=== PATIENT | male | born 1940 | race Caucasian/White ===

== ENCOUNTER 2018-04-08 16:56 | Inpatient (IN) | payer MEDICARE, OTHER ==
[~2018-04-08] VITALS: Ht 167.6 cm; Wt 108.4 kg
--- NOTE | 2018-04-08 | NUR ---
NURSE NOTES: Patient was requesting for ambien. Ambien from [facility] not continued by Dr. Jimenez, instead he ordered restoril. Left message to Dr. Jimenez and Dr. Pinto regarding patient requesting ambien. RN educated patient regarding restoril and patient agreed to try restoril tonight. Addendum: 04/09/18 at 0458 by JOSÉ MIGUEL AUGUSTE RN RN Wrong Date. Entry at 04/09/18 at 0000.
[~2018-04-08 16:56] MED LIST: ADVAIR 250-501 EACH INH; AMBIEN10 M1 ORAL; COUMADIN3 MG ORAL; DIGOXIN125 MCG ORAL; DUONEB 0.5-3(2.53 ML HHN; IPRAT-ALBUT 0.5-3 ML IH; LEXAPRO10 MG ORAL; LIPITOR40 MG ORAL; PRILOSEC20 MG ORAL; PROAIR HFA8.5 GM INH; PROSCAR5 MG ORAL; TOPIRAMATE100 MG ORAL; TOPROL XL50 MG ORAL; URECHOLINE50 MG ORAL
--- NOTE | 2018-04-08 17:01 | NUR ---
ED Nurse Note: Pt came from [facility] due to elevated PSA level of 107. This lab was taken on the 31 of March. Denies pain. A + O x4. Ambulatory. Hx of HTN and COPD. Has a left upper chest pacemaker.
[2018-04-08 17:03] VITALS: BP 111/49
--- NOTE | 2018-04-08 17:39 | NUR ---
ED Nurse Note: Xray at the bedside.
[2018-04-08 17:42] LABS: BASOPHILS % (AUTO) 0.9 % (0.0-2.0); EOSINOPHILS % (AUTO) 5.2 % (0.0-3.0); HEMATOCRIT 40.2 % (42.0-52.0); LYMPHOCYTES % (AUTO) 23.2 % (20.0-45.0); MEAN CORPUSCULAR VOLUME 93 FL (80-99); MONOCYTES % (AUTO) 8.1 % (1.0-10.0); NEUTROPHILS % (AUTO) 62.6 % (45.0-75.0); PLATELET COUNT 139 K/UL (150-450); RED BLOOD COUNT 4.34 M/UL (4.70-6.10); RED CELL DISTRIBUTION WIDTH 12.9 % (11.6-14.8); WHITE BLOOD COUNT 7.4 K/UL (4.8-10.8)
[2018-04-08 18:02] LABS: APPEARANCE,URINE CLOUDY; BILIRUBIN, URINE NEGATIVE (NEGATIVE); COLOR,URINE PALE YELLOW; GLUCOSE, URINE (UA) NEGATIVE (NEGATIVE); KETONES,URINE NEGATIVE (NEGATIVE); LEUKOCYTE ESTERASE ,URINE 2+ (NEGATIVE); NITRITE,URINE POSITIVE (NEGATIVE); PH,URINE 7 (4.5-8.0); PROTEIN,URINE NEGATIVE (NEGATIVE); UROBILINOGEN,URINE NORMAL MG/DL (0.0-1.0)
[2018-04-08 18:05] LABS: ANION GAP 9 mmol/L (5-15); BLOOD UREA NITROGEN 17 mg/dL (7-18); CALCIUM 6.9 MG/DL (8.5-10.1); CARBON DIOXIDE 22 MMOL/L (21-32); CHLORIDE 116 MMOL/L (98-107); CREATININE 0.8 MG/DL (0.55-1.30); SODIUM 147 MMOL/L (136-145)
[2018-04-08 18:10] LABS: ALANINE AMINOTRANSFERASE 18 U/L (12-78); ALBUMIN 2.4 G/DL (3.4-5.0); ALBUMIN/GLOBULIN RATIO 0.8 (1.0-2.7); ALKALINE PHOSPHATASE 68 U/L (46-116); ASPARTATE AMINO TRANSFERASE 20 U/L (15-37); BILIRUBIN,TOTAL 0.3 MG/DL (0.2-1.0)
--- NOTE | 2018-04-08 18:22 | Emergency Room Report ---
History of Present Illness General Chief Complaint: Abnormal Labs Source: Patient Present Illness HPI This patient presents from a residential facility. There are several different complaints. The patient suffered a fracture of his right fifth digit and underwent an x-ray at the residential facility. There was also concerned that he had hypoglycemia. He also had an abnormal PSA. The patient himself has no specific complaints. Allergies: Coded Allergies: NO KNOWN ALLERGIES (Unverified Allergy, Unknown, 11/29/14) Patient History Past Medical History: see triage record, DM, HTN, COPD, GERD Social History: Denies: smoking, alcohol use, drug use Reviewed Nursing Documentation: PMH: Agreed; PSxH: Agreed Nursing Documentation-PMH Past Medical History: No History, Except For Hx Cardiac Problems: Yes - Atrial Fibrillation Hx Hypertension: Yes Hx COPD: Yes Hx Diabetes: Yes Hx Cancer: No Hx Gastrointestinal Problems: Yes Hx Neurological Problems: No Review of Systems All Other Systems: negative except mentioned in HPI Physical Exam Vital Signs Date Time Temp Pulse Resp B/P (MAP) Pulse Ox O2 Delivery O2 Flow Rate FiO2 04/08/18 16:57 98.4 68 20 96/63 92 Room Air Sp02 EP Interpretation: reviewed, normal General Appearance: no apparent distress, alert, GCS 15, non-toxic Head: normocephalic, atraumatic Eyes: bilateral eye normal inspection, bilateral eye PERRL ENT: hearing grossly normal, normal pharynx, no angioedema, normal voice Neck: full range of motion, supple/symm/no masses Respiratory: chest non-tender, lungs clear, normal breath sounds, no respiratory distress, no retraction, no accessory muscle use, speaking full sentences Cardiovascular #1: regular rate, rhythm, no edema Gastrointestinal: normal bowel sounds, non tender, soft, non-distended, no guarding, no rebound Rectal: deferred Musculoskeletal: back normal, gait/station normal, normal range of motion, non- tender, calf tenderness Neurologic: alert, oriented x3, responsive, motor strength/tone normal, sensory intact, speech normal Psychiatric: judgement/insight normal, memory normal, mood/affect normal, no suicidal/homicidal ideation Reflexes: 3+ bicep (R), 3+ bicep (L), 3+ tricep (R), 3+ tricep (L), 3+ knee (R) , 3+ knee (L) Skin: normal color, no rash, warm/dry, well hydrated Lymphatic: no adenopathy Medical Decision Making Diagnostic Impression: Primary Impression: UTI (urinary tract infection) Additional Impression: Finger fracture, right Laboratory Tests Test 04/08/18 17:20 04/08/18 17:45 White Blood Count 7.4 K/UL (4.8-10.8) Red Blood Count 4.34 M/UL (4.70-6.10) L Hemoglobin 13.0 G/DL (14.2-18.0) L Hematocrit 40.2 % (42.0-52.0) L Mean Corpuscular Volume 93 FL (80-99) Mean Corpuscular Hemoglobin 30.0 PG (27.0-31.0) Mean Corpuscular Hemoglobin Concent 32.4 G/DL (32.0-36.0) Red Cell Distribution Width 12.9 % (11.6-14.8) Platelet Count 139 K/UL (150-450) L Mean Platelet Volume 6.3 FL (6.5-10.1) L Neutrophils (%) (Auto) 62.6 % (45.0-75.0) Lymphocytes (%) (Auto) 23.2 % (20.0-45.0) Monocytes (%) (Auto) 8.1 % (1.0-10.0) Eosinophils (%) (Auto) 5.2 % (0.0-3.0) H Basophils (%) (Auto) 0.9 % (0.0-2.0) Sodium Level 147 MMOL/L (136-145) H Potassium Level 3.0 MMOL/L (3.5-5.1) L Chloride Level 116 MMOL/L (98-107) H Carbon Dioxide Level 22 MMOL/L (21-32) Anion Gap 9 mmol/L (5-15) Blood Urea Nitrogen 17 mg/dL (7-18) Creatinine 0.8 MG/DL (0.55-1.30) Estimate Glomerular Filtration Rate mL/min (>60) Glucose Level 73 MG/DL (74-106) L Calcium Level 6.9 MG/DL (8.5-10.1) L Total Bilirubin 0.3 MG/DL (0.2-1.0) Aspartate Amino Transferase (AST) 20 U/L (15-37) Alanine Aminotransferase (ALT) 18 U/L (12-78) Alkaline Phosphatase 68 U/L (46-116) Total Protein 5.3 G/DL (6.4-8.2) L Albumin 2.4 G/DL (3.4-5.0) L Globulin 2.9 g/dL Albumin/Globulin Ratio 0.8 (1.0-2.7) L Urine Color Pale yellow Urine Appearance Cloudy Urine pH 7 (4.5-8.0) Urine Specific Interior 1.010 (1.005-1.035) Urine Protein Negative (NEGATIVE) Urine Glucose (UA) Negative (NEGATIVE) Urine Ketones Negative (NEGATIVE) Urine Blood Negative (NEGATIVE) Urine Nitrite Positive (NEGATIVE) H Urine Bilirubin Negative (NEGATIVE) Urine Urobilinogen Normal MG/DL (0.0-1.0) Urine Leukocyte Esterase 2+ (NEGATIVE) H Urine RBC 0-2 /HPF (0 - 0) H Urine WBC 20-30 /HPF (0 - 0) H Urine Squamous Epithelial Cells Occasional /LPF Urine Amorphous Sediment Many /LPF (NONE) H Urine Bacteria Many /HPF (NONE) H Last Vital Signs Date Time Temp Pulse Resp B/P (MAP) Pulse Ox O2 Delivery O2 Flow Rate FiO2 04/08/18 17:03 98.4 70 19 111/49 99 Room Air Heather Talbot DO Apr 08, 2018 18:22
--- NOTE | 2018-04-08 19:03 | NUR ---
HAND-OFF: Report given to AUNG Bee.
[2018-04-08 19:26] VITALS: BP 122/56
[2018-04-08] MEDS ORDERED: ESCITALOPRAM OX10 MG ORAL (20:25)
[2018-04-08] MEDS ORDERED: CASODEX50 MG ORAL (20:34)
[2018-04-08] MEDS ORDERED: TAMSULOSIN HCL0.4 MG ORAL (20:34)
[2018-04-08] MEDS ORDERED: NOVOLIN R100 UNIT/1 SUBQ (20:34)
[2018-04-08] MEDS ORDERED: CARAFATE1 G1 ORAL (20:34)
[2018-04-08] MEDS ORDERED: LUPRON DEPOT7.5 MG IM (20:34)
[2018-04-08] MEDS ORDERED: CALCIUM + VITA1 EAC1 PO (20:34)
[2018-04-08] MEDS ORDERED: ASPIR 8181 MG ORAL (20:34)
[2018-04-08] MEDS ORDERED: SENOKOT8.6 MG PO (20:34)
[2018-04-08] MEDS ORDERED: DOCUSATE SODIU250 MG ORAL (20:40)
[2018-04-08] MEDS ORDERED: Miralax 17gm pkt ORAL PRN (20:45)
[2018-04-08] MEDS ORDERED: Dextrose 50% 25ml Syringe IV PRN (20:45)
[2018-04-08] MEDS ORDERED: Morphine Sulfate 2mg/ml Inj(IV/IM USE ONLY) IVP PRN (20:45)
[2018-04-08] MEDS ORDERED: Albuterol/Ipratropium 3ml neb HHN PRN (20:45)
[2018-04-08] MEDS ORDERED: Nitroglycerin Subl 0.4mg tab SL PRN (20:45)
--- NOTE | 2018-04-08 22:30 | NUR ---
ER Nurse Note: Report given to AUNG Urias in [place] for continuity of care. Pt a&ox4, VSS, no signs of distress. All orders completed per ERMD orders. All belongings taken with pt.
[2018-04-08 22:31] VITALS: BP 111/50
--- NOTE | 2018-04-08 23:00 | NUR ---
NURSE NOTES: Patient admitted from ER via gurney. Patient is aox4, talkative, denies any pain or discomfort at this time. Belongings verified at bedside. Oriented patient to new room and unit. Noted with redess on sacral and perineal area, wound protocol initiated. Call light and urinal provided to patient. Admitting orders entered by Dr. Jimenez. Will continue POC.
[2018-04-08] MEDS ORDERED: Tamsulosin 0.4mg cap ORAL ONE (23:30)
[2018-04-08] MEDS: NovoLOG Insulin Flexpen SUBQ SCH (23:37)
[2018-04-08 23:47] VITALS: BP 119/63
[2018-04-09] MEDS: Cefepime HCl 2 GM in D5W 110 ML IV SCH ×2 (00:12→15:00)
[2018-04-09] MEDS ORDERED: Vancomycin 1.5 GM in D5W 275 ML IVPB SCH (02:00)
[2018-04-09 05:00] VITALS: BP 126/66
[2018-04-09] MEDS: NovoLOG Insulin Flexpen SUBQ SCH ×4 (05:41→20:42)
[2018-04-09 07:19] LABS: EOSINOPHILS % (AUTO) 6.7 % (0.0-3.0); HEMATOCRIT 36.2 % (42.0-52.0); HEMOGLOBIN 11.7 G/DL (14.2-18.0); LYMPHOCYTES % (AUTO) 27.7 % (20.0-45.0); MEAN CORPUSCULAR VOLUME 92 FL (80-99); MONOCYTES % (AUTO) 9.4 % (1.0-10.0); NEUTROPHILS % (AUTO) 55.2 % (45.0-75.0); PLATELET COUNT 128 K/UL (150-450); RED BLOOD COUNT 3.92 M/UL (4.70-6.10); RED CELL DISTRIBUTION WIDTH 12.8 % (11.6-14.8); WHITE BLOOD COUNT 5.8 K/UL (4.8-10.8)
[2018-04-09 07:22] LABS: ALANINE AMINOTRANSFERASE 17 U/L (12-78); ALBUMIN 2.9 G/DL (3.4-5.0); ALBUMIN/GLOBULIN RATIO 0.9 (1.0-2.7); ALKALINE PHOSPHATASE 69 U/L (46-116); ANION GAP 7 mmol/L (5-15); ASPARTATE AMINO TRANSFERASE 19 U/L (15-37); BILIRUBIN,TOTAL 0.6 MG/DL (0.2-1.0); BLOOD UREA NITROGEN 18 mg/dL (7-18); CALCIUM 8.7 MG/DL (8.5-10.1); CARBON DIOXIDE 26 MMOL/L (21-32); CHLORIDE 110 MMOL/L (98-107); CREATININE 0.9 MG/DL (0.55-1.30); POTASSIUM 3.9 MMOL/L (3.5-5.1); SODIUM 143 MMOL/L (136-145)
--- NOTE | 2018-04-09 07:40 | NUR ---
NURSE NOTES: Patient received in stable condition, eating breakfast in bed. Alert and oriented. Denies SOB or pain at this time. IV site patent and intact on right thumb. Seizure safety precautions maintained, padded rails, bed locked in low position. Call light placed within reach, will continue to monitor.
--- NOTE | 2018-04-09 07:41 | NUR ---
HAND-OFF: Report given to Estella Martinez RN.
[2018-04-09 08:00] VITALS: BP 124/65
[2018-04-09] MEDS: Topiramate 100mg tab ORAL SCH (08:08)
[2018-04-09] MEDS: Digoxin 0.125mg tab ORAL SCH (08:08)
[2018-04-09] MEDS: Heparin 5000 units/ml inj SUBQ SCH ×2 (08:16→20:41)
--- NOTE | 2018-04-09 11:24 | NUR ---
NURSE NOTES:WOUND CARE NOTES:Pt presented on admission with DTPI at sacrococcygeal area .Small purple with red tinged and indurated area noted (L)1.2cm x (W01cm Addendum: 04/09/18 at 1136 by Shanon PATRICION Addendum to Above Wound Notes:(L)1.2cm x (W)1cm.Pt verbalized site is tender when minimally palpated. Erythema secondary to moisture associated noted abd folds, bilat groin ,scrotum and cleft of buttocks.Skin Folds of abd. is malodorous. Both heels are soft but easily blanchable. Education on wound prevention provided to pt .Encouraged pt to shift weight frequently.Pt advised of potential for DTPI becoming an open wound if pressure is not being relieved off buttocks. Encouraged to keep heels off-loaded with pillow. Tx.Plan:Apply Triad Paste to abdominal folds ,scrotum and clefts of buttocks with each perineal care. Apply Cavilon Skin Barrier to sacrococcygeal area.Cover with Optifoam Q3days and prn. APM/CRISTIAN mattress overlay. Encourage and assit with repositioning at least every 2hours or as tolerated. Apply Cavilon to heels .Cover with Optifoam drsg Q7 days and prn. Off-load heels with pillow.
[2018-04-09 12:00] VITALS: BP 98/53
--- NOTE | 2018-04-09 12:01 | Consultation ---
History of Present Illness General Date patient seen: Apr 09, 2018 Chief Complaint: Abnormal Labs Present Illness Allergies: Coded Allergies: NO KNOWN ALLERGIES (Unverified Allergy, Unknown, 11/29/14) Medication History Scheduled Aspirin* (Aspir 81*), 81 MG ORAL DAILY, (Reported) Atorvastatin Calcium* (Lipitor*), 40 MG ORAL BEDTIME, (Reported) Bicalutamide (Casodex), 50 MG ORAL DAILY, (Reported) Calcium Carbonate/Vitamin D3 (Calcium + Vitamin D Tablet), 2 EACH PO DAILY, ( Reported) Digoxin* (Digoxin*), 125 MCG ORAL DAILY, (Reported) Docusate Sodium* (Docusate Sodium*), 250 MG ORAL HS, (Reported) Escitalopram Oxalate (Escitalopram Oxalate*), 5 MG ORAL BEDTIME, (Reported) Finasteride* (Proscar*), 5 MG ORAL DAILY, (Reported) Insulin Regular, Human* (Novolin R*), 0 SUBQ .SLIDING SCALE, (Reported) Leuprolide Acetate (Lupron Depot), 7.5 MG IM MONTHLY ON THE , (Reported) Sennosides (Senokot), 2 TAB PO BID, (Reported) Sucralfate* (Carafate*), 1 GM ORAL TID AC, (Reported) Tamsulosin Hcl (Tamsulosin Hcl*), 0.4 MG ORAL BEDTIME, (Reported) Topiramate* (Topamax*), 100 MG ORAL DAILY, (Reported) Scheduled PRN Zolpidem Tartrate* (Ambien*), 5 MG ORAL HS PRN for Insomnia, (Reported) Discontinued Medications Albuterol Sulfate* (Proair Hfa*), 2 PUFFS INH BID, (Reported) Discontinued Reason: Pt stopped taking med Bethanechol Chl* (Urecholine*), 50 MG ORAL DAILY, (Reported) Discontinued Reason: Pt stopped taking med Fluticasone/Salmeterol (Advair 250-50 Diskus), 1 PUFF INH EVERY 12 HOURS, ( Reported) Discontinued Reason: Pt stopped taking med Ipratropium/Albuterol Sulfate (Iprat-Albut 0.5-3(2.5) Mg/3 Ml), 3 ML IH, ( Reported) Discontinued Reason: Pt stopped taking med Ipratropium/Albuterol Sulfate (DuoNeb 0.5-3(2.5)mg/3ml), 3 ML HHN, (Reported) Discontinued Reason: Pt stopped taking med Metoprolol Succinate* (Toprol Xl*), 50 MG ORAL DAILY, (Reported) Discontinued Reason: Pt stopped taking med Omeprazole (Prilosec), 20 MG ORAL BEFORE BREAKFAST, (Reported) Discontinued Reason: Pt stopped taking med Warfarin Sod* (Coumadin*), 3 MG ORAL DAILY, (Reported) Discontinued Reason: Pt stopped taking med Patient History Healthcare decision maker Resuscitation status Full Code Advanced Directive on File Past Medical/Surgical History Past Medical/Surgical History: (1) Anemia (2) COPD (chronic obstructive pulmonary disease) (3) Diabetes (4) HTN (hypertension) Review of Systems All Other Systems: negative except mentioned in HPI Physical Exam General Appearance: WD/WN Lines, tubes and drains: peripheral HEENT: normocephalic, atraumatic Neck: non-tender, supple Respiratory/Chest: chest wall non-tender, lungs clear Cardiovascular/Chest: normal peripheral pulses, regular rhythm Abdomen: normal bowel sounds, non tender, abnormal bowel sounds Genitourinary/Rectal: normal genital exam Extremities: normal range of motion Last 24 Hour Vital Signs Date Time Temp Pulse Resp B/P (MAP) Pulse Ox O2 Delivery O2 Flow Rate FiO2 04/09/18 09:00 Room Air 04/09/18 08:08 60 04/09/18 08:00 98.4 64 20 124/65 (84) 95 04/09/18 05:00 98.2 60 17 126/66 (86) 96 04/08/18 23:47 98.1 62 18 119/63 (81) 95 04/08/18 23:00 Room Air 04/08/18 22:35 98.4 66 19 111/50 99 Room Air 04/08/18 22:31 98.4 66 19 111/50 99 Room Air 04/08/18 19:26 98.5 72 16 122/56 99 Room Air 04/08/18 17:03 98.4 70 19 111/49 99 Room Air 04/08/18 16:57 98.4 68 20 96/63 92 Room Air Intake and Output 04/08/18 04/09/18 19:00 07:00 Intake Total 1785 ml Output Total 500 ml Balance 1285 ml Intake Oral 400 ml IV Total 1385 ml Output Urine Total 500 ml Laboratory Tests Test 04/08/18 17:20 04/08/18 17:45 04/09/18 05:45 White Blood Count 7.4 K/UL (4.8-10.8) 5.8 K/UL (4.8-10.8) Red Blood Count 4.34 M/UL (4.70-6.10) L 3.92 M/UL (4.70-6.10) L Hemoglobin 13.0 G/DL (14.2-18.0) L 11.7 G/DL (14.2-18.0) L Hematocrit 40.2 % (42.0-52.0) L 36.2 % (42.0-52.0) L Mean Corpuscular Volume 93 FL (80-99) 92 FL (80-99) Mean Corpuscular Hemoglobin 30.0 PG (27.0-31.0) 29.7 PG (27.0-31.0) Mean Corpuscular Hemoglobin Concent 32.4 G/DL (32.0-36.0) 32.2 G/DL (32.0-36.0) Red Cell Distribution Width 12.9 % (11.6-14.8) 12.8 % (11.6-14.8) Platelet Count 139 K/UL (150-450) L 128 K/UL (150-450) L Mean Platelet Volume 6.3 FL (6.5-10.1) L 7.6 FL (6.5-10.1) Neutrophils (%) (Auto) 62.6 % (45.0-75.0) 55.2 % (45.0-75.0) Lymphocytes (%) (Auto) 23.2 % (20.0-45.0) 27.7 % (20.0-45.0) Monocytes (%) (Auto) 8.1 % (1.0-10.0) 9.4 % (1.0-10.0) Eosinophils (%) (Auto) 5.2 % (0.0-3.0) H 6.7 % (0.0-3.0) H Basophils (%) (Auto) 0.9 % (0.0-2.0) 1.0 % (0.0-2.0) Sodium Level 147 MMOL/L (136-145) H 143 MMOL/L (136-145) Potassium Level 3.0 MMOL/L (3.5-5.1) L 3.9 MMOL/L (3.5-5.1) Chloride Level 116 MMOL/L (98-107) H 110 MMOL/L (98-107) H Carbon Dioxide Level 22 MMOL/L (21-32) 26 MMOL/L (21-32) Anion Gap 9 mmol/L (5-15) 7 mmol/L (5-15) Blood Urea Nitrogen 17 mg/dL (7-18) 18 mg/dL (7-18) Creatinine 0.8 MG/DL (0.55-1.30) 0.9 MG/DL (0.55-1.30) Estimat Glomerular Filtration Rate mL/min (>60) mL/min (>60) Glucose Level 73 MG/DL (74-106) L 76 MG/DL (74-106) Calcium Level 6.9 MG/DL (8.5-10.1) L 8.7 MG/DL (8.5-10.1) # Total Bilirubin 0.3 MG/DL (0.2-1.0) 0.6 MG/DL (0.2-1.0) Aspartate Amino Transf (AST/SGOT) 20 U/L (15-37) 19 U/L (15-37) Alanine Aminotransferase (ALT/SGPT) 18 U/L (12-78) 17 U/L (12-78) Alkaline Phosphatase 68 U/L (46-116) 69 U/L (46-116) Total Protein 5.3 G/DL (6.4-8.2) L 6.3 G/DL (6.4-8.2) L Albumin 2.4 G/DL (3.4-5.0) L 2.9 G/DL (3.4-5.0) L Globulin 2.9 g/dL 3.4 g/dL Albumin/Globulin Ratio 0.8 (1.0-2.7) L 0.9 (1.0-2.7) L Urine Color Pale yellow Urine Appearance Cloudy Urine pH 7 (4.5-8.0) Urine Specific White 1.010 (1.005-1.035) Urine Protein Negative (NEGATIVE) Urine Glucose (UA) Negative (NEGATIVE) Urine Ketones Negative (NEGATIVE) Urine Blood Negative (NEGATIVE) Urine Nitrite Positive (NEGATIVE) H Urine Bilirubin Negative (NEGATIVE) Urine Urobilinogen Normal MG/DL (0.0-1.0) Urine Leukocyte Esterase 2+ (NEGATIVE) H Urine RBC 0-2 /HPF (0 - 0) H Urine WBC 20-30 /HPF (0 - 0) H Urine Squamous Epithelial Cells Occasional /LPF Urine Amorphous Sediment Many /LPF (NONE) H Urine Bacteria Many /HPF (NONE) H Height (Feet): 5 Height (Inches): 6.00 Weight (Pounds): 239 Medications Current Medications Medications (Trade) Dose Ordered Sig/Maliha Route PRN Reason Start Time Stop Time Status Last Admin Dose Admin Acetaminophen (Tylenol) 650 mg Q4H PRN ORAL fever 04/08/18 20:45 05/08/18 20:44 Albuterol/ Ipratropium (Albuterol/ Ipratropium) 3 ml Q4H PRN HHN Shortness of Breath 04/08/18 20:45 04/13/18 20:44 Atorvastatin Calcium (Lipitor) 40 mg BEDTIME ORAL 04/09/18 21:00 05/09/18 20:59 Cefepime HCl 2 gm/ Dextrose 110 ml @ 220 mls/hr 0000,1200 IV 04/09/18 00:00 04/16/18 00:00 04/09/18 00:12 Dextrose (Dextrose 50%) 25 ml Q30M PRN IV Hypoglycemia 04/08/18 20:45 05/08/18 20:44 Dextrose (Dextrose 50%) 50 ml Q30M PRN IV hypoglycemia 04/08/18 20:45 05/08/18 20:44 Digoxin (Lanoxin) 0.125 mg DAILY ORAL 04/09/18 09:00 05/09/18 08:59 04/09/18 08:08 Escitalopram Oxalate (Lexapro) 5 mg DAILY ORAL 04/09/18 09:00 05/09/18 08:59 04/09/18 08:07 Finasteride (Proscar) 5 mg DAILY ORAL 04/09/18 09:00 05/09/18 08:59 04/09/18 08:08 Heparin Sodium (Porcine) (Heparin 5000 units/ml) 5,000 units EVERY 12 HOURS SUBQ 04/09/18 09:00 05/09/18 08:59 04/09/18 08:16 Insulin Aspart (NovoLOG) BEFORE MEALS AND HS SUBQ 04/09/18 06:30 05/09/18 06:29 04/08/18 23:37 Morphine Sulfate (Morphine Sulfate) 2 mg Q4H PRN IVP Moderate Pain (Pain Scale 4-6) 04/08/18 20:45 04/15/18 20:44 Nitroglycerin (Ntg) 0.4 mg Q5M PRN SL Prn Chest Pain 04/08/18 20:45 05/08/18 20:44 Ondansetron HCl (Zofran) 4 mg Q6H PRN IVP Nausea & Vomiting 04/08/18 20:45 05/08/18 20:44 Polyethylene Glycol (Miralax) 17 gm DAILYPRN PRN ORAL Constipation 04/08/18 20:45 05/08/18 20:44 Tamsulosin HCl (Flomax) 0.4 mg BEDTIME ORAL 04/09/18 21:00 05/09/18 20:59 Topiramate (Topamax) 100 mg DAILY ORAL 04/09/18 09:00 05/09/18 08:59 04/09/18 08:08 Vancomycin HCl (Vanco rx to dose) 1 ea DAILY PRN MISC rx protocol 04/09/18 08:15 05/09/18 08:14 Vancomycin HCl 1.5 gm/Dextrose 275 ml @ 184 mls/hr Q24H IVPB 04/09/18 02:00 04/14/18 01:59 04/09/18 01:52 Zolpidem Tartrate (Ambien) 5 mg HSPRN PRN ORAL Insomnia 04/09/18 05:00 04/16/18 04:59 Assessment/Plan Problem List: (1) UTI (urinary tract infection) ICD Codes: N39.0 - Urinary tract infection, site not specified SNOMED: 40187924 (2) COPD (chronic obstructive pulmonary disease) ICD Codes: J44.9 - Chronic obstructive pulmonary disease, unspecified SNOMED: 91938306 (3) Anemia ICD Codes: D64.9 - Anemia, unspecified SNOMED: 395203892 (4) HTN (hypertension) ICD Codes: I10 - Essential (primary) hypertension SNOMED: 88205356 (5) Diabetes ICD Codes: E11.9 - Type 2 diabetes mellitus without complications SNOMED: 70343257 Karen Jimenez MD Apr 09, 2018 12:01
--- NOTE | 2018-04-09 12:32 | Diagnostic Imaging Report ---
Indication: Pain, trauma Technique: 3 views of the right fifth finger Comparison: none Findings: There are severe degenerative changes of the distal interphalangeal joint, with marked irregularity of both articular surfaces. On the lateral view, an ossific density projects posterior to the head of the middle phalanx. Ill-defined ossific density also projects anterior to the head of the middle phalanx. No other evidence of acute fracture. No dislocations. Impression: Ossific density projected posterior of the middle phalanx. This is consistent with a fracture, but given the well-corticated appearance of the fragment suspect that this is old rather than acute although this cannot be stated for certain. Bone of origin uncertain. 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
--- NOTE | 2018-04-09 14:23 | NUR ---
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 98.4, Resp. 19, O2Sat 99 Room Air RBC 4.34, Hgb 13.0, Hct 40.2, Plt count 139, MPV 6.3, Eos% 5.2 CXR Impression: Small fracture fragment anterior to distal phalanx IS: NS IV x 1L Flomax 0.4 mg PO K-Dur 60 meq PO Admitted to [facility] DC plan return to [facility]
--- NOTE | 2018-04-09 14:32 | Consultation ---
History of Present Illness General Date patient seen: Apr 09, 2018 Chief Complaint: Abnormal Labs Present Illness HPI 77 y/o M with hx of Dm2, HTN, COPD, AFib, GERD, SNF resident presents to ED on with R 5th digit fracture and hypoglycemia. No urinary symptoms Allergies: Coded Allergies: NO KNOWN ALLERGIES (Unverified Allergy, Unknown, 11/29/14) Medication History Scheduled Aspirin* (Aspir 81*), 81 MG ORAL DAILY, (Reported) Atorvastatin Calcium* (Lipitor*), 40 MG ORAL BEDTIME, (Reported) Bicalutamide (Casodex), 50 MG ORAL DAILY, (Reported) Calcium Carbonate/Vitamin D3 (Calcium + Vitamin D Tablet), 2 EACH PO DAILY, ( Reported) Digoxin* (Digoxin*), 125 MCG ORAL DAILY, (Reported) Docusate Sodium* (Docusate Sodium*), 250 MG ORAL HS, (Reported) Escitalopram Oxalate (Escitalopram Oxalate*), 5 MG ORAL BEDTIME, (Reported) Finasteride* (Proscar*), 5 MG ORAL DAILY, (Reported) Insulin Regular, Human* (Novolin R*), 0 SUBQ .SLIDING SCALE, (Reported) Leuprolide Acetate (Lupron Depot), 7.5 MG IM MONTHLY ON THE , (Reported) Sennosides (Senokot), 2 TAB PO BID, (Reported) Sucralfate* (Carafate*), 1 GM ORAL TID AC, (Reported) Tamsulosin Hcl (Tamsulosin Hcl*), 0.4 MG ORAL BEDTIME, (Reported) Topiramate* (Topamax*), 100 MG ORAL DAILY, (Reported) Scheduled PRN Zolpidem Tartrate* (Ambien*), 5 MG ORAL HS PRN for Insomnia, (Reported) Discontinued Medications Albuterol Sulfate* (Proair Hfa*), 2 PUFFS INH BID, (Reported) Discontinued Reason: Pt stopped taking med Bethanechol Chl* (Urecholine*), 50 MG ORAL DAILY, (Reported) Discontinued Reason: Pt stopped taking med Fluticasone/Salmeterol (Advair 250-50 Diskus), 1 PUFF INH EVERY 12 HOURS, ( Reported) Discontinued Reason: Pt stopped taking med Ipratropium/Albuterol Sulfate (Iprat-Albut 0.5-3(2.5) Mg/3 Ml), 3 ML IH, ( Reported) Discontinued Reason: Pt stopped taking med Ipratropium/Albuterol Sulfate (DuoNeb 0.5-3(2.5)mg/3ml), 3 ML HHN, (Reported) Discontinued Reason: Pt stopped taking med Metoprolol Succinate* (Toprol Xl*), 50 MG ORAL DAILY, (Reported) Discontinued Reason: Pt stopped taking med Omeprazole (Prilosec), 20 MG ORAL BEFORE BREAKFAST, (Reported) Discontinued Reason: Pt stopped taking med Warfarin Sod* (Coumadin*), 3 MG ORAL DAILY, (Reported) Discontinued Reason: Pt stopped taking med Patient History Healthcare decision maker Resuscitation status Full Code Advanced Directive on File Patient History Narrative Pmhx: as above Shx: Denies: smoking, alcohol use, drug use Fhx: non contributory Review of Systems All Other Systems: negative except mentioned in HPI Physical Exam Physical Exam Narrative General Appearance: WD/WN Lines, tubes and drains: peripheral HEENT: normocephalic, atraumatic Neck: non-tender, supple Respiratory/Chest: chest wall non-tender, lungs clear Cardiovascular/Chest: normal peripheral pulses, regular rhythm Abdomen: normal bowel sounds, non tender, abnormal bowel sounds Genitourinary/Rectal: normal genital exam Extremities: normal range of motion Last 24 Hour Vital Signs Date Time Temp Pulse Resp B/P (MAP) Pulse Ox O2 Delivery O2 Flow Rate FiO2 04/09/18 12:00 98.4 60 19 98/53 (68) 97 04/09/18 09:00 Room Air 04/09/18 08:08 60 04/09/18 08:00 98.4 64 20 124/65 (84) 95 04/09/18 05:00 98.2 60 17 126/66 (86) 96 04/08/18 23:47 98.1 62 18 119/63 (81) 95 04/08/18 23:00 Room Air 04/08/18 22:35 98.4 66 19 111/50 99 Room Air 04/08/18 22:31 98.4 66 19 111/50 99 Room Air 04/08/18 19:26 98.5 72 16 122/56 99 Room Air 04/08/18 17:03 98.4 70 19 111/49 99 Room Air 04/08/18 16:57 98.4 68 20 96/63 92 Room Air Intake and Output 04/08/18 04/09/18 19:00 07:00 Intake Total 1785 ml Output Total 500 ml Balance 1285 ml Intake Oral 400 ml IV Total 1385 ml Output Urine Total 500 ml Laboratory Tests Test 04/08/18 17:20 04/08/18 17:45 04/09/18 05:45 White Blood Count 7.4 K/UL (4.8-10.8) 5.8 K/UL (4.8-10.8) Red Blood Count 4.34 M/UL (4.70-6.10) L 3.92 M/UL (4.70-6.10) L Hemoglobin 13.0 G/DL (14.2-18.0) L 11.7 G/DL (14.2-18.0) L Hematocrit 40.2 % (42.0-52.0) L 36.2 % (42.0-52.0) L Mean Corpuscular Volume 93 FL (80-99) 92 FL (80-99) Mean Corpuscular Hemoglobin 30.0 PG (27.0-31.0) 29.7 PG (27.0-31.0) Mean Corpuscular Hemoglobin Concent 32.4 G/DL (32.0-36.0) 32.2 G/DL (32.0-36.0) Red Cell Distribution Width 12.9 % (11.6-14.8) 12.8 % (11.6-14.8) Platelet Count 139 K/UL (150-450) L 128 K/UL (150-450) L Mean Platelet Volume 6.3 FL (6.5-10.1) L 7.6 FL (6.5-10.1) Neutrophils (%) (Auto) 62.6 % (45.0-75.0) 55.2 % (45.0-75.0) Lymphocytes (%) (Auto) 23.2 % (20.0-45.0) 27.7 % (20.0-45.0) Monocytes (%) (Auto) 8.1 % (1.0-10.0) 9.4 % (1.0-10.0) Eosinophils (%) (Auto) 5.2 % (0.0-3.0) H 6.7 % (0.0-3.0) H Basophils (%) (Auto) 0.9 % (0.0-2.0) 1.0 % (0.0-2.0) Sodium Level 147 MMOL/L (136-145) H 143 MMOL/L (136-145) Potassium Level 3.0 MMOL/L (3.5-5.1) L 3.9 MMOL/L (3.5-5.1) Chloride Level 116 MMOL/L (98-107) H 110 MMOL/L (98-107) H Carbon Dioxide Level 22 MMOL/L (21-32) 26 MMOL/L (21-32) Anion Gap 9 mmol/L (5-15) 7 mmol/L (5-15) Blood Urea Nitrogen 17 mg/dL (7-18) 18 mg/dL (7-18) Creatinine 0.8 MG/DL (0.55-1.30) 0.9 MG/DL (0.55-1.30) Estimat Glomerular Filtration Rate mL/min (>60) mL/min (>60) Glucose Level 73 MG/DL (74-106) L 76 MG/DL (74-106) Calcium Level 6.9 MG/DL (8.5-10.1) L 8.7 MG/DL (8.5-10.1) # Total Bilirubin 0.3 MG/DL (0.2-1.0) 0.6 MG/DL (0.2-1.0) Aspartate Amino Transf (AST/SGOT) 20 U/L (15-37) 19 U/L (15-37) Alanine Aminotransferase (ALT/SGPT) 18 U/L (12-78) 17 U/L (12-78) Alkaline Phosphatase 68 U/L (46-116) 69 U/L (46-116) Total Protein 5.3 G/DL (6.4-8.2) L 6.3 G/DL (6.4-8.2) L Albumin 2.4 G/DL (3.4-5.0) L 2.9 G/DL (3.4-5.0) L Globulin 2.9 g/dL 3.4 g/dL Albumin/Globulin Ratio 0.8 (1.0-2.7) L 0.9 (1.0-2.7) L Urine Color Pale yellow Urine Appearance Cloudy Urine pH 7 (4.5-8.0) Urine Specific [place] 1.010 (1.005-1.035) Urine Protein Negative (NEGATIVE) Urine Glucose (UA) Negative (NEGATIVE) Urine Ketones Negative (NEGATIVE) Urine Blood Negative (NEGATIVE) Urine Nitrite Positive (NEGATIVE) H Urine Bilirubin Negative (NEGATIVE) Urine Urobilinogen Normal MG/DL (0.0-1.0) Urine Leukocyte Esterase 2+ (NEGATIVE) H Urine RBC 0-2 /HPF (0 - 0) H Urine WBC 20-30 /HPF (0 - 0) H Urine Squamous Epithelial Cells Occasional /LPF Urine Amorphous Sediment Many /LPF (NONE) H Urine Bacteria Many /HPF (NONE) H Free Prostate Specific Antigen Pending Percent Free Prostate Specific Ag Pending Prostate Specific Antigen Total Pending Height (Feet): 5 Height (Inches): 6.00 Weight (Pounds): 239 Medications Current Medications Medications (Trade) Dose Ordered Sig/Maliha Route PRN Reason Start Time Stop Time Status Last Admin Dose Admin Acetaminophen (Tylenol) 650 mg Q4H PRN ORAL fever 04/08/18 20:45 05/08/18 20:44 Albuterol/ Ipratropium (Albuterol/ Ipratropium) 3 ml Q4H PRN HHN Shortness of Breath 04/08/18 20:45 04/13/18 20:44 Atorvastatin Calcium (Lipitor) 40 mg BEDTIME ORAL 04/09/18 21:00 05/09/18 20:59 Cefepime HCl 2 gm/ Dextrose 110 ml @ 220 mls/hr 0000,1200 IV 04/09/18 00:00 04/16/18 00:00 04/09/18 00:12 Dextrose (Dextrose 50%) 25 ml Q30M PRN IV Hypoglycemia 04/08/18 20:45 05/08/18 20:44 Dextrose (Dextrose 50%) 50 ml Q30M PRN IV hypoglycemia 04/08/18 20:45 05/08/18 20:44 Digoxin (Lanoxin) 0.125 mg DAILY ORAL 04/09/18 09:00 05/09/18 08:59 04/09/18 08:08 Escitalopram Oxalate (Lexapro) 5 mg DAILY ORAL 04/09/18 09:00 05/09/18 08:59 04/09/18 08:07 Finasteride (Proscar) 5 mg DAILY ORAL 04/09/18 09:00 05/09/18 08:59 04/09/18 08:08 Heparin Sodium (Porcine) (Heparin 5000 units/ml) 5,000 units EVERY 12 HOURS SUBQ 04/09/18 09:00 05/09/18 08:59 04/09/18 08:16 Insulin Aspart (NovoLOG) BEFORE MEALS AND HS SUBQ 04/09/18 06:30 05/09/18 06:29 04/08/18 23:37 Morphine Sulfate (Morphine Sulfate) 2 mg Q4H PRN IVP Moderate Pain (Pain Scale 4-6) 04/08/18 20:45 04/15/18 20:44 Nitroglycerin (Ntg) 0.4 mg Q5M PRN SL Prn Chest Pain 04/08/18 20:45 05/08/18 20:44 Ondansetron HCl (Zofran) 4 mg Q6H PRN IVP Nausea & Vomiting 04/08/18 20:45 05/08/18 20:44 Polyethylene Glycol (Miralax) 17 gm DAILYPRN PRN ORAL Constipation 04/08/18 20:45 05/08/18 20:44 Tamsulosin HCl (Flomax) 0.4 mg BEDTIME ORAL 04/09/18 21:00 05/09/18 20:59 Topiramate (Topamax) 100 mg DAILY ORAL 04/09/18 09:00 05/09/18 08:59 04/09/18 08:08 Vancomycin HCl (Vanco rx to dose) 1 ea DAILY PRN MISC rx protocol 04/09/18 08:15 05/09/18 08:14 Vancomycin HCl 1.5 gm/Dextrose 275 ml @ 184 mls/hr Q24H IVPB 04/09/18 02:00 04/14/18 01:59 04/09/18 01:52 Zolpidem Tartrate (Ambien) 5 mg HSPRN PRN ORAL Insomnia 04/09/18 05:00 04/16/18 04:59 Assessment/Plan Assessment/Plan Abx: IV Vancomycin 04/09- Cefepime 04/09- Assessment: Afebrile No leukocytosis Pyuria- no UTI symptoms -u/a wbc 20-30, nit +, leuk +2; ucx p R 5th digit fracture -Xray R hand: Ossific density projected posterior of the middle phalanx. This is consistent with a fracture, but given the well-corticated appearance of the fragment suspect that this is old rather than acute although this cannot be stated for certain. Bone of origin uncertain. There is also suggestion of a small fracture fragment anterior to the distal phalanx. 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 Will continue to follow along with you. Discussed with Susan Dewey M.D. Apr 09, 2018 14:32
[2018-04-09] MEDS ORDERED: LORazepam 1mg tab ORAL PRN (15:00)
[2018-04-09 16:00] VITALS: BP 106/64
--- NOTE | 2018-04-09 16:13 | NUR ---
*-* INSURANCE *-* ALL AVAILABLE CLINICALS AND REVIEWS HAVE BEEN FAXED TO: JIMMY LOZADA P:[phone] F:[phone]
--- NOTE | 2018-04-09 17:00 | History and Physical Report ---
DATE OF ADMISSION: 04/08/2018 CONSULTANTS: 1. Karen Jimenez M.D. 2. Chin Cope M.D. 3. Stephon Castillo M.D. 4. Mahendra Flores M.D. 5. Molina Tapia M.D. CHIEF COMPLAINT: Right fifth finger fracture and urinary tract infection. BRIEF HISTORY: This is a 77-year-old male, who lives at [facility], presents with history of fall, striking right finger, diagnosed with the fracture, came to [facility], diagnosed with the above as well as urinary tract infection, and admitted to medical floor for further treatment. Currently, calm in bed. No complaint. PAST MEDICAL HISTORY: Includes hypertension, diabetes, chronic obstructive pulmonary disease, and anemia. PAST SURGICAL HISTORY: Pacer. MEDICATIONS: Include Lipitor, Flomax, Lanoxin, Lexapro, Proscar, Topamax, heparin, vancomycin, Ambien, cefepime, albuterol, Tylenol, and morphine. ALLERGIES: Denies. SOCIAL HISTORY: No smoking. No alcohol. No intravenous drug abuse. FAMILY HISTORY: Noncontributory. REVIEW OF SYSTEMS: No chest pain. No shortness of breath. No nausea, vomiting, or diarrhea. PHYSICAL EXAMINATION: GENERAL: Calm in bed, oriented x2, in no acute distress. VITAL SIGNS: Temperature 98 degrees, pulse 68, respirations 19, and blood pressure 90/53. CARDIOVASCULAR: No murmurs. LUNGS: Distant and clear. ABDOMEN: Bowel sounds positive. Nontender. Nondistended. EXTREMITIES: No cyanosis, clubbing, or edema. Right fifth fingertip slightly swollen, red, and slightly tender. NEUROLOGIC: The patient moves all extremities, slightly weak. LABORATORY AND DIAGNOSTIC DATA: Hemoglobin and hematocrit are 11 and 36 and platelets 128,000. Otherwise, CBC is normal. BMP show chloride is 110 and albumin 2.9, otherwise BMP is normal. Urinalysis show 2+ leukocyte esterase. ASSESSMENT: 1. Right fifth finger fracture. 2. Urinary tract infection. 3. Per patient, elevated PSA. 4. Anemia. 5. Diabetes. 6. Hypertension. 7. Chronic obstructive pulmonary disease. 8. Malnutrition. PLAN: 1. Pain control. 2. Dietary followup. 3. Antibiotics per Infectious Disease. 4. Blood pressure and blood sugar control. 5. We will continue to follow this patient. 6. Resume home medications. Mickey Pinto D.O. DR: LUPE JOB#: [id number] CC:
[2018-04-09 17:21] VITALS: BP 106/64
--- NOTE | 2018-04-09 19:38 | NUR ---
HAND-OFF: Report given to Carmella HORAN.
--- NOTE | 2018-04-09 19:47 | NUR ---
NURSE NOTES: PATIENT IN BED, AWAKE, ALERT, TALKATIVE. IV IN PLACE, PATENT. NO COMPLAINTS OF PAIN AT THIS TIME. NO S/S DISTRESS NOTED. BED IN LOWEST POSITION, CALL LIGHT WITHIN REACH, BED ALARM ON. WILL CONTINUE TO MONITOR.
[2018-04-09 20:00] VITALS: BP 112/52
[2018-04-09] MEDS: Atorvastatin 20mg tab ORAL SCH (20:38)
[2018-04-09] MEDS: Tamsulosin 0.4mg cap ORAL SCH (20:38)
[2018-04-09] MEDS: Zolpidem 5mg tab ORAL PRN (20:56)
--- NOTE | 2018-04-09 22:15 | Consultation ---
DATE OF CONSULTATION: 04/09/2018 CONSULTING PHYSICIAN: Molina Tapia M.D. HISTORY OF PRESENT ILLNESS: The patient is a 77-year-old male patient. The patient has a history of pyelonephritis, but this patient came into the hospital confused and disorganized. He came into the hospital because he has pyelonephritis. He has a history of pyelonephritis. The patient also has overlying diagnosis of bipolar 2 disorder and he seemed to perseverate on a lot of topics. It is difficult for him to move on to different topics. He does have depression, confusion, and mood lability. He has no logical plan for his own self-care, feelings of helplessness and hopelessness, low energy, poor appetite, and loss of interest in activity. He does have racing thoughts. When I saw him in his room, he had pressured speech pattern. It was difficult to slow him down from talking and I think his mood lability has worsened secondary to stress of his medical illness. PAST MEDICAL HISTORY: Urinary tract infection. He has a finger fracture, pyelonephritis, diabetes, atrial fibrillation, and COPD. ALLERGIES: He has known drug allergies. MEDICATIONS: Psychotropic medications on admission, he is currently on a psych med regimen consisting of Topamax 100 mg daily and Ativan 1 mg every 6 hours. He is on Lexapro currently. SUBSTANCE ABUSE HISTORY: Denies. PAIN ASSESSMENT: 04/19 pain. DEVELOPMENTAL PROBLEMS: Denies. FAMILY PSYCHIATRIC HISTORY: Denies. SOCIAL HISTORY: This patient is currently living in [facility]. Financially supported by [facility] and Medicare. STRENGTHS: He is motivated to get better and he is healthy. WEAKNESSES: He is impulsive and minimal support system. MENTAL STATUS EXAMINATION: He is a 77-year-old male. Appearance is disheveled. Attitude is irritable and agitated. Affect, guarded and restricted. Intellect poor. Mood depressed and anxious. Motor activity, psychomotor agitation. Attention span is poor. Orientation x2. Speech is low volume and slurred. Thought process, disorganized and logical. Insight and judgment is poor. DIAGNOSES: 1. Bipolar 2. 2. Medical is pyelonephritis, diabetes, hypertension, . 3. Psychosocial stressors, financial. PLAN: I am going to continue this patient on psychotropic medication regimen consisting of Lexapro. I am going to titrate up to 10 mg daily. Continue Topamax 100 mg daily and Ativan 1 mg every 6 hours p.r.n. anxiety and agitation. Provided him 20 minutes of reality-based supportive psychotherapy. I encouraged him to interact appropriately with staff and other patients. Chart reviewed and discussed with staff. The patient is seen and assessed at bedside. Twenty minutes of cognitive behavioral therapy was provided to help him identify his automatic negative thoughts, help him to convert those negative thoughts to more positive thoughts to reduce depression, anxiety, and suicidality. Chart reviewed. Discussed with staff. Seen and assessed in his room. Molina Tapia M.D. DR: MARIELOS JOB#: [id number] CC:
--- NOTE | 2018-04-10 00:45 | Consultation ---
DATE OF CONSULTATION: 04/09/2018 ORTHOPEDIC CONSULTATION CHIEF COMPLAINT: Right hand pain. HISTORY OF PRESENT ILLNESS: The patient is a pleasant gentleman who sustained an injury to the right hand. It is unclear exactly what transpired, but has some swelling and pain. Imaging studies showed a fracture, therefore, orthopedic consultation is obtained for further recommendation that he presented after having a fall striking his right hand. PAST MEDICAL HISTORY: Hypertension, diabetes, COPD, and anemia. PAST SURGICAL HISTORY: Pacemaker placement. MEDICATIONS: Per intake chart. ALLERGIES: None. SOCIAL HISTORY: The patient does not smoke or drink. FAMILY HISTORY: Noncontributory. PHYSICAL EXAMINATION: The patient has some swelling along the distal aspect of the right hand, but appears to be intact. Sensation grossly intact to light touch. There is some tenderness to palpation. IMAGING: Imaging study show a bony mallet fracture with some osteolysis of the distal PIP joint. ASSESSMENT: Bony mallet finger, right hand. DISCUSSION: At this point, the joint is reduced, therefore, does not require any operative intervention. What I recommend is I discussed with him possibly getting a DIP splint for the hand. The patient does not want to do that. I discussed with him that he may have a flexion contracture deformity, which is from a clinical point of view. It is okay as long as he is able to make a fist. At this point, he can follow up as needed if the closed treatment of mallet finger does not provide enough relief of his symptoms. Stephon Castillo M.D. DR: YADIRA JOB#: [id number] CC:
--- NOTE | 2018-04-10 04:30 | NUR ---
NURSE NOTES: PATIENT ASLEEP, NO DISTRESS.
[2018-04-10 04:38] VITALS: BP 113/58
[2018-04-10] MEDS: NovoLOG Insulin Flexpen SUBQ SCH ×4 (05:34→20:53)
[2018-04-10 07:13] LABS: EOSINOPHILS % (AUTO) 8.3 % (0.0-3.0); HEMATOCRIT 39.5 % (42.0-52.0); HEMOGLOBIN 12.8 G/DL (14.2-18.0); LYMPHOCYTES % (AUTO) 20.1 % (20.0-45.0); MEAN CORPUSCULAR VOLUME 92 FL (80-99); NEUTROPHILS % (AUTO) 62.5 % (45.0-75.0); PLATELET COUNT 129 K/UL (150-450); RED BLOOD COUNT 4.28 M/UL (4.70-6.10); RED CELL DISTRIBUTION WIDTH 12.9 % (11.6-14.8); WHITE BLOOD COUNT 5.4 K/UL (4.8-10.8)
[2018-04-10 07:21] LABS: ANION GAP 9 mmol/L (5-15); BLOOD UREA NITROGEN 18 mg/dL (7-18); CALCIUM 8.7 MG/DL (8.5-10.1); CARBON DIOXIDE 25 MMOL/L (21-32); CHLORIDE 108 MMOL/L (98-107); POTASSIUM 4.3 MMOL/L (3.5-5.1); SODIUM 142 MMOL/L (136-145)
--- NOTE | 2018-04-10 07:23 | NUR ---
HAND-OFF: Report given to ANGEL ROGER RN.
--- NOTE | 2018-04-10 07:36 | NUR ---
NURSE NOTES: Patient received in stable condition, resting in bed. Alert and oriented, breathing unlabored on room air. Condom catheter is on and draining well. Bed locked in low position. Rails padded for seizure precautions. Call light placed within reach, will continue to monitor.
[2018-04-10 08:00] VITALS: BP 108/55
[2018-04-10] MEDS: Topiramate 100mg tab ORAL SCH (08:11)
[2018-04-10] MEDS: Digoxin 0.125mg tab ORAL SCH (08:11)
[2018-04-10] MEDS: Heparin 5000 units/ml inj SUBQ SCH ×2 (08:19→20:53)
--- NOTE | 2018-04-10 10:35 | NUR ---
REHAB MED PT NOTE CONSULT RECEIVED, JUANA COMPLTED, PATIENT WILL BENEFIT FROM SKILLED PT DURING STAY FOR RETURN TO [facility]. RECOMMEND SNF AT [place]. PLAN OF CARE INITIATED. TIO WILSON PT DPT Addendum: 04/10/18 at 1036 by TIO WILSON PT Amended: Links added.
[2018-04-10 12:00] VITALS: BP 114/60
[2018-04-10] MEDS ORDERED: Calcium Carbonate 500mg w/Vit D 200iu tab ORAL SCH (13:00)
--- NOTE | 2018-04-10 13:10 | General Progress Note ---
Assessment/Plan Problem List: (1) UTI (urinary tract infection) ICD Codes: N39.0 - Urinary tract infection, site not specified SNOMED: 22327269 (2) Finger fracture, right ICD Codes: S62.609A - Fracture of unspecified phalanx of unspecified finger, initial encounter for closed fracture SNOMED: 60807838 (3) HTN (hypertension) ICD Codes: I10 - Essential (primary) hypertension SNOMED: 48479545 (4) COPD (chronic obstructive pulmonary disease) ICD Codes: J44.9 - Chronic obstructive pulmonary disease, unspecified SNOMED: 25669795 (5) Anemia ICD Codes: D64.9 - Anemia, unspecified SNOMED: 743795188 Status: stable, progressing Assessment/Plan pt diet pain control abx uro f/u cbc bmp am Subjective Constitutional: Reports: weakness Allergies: Coded Allergies: NO KNOWN ALLERGIES (Unverified Allergy, Unknown, 11/29/14) All Systems: reviewed and negative except above Subjective eating calm no complaints Objective Last 24 Hour Vital Signs Date Time Temp Pulse Resp B/P (MAP) Pulse Ox O2 Delivery O2 Flow Rate FiO2 04/10/18 09:00 Room Air 04/10/18 08:11 72 04/10/18 08:00 98.4 70 20 108/55 (72) 98 04/10/18 04:38 97.9 72 20 113/58 (76) 96 04/09/18 23:49 Room Air 04/09/18 20:00 98.6 67 20 112/52 (72) 97 04/09/18 17:21 97.9 66 20 106/64 (78) 98 04/09/18 16:00 97.9 66 20 106/64 (78) 98 Intake and Output 04/09/18 04/10/18 19:00 07:00 Intake Total 550 ml Output Total 1000 ml Balance 550 ml -1000 ml Intake Oral 550 ml Output Urine Total 1000 ml # Voids 4 # Bowel Movements 1 1 Laboratory Tests 04/10/18 05:45: White Blood Count 5.4, Red Blood Count 4.28L, Hemoglobin 12.8L, Hematocrit 39.5L , Mean Corpuscular Volume 92, Mean Corpuscular Hemoglobin 29.8, Mean Corpuscular Hemoglobin Concent 32.3, Red Cell Distribution Width 12.9, Platelet Count 129L, Mean Platelet Volume 7.5, Neutrophils (%) (Auto) 62.5, Lymphocytes ( %) (Auto) 20.1, Monocytes (%) (Auto) 8.0, Eosinophils (%) (Auto) 8.3H, Basophils (%) (Auto) 1.0, Sodium Level 142, Potassium Level 4.3, Chloride Level 108H, Carbon Dioxide Level 25, Anion Gap 9, Blood Urea Nitrogen 18, Creatinine 1.0, Estimat Glomerular Filtration Rate , Glucose Level 83, Calcium Level 8.7 Height (Feet): 5 Height (Inches): 6.00 Weight (Pounds): 239 General Appearance: lethargic EENT: normal ENT inspection Neck: normal alignment Cardiovascular: normal peripheral pulses, normal rate, regular rhythm Respiratory/Chest: chest wall non-tender, lungs clear, normal breath sounds Abdomen: normal bowel sounds, non tender, soft Extremities: normal inspection Edema: no edema noted Arm (L), no edema noted Arm (R), no edema noted Leg (L), no edema noted Leg (R), no edema noted Pedal (L), no edema noted Pedal (R), no edema noted Generalized Neurologic: responsive, motor weakness Skin: normal pigmentation, warm/dry Mikcey Pinto DO Apr 10, 2018 13:10
--- NOTE | 2018-04-10 13:13 | NUR ---
RD ASSESSMENT & RECOMMENDATIONS SEE CARE ACTIVITY FOR COMPLETE ASSESSMENT DAILY ESTIMATED NEEDS: Needs based on wound, obese/ 80.5kg 25-28 kcals/kg total kcals 1.25-1.5 g protein/kg 100-120 g total protein 25-30 mL/kg total fluid mLs NUTRITION DIAGNOSIS: Increased protein intake needs R/T wound healing as evidenced by DTPI wound @ sacrococcyx. CURRENT DIET:CCHO MED PO DIET RECOMMENDATIONS: CCHO MED, double protein portions/ texture as tolerated ADDITIONAL RECOMMENDATIONS: * Calibrated bedscale wt for accurate CBW * A1C for eval of glycemic control * Wound heailng: Add MVI x 1, Vit C 500mg QD, Timothy 1pkt BID
--- NOTE | 2018-04-10 15:11 | NUR ---
District Customs DirectorLiability Claims Examiner SI: Pyelonephritis VS: BP 108/55, P 70, Temp. 97.9, Resp. 20, O2Sat 96 Room Air UA: Nitrates Positive, Leukocyte Est. 2+, Urine RBC 0-2, Sediment Many, Bacteria Many PSA 65.2, Albumin 2.9, Total Protein 6.3 IS:Flomax Digoxin Topamax Proscar MED/SURG STATUS
[2018-04-10 16:00] VITALS: BP 118/56
--- NOTE | 2018-04-10 16:00 | Consultation ---
DATE OF CONSULTATION: 04/10/2018 UROLOGY CONSULTATION: CONSULTING PHYSICIAN: Mahendra Flores M.D. CHIEF COMPLAINT/HISTORY OF PRESENT ILLNESS: I was asked by Dr. Pinto to evaluate this 77-year-old, gentleman with a history of prostate cancer regarding elevated PSA. Briefly, the patient has a history of prostate cancer and is followed by an outside urologist. He reports his PSA being in the 20 to 30 range in the past. More recently, it was noted to be 107 in his nursing facility. He was brought to the hospital and noted to have evidence of urinary tract infection. He was started on antibiotics for the same. His followup PSA has dropped to 65. PAST MEDICAL HISTORY: 1. Prostate cancer with elevated PSA. 2. Hypertension. 3. Diabetes. 4. COPD. 5. Anemia. 6. Finger fracture. PAST SURGICAL HISTORY: 1. Prostate needle biopsy. 2. Pacemaker placement. MEDICATIONS: Please see the chart for current medications and administration details. Briefly, the patient is receiving ceftriaxone for antibiotic coverage. ALLERGIES: No known drug allergies. SOCIAL HISTORY: Unremarkable for tobacco, alcohol, or drug use. The patient lives in a nursing facility. FAMILY HISTORY: Noncontributory. REVIEW OF SYSTEMS: A 14 system review of systems was essentially unremarkable outside of what is described above. PHYSICAL EXAMINATION: GENERAL: The patient is an elderly gentleman, awake, alert, oriented x4. No obvious distress. HEENT: NC/AT. EOMI. Oropharynx clear. NECK: Supple. CHEST: Within normal limits. ABDOMEN: Soft, nontender, nondistended. EXTREMITIES: Warm, well perfused. No cyanosis, clubbing, or edema. BACK: No CVA tenderness to percussion. NEUROLOGIC: Grossly nonfocal. LABORATORY DATA: White blood cell count of 5.4, hematocrit 39.5, platelets 129. Sodium 142, potassium 4.3, chloride 108, bicarbonate 25, BUN 18, creatinine 1.0, glucose 83, calcium 8.7. Urinalysis, specific gravity 1.010, pH 7.0. Dip test notable for positive nitrites and 2+ leukocyte esterase. Microanalysis is 20 to 30 white blood cells per high-power field and many bacteria seen. Total PSA 65.2. DIAGNOSTIC IMAGING: None relevant. ASSESSMENT AND PLAN: In summary, the patient is a 77-year-old gentleman with a history of prostate cancer with a PSA in the 20 to 30 range. He presents from an outside facility with finger fracture and urinary tract infection. His PSA was 105 in the setting of infection and on the antibiotics, it is already decreased down to 65. Physical exam is unremarkable. Laboratory data is notable for an elevated PSA and evidence of urinary tract infection and a culture is pending. There is no relevant diagnostic imaging. This patient's PSA jump is very likely secondary to his urinary tract infection superimposed on his prostate cancer. As he is receiving antibiotics, the number is already starting to drop. I would continue him on a 7 to 10-day course of antibiotics to treat his infection and then eventually repeat his PSA with his regular doctor. He understands that there are treatment options for prostate cancer that can be considered beyond surveillance at that point. Thank you for allowing me to participate in the care of this unfortunate gentleman. Please do not hesitate to contact me with any questions that you may further have regarding his care. I will see him with you as needed. Mahendra Flores M.D. DR: MINOR JOB#: [id number] CC:
[2018-04-10] MEDS: Calcium Carbonate 500mg w/Vit D 200iu tab ORAL SCH (17:13)
--- NOTE | 2018-04-10 17:21 | Pulmonology Progress Note ---
Assessment/Plan Problems: (1) UTI (urinary tract infection) (2) COPD (chronic obstructive pulmonary disease) (3) Anemia (4) HTN (hypertension) (5) Diabetes Subjective Allergies: Coded Allergies: NO KNOWN ALLERGIES (Unverified Allergy, Unknown, 11/29/14) Objective Last 24 Hour Vital Signs Date Time Temp Pulse Resp B/P (MAP) Pulse Ox O2 Delivery O2 Flow Rate FiO2 04/10/18 16:00 98.6 72 20 118/56 (76) 100 04/10/18 12:00 98.4 68 19 114/60 (78) 97 04/10/18 09:00 Room Air 04/10/18 08:11 72 04/10/18 08:00 98.4 70 20 108/55 (72) 98 04/10/18 04:38 97.9 72 20 113/58 (76) 96 04/09/18 23:49 Room Air 04/09/18 20:00 98.6 67 20 112/52 (72) 97 Intake and Output 04/09/18 04/10/18 19:00 07:00 Intake Total 550 ml Output Total 1000 ml Balance 550 ml -1000 ml Intake Oral 550 ml Output Urine Total 1000 ml # Voids 4 # Bowel Movements 1 1 Objective General Appearance: WD/WN Lines, tubes and drains: peripheral HEENT: normocephalic, atraumatic Neck: non-tender, supple Respiratory/Chest: chest wall non-tender, lungs clear Breasts: no masses Cardiovascular/Chest: normal rate, no JVD Abdomen: normal bowel sounds Genitourinary/Rectal: normal genital exam, heme negative stool Extremities: normal range of motion, non-tender Skin Exam: normal pigmentation Neurologic: reuse technician II-XII grossly normal Microbiology Date/Time Source Procedure Growth Status 04/08/18 05:55 Blood Blood Culture - Preliminary NO GROWTH AFTER 24 HOURS Resulted 04/08/18 05:45 Blood Blood Culture - Preliminary NO GROWTH AFTER 24 HOURS Resulted 04/08/18 17:45 Urine,Clean Catch Urine Culture - Preliminary Gram Negative Bacillus 1 Resulted Laboratory Tests 04/10/18 05:45: White Blood Count 5.4, Red Blood Count 4.28L, Hemoglobin 12.8L, Hematocrit 39.5L , Mean Corpuscular Volume 92, Mean Corpuscular Hemoglobin 29.8, Mean Corpuscular Hemoglobin Concent 32.3, Red Cell Distribution Width 12.9, Platelet Count 129L, Mean Platelet Volume 7.5, Neutrophils (%) (Auto) 62.5, Lymphocytes ( %) (Auto) 20.1, Monocytes (%) (Auto) 8.0, Eosinophils (%) (Auto) 8.3H, Basophils (%) (Auto) 1.0, Sodium Level 142, Potassium Level 4.3, Chloride Level 108H, Carbon Dioxide Level 25, Anion Gap 9, Blood Urea Nitrogen 18, Creatinine 1.0, Estimat Glomerular Filtration Rate , Glucose Level 83, Calcium Level 8.7 Current Medications Medications (Trade) Dose Ordered Sig/Maliha Route PRN Reason Start Time Stop Time Status Last Admin Dose Admin Acetaminophen (Tylenol) 650 mg Q4H PRN ORAL fever 04/08/18 20:45 05/08/18 20:44 Albuterol/ Ipratropium (Albuterol/ Ipratropium) 3 ml Q4H PRN HHN Shortness of Breath 04/08/18 20:45 04/13/18 20:44 Atorvastatin Calcium (Lipitor) 40 mg BEDTIME ORAL 04/09/18 21:00 05/09/18 20:59 04/09/18 20:38 Calcium Carbonate (OsCal D) 2 tab DAILY ORAL 04/10/18 18:00 05/10/18 17:59 04/10/18 17:13 Dextrose (Dextrose 50%) 25 ml Q30M PRN IV Hypoglycemia 04/08/18 20:45 05/08/18 20:44 Dextrose (Dextrose 50%) 50 ml Q30M PRN IV hypoglycemia 04/08/18 20:45 05/08/18 20:44 Digoxin (Lanoxin) 0.125 mg DAILY ORAL 04/09/18 09:00 05/09/18 08:59 04/10/18 08:11 Docusate Sodium (Colace) 250 mg DAILY ORAL 04/11/18 09:00 05/11/18 08:59 Escitalopram Oxalate (Lexapro) 10 mg DAILY ORAL 04/10/18 09:00 05/09/18 08:59 04/10/18 08:11 Finasteride (Proscar) 5 mg DAILY ORAL 04/09/18 09:00 05/09/18 08:59 04/10/18 08:22 Heparin Sodium (Porcine) (Heparin 5000 units/ml) 5,000 units EVERY 12 HOURS SUBQ 04/09/18 09:00 05/09/18 08:59 04/10/18 08:19 Insulin Aspart (NovoLOG) BEFORE MEALS AND HS SUBQ 04/09/18 06:30 05/09/18 06:29 04/09/18 20:42 Lorazepam (Ativan) 1 mg Q6H PRN ORAL For Anxiety 04/09/18 15:00 04/16/18 14:59 Morphine Sulfate (Morphine Sulfate) 2 mg Q4H PRN IVP Moderate Pain (Pain Scale 4-6) 04/08/18 20:45 04/15/18 20:44 Nitroglycerin (Ntg) 0.4 mg Q5M PRN SL Prn Chest Pain 04/08/18 20:45 05/08/18 20:44 Ondansetron HCl (Zofran) 4 mg Q6H PRN IVP Nausea & Vomiting 04/08/18 20:45 05/08/18 20:44 Polyethylene Glycol (Miralax) 17 gm DAILYPRN PRN ORAL Constipation 04/08/18 20:45 05/08/18 20:44 Tamsulosin HCl (Flomax) 0.4 mg BEDTIME ORAL 04/09/18 21:00 05/09/18 20:59 04/09/18 20:38 Topiramate (Topamax) 100 mg DAILY ORAL 04/09/18 09:00 05/09/18 08:59 04/10/18 08:11 Zolpidem Tartrate (Ambien) 5 mg HSPRN PRN ORAL Insomnia 04/09/18 05:00 04/16/18 04:59 04/09/18 20:56 Karen Jimenez MD Apr 10, 2018 17:21
--- NOTE | 2018-04-10 17:27 | Infectious Diseases Prog Note ---
Assessment/Plan Assessment/Plan Assessment: Afebrile No leukocytosis Pyuria- no UTI symptoms -u/a wbc 20-30, nit +, leuk +2; ucx >100K GNR R 5th digit fracture -Xray R hand: Ossific density projected posterior of the middle phalanx. This is consistent with a fracture, but given the well-corticated appearance of the fragment suspect that this is old rather than acute although this cannot be stated for certain. Bone of origin uncertain. There is also suggestion of a small fracture fragment anterior to the distal phalanx. 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 Will continue to follow along with you. Discussed with RN. Subjective Allergies: Coded Allergies: NO KNOWN ALLERGIES (Unverified Allergy, Unknown, 11/29/14) Subjective afebrile no leukocytosis Objective Vital Signs Last 24 Hour Vital Signs Date Time Temp Pulse Resp B/P (MAP) Pulse Ox O2 Delivery O2 Flow Rate FiO2 04/10/18 16:00 98.6 72 20 118/56 (76) 100 04/10/18 12:00 98.4 68 19 114/60 (78) 97 04/10/18 09:00 Room Air 04/10/18 08:11 72 04/10/18 08:00 98.4 70 20 108/55 (72) 98 04/10/18 04:38 97.9 72 20 113/58 (76) 96 04/09/18 23:49 Room Air 04/09/18 20:00 98.6 67 20 112/52 (72) 97 Height (Feet): 5 Height (Inches): 6.00 Weight (Pounds): 239 Objective General Appearance: WD/WN Lines, tubes and drains: peripheral HEENT: normocephalic, atraumatic Neck: non-tender, supple Respiratory/Chest: chest wall non-tender, lungs clear Cardiovascular/Chest: normal peripheral pulses, regular rhythm Abdomen: normal bowel sounds, non tender, abnormal bowel sounds Genitourinary/Rectal: normal genital exam Extremities: normal range of motion Microbiology Date/Time Source Procedure Growth Status 04/08/18 05:55 Blood Blood Culture - Preliminary NO GROWTH AFTER 24 HOURS Resulted 04/08/18 05:45 Blood Blood Culture - Preliminary NO GROWTH AFTER 24 HOURS Resulted 04/08/18 17:45 Urine,Clean Catch Urine Culture - Preliminary Gram Negative Bacillus 1 Resulted Laboratory Tests Test 04/10/18 05:45 White Blood Count 5.4 K/UL (4.8-10.8) Red Blood Count 4.28 M/UL (4.70-6.10) L Hemoglobin 12.8 G/DL (14.2-18.0) L Hematocrit 39.5 % (42.0-52.0) L Mean Corpuscular Volume 92 FL (80-99) Mean Corpuscular Hemoglobin 29.8 PG (27.0-31.0) Mean Corpuscular Hemoglobin Concent 32.3 G/DL (32.0-36.0) Red Cell Distribution Width 12.9 % (11.6-14.8) Platelet Count 129 K/UL (150-450) L Mean Platelet Volume 7.5 FL (6.5-10.1) Neutrophils (%) (Auto) 62.5 % (45.0-75.0) Lymphocytes (%) (Auto) 20.1 % (20.0-45.0) Monocytes (%) (Auto) 8.0 % (1.0-10.0) Eosinophils (%) (Auto) 8.3 % (0.0-3.0) H Basophils (%) (Auto) 1.0 % (0.0-2.0) Sodium Level 142 MMOL/L (136-145) Potassium Level 4.3 MMOL/L (3.5-5.1) Chloride Level 108 MMOL/L (98-107) H Carbon Dioxide Level 25 MMOL/L (21-32) Anion Gap 9 mmol/L (5-15) Blood Urea Nitrogen 18 mg/dL (7-18) Creatinine 1.0 MG/DL (0.55-1.30) Estimat Glomerular Filtration Rate mL/min (>60) Glucose Level 83 MG/DL (74-106) Calcium Level 8.7 MG/DL (8.5-10.1) Current Medications Medications (Trade) Dose Ordered Sig/Maliha Route PRN Reason Start Time Stop Time Status Last Admin Dose Admin Acetaminophen (Tylenol) 650 mg Q4H PRN ORAL fever 2/27/19 20:45 05/08/18 20:44 Albuterol/ Ipratropium (Albuterol/ Ipratropium) 3 ml Q4H PRN HHN Shortness of Breath 04/08/18 20:45 04/13/18 20:44 Atorvastatin Calcium (Lipitor) 40 mg BEDTIME ORAL 04/09/18 21:00 05/09/18 20:59 04/09/18 20:38 Calcium Carbonate (OsCal D) 2 tab DAILY ORAL 04/10/18 18:00 05/10/18 17:59 04/10/18 17:13 Dextrose (Dextrose 50%) 25 ml Q30M PRN IV Hypoglycemia 04/08/18 20:45 05/08/18 20:44 Dextrose (Dextrose 50%) 50 ml Q30M PRN IV hypoglycemia 04/08/18 20:45 05/08/18 20:44 Digoxin (Lanoxin) 0.125 mg DAILY ORAL 04/09/18 09:00 05/09/18 08:59 04/10/18 08:11 Docusate Sodium (Colace) 250 mg DAILY ORAL 04/11/18 09:00 05/11/18 08:59 Escitalopram Oxalate (Lexapro) 10 mg DAILY ORAL 04/10/18 09:00 05/09/18 08:59 04/10/18 08:11 Finasteride (Proscar) 5 mg DAILY ORAL 04/09/18 09:00 05/09/18 08:59 04/10/18 08:22 Heparin Sodium (Porcine) (Heparin 5000 units/ml) 5,000 units EVERY 12 HOURS SUBQ 04/09/18 09:00 05/09/18 08:59 04/10/18 08:19 Insulin Aspart (NovoLOG) BEFORE MEALS AND HS SUBQ 04/09/18 06:30 05/09/18 06:29 04/09/18 20:42 Lorazepam (Ativan) 1 mg Q6H PRN ORAL For Anxiety 04/09/18 15:00 04/16/18 14:59 Morphine Sulfate (Morphine Sulfate) 2 mg Q4H PRN IVP Moderate Pain (Pain Scale 4-6) 04/08/18 20:45 04/15/18 20:44 Nitroglycerin (Ntg) 0.4 mg Q5M PRN SL Prn Chest Pain 04/08/18 20:45 05/08/18 20:44 Ondansetron HCl (Zofran) 4 mg Q6H PRN IVP Nausea & Vomiting 04/08/18 20:45 05/08/18 20:44 Polyethylene Glycol (Miralax) 17 gm DAILYPRN PRN ORAL Constipation 04/08/18 20:45 05/08/18 20:44 Tamsulosin HCl (Flomax) 0.4 mg BEDTIME ORAL 04/09/18 21:00 05/09/18 20:59 04/09/18 20:38 Topiramate (Topamax) 100 mg DAILY ORAL 04/09/18 09:00 05/09/18 08:59 04/10/18 08:11 Zolpidem Tartrate (Ambien) 5 mg HSPRN PRN ORAL Insomnia 04/09/18 05:00 04/16/18 04:59 04/09/18 20:56 Susan Elizalde M.D. Apr 10, 2018 17:27
--- NOTE | 2018-04-10 18:15 | Progress Note ---
DATE: 04/10/2018 SUBJECTIVE: This is a 77-year-old male patient with pyelonephritis. The patient seem to have a lot of mood lability, confusion, and disorganized thought process worsened by the stress of his medical illness. That is why, his attending has requested daily psychiatric consultation. MENTAL STATUS EXAMINATION: A 77-year-old male. Appearance is disheveled. Attitude, irritable and agitated. Affect, guarded and restricted. Intellect poor. Mood depressed and anxious. Motor activity, psychomotor agitation. Attention span is poor. Orientation x2. Speech is pressured. Thought process, disorganized and logical. Insight and judgment is poor. DIAGNOSIS: Bipolar 2. PLAN: Continue this patient on Topamax 100 mg daily and Lexapro 10 mg daily. A 20 minutes of cognitive behavioral therapy is provided to help this patient identify his automatic negative thoughts and help him to convert those negative thoughts to more positive thinking to reduce depression, anxiety, and mood liability. Chart reviewed. Discussed with staff. Seen and assessed in his room. Molina Tapia M.D. DR: BECKY JOB#: [id number] CC:
--- NOTE | 2018-04-10 19:20 | NUR ---
HAND-OFF: Report given to Mouna HORAN.
--- NOTE | 2018-04-10 19:23 | NUR ---
NURSE NOTES: Received patient awake,verbal,on bed rest,comfortable without any complaints.
[2018-04-10 19:47] VITALS: BP 113/61
[2018-04-10] MEDS: Tamsulosin 0.4mg cap ORAL SCH (20:53)
[2018-04-10] MEDS: Zolpidem 5mg tab ORAL PRN (20:53)
[2018-04-10] MEDS: Atorvastatin 20mg tab ORAL SCH (20:53)
[2018-04-11] MEDS: NovoLOG Insulin Flexpen SUBQ SCH ×4 (06:12→20:44)
--- NOTE | 2018-04-11 07:35 | NUR ---
HAND-OFF: Report given to Belinda Padilla LVN.
[2018-04-11 08:00] VITALS: BP 104/68
--- NOTE | 2018-04-11 08:00 | NUR ---
NURSE NOTES: PATIENT IN BED, A/A/OX4, TALKATIVE. IV IN PLACE, INTACT AND PATENT. NO COMPLAINTS OF PAIN AT THIS TIME. NO ACUTE S/S DISTRESS/ DISCOMFORT NOTED. BED IN LOWEST POSITION, CALL LIGHT WITHIN REACH, BED ALARM ON. WILL CONTINUE TO MONITOR.
[2018-04-11 08:06] LABS: BASOPHILS % (AUTO) 0.8 % (0.0-2.0); HEMATOCRIT 42.2 % (42.0-52.0); HEMOGLOBIN 13.8 G/DL (14.2-18.0); LYMPHOCYTES % (AUTO) 24.9 % (20.0-45.0); MEAN CORPUSCULAR VOLUME 92 FL (80-99); NEUTROPHILS % (AUTO) 57.3 % (45.0-75.0); PLATELET COUNT 146 K/UL (150-450); RED BLOOD COUNT 4.57 M/UL (4.70-6.10); RED CELL DISTRIBUTION WIDTH 12.8 % (11.6-14.8); WHITE BLOOD COUNT 5.1 K/UL (4.8-10.8)
[2018-04-11] MEDS: Topiramate 100mg tab ORAL SCH (08:19)
[2018-04-11] MEDS: Digoxin 0.125mg tab ORAL SCH (08:19)
[2018-04-11] MEDS: Calcium Carbonate 500mg w/Vit D 200iu tab ORAL SCH (08:20)
[2018-04-11] MEDS: Docusate 250mg cap ORAL SCH (08:20)
[2018-04-11] MEDS: Heparin 5000 units/ml inj SUBQ SCH ×3 (08:21→20:41)
[2018-04-11 08:22] LABS: ANION GAP 10 mmol/L (5-15); BLOOD UREA NITROGEN 21 mg/dL (7-18); CALCIUM 9.7 MG/DL (8.5-10.1); CARBON DIOXIDE 26 MMOL/L (21-32); CHLORIDE 107 MMOL/L (98-107); SODIUM 143 MMOL/L (136-145)
--- NOTE | 2018-04-11 09:10 | General Progress Note ---
Assessment/Plan Problem List: (1) UTI (urinary tract infection) ICD Codes: N39.0 - Urinary tract infection, site not specified SNOMED: 45171449 (2) Finger fracture, right ICD Codes: S62.609A - Fracture of unspecified phalanx of unspecified finger, initial encounter for closed fracture SNOMED: 12647698 (3) HTN (hypertension) ICD Codes: I10 - Essential (primary) hypertension SNOMED: 90166426 (4) COPD (chronic obstructive pulmonary disease) ICD Codes: J44.9 - Chronic obstructive pulmonary disease, unspecified SNOMED: 43687506 (5) Anemia ICD Codes: D64.9 - Anemia, unspecified SNOMED: 507997152 Status: unchanged Assessment/Plan pt diet pain control abx psyc tx uro f/u cbc bmp am Subjective Constitutional: Reports: weakness Allergies: Coded Allergies: NO KNOWN ALLERGIES (Unverified Allergy, Unknown, 11/29/14) All Systems: reviewed and negative except above Subjective sl anxious in bed Objective Last 24 Hour Vital Signs Date Time Temp Pulse Resp B/P (MAP) Pulse Ox O2 Delivery O2 Flow Rate FiO2 04/11/18 08:19 76 04/10/18 21:00 Room Air 04/10/18 19:47 98.5 64 16 113/61 (78) 96 04/10/18 16:00 98.6 72 20 118/56 (76) 100 04/10/18 12:00 98.4 68 19 114/60 (78) 97 Intake and Output 04/10/18 04/11/18 19:00 07:00 Intake Total 600 ml 240 ml Output Total 1000 ml 1400 ml Balance -400 ml -1160 ml Intake Oral 600 ml 240 ml Output Urine Total 1000 ml 1400 ml # Voids 3 # Bowel Movements 1 Laboratory Tests 04/11/18 05:45: White Blood Count 5.1, Red Blood Count 4.57L, Hemoglobin 13.8L, Hematocrit 42.2 , Mean Corpuscular Volume 92, Mean Corpuscular Hemoglobin 30.1, Mean Corpuscular Hemoglobin Concent 32.6, Red Cell Distribution Width 12.8, Platelet Count 146L, Mean Platelet Volume 7.3, Neutrophils (%) (Auto) 57.3, Lymphocytes ( %) (Auto) 24.9, Monocytes (%) (Auto) 9.0, Eosinophils (%) (Auto) 8.0H, Basophils (%) (Auto) 0.8, Sodium Level 143, Potassium Level 4.0, Chloride Level 107, Carbon Dioxide Level 26, Anion Gap 10, Blood Urea Nitrogen 21H, Creatinine 1.0, Estimat Glomerular Filtration Rate , Glucose Level 79, Calcium Level 9.7 Height (Feet): 5 Height (Inches): 6.00 Weight (Pounds): 239 General Appearance: lethargic EENT: normal ENT inspection Neck: normal alignment Cardiovascular: normal peripheral pulses, normal rate, regular rhythm Respiratory/Chest: chest wall non-tender, lungs clear, normal breath sounds Abdomen: normal bowel sounds, non tender, soft Extremities: normal inspection Edema: no edema noted Arm (L), no edema noted Arm (R), no edema noted Leg (L), no edema noted Leg (R), no edema noted Pedal (L), no edema noted Pedal (R), no edema noted Generalized Neurologic: responsive, motor weakness Skin: normal pigmentation, warm/dry Mickey Pinto DO Apr 11, 2018 09:10
--- NOTE | 2018-04-11 11:53 | NUR ---
NURSE NOTES: made Dr. Jimenez aware of bld sugar CH, implemented protocol sliding scale and will recheck in an hour. patient is verbally responsive. no acute resp distress noted. will cont to monitor. Addendum: 04/11/18 at 1520 by STEFFI NJ LVN BS rechecked in an hour and 106mg/dl.
--- NOTE | 2018-04-11 11:58 | Pulmonology Progress Note ---
Assessment/Plan Problems: (1) UTI (urinary tract infection) (2) COPD (chronic obstructive pulmonary disease) (3) Anemia (4) HTN (hypertension) (5) Diabetes Subjective Allergies: Coded Allergies: NO KNOWN ALLERGIES (Unverified Allergy, Unknown, 11/29/14) Objective Last 24 Hour Vital Signs Date Time Temp Pulse Resp B/P (MAP) Pulse Ox O2 Delivery O2 Flow Rate FiO2 04/11/18 09:20 96.8 04/11/18 09:00 Room Air 04/11/18 08:19 76 04/11/18 08:00 96.8 76 18 104/68 (80) 93 04/10/18 21:00 Room Air 04/10/18 19:47 98.5 64 16 113/61 (78) 96 04/10/18 16:00 98.6 72 20 118/56 (76) 100 04/10/18 12:00 98.4 68 19 114/60 (78) 97 Intake and Output 04/10/18 04/11/18 19:00 07:00 Intake Total 600 ml 240 ml Output Total 1000 ml 1400 ml Balance -400 ml -1160 ml Intake Oral 600 ml 240 ml Output Urine Total 1000 ml 1400 ml # Voids 3 # Bowel Movements 1 Objective General Appearance: WD/WN Lines, tubes and drains: peripheral HEENT: normocephalic, atraumatic Neck: non-tender, supple Respiratory/Chest: chest wall non-tender, lungs clear Breasts: no masses Cardiovascular/Chest: normal rate, no JVD Abdomen: normal bowel sounds Genitourinary/Rectal: normal genital exam, heme negative stool Extremities: normal range of motion, non-tender Skin Exam: normal pigmentation 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: 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-XII 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 normal Microbiology Date/Time Source Procedure Growth Status 04/08/18 17:45 Urine,Clean Catch Urine Culture - Final Providencia Stuartii Complete Laboratory Tests 04/11/18 05:45: White Blood Count 5.1, Red Blood Count 4.57L, Hemoglobin 13.8L, Hematocrit 42.2 , Mean Corpuscular Volume 92, Mean Corpuscular Hemoglobin 30.1, Mean Corpuscular Hemoglobin Concent 32.6, Red Cell Distribution Width 12.8, Platelet Count 146L, Mean Platelet Volume 7.3, Neutrophils (%) (Auto) 57.3, Lymphocytes ( %) (Auto) 24.9, Monocytes (%) (Auto) 9.0, Eosinophils (%) (Auto) 8.0H, Basophils (%) (Auto) 0.8, Sodium Level 143, Potassium Level 4.0, Chloride Level 107, Carbon Dioxide Level 26, Anion Gap 10, Blood Urea Nitrogen 21H, Creatinine 1.0, Estimat Glomerular Filtration Rate , Glucose Level 79, Calcium Level 9.7 Current Medications Medications (Trade) Dose Ordered Sig/Maliha Route PRN Reason Start Time Stop Time Status Last Admin Dose Admin Acetaminophen (Tylenol) 650 mg Q4H PRN ORAL fever 04/08/18 20:45 05/08/18 20:44 Albuterol/ Ipratropium (Albuterol/ Ipratropium) 3 ml Q4H PRN HHN Shortness of Breath 04/08/18 20:45 04/13/18 20:44 Atorvastatin Calcium (Lipitor) 40 mg BEDTIME ORAL 04/09/18 21:00 05/09/18 20:59 04/10/18 20:53 Calcium Carbonate (OsCal D) 2 tab DAILY ORAL 04/10/18 18:00 05/10/18 17:59 04/11/18 08:20 Dextrose (Dextrose 50%) 25 ml Q30M PRN IV Hypoglycemia 04/08/18 20:45 05/08/18 20:44 Dextrose (Dextrose 50%) 50 ml Q30M PRN IV hypoglycemia 04/08/18 20:45 05/08/18 20:44 Digoxin (Lanoxin) 0.125 mg DAILY ORAL 04/09/18 09:00 05/09/18 08:59 04/11/18 08:19 Docusate Sodium (Colace) 250 mg DAILY ORAL 04/11/18 09:00 05/11/18 08:59 04/11/18 08:20 Escitalopram Oxalate (Lexapro) 10 mg DAILY ORAL 04/10/18 09:00 05/09/18 08:59 04/11/18 08:20 Finasteride (Proscar) 5 mg DAILY ORAL 04/09/18 09:00 05/09/18 08:59 04/11/18 08:19 Heparin Sodium (Porcine) (Heparin 5000 units/ml) 5,000 units EVERY 12 HOURS SUBQ 04/11/18 21:00 05/09/18 08:59 Insulin Aspart (NovoLOG) BEFORE MEALS AND HS SUBQ 04/09/18 06:30 05/09/18 06:29 04/11/18 11:43 Lorazepam (Ativan) 1 mg Q6H PRN ORAL For Anxiety 04/09/18 15:00 04/16/18 14:59 Morphine Sulfate (Morphine Sulfate) 2 mg Q4H PRN IVP Moderate Pain (Pain Scale 4-6) 04/08/18 20:45 04/15/18 20:44 04/11/18 08:50 Nitroglycerin (Ntg) 0.4 mg Q5M PRN SL Prn Chest Pain 04/08/18 20:45 05/08/18 20:44 Ondansetron HCl (Zofran) 4 mg Q6H PRN IVP Nausea & Vomiting 04/08/18 20:45 05/08/18 20:44 Polyethylene Glycol (Miralax) 17 gm DAILYPRN PRN ORAL Constipation 04/08/18 20:45 05/08/18 20:44 Tamsulosin HCl (Flomax) 0.4 mg BEDTIME ORAL 04/09/18 21:00 05/09/18 20:59 04/10/18 20:53 Topiramate (Topamax) 100 mg DAILY ORAL 04/09/18 09:00 05/09/18 08:59 04/11/18 08:19 Zolpidem Tartrate (Ambien) 5 mg HSPRN PRN ORAL Insomnia 04/09/18 05:00 04/16/18 04:59 04/10/18 20:53 Karen Jimenez MD Apr 11, 2018 11:58
[2018-04-11 12:00] VITALS: BP 106/61
--- NOTE | 2018-04-11 13:11 | Infectious Diseases Prog Note ---
Assessment/Plan Assessment/Plan Assessment: Afebrile No leukocytosis Pyuria- no UTI symptoms -u/a wbc 20-30, nit +, leuk +2; ucx >100K PROVIDENCIA STUARTII R 5th digit fracture -Xray R hand: Ossific density projected posterior of the middle phalanx. This is consistent with a fracture, but given the well-corticated appearance of the fragment suspect that this is old rather than acute although this cannot be stated for certain. Bone of origin uncertain. There is also suggestion of a small fracture fragment anterior to the distal phalanx. 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 HTN COPD AFib GERD SNF resident Plan: -COntinue to monitor off abx -04/09 SP Vancomycin and Cefepime #1 -Monitor CBC/CMP, temperatures -aspiration precautions Subjective Constitutional: Denies: no symptoms, fever, chills, fatigue, anorexia, drenching sweats, other Allergies: Coded Allergies: NO KNOWN ALLERGIES (Unverified Allergy, Unknown, 11/29/14) Objective Vital Signs Last 24 Hour Vital Signs Date Time Temp Pulse Resp B/P (MAP) Pulse Ox O2 Delivery O2 Flow Rate FiO2 04/11/18 12:00 98.1 70 17 106/61 (76) 96 04/11/18 09:20 96.8 04/11/18 09:00 Room Air 04/11/18 08:19 76 04/11/18 08:00 96.8 76 18 104/68 (80) 93 04/10/18 21:00 Room Air 04/10/18 19:47 98.5 64 16 113/61 (78) 96 04/10/18 16:00 98.6 72 20 118/56 (76) 100 Height (Feet): 5 Height (Inches): 6.00 Weight (Pounds): 239 HEENT: anicteric Respiratory/Chest: normal breath sounds Cardiovascular: normal rate Abdomen: no organomegaly Microbiology Date/Time Source Procedure Growth Status 04/08/18 17:45 Urine,Clean Catch Urine Culture - Final Providencia Stuartii Complete Laboratory Tests Test 04/11/18 05:45 White Blood Count 5.1 K/UL (4.8-10.8) Red Blood Count 4.57 M/UL (4.70-6.10) L Hemoglobin 13.8 G/DL (14.2-18.0) L Hematocrit 42.2 % (42.0-52.0) Mean Corpuscular Volume 92 FL (80-99) Mean Corpuscular Hemoglobin 30.1 PG (27.0-31.0) Mean Corpuscular Hemoglobin Concent 32.6 G/DL (32.0-36.0) Red Cell Distribution Width 12.8 % (11.6-14.8) Platelet Count 146 K/UL (150-450) L Mean Platelet Volume 7.3 FL (6.5-10.1) Neutrophils (%) (Auto) 57.3 % (45.0-75.0) Lymphocytes (%) (Auto) 24.9 % (20.0-45.0) Monocytes (%) (Auto) 9.0 % (1.0-10.0) Eosinophils (%) (Auto) 8.0 % (0.0-3.0) H Basophils (%) (Auto) 0.8 % (0.0-2.0) Sodium Level 143 MMOL/L (136-145) Potassium Level 4.0 MMOL/L (3.5-5.1) Chloride Level 107 MMOL/L (98-107) Carbon Dioxide Level 26 MMOL/L (21-32) Anion Gap 10 mmol/L (5-15) Blood Urea Nitrogen 21 mg/dL (7-18) H Creatinine 1.0 MG/DL (0.55-1.30) Estimat Glomerular Filtration Rate mL/min (>60) Glucose Level 79 MG/DL (74-106) Calcium Level 9.7 MG/DL (8.5-10.1) Current Medications Medications (Trade) Dose Ordered Sig/Maliha Route PRN Reason Start Time Stop Time Status Last Admin Dose Admin Acetaminophen (Tylenol) 650 mg Q4H PRN ORAL fever 04/08/18 20:45 05/08/18 20:44 Albuterol/ Ipratropium (Albuterol/ Ipratropium) 3 ml Q4H PRN HHN Shortness of Breath 04/08/18 20:45 04/13/18 20:44 Atorvastatin Calcium (Lipitor) 40 mg BEDTIME ORAL 04/09/18 21:00 05/09/18 20:59 04/10/18 20:53 Calcium Carbonate (OsCal D) 2 tab DAILY ORAL 04/10/18 18:00 05/10/18 17:59 04/11/18 08:20 Dextrose (Dextrose 50%) 25 ml Q30M PRN IV Hypoglycemia 04/08/18 20:45 05/08/18 20:44 Dextrose (Dextrose 50%) 50 ml Q30M PRN IV hypoglycemia 04/08/18 20:45 05/08/18 20:44 Digoxin (Lanoxin) 0.125 mg DAILY ORAL 04/09/18 09:00 05/09/18 08:59 04/11/18 08:19 Docusate Sodium (Colace) 250 mg DAILY ORAL 04/11/18 09:00 05/11/18 08:59 04/11/18 08:20 Escitalopram Oxalate (Lexapro) 10 mg DAILY ORAL 04/10/18 09:00 05/09/18 08:59 04/11/18 08:20 Finasteride (Proscar) 5 mg DAILY ORAL 04/09/18 09:00 05/09/18 08:59 04/11/18 08:19 Heparin Sodium (Porcine) (Heparin 5000 units/ml) 5,000 units EVERY 12 HOURS SUBQ 04/11/18 21:00 05/09/18 08:59 Insulin Aspart (NovoLOG) BEFORE MEALS AND HS SUBQ 04/09/18 06:30 05/09/18 06:29 04/11/18 11:43 Lorazepam (Ativan) 1 mg Q6H PRN ORAL For Anxiety 04/09/18 15:00 04/16/18 14:59 Morphine Sulfate (Morphine Sulfate) 2 mg Q4H PRN IVP Moderate Pain (Pain Scale 4-6) 04/08/18 20:45 04/15/18 20:44 04/11/18 08:50 Nitroglycerin (Ntg) 0.4 mg Q5M PRN SL Prn Chest Pain 04/08/18 20:45 05/08/18 20:44 Ondansetron HCl (Zofran) 4 mg Q6H PRN IVP Nausea & Vomiting 04/08/18 20:45 05/08/18 20:44 Polyethylene Glycol (Miralax) 17 gm DAILYPRN PRN ORAL Constipation 04/08/18 20:45 05/08/18 20:44 Tamsulosin HCl (Flomax) 0.4 mg BEDTIME ORAL 04/09/18 21:00 05/09/18 20:59 04/10/18 20:53 Topiramate (Topamax) 100 mg DAILY ORAL 04/09/18 09:00 05/09/18 08:59 04/11/18 08:19 Zolpidem Tartrate (Ambien) 5 mg HSPRN PRN ORAL Insomnia 04/09/18 05:00 04/16/18 04:59 04/10/18 20:53 Chin Cope MD Apr 11, 2018 13:11
[2018-04-11 16:00] VITALS: BP 114/73
[2018-04-11] MEDS ORDERED: Sucralfate 1gm tab ORAL SCH (18:30)
--- NOTE | 2018-04-11 19:14 | NUR ---
HAND-OFF: Report given to
--- NOTE | 2018-04-11 20:15 | Progress Note ---
DATE: 04/11/2018 SUBJECTIVE: The patient is a 77-year-old male with pyelonephritis, but he has increased depression and mood lability worsened by stress of his medical illness. That is why, his attending has requested daily psychiatric consultation. MENTAL STATUS EXAMINATION: The patient is a 77-year-old male. Appearance is slightly disheveled. Attitude, irritable and agitated. Affect, labile. Intellect poor. Mood depressed, anxious. Motor activity, psychomotor agitation. Attention span is poor. Orientation x2. Speech is hyperverbal, pressured. Insight and judgment is poor. Denies suicidal or homicidal thoughts. DIAGNOSIS: Bipolar 2. PLAN: Treat him with Topamax 100 mg daily to stabilize mood, Lexapro 10 mg daily to reduce anxiety and depression. Provided him with 20 minutes of cognitive behavioral therapy to to help him identify his automatic negative thoughts and help him to convert those negative thoughts to more positive thoughts to reduce depression, anxiety, and help him to have more adaptive behavior pattern. Chart reviewed and discussed with staff. Molina Tapia M.D. DR: EMILIANO JOB#: [id number] CC:
[2018-04-11] MEDS: Tamsulosin 0.4mg cap ORAL SCH (20:40)
[2018-04-11] MEDS: Atorvastatin 20mg tab ORAL SCH (20:41)
[2018-04-11] MEDS: Zolpidem 5mg tab ORAL PRN (20:41)
[2018-04-11 20:49] VITALS: BP 97/64
--- NOTE | 2018-04-11 22:24 | NUR ---
NURSE NOTES: Received patient awake,alert,resting,no complaints. Pictures taken on his sacrum and groin,cleansed with normal saline and applied with Triad.
[2018-04-12 05:00] VITALS: BP 107/67
[2018-04-12] MEDS: NovoLOG Insulin Flexpen SUBQ SCH ×4 (06:28→20:50)
[2018-04-12] MEDS: Sucralfate 1gm tab ORAL SCH ×3 (06:31→17:06)
--- NOTE | 2018-04-12 07:13 | NUR ---
HAND-OFF: Report given to Marizol Fagan RN.
--- NOTE | 2018-04-12 07:35 | NUR ---
NURSE NOTES: pt in bed with no sob nor in any form of distress noted. Breathing regular and unlabored. denies any pain at this time. will continue to monitor
[2018-04-12 07:55] LABS: EOSINOPHILS % (AUTO) 7.4 % (0.0-3.0); HEMATOCRIT 41.1 % (42.0-52.0); HEMOGLOBIN 13.5 G/DL (14.2-18.0); LYMPHOCYTES % (AUTO) 23.5 % (20.0-45.0); MEAN CORPUSCULAR VOLUME 92 FL (80-99); MONOCYTES % (AUTO) 8.4 % (1.0-10.0); NEUTROPHILS % (AUTO) 59.7 % (45.0-75.0); PLATELET COUNT 143 K/UL (150-450); RED BLOOD COUNT 4.47 M/UL (4.70-6.10); RED CELL DISTRIBUTION WIDTH 13.1 % (11.6-14.8); WHITE BLOOD COUNT 5.6 K/UL (4.8-10.8)
[2018-04-12 08:22] LABS: ANION GAP 8 mmol/L (5-15); BLOOD UREA NITROGEN 31 mg/dL (7-18); CALCIUM 8.9 MG/DL (8.5-10.1); CARBON DIOXIDE 25 MMOL/L (21-32); CHLORIDE 107 MMOL/L (98-107); POTASSIUM 3.8 MMOL/L (3.5-5.1); SODIUM 140 MMOL/L (136-145)
--- NOTE | 2018-04-12 08:33 | General Progress Note ---
Assessment/Plan Problem List: (1) UTI (urinary tract infection) ICD Codes: N39.0 - Urinary tract infection, site not specified SNOMED: 95583892 (2) Finger fracture, right ICD Codes: S62.609A - Fracture of unspecified phalanx of unspecified finger, initial encounter for closed fracture SNOMED: 78839971 (3) HTN (hypertension) ICD Codes: I10 - Essential (primary) hypertension SNOMED: 76643348 (4) COPD (chronic obstructive pulmonary disease) ICD Codes: J44.9 - Chronic obstructive pulmonary disease, unspecified SNOMED: 67369102 (5) Anemia ICD Codes: D64.9 - Anemia, unspecified SNOMED: 333167247 Status: unchanged Assessment/Plan pt diet pain control abx psyc tx uro f/u cbc bmp am Subjective Constitutional: Reports: weakness Allergies: Coded Allergies: NO KNOWN ALLERGIES (Unverified Allergy, Unknown, 11/29/14) All Systems: reviewed and negative except above Subjective sl anxious in bed Objective Last 24 Hour Vital Signs Date Time Temp Pulse Resp B/P (MAP) Pulse Ox O2 Delivery O2 Flow Rate FiO2 04/12/18 05:00 97.8 70 16 107/67 (80) 94 04/11/18 21:29 Room Air 04/11/18 20:49 97.0 64 18 97/64 (75) 95 04/11/18 16:00 96.4 70 18 114/73 (87) 96 04/11/18 12:00 98.1 70 17 106/61 (76) 96 04/11/18 09:20 96.8 04/11/18 09:00 Room Air Intake and Output 04/11/18 04/12/18 18:59 06:59 Intake Total 800 ml 420 ml Output Total 500 ml 780 ml Balance 300 ml -360 ml Intake Oral 800 ml 420 ml Output Urine Total 500 ml 780 ml # Voids 3 Laboratory Tests 04/12/18 06:00: White Blood Count 5.6, Red Blood Count 4.47L, Hemoglobin 13.5L, Hematocrit 41.1L , Mean Corpuscular Volume 92, Mean Corpuscular Hemoglobin 30.1, Mean Corpuscular Hemoglobin Concent 32.7, Red Cell Distribution Width 13.1, Platelet Count 143L, Mean Platelet Volume 7.5, Neutrophils (%) (Auto) 59.7, Lymphocytes ( %) (Auto) 23.5, Monocytes (%) (Auto) 8.4, Eosinophils (%) (Auto) 7.4H, Basophils (%) (Auto) 1.0, Sodium Level 140, Potassium Level 3.8, Chloride Level 107, Carbon Dioxide Level 25, Anion Gap 8, Blood Urea Nitrogen 31H, Creatinine 1.0, Estimat Glomerular Filtration Rate , Glucose Level 84, Calcium Level 8.9 Height (Feet): 5 Height (Inches): 6.00 Weight (Pounds): 239 General Appearance: lethargic EENT: normal ENT inspection Neck: normal alignment Cardiovascular: normal peripheral pulses, normal rate, regular rhythm Respiratory/Chest: chest wall non-tender, lungs clear, normal breath sounds Abdomen: normal bowel sounds, non tender, soft Extremities: normal inspection Edema: no edema noted Arm (L), no edema noted Arm (R), no edema noted Leg (L), no edema noted Leg (R), no edema noted Pedal (L), no edema noted Pedal (R), no edema noted Generalized Neurologic: motor weakness Skin: normal pigmentation, warm/dry Mickey Pinto DO Apr 12, 2018 08:33
[2018-04-12] MEDS: Digoxin 0.125mg tab ORAL SCH (08:42)
[2018-04-12] MEDS: Docusate 250mg cap ORAL SCH (08:42)
[2018-04-12] MEDS: Calcium Carbonate 500mg w/Vit D 200iu tab ORAL SCH (08:42)
[2018-04-12] MEDS: Topiramate 100mg tab ORAL SCH (08:42)
[2018-04-12] MEDS: Heparin 5000 units/ml inj SUBQ SCH ×2 (08:46→20:50)
[2018-04-12 09:00] VITALS: BP 101/63
--- NOTE | 2018-04-12 11:12 | Consultation ---
History of Present Illness General Date patient seen: Apr 12, 2018 Chief Complaint: Abnormal Labs Present Illness Allergies: Coded Allergies: NO KNOWN ALLERGIES (Unverified Allergy, Unknown, 11/29/14) Medication History Scheduled Aspirin* (Aspir 81*), 81 MG ORAL DAILY, (Reported) Atorvastatin Calcium* (Lipitor*), 40 MG ORAL BEDTIME, (Reported) Bicalutamide (Casodex), 50 MG ORAL DAILY, (Reported) Calcium Carbonate/Vitamin D3 (Calcium + Vitamin D Tablet), 2 EACH PO DAILY, ( Reported) Digoxin* (Digoxin*), 125 MCG ORAL DAILY, (Reported) Docusate Sodium* (Docusate Sodium*), 250 MG ORAL HS, (Reported) Escitalopram Oxalate (Escitalopram Oxalate*), 5 MG ORAL BEDTIME, (Reported) Finasteride* (Proscar*), 5 MG ORAL DAILY, (Reported) Insulin Regular, Human* (Novolin R*), 0 SUBQ .SLIDING SCALE, (Reported) Leuprolide Acetate (Lupron Depot), 7.5 MG IM MONTHLY ON THE , (Reported) Sennosides (Senokot), 2 TAB PO BID, (Reported) Sucralfate* (Carafate*), 1 GM ORAL TID AC, (Reported) Tamsulosin Hcl (Tamsulosin Hcl*), 0.4 MG ORAL BEDTIME, (Reported) Topiramate* (Topamax*), 100 MG ORAL DAILY, (Reported) Scheduled PRN Zolpidem Tartrate* (Ambien*), 5 MG ORAL HS PRN for Insomnia, (Reported) Discontinued Medications Albuterol Sulfate* (Proair Hfa*), 2 PUFFS INH BID, (Reported) Discontinued Reason: Pt stopped taking med Bethanechol Chl* (Urecholine*), 50 MG ORAL DAILY, (Reported) Discontinued Reason: Pt stopped taking med Fluticasone/Salmeterol (Advair 250-50 Diskus), 1 PUFF INH EVERY 12 HOURS, ( Reported) Discontinued Reason: Pt stopped taking med Ipratropium/Albuterol Sulfate (Iprat-Albut 0.5-3(2.5) Mg/3 Ml), 3 ML IH, ( Reported) Discontinued Reason: Pt stopped taking med Ipratropium/Albuterol Sulfate (DuoNeb 0.5-3(2.5)mg/3ml), 3 ML HHN, (Reported) Discontinued Reason: Pt stopped taking med Metoprolol Succinate* (Toprol Xl*), 50 MG ORAL DAILY, (Reported) Discontinued Reason: Pt stopped taking med Omeprazole (Prilosec), 20 MG ORAL BEFORE BREAKFAST, (Reported) Discontinued Reason: Pt stopped taking med Warfarin Sod* (Coumadin*), 3 MG ORAL DAILY, (Reported) Discontinued Reason: Pt stopped taking med Patient History Healthcare decision maker Resuscitation status Full Code Advanced Directive on File Physical Exam Last 24 Hour Vital Signs Date Time Temp Pulse Resp B/P (MAP) Pulse Ox O2 Delivery O2 Flow Rate FiO2 04/12/18 10:02 Room Air 04/12/18 09:00 Room Air 04/12/18 09:00 97.5 71 17 101/63 (76) 94 04/12/18 08:42 71 04/12/18 05:00 97.8 70 16 107/67 (80) 94 04/11/18 21:29 Room Air 04/11/18 20:49 97.0 64 18 97/64 (75) 95 04/11/18 16:00 96.4 70 18 114/73 (87) 96 04/11/18 12:00 98.1 70 17 106/61 (76) 96 Intake and Output 04/11/18 04/12/18 18:59 06:59 Intake Total 800 ml 420 ml Output Total 500 ml 780 ml Balance 300 ml -360 ml Intake Oral 800 ml 420 ml Output Urine Total 500 ml 780 ml # Voids 3 Laboratory Tests Test 04/12/18 06:00 White Blood Count 5.6 K/UL (4.8-10.8) Red Blood Count 4.47 M/UL (4.70-6.10) L Hemoglobin 13.5 G/DL (14.2-18.0) L Hematocrit 41.1 % (42.0-52.0) L Mean Corpuscular Volume 92 FL (80-99) Mean Corpuscular Hemoglobin 30.1 PG (27.0-31.0) Mean Corpuscular Hemoglobin Concent 32.7 G/DL (32.0-36.0) Red Cell Distribution Width 13.1 % (11.6-14.8) Platelet Count 143 K/UL (150-450) L Mean Platelet Volume 7.5 FL (6.5-10.1) Neutrophils (%) (Auto) 59.7 % (45.0-75.0) Lymphocytes (%) (Auto) 23.5 % (20.0-45.0) Monocytes (%) (Auto) 8.4 % (1.0-10.0) Eosinophils (%) (Auto) 7.4 % (0.0-3.0) H Basophils (%) (Auto) 1.0 % (0.0-2.0) Sodium Level 140 MMOL/L (136-145) Potassium Level 3.8 MMOL/L (3.5-5.1) Chloride Level 107 MMOL/L (98-107) Carbon Dioxide Level 25 MMOL/L (21-32) Anion Gap 8 mmol/L (5-15) Blood Urea Nitrogen 31 mg/dL (7-18) H Creatinine 1.0 MG/DL (0.55-1.30) Estimat Glomerular Filtration Rate mL/min (>60) Glucose Level 84 MG/DL (74-106) Calcium Level 8.9 MG/DL (8.5-10.1) Height (Feet): 5 Height (Inches): 6.00 Weight (Pounds): 239 Medications Current Medications Medications (Trade) Dose Ordered Sig/Maliha Route PRN Reason Start Time Stop Time Status Last Admin Dose Admin Acetaminophen (Tylenol) 650 mg Q4H PRN ORAL fever 04/08/18 20:45 05/08/18 20:44 Albuterol/ Ipratropium (Albuterol/ Ipratropium) 3 ml Q4H PRN HHN Shortness of Breath 04/08/18 20:45 04/13/18 20:44 Atorvastatin Calcium (Lipitor) 40 mg BEDTIME ORAL 04/09/18 21:00 05/09/18 20:59 04/11/18 20:41 Calcium Carbonate (OsCal D) 2 tab DAILY ORAL 04/10/18 18:00 05/10/18 17:59 04/12/18 08:42 Dextrose (Dextrose 50%) 25 ml Q30M PRN IV Hypoglycemia 04/08/18 20:45 05/08/18 20:44 Dextrose (Dextrose 50%) 50 ml Q30M PRN IV hypoglycemia 04/08/18 20:45 05/08/18 20:44 Digoxin (Lanoxin) 0.125 mg DAILY ORAL 04/09/18 09:00 05/09/18 08:59 04/12/18 08:42 Docusate Sodium (Colace) 250 mg DAILY ORAL 04/11/18 09:00 05/11/18 08:59 04/12/18 08:42 Escitalopram Oxalate (Lexapro) 10 mg DAILY ORAL 04/10/18 09:00 05/09/18 08:59 04/12/18 08:42 Finasteride (Proscar) 5 mg DAILY ORAL 04/09/18 09:00 05/09/18 08:59 04/12/18 08:42 Heparin Sodium (Porcine) (Heparin 5000 units/ml) 5,000 units EVERY 12 HOURS SUBQ 04/11/18 21:00 05/09/18 08:59 04/12/18 08:46 Insulin Aspart (NovoLOG) BEFORE MEALS AND HS SUBQ 04/09/18 06:30 05/09/18 06:29 04/11/18 11:43 Lorazepam (Ativan) 1 mg Q6H PRN ORAL For Anxiety 04/09/18 15:00 04/16/18 14:59 Morphine Sulfate (Morphine Sulfate) 2 mg Q4H PRN IVP Moderate Pain (Pain Scale 4-6) 04/08/18 20:45 04/15/18 20:44 04/11/18 08:50 Nitroglycerin (Ntg) 0.4 mg Q5M PRN SL Prn Chest Pain 04/08/18 20:45 05/08/18 20:44 Ondansetron HCl (Zofran) 4 mg Q6H PRN IVP Nausea & Vomiting 04/08/18 20:45 05/08/18 20:44 Polyethylene Glycol (Miralax) 17 gm DAILYPRN PRN ORAL Constipation 04/08/18 20:45 05/08/18 20:44 Sucralfate (Carafate) 1 gm TIAC ORAL 04/12/18 06:30 05/11/18 18:29 04/12/18 06:31 Tamsulosin HCl (Flomax) 0.4 mg BEDTIME ORAL 04/09/18 21:00 05/09/18 20:59 04/11/18 20:40 Topiramate (Topamax) 100 mg DAILY ORAL 04/09/18 09:00 05/09/18 08:59 04/12/18 08:42 Zolpidem Tartrate (Ambien) 5 mg HSPRN PRN ORAL Insomnia 04/09/18 05:00 04/16/18 04:59 04/11/18 20:41 Assessment/Plan Assessment/Plan Hematology Consultation REQ MD: Aminata Pinto DOS: 04/12/18 RFC: Prostate cancer and thrombocytopenia CHIEF COMPLAINT/HISTORY OF PRESENT ILLNESS: I was asked by Dr. Pinto to evaluate this 77-year-old, gentleman with a history of prostate cancer regarding elevated PSA. Briefly, the patient has a history of prostate cancer and is followed by an outside urologist. He reports his PSA being in the 20 to 30 range in the past. More recently, it was noted to be 107 in his nursing facility. He was brought to the hospital an noted to have evidence of urinary tract infection. He was started on antibiotics for the same. His followup PSA has dropped to 65. Also noted to have low plts and heme was consulted as well as uro. PAST MEDICAL HISTORY: 1. Prostate cancer with elevated PSA. 2. Hypertension. 3. Diabetes. 4. COPD. 5. Anemia. 6. Finger fracture. PAST SURGICAL HISTORY: 1. Prostate needle biopsy. 2. Pacemaker placement. Active Scripts Medications Dose Route/Sig Max Daily Dose Days Date Category Docusate Sodium* (Docusate Sodium) 250 Mg Capsule 250 Mg ORAL HS 04/08/18 Reported Novolin R* (Insulin Regular, Human*) 100 Unit/1 Ml Vial 0 SUBQ .SLIDING SCALE 04/08/18 Reported Carafate* (Sucralfate) 1 Gm Tablet 1 Gm ORAL TID AC 04/08/18 Reported Lupron Depot (Leuprolide Acetate) 7.5 Mg Syringekit 7.5 Mg IM MONTHLY ON THE 04/08/18 Reported Casodex (Bicalutamide) 50 Mg Tablet 50 Mg ORAL DAILY 04/08/18 Reported Calcium + Vitamin D Tablet (Calcium Carbonate/Vitamin D3) 1 Each Tablet 2 Each PO DAILY 04/08/18 Reported Tamsulosin Hcl* (Tamsulosin HCl) 0.4 Mg Cap.er.24h 0.4 Mg ORAL BEDTIME 04/08/18 Reported Senokot (Sennosides) 8.6 Mg Tablet 2 Tab PO BID 04/08/18 Reported Aspir 81* (Aspirin) 81 Mg Tablet.dr 81 Mg ORAL DAILY 04/08/18 Reported Escitalopram Oxalate* (Escitalopram Oxalate) 10 Mg Tablet 5 Mg ORAL BEDTIME 04/08/18 Reported Ambien* (Zolpidem Tartrate) 10 Mg Tablet 5 Mg ORAL HS PRN 11/29/14 Reported Topamax* (Topiramate) 100 Mg Tablet 100 Mg ORAL DAILY 11/29/14 Reported Digoxin* (Digoxin) 125 Mcg Tablet 125 Mcg ORAL DAILY 11/29/14 Reported Proscar* (Finasteride) 5 Mg Tablet 5 Mg ORAL DAILY 11/29/14 Reported Lipitor* (Atorvastatin Calcium) 40 Mg Tablet 40 Mg ORAL BEDTIME 11/29/14 Reported ALLERGIES: No known drug allrgies. SOCIAL HISTORY: Unremarkable for tobacco, alcohol, or drug use. The patient lives in a nursing facility. FAMILY HISTORY: Noncontributory. REVIEW OF SYSTEMS: A 14 system review of systems was essentially unremarkable outside of what is described above. PHYSICAL EXAMINATION: GENERAL: The patient is an elderly gentleman, awake, alert, oriented x4. No obvious distress. HEENT: NC/AT. EOMI. Oropharynx clear. NECK: Supple. CHEST: Within normal limits. ABDOMEN: Soft, nontender, nondistended. EXTREMITIES: Warm, well perfused. No cyanosis, clubbing, or edema. BACK: No CVA tenderness to percussion. NEUROLOGIC: Grossly nonfocal. Current Medications Medications (Trade) Dose Ordered Sig/Maliha Route PRN Reason Start Time Stop Time Status Last Admin Dose Admin Acetaminophen (Tylenol) 650 mg Q4H PRN ORAL fever 04/08/18 20:45 05/08/18 20:44 Albuterol/ Ipratropium (Albuterol/ Ipratropium) 3 ml Q4H PRN HHN Shortness of Breath 04/08/18 20:45 04/13/18 20:44 Atorvastatin Calcium (Lipitor) 40 mg BEDTIME ORAL 04/09/18 21:00 05/09/18 20:59 04/11/18 20:41 Calcium Carbonate (OsCal D) 2 tab DAILY ORAL 04/10/18 18:00 05/10/18 17:59 04/12/18 08:42 Dextrose (Dextrose 50%) 25 ml Q30M PRN IV Hypoglycemia 04/08/18 20:45 05/08/18 20:44 Dextrose (Dextrose 50%) 50 ml Q30M PRN IV hypoglycemia 04/08/18 20:45 05/08/18 20:44 Digoxin (Lanoxin) 0.125 mg DAILY ORAL 04/09/18 09:00 05/09/18 08:59 04/12/18 08:42 Docusate Sodium (Colace) 250 mg DAILY ORAL 04/11/18 09:00 05/11/18 08:59 04/12/18 08:42 Escitalopram Oxalate (Lexapro) 10 mg DAILY ORAL 04/10/18 09:00 05/09/18 08:59 04/12/18 08:42 Finasteride (Proscar) 5 mg DAILY ORAL 04/09/18 09:00 05/09/18 08:59 04/12/18 08:42 Heparin Sodium (Porcine) (Heparin 5000 units/ml) 5,000 units EVERY 12 HOURS SUBQ 04/11/18 21:00 05/09/18 08:59 04/12/18 08:46 Insulin Aspart (NovoLOG) BEFORE MEALS AND HS SUBQ 04/09/18 06:30 05/09/18 06:29 04/11/18 11:43 Lorazepam (Ativan) 1 mg Q6H PRN ORAL For Anxiety 04/09/18 15:00 04/16/18 14:59 Morphine Sulfate (Morphine Sulfate) 2 mg Q4H PRN IVP Moderate Pain (Pain Scale 4-6) 04/08/18 20:45 04/15/18 20:44 04/11/18 08:50 Nitroglycerin (Ntg) 0.4 mg Q5M PRN SL Prn Chest Pain 04/08/18 20:45 05/08/18 20:44 Ondansetron HCl (Zofran) 4 mg Q6H PRN IVP Nausea & Vomiting 04/08/18 20:45 05/08/18 20:44 Polyethylene Glycol (Miralax) 17 gm DAILYPRN PRN ORAL Constipation 04/08/18 20:45 05/08/18 20:44 Sucralfate (Carafate) 1 gm TIAC ORAL 04/12/18 06:30 05/11/18 18:29 04/12/18 06:31 Tamsulosin HCl (Flomax) 0.4 mg BEDTIME ORAL 04/09/18 21:00 05/09/18 20:59 04/11/18 20:40 Topiramate (Topamax) 100 mg DAILY ORAL 04/09/18 09:00 05/09/18 08:59 04/12/18 08:42 Zolpidem Tartrate (Ambien) 5 mg HSPRN PRN ORAL Insomnia 04/09/18 05:00 04/16/18 04:59 04/11/18 20:41 Laboratory Tests Test 04/12/18 06:00 White Blood Count 5.6 K/UL (4.8-10.8) Red Blood Count 4.47 M/UL (4.70-6.10) L Hemoglobin 13.5 G/DL (14.2-18.0) L Hematocrit 41.1 % (42.0-52.0) L Mean Corpuscular Volume 92 FL (80-99) Mean Corpuscular Hemoglobin 30.1 PG (27.0-31.0) Mean Corpuscular Hemoglobin Concent 32.7 G/DL (32.0-36.0) Red Cell Distribution Width 13.1 % (11.6-14.8) Platelet Count 143 K/UL (150-450) L Mean Platelet Volume 7.5 FL (6.5-10.1) Neutrophils (%) (Auto) 59.7 % (45.0-75.0) Lymphocytes (%) (Auto) 23.5 % (20.0-45.0) Monocytes (%) (Auto) 8.4 % (1.0-10.0) Eosinophils (%) (Auto) 7.4 % (0.0-3.0) H Basophils (%) (Auto) 1.0 % (0.0-2.0) Sodium Level 140 MMOL/L (136-145) Potassium Level 3.8 MMOL/L (3.5-5.1) Chloride Level 107 MMOL/L (98-107) Carbon Dioxide Level 25 MMOL/L (21-32) Anion Gap 8 mmol/L (5-15) Blood Urea Nitrogen 31 mg/dL (7-18) H Creatinine 1.0 MG/DL (0.55-1.30) Estimat Glomerular Filtration Rate mL/min (>60) Glucose Level 84 MG/DL (74-106) Calcium Level 8.9 MG/DL (8.5-10.1) DIAGNOSTIC IMAGING: None relevant. ASSESSMENT AND PLAN: # Prostate cancer, elevated psa of 65, currently off any kind of treatment and has a outside urologist that he follows up with. --> likely acute elevation is due to uti, currently high and can oscillate even to 100s --> obtain skeletal survey rule out distant mets --> Pyuria- no UTI symptoms # Thrombocytopenia in the 100-150s range --> consider hepatitis and hiv as well --> smear to be reviewed --> appreciate uro and id recs in reg to abx # R 5th digit fracture --> Xray R hand: Ossific density projected posterior of the middle phalanx. This is consistent with a fracture, but given the well-corticated appearance of the fragment suspect that this is old rather than acute although this cannot be stated for certain. Bone of origin uncertain. There is also suggestion of a small fracture fragment anterior to the distal phalanx. 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 Greatly appreciate consultation! Antony Thurston MD Apr 12, 2018 11:12
[2018-04-12 12:00] VITALS: BP 97/62
--- NOTE | 2018-04-12 15:44 | NUR ---
CASE MANAGEMENT: REVIEW 04/12/2018 SI:ANEMIA. T 97.9 HR 18 RR 17 B/P 97/62 SATS 95% ON RA BUN 31 IS: LIPITOR PO QHS FLOMAX PO QHS TOPAMAX PO QD LEXAPRO OSCAL D PO QD NOVOLOG SUBQ AC/HS MED/SURG STATUS PLAN OF CARE: TRANSFER FOR HLOC (SEE MD NOTES) Addendum: 04/12/18 at 1547 by Taylor Lauren CM PLAN OF CARE: ENTERED IN ERROR. Addendum: 04/12/18 at 1549 by Taylor Lauren CM ENTIRE REVIEW ENTERED IN ERROR
--- NOTE | 2018-04-12 15:49 | NUR ---
CASE MANAGEMENT: REVIEW 04/12/2018 SI:PYELONEPHRITIS. T 97.9 HR 71 RR 17 B/P 97/62 SATS 95% ON RA BUN 31 UC (+PREVIDENCIA STUARTII) IS: LIPITOR PO QHS FLOMAX PO QHS LANOXIN PO QD PROSCAR PO QD LEXAPRO PO QD MED/SURG STATUS
[2018-04-12 16:00] VITALS: BP 109/68
--- NOTE | 2018-04-12 16:14 | Pulmonology Progress Note ---
Assessment/Plan Problems: (1) UTI (urinary tract infection) (2) COPD (chronic obstructive pulmonary disease) (3) Anemia (4) HTN (hypertension) (5) Diabetes Assessment/Plan iv abx respiratory treatment symptomatic treatment check electrolytes pt/ot titrate fio2 to sat of 92% dvt prophylaxis. Subjective ROS Limited/Unobtainable: No Constitutional: Reports: no symptoms HEENT: Repors: no symptoms Respiratory: Reports: no symptoms Allergies: Coded Allergies: NO KNOWN ALLERGIES (Unverified Allergy, Unknown, 11/29/14) Objective Last 24 Hour Vital Signs Date Time Temp Pulse Resp B/P (MAP) Pulse Ox O2 Delivery O2 Flow Rate FiO2 04/12/18 12:00 97.9 18 17 97/62 (74) 95 04/12/18 10:02 Room Air 04/12/18 09:00 Room Air 04/12/18 09:00 97.5 71 17 101/63 (76) 94 04/12/18 08:42 71 04/12/18 05:00 97.8 70 16 107/67 (80) 94 04/11/18 21:29 Room Air 04/11/18 20:49 97.0 64 18 97/64 (75) 95 Intake and Output 04/11/18 04/12/18 19:00 07:00 Intake Total 800 ml 420 ml Output Total 500 ml 780 ml Balance 300 ml -360 ml Intake Oral 800 ml 420 ml Output Urine Total 500 ml 780 ml # Voids 3 Objective General Appearance: WD/WN Lines, tubes and drains: peripheral HEENT: normocephalic, atraumatic Neck: non-tender, supple Respiratory/Chest: chest wall non-tender, lungs clear Breasts: no masses Cardiovascular/Chest: normal rate, no JVD Abdomen: normal bowel sounds Genitourinary/Rectal: normal genital exam, heme negative stool Extremities: normal range of motion, non-tender Skin Exam: normal pigmentation Neurologic: executive community planning II-XII grossly normal Laboratory Tests 04/12/18 06:00: White Blood Count 5.6, Red Blood Count 4.47L, Hemoglobin 13.5L, Hematocrit 41.1L , Mean Corpuscular Volume 92, Mean Corpuscular Hemoglobin 30.1, Mean Corpuscular Hemoglobin Concent 32.7, Red Cell Distribution Width 13.1, Platelet Count 143L, Mean Platelet Volume 7.5, Neutrophils (%) (Auto) 59.7, Lymphocytes ( %) (Auto) 23.5, Monocytes (%) (Auto) 8.4, Eosinophils (%) (Auto) 7.4H, Basophils (%) (Auto) 1.0, Sodium Level 140, Potassium Level 3.8, Chloride Level 107, Carbon Dioxide Level 25, Anion Gap 8, Blood Urea Nitrogen 31H, Creatinine 1.0, Estimat Glomerular Filtration Rate , Glucose Level 84, Calcium Level 8.9, Hepatitis A IgM Antibody [Pending], Hepatitis B Surface Antigen [Pending], Hepatitis B Core IgM Antibody [Pending], Hepatitis C Antibody [Pending], HIV (1& 2) Antibody Rapid Negative Current Medications Medications (Trade) Dose Ordered Sig/Maliha Route PRN Reason Start Time Stop Time Status Last Admin Dose Admin Acetaminophen (Tylenol) 650 mg Q4H PRN ORAL fever 04/08/18 20:45 05/08/18 20:44 Albuterol/ Ipratropium (Albuterol/ Ipratropium) 3 ml Q4H PRN HHN Shortness of Breath 04/08/18 20:45 04/13/18 20:44 Atorvastatin Calcium (Lipitor) 40 mg BEDTIME ORAL 04/09/18 21:00 05/09/18 20:59 04/11/18 20:41 Calcium Carbonate (OsCal D) 2 tab DAILY ORAL 04/10/18 18:00 05/10/18 17:59 04/12/18 08:42 Dextrose (Dextrose 50%) 25 ml Q30M PRN IV Hypoglycemia 04/08/18 20:45 05/08/18 20:44 Dextrose (Dextrose 50%) 50 ml Q30M PRN IV hypoglycemia 04/08/18 20:45 05/08/18 20:44 Digoxin (Lanoxin) 0.125 mg DAILY ORAL 04/09/18 09:00 05/09/18 08:59 04/12/18 08:42 Docusate Sodium (Colace) 250 mg DAILY ORAL 04/11/18 09:00 05/11/18 08:59 04/12/18 08:42 Escitalopram Oxalate (Lexapro) 10 mg DAILY ORAL 04/10/18 09:00 05/09/18 08:59 04/12/18 08:42 Finasteride (Proscar) 5 mg DAILY ORAL 04/09/18 09:00 05/09/18 08:59 04/12/18 08:42 Heparin Sodium (Porcine) (Heparin 5000 units/ml) 5,000 units EVERY 12 HOURS SUBQ 04/11/18 21:00 05/09/18 08:59 04/12/18 08:46 Insulin Aspart (NovoLOG) BEFORE MEALS AND HS SUBQ 04/09/18 06:30 05/09/18 06:29 04/11/18 11:43 Lorazepam (Ativan) 1 mg Q6H PRN ORAL For Anxiety 04/09/18 15:00 04/16/18 14:59 Morphine Sulfate (Morphine Sulfate) 2 mg Q4H PRN IVP Moderate Pain (Pain Scale 4-6) 04/08/18 20:45 04/15/18 20:44 04/11/18 08:50 Nitroglycerin (Ntg) 0.4 mg Q5M PRN SL Prn Chest Pain 04/08/18 20:45 05/08/18 20:44 Ondansetron HCl (Zofran) 4 mg Q6H PRN IVP Nausea & Vomiting 04/08/18 20:45 05/08/18 20:44 Polyethylene Glycol (Miralax) 17 gm DAILYPRN PRN ORAL Constipation 04/08/18 20:45 05/08/18 20:44 Sucralfate (Carafate) 1 gm TIAC ORAL 04/12/18 06:30 05/11/18 18:29 04/12/18 12:27 Tamsulosin HCl (Flomax) 0.4 mg BEDTIME ORAL 04/09/18 21:00 05/09/18 20:59 04/11/18 20:40 Topiramate (Topamax) 100 mg DAILY ORAL 04/09/18 09:00 05/09/18 08:59 04/12/18 08:42 Zolpidem Tartrate (Ambien) 5 mg HSPRN PRN ORAL Insomnia 04/09/18 05:00 04/16/18 04:59 04/11/18 20:41 Karen Jimenez MD Apr 12, 2018 16:14
--- NOTE | 2018-04-12 19:10 | NUR ---
HAND-OFF: Report given to AUNG Rich.
--- NOTE | 2018-04-12 20:00 | NUR ---
NURSE NOTES: Received patient awake,alert,verbal,resting in bed,comfortable.
[2018-04-12 20:09] VITALS: BP 117/66
[2018-04-12] MEDS: Atorvastatin 20mg tab ORAL SCH (20:49)
[2018-04-12] MEDS: Tamsulosin 0.4mg cap ORAL SCH (20:49)
[2018-04-12] MEDS: Zolpidem 5mg tab ORAL PRN (20:49)
[2018-04-13] MEDS: Sucralfate 1gm tab ORAL SCH ×3 (05:35→16:10)
[2018-04-13] MEDS: NovoLOG Insulin Flexpen SUBQ SCH ×3 (05:36→16:08)
[2018-04-13 05:58] VITALS: BP 135/61
--- NOTE | 2018-04-13 07:00 | NUR ---
HAND-OFF: Report given to Marizol Fagan RN[].
[2018-04-13 07:09] LABS: BASOPHILS % (AUTO) 1.2 % (0.0-2.0); EOSINOPHILS % (AUTO) 7.5 % (0.0-3.0); LYMPHOCYTES % (AUTO) 25.3 % (20.0-45.0); MEAN CORPUSCULAR VOLUME 93 FL (80-99); MONOCYTES % (AUTO) 8.5 % (1.0-10.0); NEUTROPHILS % (AUTO) 57.6 % (45.0-75.0); PLATELET COUNT 132 K/UL (150-450); RED BLOOD COUNT 4.31 M/UL (4.70-6.10); RED CELL DISTRIBUTION WIDTH 13.1 % (11.6-14.8); WHITE BLOOD COUNT 5.3 K/UL (4.8-10.8)
--- NOTE | 2018-04-13 07:26 | NUR ---
NURSE NOTES: pt in bed with no sob nor in any form of distress noted. denies any pain at this time. bed in lowest position. call light within reach at all time. will continue to monitor
[2018-04-13 07:35] LABS: ANION GAP 5 mmol/L (5-15); BLOOD UREA NITROGEN 29 mg/dL (7-18); CALCIUM 9.2 MG/DL (8.5-10.1); CARBON DIOXIDE 29 MMOL/L (21-32); CHLORIDE 107 MMOL/L (98-107); POTASSIUM 4.4 MMOL/L (3.5-5.1); SODIUM 141 MMOL/L (136-145)
[2018-04-13 08:00] VITALS: BP 112/65
[2018-04-13] MEDS: Digoxin 0.125mg tab ORAL SCH (08:44)
[2018-04-13] MEDS: Topiramate 100mg tab ORAL SCH (08:45)
[2018-04-13] MEDS: Docusate 250mg cap ORAL SCH (08:45)
[2018-04-13] MEDS: Calcium Carbonate 500mg w/Vit D 200iu tab ORAL SCH (08:45)
[2018-04-13] MEDS: Heparin 5000 units/ml inj SUBQ SCH (08:48)
--- NOTE | 2018-04-13 09:47 | NUR ---
REHAB MED PT NOTE PATIENT REFUSING PT DUE TO CONDOM CATHETER. DC PT ORDER, RECOMMEND RETURN TO SNF
[2018-04-13 12:00] VITALS: BP 121/70
--- NOTE | 2018-04-13 12:00 | Progress Note ---
DATE: 04/12/2018 SUBJECTIVE: This is a 77-year-old male patient with pyelonephritis. This is a 77-year-old male patient who continues to have some confusion, some disorganized thought process, and mood lability, worsened by the stress of his medical illness. He has extreme mood lability, confusion, disorganized thought process. He is still 00:18 and some mood labiltiy, but denies any suicidal or homicidal ideation. 00:32__. MENTAL STATUS EXAMINATION: This is a 77-year-old male. Appearance is disheveled. Attitude, irritable and agitated. Affect, guarded and restricted. Intellect poor. Mood depressed and anxious. Motor activity, psychomotor agitation. Attention span is poor. Orientation x2. Speech is pressured. Thought process, disorganized and illogical. Thought content, auditory hallucinations and paranoid delusions. Insight and judgment is poor. DIAGNOSIS: Paranoid schizophrenia with acute exacerbation. PLAN: I am going to treat him with medication regimen consisting of being on Topamax 100 mg daily and Lexapro 10 mg daily. Provided him with 20 minutes of cognitive behavioral therapy to help him identify his automatic negative thoughts and help him to convert those negative thoughts to more positive thoughts to reduce depression, anxiety, and mood ability. 01:22 Chart reviewed. Discussed with staff. Seen and assessed at bedside. A 20 minutes of cognitive behavioral therapy provided. 01:37__. Molina Tapia M.D. DR: SHAYE JOB#: [id number] CC:
--- NOTE | 2018-04-13 13:07 | Infectious Diseases Prog Note ---
Assessment/Plan Assessment/Plan Assessment: Afebrile No leukocytosis Pyuria- no UTI symptoms -u/a wbc 20-30, nit +, leuk +2; ucx >100K [facility] R 5th digit fracture -Xray R hand: Ossific density projected posterior of the middle phalanx. This is consistent with a fracture, but given the well-corticated appearance of the fragment suspect that this is old rather than acute although this cannot be stated for certain. Bone of origin uncertain. There is also suggestion of a small fracture fragment anterior to the distal phalanx. 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 HTN COPD AFib GERD SNF resident Plan: -COntinue to monitor off abx -04/09 SP Vancomycin and Cefepime #1 -Monitor CBC/CMP, temperatures -aspiration precautions Subjective Allergies: Coded Allergies: NO KNOWN ALLERGIES (Unverified Allergy, Unknown, 11/29/14) Subjective afebrile no leukocytosis Objective Vital Signs Last 24 Hour Vital Signs Date Time Temp Pulse Resp B/P (MAP) Pulse Ox O2 Delivery O2 Flow Rate FiO2 04/13/18 12:00 97.8 71 18 121/70 (87) 97 04/13/18 09:00 Room Air 04/13/18 08:44 67 04/13/18 08:00 97.5 67 18 112/65 (81) 98 04/13/18 05:58 97.7 67 16 135/61 (85) 96 04/12/18 21:00 Room Air 04/12/18 20:09 97.9 65 16 117/66 (83) 97 04/12/18 16:00 97.9 72 17 109/68 (82) 95 Height (Feet): 5 Height (Inches): 6.00 Weight (Pounds): 239 Objective General Appearance: WD/WN Lines, tubes and drains: peripheral HEENT: normocephalic, atraumatic Neck: non-tender, supple Respiratory/Chest: chest wall non-tender, lungs clear Cardiovascular/Chest: normal peripheral pulses, regular rhythm Abdomen: normal bowel sounds, non tender, abnormal bowel sounds Genitourinary/Rectal: normal genital exam Extremities: normal range of motion Laboratory Tests Test 04/13/18 05:55 White Blood Count 5.3 K/UL (4.8-10.8) Red Blood Count 4.31 M/UL (4.70-6.10) L Hemoglobin 13.0 G/DL (14.2-18.0) L Hematocrit 40.0 % (42.0-52.0) L Mean Corpuscular Volume 93 FL (80-99) Mean Corpuscular Hemoglobin 30.1 PG (27.0-31.0) Mean Corpuscular Hemoglobin Concent 32.5 G/DL (32.0-36.0) Red Cell Distribution Width 13.1 % (11.6-14.8) Platelet Count 132 K/UL (150-450) L Mean Platelet Volume 7.5 FL (6.5-10.1) Neutrophils (%) (Auto) 57.6 % (45.0-75.0) Lymphocytes (%) (Auto) 25.3 % (20.0-45.0) Monocytes (%) (Auto) 8.5 % (1.0-10.0) Eosinophils (%) (Auto) 7.5 % (0.0-3.0) H Basophils (%) (Auto) 1.2 % (0.0-2.0) Sodium Level 141 MMOL/L (136-145) Potassium Level 4.4 MMOL/L (3.5-5.1) Chloride Level 107 MMOL/L (98-107) Carbon Dioxide Level 29 MMOL/L (21-32) Anion Gap 5 mmol/L (5-15) Blood Urea Nitrogen 29 mg/dL (7-18) H Creatinine 1.0 MG/DL (0.55-1.30) Estimat Glomerular Filtration Rate mL/min (>60) Glucose Level 91 MG/DL (74-106) Calcium Level 9.2 MG/DL (8.5-10.1) Current Medications Medications (Trade) Dose Ordered Sig/Maliha Route PRN Reason Start Time Stop Time Status Last Admin Dose Admin Acetaminophen (Tylenol) 650 mg Q4H PRN ORAL fever 04/08/18 20:45 05/08/18 20:44 Albuterol/ Ipratropium (Albuterol/ Ipratropium) 3 ml Q4H PRN HHN Shortness of Breath 04/08/18 20:45 04/13/18 20:44 Atorvastatin Calcium (Lipitor) 40 mg BEDTIME ORAL 04/09/18 21:00 05/09/18 20:59 04/12/18 20:49 Calcium Carbonate (OsCal D) 2 tab DAILY ORAL 04/10/18 18:00 05/10/18 17:59 04/13/18 08:45 Dextrose (Dextrose 50%) 25 ml Q30M PRN IV Hypoglycemia 04/08/18 20:45 05/08/18 20:44 Dextrose (Dextrose 50%) 50 ml Q30M PRN IV hypoglycemia 04/08/18 20:45 05/08/18 20:44 Digoxin (Lanoxin) 0.125 mg DAILY ORAL 04/09/18 09:00 05/09/18 08:59 04/13/18 08:44 Docusate Sodium (Colace) 250 mg DAILY ORAL 04/11/18 09:00 05/11/18 08:59 04/13/18 08:45 Escitalopram Oxalate (Lexapro) 10 mg DAILY ORAL 04/10/18 09:00 05/09/18 08:59 04/13/18 08:45 Finasteride (Proscar) 5 mg DAILY ORAL 04/09/18 09:00 05/09/18 08:59 04/13/18 08:45 Heparin Sodium (Porcine) (Heparin 5000 units/ml) 5,000 units EVERY 12 HOURS SUBQ 04/11/18 21:00 05/09/18 08:59 04/13/18 08:48 Insulin Aspart (NovoLOG) BEFORE MEALS AND HS SUBQ 04/09/18 06:30 05/09/18 06:29 04/12/18 17:06 Lorazepam (Ativan) 1 mg Q6H PRN ORAL For Anxiety 04/09/18 15:00 04/16/18 14:59 Morphine Sulfate (Morphine Sulfate) 2 mg Q4H PRN IVP Moderate Pain (Pain Scale 4-6) 04/08/18 20:45 04/15/18 20:44 04/11/18 08:50 Nitroglycerin (Ntg) 0.4 mg Q5M PRN SL Prn Chest Pain 04/08/18 20:45 05/08/18 20:44 Ondansetron HCl (Zofran) 4 mg Q6H PRN IVP Nausea & Vomiting 04/08/18 20:45 05/08/18 20:44 Polyethylene Glycol (Miralax) 17 gm DAILYPRN PRN ORAL Constipation 04/08/18 20:45 05/08/18 20:44 Sucralfate (Carafate) 1 gm TIAC ORAL 04/12/18 06:30 05/11/18 18:29 04/13/18 12:16 Tamsulosin HCl (Flomax) 0.4 mg BEDTIME ORAL 04/09/18 21:00 05/09/18 20:59 04/12/18 20:49 Topiramate (Topamax) 100 mg DAILY ORAL 04/09/18 09:00 05/09/18 08:59 04/13/18 08:45 Zolpidem Tartrate (Ambien) 5 mg HSPRN PRN ORAL Insomnia 04/09/18 05:00 04/16/18 04:59 04/12/18 20:49 Susan Elizalde M.D. Apr 13, 2018 13:07
--- NOTE | 2018-04-13 13:26 | General Progress Note ---
Assessment/Plan Problem List: (1) UTI (urinary tract infection) ICD Codes: N39.0 - Urinary tract infection, site not specified SNOMED: 05697541 (2) Finger fracture, right ICD Codes: S62.609A - Fracture of unspecified phalanx of unspecified finger, initial encounter for closed fracture SNOMED: 29746849 (3) HTN (hypertension) ICD Codes: I10 - Essential (primary) hypertension SNOMED: 43420814 (4) COPD (chronic obstructive pulmonary disease) ICD Codes: J44.9 - Chronic obstructive pulmonary disease, unspecified SNOMED: 03816028 (5) Anemia ICD Codes: D64.9 - Anemia, unspecified SNOMED: 691936241 Status: stable, progressing Assessment/Plan pt diet pain control abx psyc tx uro f/u dc if clear Subjective Constitutional: Reports: weakness Allergies: Coded Allergies: NO KNOWN ALLERGIES (Unverified Allergy, Unknown, 11/29/14) All Systems: reviewed and negative except above Subjective sl anxious in bed Objective Last 24 Hour Vital Signs Date Time Temp Pulse Resp B/P (MAP) Pulse Ox O2 Delivery O2 Flow Rate FiO2 04/13/18 12:00 97.8 71 18 121/70 (87) 97 04/13/18 09:00 Room Air 04/13/18 08:44 67 04/13/18 08:00 97.5 67 18 112/65 (81) 98 04/13/18 05:58 97.7 67 16 135/61 (85) 96 04/12/18 21:00 Room Air 04/12/18 20:09 97.9 65 16 117/66 (83) 97 04/12/18 16:00 97.9 72 17 109/68 (82) 95 Intake and Output 04/12/18 04/13/18 18:59 06:59 Intake Total 720 ml 400 ml Output Total 1200 ml Balance 720 ml -800 ml Intake Oral 720 ml 400 ml Output Urine Total 1200 ml # Voids 3 # Bowel Movements 1 Laboratory Tests 04/13/18 05:55: White Blood Count 5.3, Red Blood Count 4.31L, Hemoglobin 13.0L, Hematocrit 40.0L , Mean Corpuscular Volume 93, Mean Corpuscular Hemoglobin 30.1, Mean Corpuscular Hemoglobin Concent 32.5, Red Cell Distribution Width 13.1, Platelet Count 132L, Mean Platelet Volume 7.5, Neutrophils (%) (Auto) 57.6, Lymphocytes ( %) (Auto) 25.3, Monocytes (%) (Auto) 8.5, Eosinophils (%) (Auto) 7.5H, Basophils (%) (Auto) 1.2, Sodium Level 141, Potassium Level 4.4, Chloride Level 107, Carbon Dioxide Level 29, Anion Gap 5, Blood Urea Nitrogen 29H, Creatinine 1.0, Estimat Glomerular Filtration Rate , Glucose Level 91, Calcium Level 9.2 Height (Feet): 5 Height (Inches): 6.00 Weight (Pounds): 239 General Appearance: lethargic EENT: normal ENT inspection Neck: normal alignment Cardiovascular: normal peripheral pulses, normal rate, regular rhythm Respiratory/Chest: chest wall non-tender, lungs clear, normal breath sounds Abdomen: normal bowel sounds, non tender, soft Extremities: normal inspection Edema: no edema noted Arm (L), no edema noted Arm (R), no edema noted Leg (L), no edema noted Leg (R), no edema noted Pedal (L), no edema noted Pedal (R), no edema noted Generalized Neurologic: responsive, motor weakness Skin: normal pigmentation, warm/dry Mickey Pinto DO Apr 13, 2018 13:26
[2018-04-13] MEDS ORDERED: TYLENOL325 MG ORAL (13:43)
[2018-04-13] MEDS ORDERED: COLACE100 MG ORAL (13:45)
[2018-04-13] MEDS ORDERED: DOCUSATE SODIU250 MG ORAL (13:45)
[2018-04-13] MEDS ORDERED: LEXAPRO10 MG ORAL (13:46)
[2018-04-13] MEDS ORDERED: HEPARIN SO5000 UNIT2 SUBQ (13:46)
--- NOTE | 2018-04-13 13:48 | NUR ---
*-*DISCHARGE PLANNING *-* PATIENT HAS BEEN REFERRED TO: [facility] P:[phone] F:[phone]
[2018-04-13] MEDS ORDERED: NOVOLOG100 UNIT/5 SUBQ (13:49)
[2018-04-13] MEDS ORDERED: DUONEB 0.5-3(2.53 ML HHN (13:51)
[2018-04-13] MEDS ORDERED: ATIVAN1 MG ORAL (13:52)
[2018-04-13] MEDS ORDERED: NITROSTAT0.4 M1 SL (13:52)
[2018-04-13] MEDS ORDERED: MIRALAX17 G2 ORAL (13:53)
[2018-04-13] MEDS ORDERED: CARAFATE1 G1 ORAL (13:56)
[2018-04-13] MEDS ORDERED: Cefdinir 300mg cap ORAL SCH ×2 (14:00→21:00)
--- NOTE | 2018-04-13 14:19 | NUR ---
*-* DISCHARGE PLANNED *-* PATIENT IS DISCHARGED TO: [facility] ROOM# 27-[address] [facility] T:[phone] FOR NURSE TO NURSE REPORT [facility] HAS BEEN ARRANGED FOR [facility] AT [address] [id number]
--- NOTE | 2018-04-13 14:29 | Pulmonology Progress Note ---
Assessment/Plan Problems: (1) UTI (urinary tract infection) (2) COPD (chronic obstructive pulmonary disease) (3) Anemia (4) HTN (hypertension) (5) Diabetes Assessment/Plan iv abx respiratory treatment symptomatic treatment check electrolytes pt/ot titrate fio2 to sat of 92% dvt prophylaxis. Subjective ROS Limited/Unobtainable: No HEENT: Repors: no symptoms Respiratory: Reports: no symptoms Cardiovascular: Reports: no symptoms Allergies: Coded Allergies: NO KNOWN ALLERGIES (Unverified Allergy, Unknown, 11/29/14) Objective Last 24 Hour Vital Signs Date Time Temp Pulse Resp B/P (MAP) Pulse Ox O2 Delivery O2 Flow Rate FiO2 04/13/18 12:00 97.8 71 18 121/70 (87) 97 04/13/18 09:00 Room Air 04/13/18 08:44 67 04/13/18 08:00 97.5 67 18 112/65 (81) 98 04/13/18 05:58 97.7 67 16 135/61 (85) 96 04/12/18 21:00 Room Air 04/12/18 20:09 97.9 65 16 117/66 (83) 97 04/12/18 16:00 97.9 72 17 109/68 (82) 95 Intake and Output 04/12/18 04/13/18 18:59 06:59 Intake Total 720 ml 400 ml Output Total 1200 ml Balance 720 ml -800 ml Intake Oral 720 ml 400 ml Output Urine Total 1200 ml # Voids 3 # Bowel Movements 1 Objective General Appearance: WD/WN Lines, tubes and drains: peripheral HEENT: normocephalic, atraumatic Neck: non-tender, supple Respiratory/Chest: chest wall non-tender, lungs clear Breasts: no masses Cardiovascular/Chest: normal rate, no JVD Abdomen: normal bowel sounds Genitourinary/Rectal: normal genital exam, heme negative stool Extremities: normal range of motion, non-tender Skin Exam: normal pigmentation 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 normal Laboratory Tests 04/13/18 05:55: White Blood Count 5.3, Red Blood Count 4.31L, Hemoglobin 13.0L, Hematocrit 40.0L , Mean Corpuscular Volume 93, Mean Corpuscular Hemoglobin 30.1, Mean Corpuscular Hemoglobin Concent 32.5, Red Cell Distribution Width 13.1, Platelet Count 132L, Mean Platelet Volume 7.5, Neutrophils (%) (Auto) 57.6, Lymphocytes ( %) (Auto) 25.3, Monocytes (%) (Auto) 8.5, Eosinophils (%) (Auto) 7.5H, Basophils (%) (Auto) 1.2, Sodium Level 141, Potassium Level 4.4, Chloride Level 107, Carbon Dioxide Level 29, Anion Gap 5, Blood Urea Nitrogen 29H, Creatinine 1.0, Estimat Glomerular Filtration Rate , Glucose Level 91, Calcium Level 9.2 Current Medications Medications (Trade) Dose Ordered Sig/Maliha Route PRN Reason Start Time Stop Time Status Last Admin Dose Admin Acetaminophen (Tylenol) 650 mg Q4H PRN ORAL fever 04/08/18 20:45 05/08/18 20:44 Albuterol/ Ipratropium (Albuterol/ Ipratropium) 3 ml Q4H PRN HHN Shortness of Breath 04/08/18 20:45 04/13/18 20:44 Atorvastatin Calcium (Lipitor) 40 mg BEDTIME ORAL 04/09/18 21:00 05/09/18 20:59 04/12/18 20:49 Calcium Carbonate (OsCal D) 2 tab DAILY ORAL 04/10/18 18:00 05/10/18 17:59 04/13/18 08:45 Cefdinir (Cefdinir) 300 mg ONCE ORAL 04/13/18 14:00 04/13/18 15:00 Cefdinir (Cefdinir) 300 mg Q12HR ORAL 04/13/18 21:00 04/20/18 20:59 Dextrose (Dextrose 50%) 25 ml Q30M PRN IV Hypoglycemia 04/08/18 20:45 05/08/18 20:44 Dextrose (Dextrose 50%) 50 ml Q30M PRN IV hypoglycemia 04/08/18 20:45 05/08/18 20:44 Digoxin (Lanoxin) 0.125 mg DAILY ORAL 04/09/18 09:00 05/09/18 08:59 04/13/18 08:44 Docusate Sodium (Colace) 250 mg DAILY ORAL 04/11/18 09:00 05/11/18 08:59 04/13/18 08:45 Escitalopram Oxalate (Lexapro) 10 mg DAILY ORAL 04/10/18 09:00 05/09/18 08:59 04/13/18 08:45 Finasteride (Proscar) 5 mg DAILY ORAL 04/09/18 09:00 05/09/18 08:59 04/13/18 08:45 Heparin Sodium (Porcine) (Heparin 5000 units/ml) 5,000 units EVERY 12 HOURS SUBQ 04/11/18 21:00 05/09/18 08:59 04/13/18 08:48 Insulin Aspart (NovoLOG) BEFORE MEALS AND HS SUBQ 04/09/18 06:30 05/09/18 06:29 04/12/18 17:06 Lorazepam (Ativan) 1 mg Q6H PRN ORAL For Anxiety 04/09/18 15:00 04/16/18 14:59 Morphine Sulfate (Morphine Sulfate) 2 mg Q4H PRN IVP Moderate Pain (Pain Scale 4-6) 04/08/18 20:45 04/15/18 20:44 04/11/18 08:50 Nitroglycerin (Ntg) 0.4 mg Q5M PRN SL Prn Chest Pain 04/08/18 20:45 05/08/18 20:44 Ondansetron HCl (Zofran) 4 mg Q6H PRN IVP Nausea & Vomiting 04/08/18 20:45 05/08/18 20:44 Polyethylene Glycol (Miralax) 17 gm DAILYPRN PRN ORAL Constipation 04/08/18 20:45 05/08/18 20:44 Sucralfate (Carafate) 1 gm TIAC ORAL 04/12/18 06:30 05/11/18 18:29 04/13/18 12:16 Tamsulosin HCl (Flomax) 0.4 mg BEDTIME ORAL 04/09/18 21:00 05/09/18 20:59 04/12/18 20:49 Topiramate (Topamax) 100 mg DAILY ORAL 04/09/18 09:00 05/09/18 08:59 04/13/18 08:45 Zolpidem Tartrate (Ambien) 5 mg HSPRN PRN ORAL Insomnia 04/09/18 05:00 04/16/18 04:59 04/12/18 20:49 Karen Jimenez MD Apr 13, 2018 14:29
[2018-04-13 16:00] VITALS: BP 127/72
--- NOTE | 2018-04-13 16:00 | Consultation ---
DATE OF CONSULTATION: SUBJECTIVE: The patient is a 77-year-old male patient with pyelonephritis disorganized thought process, and some mood lability, worsened by the stress of his medical illness. DIAGNOSIS: Bipolar 2. PLAN: Continue to treat him with mg daily and Lexapro 10 mg daily. Provided him with 20 minutes of cognitive behavioral therapy to help him identify his automatic negative thoughts and help him to convert those negative thoughts to more positive thoughts to reduce depression, anxiety, and suicidality. Chart reviewed. Discussed with staff. Seen and assessed in his room. Molina Tapia M.D. DR: MARIELOS JOB#: [id number] CC:
--- NOTE | 2018-04-13 16:41 | Diagnostic Imaging Report ---
Indication: History of prostate carcinoma Technique: Limited images of the axial and appendicular skeleton Comparison: Chest compared to 11/29/2014; no other comparison studies of Findings: No definite osteolytic or osteoblastic lesions are demonstrated. The chest demonstrates old healed right rib fracture deformity, elevation of the right hemidiaphragm. Lungs and pleural spaces are clear. There is a left chest pacemaker. No definite bony abnormality other than the rib fracture demonstrated. No osteolytic or osteoporotic lesions. Nonspecific small calcifications are seen surrounding the right femoral neck. Calcifications medial to the medial left femoral condyle are likely dystrophic, possibly related to prior ligamentous injury. There is medial compartmental degenerative joint space narrowing. Innumerable soft tissue calcifications are seen in the right leg, appearance of the smaller of which is suggestive of multiple phleboliths, but the larger are more nonspecific in appearance and may be dystrophic. Similar but much less abundant calcifications are seen in the left leg. Degenerative changes of the thoracic and lumbar spine are noted. Impression: No plain radiographic findings to suggest metastatic carcinoma or myeloma. However, if the former is clinically suspected, bone scan should be considered for more sensitive characterization Soft tissue calcifications in the bilateral leg, right greater than left. Suspect on the basis of prior trauma or possible connective tissue disorder. Most likely, these could also represent multiple phleboliths; if such is the case this would suggest bilateral hemangiomas Other incidental findings as noted, including degenerative changes
--- NOTE | 2018-04-13 17:30 | NUR ---
NURSE NOTES: pt discharged to [facility] picked up by ambulance with stable condition. denies any pain. vss. iv heplock removed and covered with gauze and taped. All discharge report given to the nurse (Anselmo) and verbalized understanding. belongings checked and signed. picture taken and uploaded.
--- NOTE | 2018-04-13 23:52 | General Progress Note ---
Assessment/Plan Assessment/Plan ASSESSMENT AND PLAN: # Prostate cancer, elevated psa of 65, currently off any kind of treatment and has a outside urologist that he follows up with. --> likely acute elevation is due to uti, currently high and can oscillate even to 100s --> obtain skeletal survey rule out distant mets --> Pyuria- no UTI symptoms # Thrombocytopenia in the 100-150s range --> consider hepatitis and hiv as well --> smear to be reviewed --> appreciate uro and id recs in reg to abx # R 5th digit fracture --> Xray R hand: Ossific density projected posterior of the middle phalanx. This is consistent with a fracture, but given the well-corticated appearance of the fragment suspect that this is old rather than acute although this cannot be stated for certain. Bone of origin uncertain. There is also suggestion of a small fracture fragment anterior to the distal phalanx. 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 Greatly appreciate consultation! Subjective Constitutional: Denies: no symptoms, chills, diaphoresis, fever, malaise, weakness, other HEENT: Denies: no symptoms, eye pain, blurred vision, tearing, double vision, ear pain, ear discharge, nose pain, nose congestion, throat pain, throat swelling, mouth pain, mouth swelling, other Respiratory: Denies: no symptoms, cough, orthopnea, shortness of breath, SOB with excertion, SOB at rest, sputum, stridor, wheezing, other Gastrointestinal/Abdominal: Denies: no symptoms, abdomen distended, abdominal pain, black stools, tarry stools, blood in stool, constipated, diarrhea, difficulty swallowing, nausea, poor appetite, poor fluid intake, rectal bleeding , vomiting, other Genitourinary: Denies: no symptoms, burning, discharge, frequency, flank pain, hematuria, incontinence, pain, urgency, other Neurologic/Psychiatric: Denies: no symptoms, anxiety, depressed, emotional problems, headache, numbness, paresthesia, pre-existing deficit, seizure, tingling, tremors, weakness, other Endocrine: Denies: no symptoms, excessive sweating, flushing, intolerance to cold, intolerance to heat, increased hunger, increased thirst, increased urine, unexplained weight gain, unexplained weight loss, other Hematologic/Lymphatic: Denies: no symptoms, anemia, easy bleeding, easy bruising, other Allergies: Coded Allergies: NO KNOWN ALLERGIES (Unverified Allergy, Unknown, 11/29/14) Subjective 3/4: seen by bedside, awake, comfortable, denies acute distress. Objective Last 24 Hour Vital Signs Date Time Temp Pulse Resp B/P (MAP) Pulse Ox O2 Delivery O2 Flow Rate FiO2 04/13/18 16:00 98.8 76 18 127/72 (90) 97 04/13/18 12:00 97.8 71 18 121/70 (87) 97 04/13/18 09:00 Room Air 04/13/18 08:44 67 04/13/18 08:00 97.5 67 18 112/65 (81) 98 04/13/18 05:58 97.7 67 16 135/61 (85) 96 Intake and Output 04/12/18 04/13/18 19:00 07:00 Intake Total 720 ml 400 ml Output Total 1200 ml Balance 720 ml -800 ml Intake Oral 720 ml 400 ml Output Urine Total 1200 ml # Voids 3 # Bowel Movements 1 Laboratory Tests 04/13/18 05:55: White Blood Count 5.3, Red Blood Count 4.31L, Hemoglobin 13.0L, Hematocrit 40.0L , Mean Corpuscular Volume 93, Mean Corpuscular Hemoglobin 30.1, Mean Corpuscular Hemoglobin Concent 32.5, Red Cell Distribution Width 13.1, Platelet Count 132L, Mean Platelet Volume 7.5, Neutrophils (%) (Auto) 57.6, Lymphocytes ( %) (Auto) 25.3, Monocytes (%) (Auto) 8.5, Eosinophils (%) (Auto) 7.5H, Basophils (%) (Auto) 1.2, Sodium Level 141, Potassium Level 4.4, Chloride Level 107, Carbon Dioxide Level 29, Anion Gap 5, Blood Urea Nitrogen 29H, Creatinine 1.0, Estimat Glomerular Filtration Rate , Glucose Level 91, Calcium Level 9.2 Height (Feet): 5 Height (Inches): 6.00 Weight (Pounds): 239 Objective PHYSICAL EXAMINATION: GENERAL: The patient is an elderly gentleman, awake, alert, oriented x4. No obvious distress. HEENT: NC/AT. EOMI. Oropharynx clear. NECK: Supple. CHEST: Within normal limits. ABDOMEN: Soft, nontender, nondistended. EXTREMITIES: Warm, well perfused. No cyanosis, clubbing, or edema. BACK: No CVA tenderness to percussion. NEUROLOGIC: Grossly nonfocal. Antony Thurston MD Apr 13, 2018 23:52
--- NOTE | 2018-04-16 08:47 | Discharge Summary ---
Discharge Summary Discharge Summary _ DATE OF ADMISSION: 04/08/2018 DATE OF DISCHARGE: 04/13/2018 DISCHARGED BY: Dr Pinto REASON FOR ADMISSION: 77 years old male with past medical history of hypertension, atrial fibrillation , COPD, diabetes mellitus, state cancer, was sent from the [facility] for evaluation. Apparently he strike his right finger and was diagnosed with fracture of the right fifth digit after undergoing x-ray at the [facility]. Finger x-ray at [facility] confirmed fracture, however it was suspected to be old rather than acute. 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 Upon evaluation vital signs were stable. Laboratory workup revealed no leukocytosis, stable hemoglobin and hematocrit, sodium 147, potassium 3.0. Stable renal parameters. Glucose 73. Stable LFT. Urinalysis was consistent with a urinary tract infection. Patient was admitted for further management CONSULTANTS: pulmonary Dr. Jimenez ID specialist Dr. Cope ferry terminal agent/oncologist Dr. Thurston psychiatrist Dr. Tapia urologist Dr. Flores HOSPITAL COURSE: Patient admitted to medical surgical floor. Patient was started on empiric antibiotic. ID specialist followed. Blood cultures were negative. Urine culture grew Providencia stuartii. Patient was afebrile no leukocytosis. Patient received a dose of vancomycin and cefepime in emergency department. Per infectious disease specialist, patient had pyuria and bacteriuria, but given no leukocytosis and no urinary complaints it was recommended to keep patient off antibiotic. Urologist seen and evaluated patient Patient had a history of prostate cancer with PSA of 20-30 range. Initial PSA was 105 at the facility. PSA already decreased down to 65. Physical exam was unremarkable. Laboratory workup was notable for elevated PSA and evidence of urinary tract infection. Jump in PSA was very likely secondary to urinary tract infection superimposed on his prostate cancer. Urologist recommended 7-10 days course of antibiotic and then repeat PSA with a regular doctor. Patient started on oral antibiotic to complete the course as recommended by urologist. Patient was explained that there were other different treatment options for prostate cancer that could be considered besides surveillance at this point. Patient was continued on Flomax and Proscar. Oncologist followed for prostate cancer. Patient was currently off any kind of treatment and had outside urologist that he follows. Oncologist recommended to obtain skeletal survey to rule out distant metastasis , which can be done as outpatient. Supplemental oxygen provided as needed to keep pulse oximetry above 92%. Pulmonary toilet was on standby as needed. No evidence of COPD exacerbation. Patient was working with physical therapist. DVT prophylaxis provided. Home medication resumed. i Pain management was addressed. Bowel regimen instituted. Supportive care provided. Blood pressure was closely monitored and remained stable. No need for antihypertensive medication at this time. Blood sugar was closely monitored and remained stable, no evidence of hypoglycemia. Renal parameters and electrolytes were closely monitored, electrolytes corrected as needed , and nephrotoxins were avoided. Thrombocytopenia in the range of 100-250 was noted. HIV test was nonreactive, hepatitis panel was negative. Platelet count remained in the baseline, prior to discharge 132. Psychiatrist seen and evaluated patient. Psychiatric medication regimen was optimized. Cognitive behavioral therapy provided. Patient clinically stabilized and was ready for transfer back to [facility] for continuation of care FINAL DIAGNOSES: Elevated PSA in setting of UTI superimposed on prostate cancer History of prostate cancer Probably urinary tract infection with Proteus Right fifth digit fracture Paranoid schizophrenia with acute exacerbation Hypertension Diabetes mellitus GERD DISCHARGE MEDICATIONS: See Medication Reconciliation list. DISCHARGE INSTRUCTIONS: Patient was discharged to the [facility]/ as half-way. Follow up with medical doctor at the facility. Follow-up with her outpatient urologist. I have been assigned to dictate discharge summary for this account. I was not involved in the patient's management. Fartun Mccauley NP Apr 16, 2018 08:47
== END 2018-04-13 17:30 | DRG 463 ==
LOC: EDBD 16:56 → EMR 17:29 → 4E 21:00 → EDBEDREQ 22:40 → 4E 04-12 17:38
DX: N39.0 Urinary tract infection, site not specified (principal); B96.4 Proteus (mirabilis) (morganii) as the cause of diseases classified elsewhere; C61 Malignant neoplasm of prostate; F20.0 Paranoid schizophrenia; E11.9 Type 2 diabetes mellitus without complications; D64.9 Anemia, unspecified; I10 Essential (primary) hypertension; W19.XXXA Unspecified fall, initial encounter; K21.9 Gastro-esophageal reflux disease without esophagitis; J44.9 Chronic obstructive pulmonary disease, unspecified; Z95.0 Presence of cardiac pacemaker; S62.606A Fracture of unspecified phalanx of right little finger, initial encounter for closed fracture
CPT/HCPCS: 36415; 77075; 80048; 80053; 81003; 82962; 84153; 84154; 85025; 86703; 86705; 86709; 86803; 87040; 87086; 87181; 87340; 96360; 99285; J1815; J8499

== ENCOUNTER 2018-09-16 14:25 | Inpatient (IN) | payer MEDICARE, OTHER ==
[~2018-09-16] VITALS: Ht 167.6 cm; Wt 106.3 kg
[~2018-09-16 14:25] MED LIST changes: +ASPIR 8181 MG ORAL; +ATIVAN1 MG ORAL; +CALCIUM + VITA1 EAC1 PO; +CARAFATE1 G1 ORAL; +CASODEX50 MG ORAL; +COLACE100 MG ORAL; +DOCUSATE SODIU250 MG ORAL; +ESCITALOPRAM OX10 MG ORAL; +HEPARIN SO5000 UNIT2 SUBQ; +LUPRON DEPOT7.5 MG IM; +MIRALAX17 G2 ORAL; +NITROSTAT0.4 M1 SL; +NOVOLIN R100 UNIT/1 SUBQ; +NOVOLOG100 UNIT/5 SUBQ; +SENOKOT8.6 MG PO; +TAMSULOSIN HCL0.4 MG ORAL; +TYLENOL325 MG ORAL
[2018-09-16 14:45] VITALS: BP 118/63
--- NOTE | 2018-09-16 14:45 | NUR ---
ED Nurse Note: pt brought by ambulance from [facility] due to increased PSA. pt does not have any medical c/o. pt denies any pain. AAO x4. respirations even and non-labored noted. skin warm to touch. no open wound noted. pt used urinal at the bed side. pt ambulatory with steady gait. 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 pacemaker at left upper chest. will wait for the further order.
--- NOTE | 2018-09-16 15:17 | Emergency Room Report ---
History of Present Illness General Chief Complaint: Abnormal Labs Source: Patient, Medical Record, EMS, PMD Present Illness HPI Patient has a history of elevated elevated PSA. Patient presents emergency department today complaint acute onset of suprapubic discomfort urinary retention and elevated PSA. Patient is a alf. Patient primary care physician is Dr. Mickey Romano. Patient denies any fever nausea vomiting diarrhea chills. No other complaints are noted patient was noted to be moderate to severe. No other associate signs symptoms. No other modifying factors. No other complaints are noted. Allergies: Coded Allergies: NO KNOWN ALLERGIES (Unverified Allergy, Unknown, 11/29/14) Patient History Past Medical History: DM, HTN, AFib, COPD, dementia Past Surgical History: pacemaker Social History: Denies: smoking, alcohol use, drug use Reviewed Nursing Documentation: PMH: Agreed; PSxH: Agreed Nursing Documentation-PMH Hx Cardiac Problems: Yes - Atrial Fibrillation Hx Hypertension: Yes Hx Pacemaker: Yes Hx COPD: Yes Hx Diabetes: Yes Hx Cancer: Yes Hx Gastrointestinal Problems: Yes Hx Neurological Problems: Yes Hx Seizures: Yes Review of Systems All Other Systems: negative except mentioned in HPI Physical Exam Vital Signs Date Time Temp Pulse Resp B/P (MAP) Pulse Ox O2 Delivery O2 Flow Rate FiO2 09/16/18 14:30 98.1 68 16 120/70 (87) 96 Room Air Sp02 EP Interpretation: reviewed, normal General Appearance: alert, mild distress Head: atraumatic Eyes: bilateral eye normal inspection ENT: normal ENT inspection, hearing grossly normal, normal voice Neck: normal inspection, full range of motion, supple, no bony tend Respiratory: normal inspection, lungs clear, normal breath sounds, no respiratory distress, no retraction, no wheezing Cardiovascular #1: regular rate, rhythm, no edema Gastrointestinal: normal inspection, normal bowel sounds, soft, no guarding, no hernia, other - Slightly tender in the suprapubic Genitourinary: no CVA tenderness Musculoskeletal: normal inspection, back normal, normal range of motion Neurologic: normal inspection, alert, responsive, speech normal Psychiatric: judgement/insight normal, anxious Skin: no rash Medical Decision Making Diagnostic Impression: Primary Impression: Pyelonephritis Additional Impressions: Abdominal pain PSA elevation ER Course Patient presents emergency department today complaining of suprapubic discomfort and elevated PSA. Patient's primary care physician is Dr. Mickey Pinto. Differential diagnosis includes sepsis, UTI, pyelonephritis. Patient's exam is consistent with UTI. Patient does have an elevated PSA. Patient complains of urinary retention. This will likely require urology follow-up or evaluation. Case was also discussed with Dr. Segal. Patient will be placed on observation on the medical floor for further management. Will start patient on IV antibiotics. Labs Test 09/16/18 15:18 09/16/18 15:42 White Blood Count 7.1 K/UL (4.8-10.8) Red Blood Count 4.20 M/UL (4.70-6.10) Hemoglobin 12.9 G/DL (14.2-18.0) Hematocrit 37.8 % (42.0-52.0) Mean Corpuscular Volume 90 FL (80-99) Mean Corpuscular Hemoglobin 30.6 PG (27.0-31.0) Mean Corpuscular Hemoglobin Concent 34.0 G/DL (32.0-36.0) Red Cell Distribution Width 11.7 % (11.6-14.8) Platelet Count 140 K/UL (150-450) Mean Platelet Volume 6.8 FL (6.5-10.1) Neutrophils (%) (Auto) 71.9 % (45.0-75.0) Lymphocytes (%) (Auto) 18.1 % (20.0-45.0) Monocytes (%) (Auto) 7.3 % (1.0-10.0) Eosinophils (%) (Auto) 2.0 % (0.0-3.0) Basophils (%) (Auto) 0.6 % (0.0-2.0) Sodium Level 142 MMOL/L (136-145) Potassium Level 3.6 MMOL/L (3.5-5.1) Chloride Level 108 MMOL/L (98-107) Carbon Dioxide Level 28 MMOL/L (21-32) Anion Gap 7 mmol/L (5-15) Blood Urea Nitrogen 19 mg/dL (7-18) Creatinine 1.0 MG/DL (0.55-1.30) Estimat Glomerular Filtration Rate mL/min (>60) Glucose Level 119 MG/DL (74-106) Calcium Level 9.1 MG/DL (8.5-10.1) Total Bilirubin 0.7 MG/DL (0.2-1.0) Aspartate Amino Transf (AST/SGOT) 25 U/L (15-37) Alanine Aminotransferase (ALT/SGPT) 21 U/L (12-78) Alkaline Phosphatase 73 U/L (46-116) Total Creatine Kinase 63 U/L (26-308) Creatine Kinase MB 0.7 NG/ML (0.0-3.6) Creatine Kinase MB Relative Index 1.1 Troponin I 0.000 ng/mL (0.000-0.056) Pro-B-Type Natriuretic Peptide 180 pg/mL (0-125) Total Protein 7.1 G/DL (6.4-8.2) Albumin 3.5 G/DL (3.4-5.0) Globulin 3.6 g/dL Albumin/Globulin Ratio 1.0 (1.0-2.7) Lipase 178 U/L (73-393) Prostate Specific Antigen 126.70 ng/mL (0.13-4.0) Urine Color Pale yellow Urine Appearance Cloudy Urine pH 8 (4.5-8.0) Urine Specific [place] 1.015 (1.005-1.035) Urine Protein Negative (NEGATIVE) Urine Glucose (UA) Negative (NEGATIVE) Urine Ketones Negative (NEGATIVE) Urine Blood Negative (NEGATIVE) Urine Nitrite Positive (NEGATIVE) Urine Bilirubin Negative (NEGATIVE) Urine Urobilinogen Normal MG/DL (0.0-1.0) Urine Leukocyte Esterase 3+ (NEGATIVE) Urine RBC 2-4 /HPF (0 - 0) Urine WBC 20-30 /HPF (0 - 0) Urine Squamous Epithelial Cells None /LPF (NONE/OCC) Urine Bacteria Many /HPF (NONE) Last Vital Signs Date Time Temp Pulse Resp B/P (MAP) Pulse Ox O2 Delivery O2 Flow Rate FiO2 09/16/18 14:30 98.1 68 16 120/70 (87) 96 Room Air Status: improved Disposition: PLACE IN OBSERVATION Condition: Serious Jagdish Guerrero MD Sep 16, 2018 15:17
[2018-09-16] MEDS ORDERED: Mylanta II UD 30ml ORAL PRN (15:30)
[2018-09-16] MEDS ORDERED: LORazepam 1mg tab ORAL PRN (15:30)
[2018-09-16] MEDS ORDERED: Albuterol/Ipratropium 3ml neb HHN PRN (15:30)
--- NOTE | 2018-09-16 15:30 | NUR ---
ED Nurse Note: Dr. Mickey Pinto at the bed side.
[2018-09-16 15:43] LABS: BASOPHILS % (AUTO) 0.6 % (0.0-2.0); HEMATOCRIT 37.8 % (42.0-52.0); HEMOGLOBIN 12.9 G/DL (14.2-18.0); LYMPHOCYTES % (AUTO) 18.1 % (20.0-45.0); MEAN CORPUSCULAR VOLUME 90 FL (80-99); MONOCYTES % (AUTO) 7.3 % (1.0-10.0); NEUTROPHILS % (AUTO) 71.9 % (45.0-75.0); PLATELET COUNT 140 K/UL (150-450); RED CELL DISTRIBUTION WIDTH 11.7 % (11.6-14.8); WHITE BLOOD COUNT 7.1 K/UL (4.8-10.8)
[2018-09-16 15:58] LABS: APPEARANCE,URINE CLOUDY; BILIRUBIN, URINE NEGATIVE (NEGATIVE); COLOR,URINE PALE YELLOW; GLUCOSE, URINE (UA) NEGATIVE (NEGATIVE); KETONES,URINE NEGATIVE (NEGATIVE); LEUKOCYTE ESTERASE ,URINE 3+ (NEGATIVE); NITRITE,URINE POSITIVE (NEGATIVE); PH,URINE 8 (4.5-8.0); PROTEIN,URINE NEGATIVE (NEGATIVE); UROBILINOGEN,URINE NORMAL MG/DL (0.0-1.0)
[2018-09-16 16:04] LABS: ANION GAP 7 mmol/L (5-15); BLOOD UREA NITROGEN 19 mg/dL (7-18); CALCIUM 9.1 MG/DL (8.5-10.1); CARBON DIOXIDE 28 MMOL/L (21-32); CHLORIDE 108 MMOL/L (98-107); POTASSIUM 3.6 MMOL/L (3.5-5.1); SODIUM 142 MMOL/L (136-145)
[2018-09-16 16:19] LABS: ALANINE AMINOTRANSFERASE 21 U/L (12-78); ALBUMIN 3.5 G/DL (3.4-5.0); ALKALINE PHOSPHATASE 73 U/L (46-116); ASPARTATE AMINO TRANSFERASE 25 U/L (15-37); BILIRUBIN,TOTAL 0.7 MG/DL (0.2-1.0); CKMB 0.7 NG/ML (0.0-3.6); CREATINE KINASE 63 U/L (26-308)
[2018-09-16] MEDS ORDERED: cefTRIAXone 1 GM in NS 55 ML IVPB ONE (16:30)
[2018-09-16 17:00] VITALS: BP 113/72
--- NOTE | 2018-09-16 18:15 | History and Physical Report ---
DATE OF ADMISSION: 09/16/2018 TIME SEEN: 3 p.m. CONSULTANTS: 1. Gabino Segal M.D. 2. Molina Tapia M.D. 3. Dr. Thurston. CHIEF COMPLAINT: Abdominal pain, urinary retention, elevated PSA. BRIEF HISTORY: The patient is a 78-year-old male from the [facility] presented with above-mentioned diagnosis, currently slightly anxious in the ER, awaiting admission, slightly weak and slightly anxious. PAST MEDICAL HISTORY: Includes diabetes, hypertension, COPD, atrial fibrillation. PAST SURGICAL HISTORY: Pacemaker. MEDICATIONS: We will obtain list shortly. ALLERGIES: Denies. SOCIAL HISTORY: No smoking. No alcohol. No intravenous drug abuse. FAMILY HISTORY: Noncontributory. PHYSICAL EXAMINATION: GENERAL: Slightly anxious in bed, oriented x2, in no acute distress. VITAL SIGNS: Temperature is 98 degrees, pulse 68, respiratory rate 16, blood pressure 120/70. CARDIOVASCULAR: No murmur. LUNGS: Distant and clear. ABDOMEN: Positive bowel sounds. Nontender. Nondistended. EXTREMITIES: No cyanosis, clubbing, or edema. NEUROLOGIC: The patient moves all extremities slightly weak. LABORATORY STUDIES: Laboratories are pending. ASSESSMENT: 1. Abdominal pain. 2. Urinary retention. 3. Elevated PSA. 4. Diabetes. 5. Hypertension. 6. COPD. 7. Atrial fibrillation. PLAN: 1. Resume home medications. 2. Blood pressure and blood sugar control. 3. Dietary followup. 4. Urology will be consulted 5. We will continue to follow this patient medically. 6. PT/OT and dietary evaluation. Mickey Pinto D.O. DR: Cassandra JOB#: [id number] CC:
[2018-09-16 19:00] VITALS: BP 122/67
--- NOTE | 2018-09-16 19:05 | NUR ---
HAND-OFF: Report given to Garcia Colón Rn.
--- NOTE | 2018-09-16 19:10 | NUR ---
ED Nurse Note: patient resting comfortably in bed with nad. vss. ao4. pt aware of pending admission; awaiting medsurg bed. iv intact and patent.
[2018-09-16 20:19] VITALS: BP 110/65
[2018-09-16] MEDS: Heparin 5000 units/ml inj SUBQ SCH (21:00)
--- NOTE | 2018-09-16 21:00 | NUR ---
TRANSFER TO FLOOR: Patient transferred to med surg [id number] as ordered, per md lisseth. Report given to ben bueno rn. patient in stable condition. ao4. nad. belongings list completed with receiving rn.
[2018-09-16 21:55] VITALS: BP 103/54
--- NOTE | 2018-09-16 22:00 | NUR ---
NURSE NOTES: Received patient from ED. Patient is in stable condition, alert and oriented x4. Breathing room air with no signs of distress or SOB. Belongings list checked, signed and all belongings accounted for. MD orders put in and carried out. IV in the Right AC is intact and patient. Urinal at bedside. Skin is intact. Pacemaker in the left upper chest. Bed is locked and in lowest position. Call light in reach. Will continue to monitor the patient.
[2018-09-16] MEDS: Tamsulosin 0.4mg cap ORAL SCH (22:33)
[2018-09-16] MEDS: Docusate 100mg cap ORAL SCH (22:33)
[2018-09-16] MEDS: Hydromorphone 0.5mg/0.5ml inj IVP PRN (22:36)
[2018-09-16] MEDS: Zolpidem 5mg tab ORAL PRN (23:44)
[2018-09-17] VITALS: BP 112/58
--- NOTE | 2018-09-17 | Consultation ---
DATE OF CONSULTATION: 09/16/2018 CONSULTING PHYSICIAN: Gabino Segal M.D. REFERRING PHYSICIAN: Mickey Pinto D.O. REASON FOR CONSULTATION: For evaluation of elevated serum PSA. HISTORY OF PRESENT ILLNESS: This is a 78-year-old male, who is actually known to me from previous office evaluations. I had seen the patient 2 years ago because of elevated PSA in about 30-40 range. At that time, he had a prostate biopsy 2 years ago that showed multiple cores of positive prostate cancer with high Arvaind scores of 5+5. At that time, he had a metastatic workup, which was negative. I started him on Casodex and I recommended Lupron to be given for androgen deprivation therapy and he has not followed up with me since. He also has history of BPH, lower urinary tract symptoms, and urinary tract infection. PAST MEDICAL HISTORY: Significant for above. Also, history of diabetes, hypertension, COPD, and atrial fibrillation. PAST SURGICAL HISTORY: He had a pacemaker placement. MEDICATIONS: His current medication list in the hospital was reviewed. I did review [facility] and apparently, he has been on Casodex, Proscar, Lupron, and Flomax. ALLERGIES: No known drug allergies. SOCIAL HISTORY: He is a resident of a penitentiary. REVIEW OF SYSTEMS: As above. He has some urinary frequency. noncontributory. PHYSICAL EXAMINATION: GENERAL: An elderly male, obese. VITAL SIGNS: Temperature is 98.1, blood pressure is 110/65, pulse 64, respirations 17. HEENT: Normocephalic. NECK: Supple. ABDOMEN: Soft. GENITOURINARY: Normal external genitalia. RECTAL: Deferred today. LABORATORY DATA: BUN 29, creatinine 1.0, potassium is 3.6. His PSA is 126.7. His alkaline phosphatase is normal at 73. White count is 7.1 and hemoglobin 12.9. UA showed positive nitrites, 2-4 rbc's, 20-30 wbc's, and many bacteria. DIAGNOSTIC IMAGING STUDIES: The last abdominal imaging study here at [facility] was in 2014, which was reviewed. Since then back in 2017, he did have an outpatient CT scan of the abdomen as well as a bone scan that did not show any obvious metastatic disease. He was noted to have nephrolithiasis at that time as well as a renal cyst. IMPRESSION: 1. 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 2. BPH history. 3. Lower urinary tract symptoms. 4. Pyuria, probable UTI. 5. Hematuria. 6. Nephrolithiasis history. 7. Renal cyst. 8. Rule out neurogenic bladder. PLAN AND DISCUSSION: Again, the patient does have known history of prostate cancer, which was diagnosed 2 years ago. At that time, he was noted to have highly aggressive high-grade Langston 5+5 disease and apparently he has been on Casodex and Lupron at the [facility]. Given the fact that his PSA has progressed means that his tumor is likely hormone refractory and at this time, we may need to consider Xtandi or possibly chemotherapy, and I would recommend Medical Oncology evaluation. We can consider repeat staging studies such as bone scan and CT scan and go from there. For now, I would recommend him continuing with Flomax, Proscar, and Casodex, and I will reorder these. We will need to follow up on the results of urine culture and he needs to continue with antibiotics. Thank you for this consultation. Gabino Segal M.D. DR: LOC JOB#: [id number] CC:
[2018-09-17 04:00] VITALS: BP 101/40
--- NOTE | 2018-09-17 07:40 | NUR ---
NURSE NOTES: HANDOFF RECEIVED FROM AUNG DE DIOS. PATIENT RESTING IN BED. IV SITE RUNNING PRESCRIBED FLUIDS. BED IN THE LOCKED AND LOWEST POSITION WITH CALL LIGHT IN REACH. NO VISIBLE SIGNS OF DISTRESS.
[2018-09-17 08:00] VITALS: BP 103/59
--- NOTE | 2018-09-17 08:15 | NUR ---
HAND-OFF: Report given to AUNG Nunez.
--- NOTE | 2018-09-17 08:38 | Urology Progress Note ---
Assessment/Plan Assessment/Plan: 1. 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 2. BPH history. 3. Lower urinary tract symptoms. 4. Pyuria, probable UTI. 5. Hematuria. 6. Nephrolithiasis history. 7. Renal cyst. 8. Rule out neurogenic bladder. monitor clinically cont casodex and lupron med/onc noted bone scan abx f/u on any cx's Subjective Allergies: Coded Allergies: NO KNOWN ALLERGIES (Unverified Allergy, Unknown, 11/29/14) Subjective all noted Objective Last 24 Hour Vital Signs Date Time Temp Pulse Resp B/P (MAP) Pulse Ox O2 Delivery O2 Flow Rate FiO2 09/17/18 08:00 98.5 63 20 103/59 (74) 100 09/17/18 04:00 97.5 69 18 101/40 (60) 97 09/17/18 01:54 Room Air 09/17/18 00:00 98.1 63 18 112/58 (76) 96 09/16/18 21:55 98.4 63 18 103/54 (70) 96 09/16/18 21:50 98.1 60 17 110/65 97 Room Air 64 09/16/18 20:19 98.1 64 17 110/65 97 Room Air 09/16/18 19:00 98.1 60 17 122/67 97 Room Air 09/16/18 17:00 98.3 60 19 113/72 98 Room Air 09/16/18 14:45 74 19 Room Air 09/16/18 14:45 98.0 74 19 118/63 100 Room Air 09/16/18 14:30 98.1 68 16 120/70 (87) 96 Room Air Intake and Output 09/16/18 09/17/18 19:00 07:00 Intake Total 530 ml Output Total 200 ml Balance 330 ml Intake Oral 480 ml IV Total 50 ml Output Urine Total 200 ml # Voids 1 # Bowel Movements 1 Current Medications Medications (Trade) Dose Ordered Sig/Maliha Route PRN Reason Start Time Stop Time Status Last Admin Dose Admin Acetaminophen (Tylenol) 650 mg Q4H PRN ORAL Mild Pain (Pain Scale 1-3) 09/16/18 15:30 10/16/18 15:29 Al Hydroxide/Mg Hydroxide (Mylanta II) 30 ml Q6H PRN ORAL dyspepsia 09/16/18 15:30 10/16/18 15:29 Albuterol/ Ipratropium (Albuterol/ Ipratropium) 3 ml Q6H PRN HHN Shortness of Breath 09/16/18 15:30 09/21/18 15:29 Bicalutamide (Casodex) 50 mg DAILY ORAL 09/17/18 09:00 09/22/18 08:59 Dextrose (Dextrose 50%) 25 ml Q30M PRN IV Hypoglycemia 09/16/18 15:30 10/16/18 15:29 Dextrose (Dextrose 50%) 50 ml Q30M PRN IV Hypoglycemia 09/16/18 15:30 10/16/18 15:29 Diphenhydramine HCl (Benadryl) 25 mg Q6H PRN ORAL Itching/Pruritis 09/16/18 15:30 10/16/18 15:29 Docusate Sodium (Colace) 100 mg EVERY 12 HOURS ORAL 09/16/18 21:00 10/16/18 20:59 09/16/18 22:33 Finasteride (Proscar) 5 mg DAILY ORAL 09/17/18 09:00 10/17/18 08:59 Heparin Sodium (Porcine) (Heparin 5000 units/ml) 5,000 units EVERY 12 HOURS SUBQ 09/16/18 21:00 10/16/18 20:59 Hydromorphone HCl (Dilaudid) 0.5 mg Q6H PRN IVP For Pain 09/16/18 15:30 09/23/18 15:29 09/16/18 22:36 Lorazepam (Ativan) 1 mg Q4H PRN ORAL For Anxiety 09/16/18 15:30 09/23/18 15:29 Sodium Chloride 1,000 ml @ 50 mls/hr Q20H IVLG 09/16/18 17:00 10/16/18 16:59 09/16/18 23:31 Tamsulosin HCl (Flomax) 0.4 mg BEDTIME ORAL 09/16/18 21:34 10/16/18 21:33 09/16/18 22:33 Zolpidem Tartrate (Ambien) 5 mg HSPRN PRN ORAL Insomnia 09/16/18 15:30 09/23/18 15:29 09/16/18 23:44 Laboratory Tests 09/16/18 15:18: White Blood Count 7.1, Red Blood Count 4.20L, Hemoglobin 12.9L, Hematocrit 37.8L , Mean Corpuscular Volume 90, Mean Corpuscular Hemoglobin 30.6, Mean Corpuscular Hemoglobin Concent 34.0, Red Cell Distribution Width 11.7, Platelet Count 140L, Mean Platelet Volume 6.8, Neutrophils (%) (Auto) 71.9, Lymphocytes ( %) (Auto) 18.1L, Monocytes (%) (Auto) 7.3, Eosinophils (%) (Auto) 2.0, Basophils (%) (Auto) 0.6, Sodium Level 142, Potassium Level 3.6, Chloride Level 108H, Carbon Dioxide Level 28, Anion Gap 7, Blood Urea Nitrogen 19H, Creatinine 1.0, Estimat Glomerular Filtration Rate , Glucose Level 119H, Calcium Level 9.1 , Total Bilirubin 0.7, Aspartate Amino Transf (AST/SGOT) 25, Alanine Aminotransferase (ALT/SGPT) 21, Alkaline Phosphatase 73, Total Creatine Kinase 63, Creatine Kinase MB 0.7, Creatine Kinase MB Relative Index 1.1, Troponin I 0.000, Pro-B-Type Natriuretic Peptide 180H, Total Protein 7.1, Albumin 3.5, Globulin 3.6, Albumin/Globulin Ratio 1.0, Lipase 178, Prostate Specific Antigen 126.70H 09/16/18 15:42: Urine Color Pale yellow, Urine Appearance Cloudy, Urine pH 8, Urine Specific [place] 1.015, Urine Protein Negative, Urine Glucose (UA) Negative, Urine Ketones Negative, Urine Blood Negative, Urine Nitrite PositiveH, Urine Bilirubin Negative, Urine Urobilinogen Normal, Urine Leukocyte Esterase 3+H, Urine RBC 2-4H, Urine WBC 20-30H, Urine Squamous Epithelial Cells None, Urine Bacteria ManyH Height (Feet): 5 Height (Inches): 6.00 Weight (Pounds): 240 Objective exam stable Gabino Segal MD Sep 17, 2018 08:38
[2018-09-17] MEDS: Bicalutamide 50mg tab ORAL SCH (08:45)
[2018-09-17] MEDS: Docusate 100mg cap ORAL SCH ×2 (08:46→21:31)
[2018-09-17] MEDS: Hydromorphone 0.5mg/0.5ml inj IVP PRN (08:49)
[2018-09-17] MEDS: Heparin 5000 units/ml inj SUBQ SCH ×2 (08:54→21:00)
[2018-09-17 09:14] LABS: BASOPHILS % (AUTO) 0.5 % (0.0-2.0); HEMATOCRIT 38.1 % (42.0-52.0); HEMOGLOBIN 12.9 G/DL (14.2-18.0); LYMPHOCYTES % (AUTO) 21.7 % (20.0-45.0); MEAN CORPUSCULAR VOLUME 92 FL (80-99); MONOCYTES % (AUTO) 5.9 % (1.0-10.0); NEUTROPHILS % (AUTO) 67.8 % (45.0-75.0); PLATELET COUNT 126 K/UL (150-450); RED BLOOD COUNT 4.16 M/UL (4.70-6.10); RED CELL DISTRIBUTION WIDTH 11.7 % (11.6-14.8); WHITE BLOOD COUNT 5.8 K/UL (4.8-10.8)
[2018-09-17 09:37] LABS: ANION GAP 5 mmol/L (5-15); BLOOD UREA NITROGEN 20 mg/dL (7-18); CALCIUM 8.8 MG/DL (8.5-10.1); CARBON DIOXIDE 26 MMOL/L (21-32); CHLORIDE 109 MMOL/L (98-107); CREATININE 0.9 MG/DL (0.55-1.30); POTASSIUM 3.6 MMOL/L (3.5-5.1); SODIUM 140 MMOL/L (136-145)
--- NOTE | 2018-09-17 10:00 | NUR ---
PT EVALUATION NOTE Patient seen for initial evaluation, see complete evaluation for details. Patient presents with generalized weakness, impaired balance and decreased safety awareness. Patient requires CGA for transfers with FWW and is able to ambulate 100 ft with CGA and FWW, and verbal cues for safety. Patient will benefit from skilled inpatient PT intervention to increase strength, improve balance and increase safety awareness for improve level of functional mobility. Recommend discharge to SNF once medically cleared by MD.
--- NOTE | 2018-09-17 11:38 | General Progress Note ---
Assessment/Plan Problem List: (1) UTI (urinary tract infection) ICD Codes: N39.0 - Urinary tract infection, site not specified SNOMED: 08919491 (2) PSA elevation ICD Codes: R97.20 - Elevated prostate specific antigen [PSA] SNOMED: 602899291 (3) HTN (hypertension) ICD Codes: I10 - Essential (primary) hypertension SNOMED: 11562544 (4) Diabetes ICD Codes: E11.9 - Type 2 diabetes mellitus without complications SNOMED: 85304210 (5) COPD (chronic obstructive pulmonary disease) ICD Codes: J44.9 - Chronic obstructive pulmonary disease, unspecified SNOMED: 92615385 (6) Atrial fibrillation ICD Codes: I48.91 - Unspecified atrial fibrillation SNOMED: 73433627 Status: unchanged Assessment/Plan: pt diet abx uro f/u cbc bmp am Subjective Constitutional: Reports: weakness Allergies: Coded Allergies: NO KNOWN ALLERGIES (Unverified Allergy, Unknown, 11/29/14) All Systems: reviewed and negative except above Subjective sl anxious in bed Objective Last 24 Hour Vital Signs Date Time Temp Pulse Resp B/P (MAP) Pulse Ox O2 Delivery O2 Flow Rate FiO2 09/17/18 08:00 98.5 63 20 103/59 (74) 100 09/17/18 04:00 97.5 69 18 101/40 (60) 97 09/17/18 01:54 Room Air 09/17/18 00:00 98.1 63 18 112/58 (76) 96 09/16/18 21:55 98.4 63 18 103/54 (70) 96 09/16/18 21:50 98.1 60 17 110/65 97 Room Air 64 09/16/18 20:19 98.1 64 17 110/65 97 Room Air 09/16/18 19:00 98.1 60 17 122/67 97 Room Air 09/16/18 17:00 98.3 60 19 113/72 98 Room Air 09/16/18 14:45 74 19 Room Air 09/16/18 14:45 98.0 74 19 118/63 100 Room Air 09/16/18 14:30 98.1 68 16 120/70 (87) 96 Room Air Intake and Output 09/16/18 09/17/18 19:00 07:00 Intake Total 530 ml Output Total 200 ml Balance 330 ml Intake Oral 480 ml IV Total 50 ml Output Urine Total 200 ml # Voids 1 # Bowel Movements 1 Laboratory Tests 09/16/18 15:18: White Blood Count 7.1, Red Blood Count 4.20L, Hemoglobin 12.9L, Hematocrit 37.8L , Mean Corpuscular Volume 90, Mean Corpuscular Hemoglobin 30.6, Mean Corpuscular Hemoglobin Concent 34.0, Red Cell Distribution Width 11.7, Platelet Count 140L, Mean Platelet Volume 6.8, Neutrophils (%) (Auto) 71.9, Lymphocytes ( %) (Auto) 18.1L, Monocytes (%) (Auto) 7.3, Eosinophils (%) (Auto) 2.0, Basophils (%) (Auto) 0.6, Sodium Level 142, Potassium Level 3.6, Chloride Level 108H, Carbon Dioxide Level 28, Anion Gap 7, Blood Urea Nitrogen 19H, Creatinine 1.0, Estimat Glomerular Filtration Rate , Glucose Level 119H, Calcium Level 9.1 , Total Bilirubin 0.7, Aspartate Amino Transf (AST/SGOT) 25, Alanine Aminotransferase (ALT/SGPT) 21, Alkaline Phosphatase 73, Total Creatine Kinase 63, Creatine Kinase MB 0.7, Creatine Kinase MB Relative Index 1.1, Troponin I 0.000, Pro-B-Type Natriuretic Peptide 180H, Total Protein 7.1, Albumin 3.5, Globulin 3.6, Albumin/Globulin Ratio 1.0, Lipase 178, Prostate Specific Antigen 126.70H 09/16/18 15:42: Urine Color Pale yellow, Urine Appearance Cloudy, Urine pH 8, Urine Specific [place] 1.015, Urine Protein Negative, Urine Glucose (UA) Negative, Urine Ketones Negative, Urine Blood Negative, Urine Nitrite PositiveH, Urine Bilirubin Negative, Urine Urobilinogen Normal, Urine Leukocyte Esterase 3+H, Urine RBC 2-4H, Urine WBC 20-30H, Urine Squamous Epithelial Cells None, Urine Bacteria ManyH 09/17/18 08:30: White Blood Count 5.8, Red Blood Count 4.16L, Hemoglobin 12.9L, Hematocrit 38.1L , Mean Corpuscular Volume 92, Mean Corpuscular Hemoglobin 31.1H, Mean Corpuscular Hemoglobin Concent 33.9, Red Cell Distribution Width 11.7, Platelet Count 126L, Mean Platelet Volume 7.6, Neutrophils (%) (Auto) 67.8, Lymphocytes ( %) (Auto) 21.7, Monocytes (%) (Auto) 5.9, Eosinophils (%) (Auto) 4.0H, Basophils (%) (Auto) 0.5, Sodium Level 140, Potassium Level 3.6, Chloride Level 109H, Carbon Dioxide Level 26, Anion Gap 5, Blood Urea Nitrogen 20H, Creatinine 0.9, Estimat Glomerular Filtration Rate , Glucose Level 115H, Calcium Level 8.8 , Thyroid Stimulating Hormone (TSH) 3.360 Height (Feet): 5 Height (Inches): 6.00 Weight (Pounds): 240 General Appearance: lethargic EENT: normal ENT inspection Neck: normal alignment Cardiovascular: normal peripheral pulses, normal rate, regular rhythm Respiratory/Chest: chest wall non-tender, lungs clear, normal breath sounds Abdomen: normal bowel sounds, non tender, soft Extremities: normal inspection Edema: no edema noted Arm (L), no edema noted Arm (R), no edema noted Leg (L), no edema noted Leg (R), no edema noted Pedal (L), no edema noted Pedal (R), no edema noted Generalized Neurologic: responsive, motor weakness Skin: normal pigmentation, warm/dry Mickey Pinto DO Sep 17, 2018 11:38
[2018-09-17 12:00] VITALS: BP 126/71
[2018-09-17] MEDS: Aspirin Baby 81mg ORAL SCH (12:28)
[2018-09-17] MEDS: Digoxin 0.125mg tab ORAL SCH (12:28)
[2018-09-17] MEDS: Calcium Carbonate 500mg w/Vit D 200iu tab ORAL SCH (12:28)
--- NOTE | 2018-09-17 14:28 | NUR ---
NURSE NOTES: PATIENT STATED THAT HE IS NOT RECEIVING DIGOXIN, ASPIRIN OR CALCIUM MEDICATIONS IN THE HOSPITAL, THESE ARE HIS USUAL DAILY MEDICATIONS. CONTACTED DR GRAFF FOR ORDERS. STATED TO PUT THE ORDERS IN FOR CONTINUATION OF THE MEDICATIONS FROM HOME. AS400 ANALYST PUT ORDERS IN.
--- NOTE | 2018-09-17 15:38 | NUR ---
*-* NO INSRUANCE INFORMATION IN THE BAR UNABLE TO SEND CLINICALS OR REVIEWS *-*
[2018-09-17 16:00] VITALS: BP 107/58
--- NOTE | 2018-09-17 16:02 | NUR ---
NURSE NOTES: NOTIFIED DOCTOR BELL REGARDING PATIENTS OBSERVATION STATUS TO SEE IF HE WANTS PATIENT TO BE ADMITTED OR DISCHARGED.
--- NOTE | 2018-09-17 17:10 | NUR ---
NURSE NOTES: PATIENT STATED THAT HE GETS ACCUCHECKS AND INSULIN BUT THERE WERE NO ORDERS. CONTACTED DR CASPER TO SEE IF HE ANTED ORDERS. PENNIE CONFIRMED ORDERS AND INSTRUCTIONAL TECHNOLOGY FACILITATOR PLACED ORDERS FOR ACCUCHECK AND SLIDING SCALE NOVOLOG.
--- NOTE | 2018-09-17 17:21 | Consultation ---
History of Present Illness General Chief Complaint: Abnormal Labs Present Illness Allergies: Coded Allergies: NO KNOWN ALLERGIES (Unverified Allergy, Unknown, 11/29/14) Medication History Scheduled Aspirin* (Aspir 81*), 81 MG ORAL DAILY, (Reported) Atorvastatin Calcium* (Lipitor*), 40 MG ORAL BEDTIME, (Reported) Bicalutamide (Casodex), 50 MG ORAL DAILY, (Reported) Calcium Carbonate/Vitamin D3 (Calcium + Vitamin D Tablet), 2 EACH PO DAILY, ( Reported) Digoxin* (Digoxin*), 125 MCG ORAL DAILY, (Reported) Docusate Sodium* (Docusate Sodium*), 250 MG ORAL HS, (Reported) Docusate Sodium* (Colace*), 250 MG ORAL DAILY, (Reported) Docusate Sodium* (Docusate Sodium*), 250 MG ORAL DAILY, (Reported) Escitalopram Oxalate (Escitalopram Oxalate*), 5 MG ORAL BEDTIME, (Reported) Escitalopram Oxalate* (Lexapro*), 10 MG ORAL DAILY, (Reported) Finasteride* (Proscar*), 5 MG ORAL DAILY, (Reported) Heparin Sod (Porcine) (Heparin Sodium*), 5,000 UNITS SUBQ EVERY 12 HOURS, ( Reported) Insulin Aspart (Novolog), SUBQ AC+HS, (Reported) Insulin Regular, Human* (Novolin R*), 0 SUBQ .SLIDING SCALE, (Reported) Leuprolide Acetate (Lupron Depot), 7.5 MG IM MONTHLY ON THE , (Reported) Sennosides (Senokot), 2 TAB PO BID, (Reported) Sucralfate* (Carafate*), 1 GM ORAL TID AC, (Reported) Sucralfate* (Carafate*), 1 GM ORAL TID before meal, (Reported) Tamsulosin Hcl (Tamsulosin Hcl*), 0.4 MG ORAL BEDTIME, (Reported) Topiramate* (Topamax*), 100 MG ORAL DAILY, (Reported) Scheduled PRN Acetaminophen (Tylenol), 650 MG ORAL Q4HR PRN for Prn Pain/Headache/Temp > 101, (Reported) Ipratropium/Albuterol Sulfate (DuoNeb 0.5-3(2.5)mg/3ml), 3 ML HHN Q4HR PRN for Shortness of Breath, (Reported) Lorazepam* (Ativan*), 1 MG ORAL Q6HR PRN for For Anxiety, (Reported) Nitroglycerin (Nitrostat), 0.4 MG SL Q5M X3 DOSES PRN for CHEST PAIN, (Reported) Polyethylene Glycol 3350* (Miralax*), 17 GM ORAL DAILY PRN for Constipation, ( Reported) Zolpidem Tartrate* (Ambien*), 5 MG ORAL HS PRN for Insomnia, (Reported) Patient History Healthcare decision maker SELF Resuscitation status Advanced Directive on File Yes Physical Exam Last 24 Hour Vital Signs Date Time Temp Pulse Resp B/P (MAP) Pulse Ox O2 Delivery O2 Flow Rate FiO2 09/17/18 16:00 98.3 20 107/58 (74) 99 09/17/18 12:28 63 09/17/18 12:00 97.8 20 126/71 (89) 99 09/17/18 09:00 Room Air 09/17/18 08:00 98.5 63 20 103/59 (74) 100 09/17/18 04:00 97.5 69 18 101/40 (60) 97 09/17/18 01:54 Room Air 09/17/18 00:00 98.1 63 18 112/58 (76) 96 09/16/18 21:55 98.4 63 18 103/54 (70) 96 09/16/18 21:50 98.1 60 17 110/65 97 Room Air 64 09/16/18 20:19 98.1 64 17 110/65 97 Room Air 09/16/18 19:00 98.1 60 17 122/67 97 Room Air Intake and Output 09/16/18 09/17/18 19:00 07:00 Intake Total 530 ml Output Total 200 ml Balance 330 ml Intake Oral 480 ml IV Total 50 ml Output Urine Total 200 ml # Voids 1 # Bowel Movements 1 Laboratory Tests Test 09/17/18 08:30 White Blood Count 5.8 K/UL (4.8-10.8) Red Blood Count 4.16 M/UL (4.70-6.10) L Hemoglobin 12.9 G/DL (14.2-18.0) L Hematocrit 38.1 % (42.0-52.0) L Mean Corpuscular Volume 92 FL (80-99) Mean Corpuscular Hemoglobin 31.1 PG (27.0-31.0) H Mean Corpuscular Hemoglobin Concent 33.9 G/DL (32.0-36.0) Red Cell Distribution Width 11.7 % (11.6-14.8) Platelet Count 126 K/UL (150-450) L Mean Platelet Volume 7.6 FL (6.5-10.1) Neutrophils (%) (Auto) 67.8 % (45.0-75.0) Lymphocytes (%) (Auto) 21.7 % (20.0-45.0) Monocytes (%) (Auto) 5.9 % (1.0-10.0) Eosinophils (%) (Auto) 4.0 % (0.0-3.0) H Basophils (%) (Auto) 0.5 % (0.0-2.0) Sodium Level 140 MMOL/L (136-145) Potassium Level 3.6 MMOL/L (3.5-5.1) Chloride Level 109 MMOL/L (98-107) H Carbon Dioxide Level 26 MMOL/L (21-32) Anion Gap 5 mmol/L (5-15) Blood Urea Nitrogen 20 mg/dL (7-18) H Creatinine 0.9 MG/DL (0.55-1.30) Estimat Glomerular Filtration Rate mL/min (>60) Glucose Level 115 MG/DL (74-106) H Calcium Level 8.8 MG/DL (8.5-10.1) Thyroid Stimulating Hormone (TSH) 3.360 uiU/mL (0.358-3.740) Height (Feet): 5 Height (Inches): 6.00 Weight (Pounds): 240 Medications Current Medications Medications (Trade) Dose Ordered Sig/Maliha Route PRN Reason Start Time Stop Time Status Last Admin Dose Admin Acetaminophen (Tylenol) 650 mg Q4H PRN ORAL Mild Pain (Pain Scale 1-3) 09/16/18 15:30 10/16/18 15:29 Al Hydroxide/Mg Hydroxide (Mylanta II) 30 ml Q6H PRN ORAL dyspepsia 09/16/18 15:30 10/16/18 15:29 Albuterol/ Ipratropium (Albuterol/ Ipratropium) 3 ml Q6H PRN HHN Shortness of Breath 09/16/18 15:30 09/21/18 15:29 Aspirin (ASA) 81 mg DAILY ORAL 09/17/18 12:15 10/17/18 12:14 09/17/18 12:28 Bicalutamide (Casodex) 50 mg DAILY ORAL 09/17/18 09:00 09/22/18 08:59 09/17/18 08:45 Calcium/Vitamin D (OsCal D) 2 tab DAILY ORAL 09/17/18 12:15 10/17/18 12:14 09/17/18 12:28 Dextrose (Dextrose 50%) 25 ml Q30M PRN IV Hypoglycemia 09/17/18 17:00 10/17/18 16:59 Dextrose (Dextrose 50%) 50 ml Q30M PRN IV Hypoglycemia 09/17/18 17:00 10/17/18 16:59 Digoxin (Lanoxin) 0.125 mg DAILY ORAL 09/17/18 12:15 10/17/18 12:14 09/17/18 12:28 Diphenhydramine HCl (Benadryl) 25 mg Q6H PRN ORAL Itching/Pruritis 09/16/18 15:30 10/16/18 15:29 Docusate Sodium (Colace) 100 mg EVERY 12 HOURS ORAL 09/16/18 21:00 10/16/18 20:59 09/17/18 08:46 Finasteride (Proscar) 5 mg DAILY ORAL 09/17/18 09:00 10/17/18 08:59 09/17/18 08:46 Heparin Sodium (Porcine) (Heparin 5000 units/ml) 5,000 units EVERY 12 HOURS SUBQ 09/16/18 21:00 10/16/18 20:59 Hydromorphone HCl (Dilaudid) 0.5 mg Q6H PRN IVP For Pain 09/16/18 15:30 09/23/18 15:29 09/17/18 08:49 Insulin Aspart (NovoLOG) BEFORE MEALS AND HS SUBQ 09/17/18 21:00 10/17/18 20:59 Lorazepam (Ativan) 1 mg Q4H PRN ORAL For Anxiety 09/16/18 15:30 09/23/18 15:29 Sodium Chloride 1,000 ml @ 50 mls/hr Q20H IVLG 09/16/18 17:00 10/16/18 16:59 09/16/18 23:31 Tamsulosin HCl (Flomax) 0.4 mg BEDTIME ORAL 09/16/18 21:34 10/16/18 21:33 09/16/18 22:33 Zolpidem Tartrate (Ambien) 5 mg HSPRN PRN ORAL Insomnia 09/16/18 15:30 09/23/18 15:29 09/16/18 23:44 Assessment/Plan Assessment/Plan: Hematology Consultation REQ MD: Aminata Pinto DOS: 09/17/18 RFC: Prostate cancer and thrombocytopenia ID I was asked by Dr. Pinto to evaluate this 78-year-old, gentleman with a history of prostate cancer regarding elevated PSA. Briefly, the patient has a history of prostate cancer and is followed by an outside urologist. He reports his PSA being in the 20 to 30 range in the past. More recently, it was noted to be 107 in his nursing facility. He was brought to the hospital an noted to have evidence of urinary tract infection. He was started on antibiotics for the same. His followup PSA has dropped to 65. Now is 126, heme/ onc consulted to eval. Also noted to have low plts and heme was consulted as well as uro. PAST MEDICAL HISTORY: 1. Prostate cancer with elevated PSA. 2. Hypertension. 3. Diabetes. 4. COPD. 5. Anemia. 6. Finger fracture. PAST SURGICAL HISTORY: 1. Prostate needle biopsy. 2. Pacemaker placement. ALLERGIES: No known drug allrgies. SOCIAL HISTORY: Unremarkable for tobacco, alcohol, or drug use. The patient lives in a nursing facility. FAMILY HISTORY: Noncontributory. REVIEW OF SYSTEMS: A 14 system review of systems was essentially unremarkable outside of what is described above. PHYSICAL EXAMINATION: GENERAL: The patient is an elderly gentleman, awake, alert, oriented x4. No obvious distress. HEENT: NC/AT. EOMI. Oropharynx clear. NECK: Supple. CHEST: Within normal limits. ABDOMEN: Soft, nontender, nondistended. EXTREMITIES: Warm, well perfused. No cyanosis, clubbing, or edema. BACK: No CVA tenderness to percussion. NEUROLOGIC: Grossly nonfocal. Labs: noted DIAGNOSTIC IMAGING: None relevant. ASSESSMENT AND PLAN: # Prostate cancer, elevated psa of 65--->126, currently off any kind of treatment and has a outside urologist that he follows up with. --> likely acute elevation is due to uti, currently high and can oscillate even to 100s --> obtain skeletal survey rule out distant mets --> Pyuria- no UTI symptoms --> PSA trend 20-->65-->126 # Thrombocytopenia in the 100-150s range --> consider hepatitis and hiv --> neg --> smear to be reviewed, completed --> appreciate uro and id recs in reg to abx --> Us of abd reordered last time showed masses in spleen # Dm2 --> a1c goal <8 --> accuchecks qac and qhs # HTN # COPD # AFib # GERD # SNF resident The timing of this note does not necessarily reflect the time of the patient was seen. Greatly appreciate consultation! Antony Thurston MD Sep 17, 2018 17:21
--- NOTE | 2018-09-17 18:00 | NUR ---
NURSE NOTES: contacted doctor regarding patients observation status. doctor said to admit prn. charge nurse said observation status is good for 48 hours, so did not change observation status for patient as was unclear what doctor meant by admit prn.
--- NOTE | 2018-09-17 19:43 | NUR ---
HAND-OFF: Report given to eliz walsh.
[2018-09-17 20:00] VITALS: BP 97/55
--- NOTE | 2018-09-17 20:00 | NUR ---
NURSE NOTES: Received patient awake,alert,verbal,resting in bed,comfortable.
--- NOTE | 2018-09-17 20:14 | Consultation ---
History of Present Illness General Date patient seen: Sep 17, 2018 Chief Complaint: Abnormal Labs Present Illness HPI 78 y/o M with hx of Prostate CA (dx'ed 2 years ago) s/p Casodex and Lupron but lost follow up,BPH, UTI, nephrolithiasis, DM2,BPH, COPD, Afib, s/p PPM, [place] resident presents to ED on 09/16 for evaluation of elevated PSA and acute onset of suprapubic discomfort and urinary retention. Denid n/v/d, chills Allergies: Coded Allergies: NO KNOWN ALLERGIES (Unverified Allergy, Unknown, 11/29/14) Medication History Scheduled Aspirin* (Aspir 81*), 81 MG ORAL DAILY, (Reported) Atorvastatin Calcium* (Lipitor*), 40 MG ORAL BEDTIME, (Reported) Bicalutamide (Casodex), 50 MG ORAL DAILY, (Reported) Calcium Carbonate/Vitamin D3 (Calcium + Vitamin D Tablet), 2 EACH PO DAILY, ( Reported) Digoxin* (Digoxin*), 125 MCG ORAL DAILY, (Reported) Docusate Sodium* (Docusate Sodium*), 250 MG ORAL HS, (Reported) Docusate Sodium* (Colace*), 250 MG ORAL DAILY, (Reported) Docusate Sodium* (Docusate Sodium*), 250 MG ORAL DAILY, (Reported) Escitalopram Oxalate (Escitalopram Oxalate*), 5 MG ORAL BEDTIME, (Reported) Escitalopram Oxalate* (Lexapro*), 10 MG ORAL DAILY, (Reported) Finasteride* (Proscar*), 5 MG ORAL DAILY, (Reported) Heparin Sod (Porcine) (Heparin Sodium*), 5,000 UNITS SUBQ EVERY 12 HOURS, ( Reported) Insulin Aspart (Novolog), SUBQ AC+HS, (Reported) Insulin Regular, Human* (Novolin R*), 0 SUBQ .SLIDING SCALE, (Reported) Leuprolide Acetate (Lupron Depot), 7.5 MG IM MONTHLY ON THE , (Reported) Sennosides (Senokot), 2 TAB PO BID, (Reported) Sucralfate* (Carafate*), 1 GM ORAL TID AC, (Reported) Sucralfate* (Carafate*), 1 GM ORAL TID before meal, (Reported) Tamsulosin Hcl (Tamsulosin Hcl*), 0.4 MG ORAL BEDTIME, (Reported) Topiramate* (Topamax*), 100 MG ORAL DAILY, (Reported) Scheduled PRN Acetaminophen (Tylenol), 650 MG ORAL Q4HR PRN for Prn Pain/Headache/Temp > 101, (Reported) Ipratropium/Albuterol Sulfate (DuoNeb 0.5-3(2.5)mg/3ml), 3 ML HHN Q4HR PRN for Shortness of Breath, (Reported) Lorazepam* (Ativan*), 1 MG ORAL Q6HR PRN for For Anxiety, (Reported) Nitroglycerin (Nitrostat), 0.4 MG SL Q5M X3 DOSES PRN for CHEST PAIN, (Reported) Polyethylene Glycol 3350* (Miralax*), 17 GM ORAL DAILY PRN for Constipation, ( Reported) Zolpidem Tartrate* (Ambien*), 5 MG ORAL HS PRN for Insomnia, (Reported) Patient History Healthcare decision maker SELF Resuscitation status Advanced Directive on File Yes Patient History Narrative Pmhx: as above Shx: He is a resident of a prison. No smoking. No alcohol. No intravenous drug abuse. Fhx: non contributory Review of Systems All Other Systems: negative except mentioned in HPI Physical Exam Physical Exam Narrative GENERAL: Slightly anxious in bed, oriented x2, in no acute distress. CARDIOVASCULAR: No murmur. LUNGS: Distant and clear. ABDOMEN: Positive bowel sounds. Nontender. Nondistended. EXTREMITIES: No cyanosis, clubbing, or edema. NEUROLOGIC: The patient moves all extremities slightly weak. Last 24 Hour Vital Signs Date Time Temp Pulse Resp B/P (MAP) Pulse Ox O2 Delivery O2 Flow Rate FiO2 09/17/18 16:00 98.3 20 107/58 (74) 99 09/17/18 12:28 63 09/17/18 12:00 97.8 20 126/71 (89) 99 09/17/18 09:00 Room Air 09/17/18 08:00 98.5 63 20 103/59 (74) 100 09/17/18 04:00 97.5 69 18 101/40 (60) 97 09/17/18 01:54 Room Air 09/17/18 00:00 98.1 63 18 112/58 (76) 96 09/16/18 21:55 98.4 63 18 103/54 (70) 96 09/16/18 21:50 98.1 60 17 110/65 97 Room Air 64 09/16/18 20:19 98.1 64 17 110/65 97 Room Air Intake and Output 09/16/18 09/17/18 19:00 07:00 Intake Total 530 ml Output Total 200 ml Balance 330 ml Intake Oral 480 ml IV Total 50 ml Output Urine Total 200 ml # Voids 1 # Bowel Movements 1 Laboratory Tests Test 09/17/18 08:30 White Blood Count 5.8 K/UL (4.8-10.8) Red Blood Count 4.16 M/UL (4.70-6.10) L Hemoglobin 12.9 G/DL (14.2-18.0) L Hematocrit 38.1 % (42.0-52.0) L Mean Corpuscular Volume 92 FL (80-99) Mean Corpuscular Hemoglobin 31.1 PG (27.0-31.0) H Mean Corpuscular Hemoglobin Concent 33.9 G/DL (32.0-36.0) Red Cell Distribution Width 11.7 % (11.6-14.8) Platelet Count 126 K/UL (150-450) L Mean Platelet Volume 7.6 FL (6.5-10.1) Neutrophils (%) (Auto) 67.8 % (45.0-75.0) Lymphocytes (%) (Auto) 21.7 % (20.0-45.0) Monocytes (%) (Auto) 5.9 % (1.0-10.0) Eosinophils (%) (Auto) 4.0 % (0.0-3.0) H Basophils (%) (Auto) 0.5 % (0.0-2.0) Sodium Level 140 MMOL/L (136-145) Potassium Level 3.6 MMOL/L (3.5-5.1) Chloride Level 109 MMOL/L (98-107) H Carbon Dioxide Level 26 MMOL/L (21-32) Anion Gap 5 mmol/L (5-15) Blood Urea Nitrogen 20 mg/dL (7-18) H Creatinine 0.9 MG/DL (0.55-1.30) Estimat Glomerular Filtration Rate mL/min (>60) Glucose Level 115 MG/DL (74-106) H Calcium Level 8.8 MG/DL (8.5-10.1) Thyroid Stimulating Hormone (TSH) 3.360 uiU/mL (0.358-3.740) Height (Feet): 5 Height (Inches): 6.00 Weight (Pounds): 240 Medications Current Medications Medications (Trade) Dose Ordered Sig/Maliha Route PRN Reason Start Time Stop Time Status Last Admin Dose Admin Acetaminophen (Tylenol) 650 mg Q4H PRN ORAL Mild Pain (Pain Scale 1-3) 09/16/18 15:30 10/16/18 15:29 Al Hydroxide/Mg Hydroxide (Mylanta II) 30 ml Q6H PRN ORAL dyspepsia 09/16/18 15:30 10/16/18 15:29 Albuterol/ Ipratropium (Albuterol/ Ipratropium) 3 ml Q6H PRN HHN Shortness of Breath 09/16/18 15:30 09/21/18 15:29 Aspirin (ASA) 81 mg DAILY ORAL 09/17/18 12:15 10/17/18 12:14 09/17/18 12:28 Bicalutamide (Casodex) 50 mg DAILY ORAL 09/17/18 09:00 09/22/18 08:59 09/17/18 08:45 Calcium/Vitamin D (OsCal D) 2 tab DAILY ORAL 09/17/18 12:15 10/17/18 12:14 09/17/18 12:28 Dextrose (Dextrose 50%) 25 ml Q30M PRN IV Hypoglycemia 09/17/18 17:00 10/17/18 16:59 Dextrose (Dextrose 50%) 50 ml Q30M PRN IV Hypoglycemia 09/17/18 17:00 10/17/18 16:59 Digoxin (Lanoxin) 0.125 mg DAILY ORAL 09/17/18 12:15 10/17/18 12:14 09/17/18 12:28 Diphenhydramine HCl (Benadryl) 25 mg Q6H PRN ORAL Itching/Pruritis 09/16/18 15:30 10/16/18 15:29 Docusate Sodium (Colace) 100 mg EVERY 12 HOURS ORAL 09/16/18 21:00 10/16/18 20:59 09/17/18 08:46 Finasteride (Proscar) 5 mg DAILY ORAL 09/17/18 09:00 10/17/18 08:59 09/17/18 08:46 Heparin Sodium (Porcine) (Heparin 5000 units/ml) 5,000 units EVERY 12 HOURS SUBQ 09/16/18 21:00 10/16/18 20:59 Hydromorphone HCl (Dilaudid) 0.5 mg Q6H PRN IVP For Pain 09/16/18 15:30 09/23/18 15:29 09/17/18 08:49 Insulin Aspart (NovoLOG) BEFORE MEALS AND HS SUBQ 09/17/18 21:00 10/17/18 20:59 Lorazepam (Ativan) 1 mg Q4H PRN ORAL For Anxiety 09/16/18 15:30 09/23/18 15:29 Sodium Chloride 1,000 ml @ 50 mls/hr Q20H IVLG 09/16/18 17:00 10/16/18 16:59 09/17/18 18:45 Tamsulosin HCl (Flomax) 0.4 mg BEDTIME ORAL 09/16/18 21:34 10/16/18 21:33 09/16/18 22:33 Zolpidem Tartrate (Ambien) 5 mg HSPRN PRN ORAL Insomnia 09/16/18 15:30 09/23/18 15:29 09/16/18 23:44 Assessment/Plan Assessment/Plan: Abx: Ceftriaxone x1 09/16 Assessment: Probable UTI (+suprapubic discomfort) -u/a wbc 20-40, nit +, leuk +3; ycx >100k GNR Afebrile No leukocytosis Prostate CA (dx'ed 2 years ago) s/p Casodex and Lupron but lost follow up BPH UTI nephrolithiasis DM2 BPH COPD Afib, s/p PPM [facility] resident Plan: -Start empiric Cefepime for UTI pending ucx -f/u cx -Monitor CBC/CMP, temperatures -Uro eval Thank you for this consultation. Will continue to follow along with you. Discussed with Susan Dewey M.D. Sep 17, 2018 20:14
--- NOTE | 2018-09-17 20:35 | Pulmonology Progress Note ---
Assessment/Plan Problems: (1) Anemia (2) COPD (chronic obstructive pulmonary disease) (3) Diabetes (4) HTN (hypertension) (5) PSA elevation Assessment/Plan respiratory treatment check electrolytes monitor BP titrate fio2 to sat of 92% sliding scale diabetic diet Subjective ROS Limited/Unobtainable: No Constitutional: Reports: no symptoms HEENT: Repors: no symptoms Respiratory: Reports: no symptoms Allergies: Coded Allergies: NO KNOWN ALLERGIES (Unverified Allergy, Unknown, 11/29/14) Objective Last 24 Hour Vital Signs Date Time Temp Pulse Resp B/P (MAP) Pulse Ox O2 Delivery O2 Flow Rate FiO2 09/17/18 16:00 98.3 20 107/58 (74) 99 09/17/18 12:28 63 09/17/18 12:00 97.8 20 126/71 (89) 99 09/17/18 09:00 Room Air 09/17/18 08:00 98.5 63 20 103/59 (74) 100 09/17/18 04:00 97.5 69 18 101/40 (60) 97 09/17/18 01:54 Room Air 09/17/18 00:00 98.1 63 18 112/58 (76) 96 09/16/18 21:55 98.4 63 18 103/54 (70) 96 09/16/18 21:50 98.1 60 17 110/65 97 Room Air 64 Intake and Output 09/16/18 09/17/18 19:00 07:00 Intake Total 530 ml Output Total 200 ml Balance 330 ml Intake Oral 480 ml IV Total 50 ml Output Urine Total 200 ml # Voids 1 # Bowel Movements 1 General Appearance: no acute distress HEENT: atraumatic Respiratory/Chest: chest wall non-tender, normal breath sounds Cardiovascular: normal rate Abdomen: soft, non tender, no mass Skin: no rash Microbiology Date/Time Source Procedure Growth Status 09/16/18 15:42 Urine,Clean Catch Urine Culture - Preliminary Gram Negative Bacillus 1 Resulted Laboratory Tests 09/17/18 08:30: White Blood Count 5.8, Red Blood Count 4.16L, Hemoglobin 12.9L, Hematocrit 38.1L , Mean Corpuscular Volume 92, Mean Corpuscular Hemoglobin 31.1H, Mean Corpuscular Hemoglobin Concent 33.9, Red Cell Distribution Width 11.7, Platelet Count 126L, Mean Platelet Volume 7.6, Neutrophils (%) (Auto) 67.8, Lymphocytes ( %) (Auto) 21.7, Monocytes (%) (Auto) 5.9, Eosinophils (%) (Auto) 4.0H, Basophils (%) (Auto) 0.5, Sodium Level 140, Potassium Level 3.6, Chloride Level 109H, Carbon Dioxide Level 26, Anion Gap 5, Blood Urea Nitrogen 20H, Creatinine 0.9, Estimat Glomerular Filtration Rate , Glucose Level 115H, Calcium Level 8.8 , Thyroid Stimulating Hormone (TSH) 3.360 Current Medications Medications (Trade) Dose Ordered Sig/Maliha Route PRN Reason Start Time Stop Time Status Last Admin Dose Admin Acetaminophen (Tylenol) 650 mg Q4H PRN ORAL Mild Pain (Pain Scale 1-3) 09/16/18 15:30 10/16/18 15:29 Al Hydroxide/Mg Hydroxide (Mylanta II) 30 ml Q6H PRN ORAL dyspepsia 09/16/18 15:30 10/16/18 15:29 Albuterol/ Ipratropium (Albuterol/ Ipratropium) 3 ml Q6H PRN HHN Shortness of Breath 09/16/18 15:30 09/21/18 15:29 Aspirin (ASA) 81 mg DAILY ORAL 09/17/18 12:15 10/17/18 12:14 09/17/18 12:28 Bicalutamide (Casodex) 50 mg DAILY ORAL 09/17/18 09:00 09/22/18 08:59 09/17/18 08:45 Calcium/Vitamin D (OsCal D) 2 tab DAILY ORAL 09/17/18 12:15 10/17/18 12:14 09/17/18 12:28 Cefepime HCl 1 gm/ Dextrose 55 ml @ 110 mls/hr Q24H IVPB 09/17/18 21:00 09/24/18 20:59 Dextrose (Dextrose 50%) 25 ml Q30M PRN IV Hypoglycemia 09/17/18 17:00 10/17/18 16:59 Dextrose (Dextrose 50%) 50 ml Q30M PRN IV Hypoglycemia 09/17/18 17:00 10/17/18 16:59 Digoxin (Lanoxin) 0.125 mg DAILY ORAL 09/17/18 12:15 10/17/18 12:14 09/17/18 12:28 Diphenhydramine HCl (Benadryl) 25 mg Q6H PRN ORAL Itching/Pruritis 09/16/18 15:30 10/16/18 15:29 Docusate Sodium (Colace) 100 mg EVERY 12 HOURS ORAL 09/16/18 21:00 10/16/18 20:59 09/17/18 08:46 Finasteride (Proscar) 5 mg DAILY ORAL 09/17/18 09:00 10/17/18 08:59 09/17/18 08:46 Heparin Sodium (Porcine) (Heparin 5000 units/ml) 5,000 units EVERY 12 HOURS SUBQ 09/16/18 21:00 10/16/18 20:59 Hydromorphone HCl (Dilaudid) 0.5 mg Q6H PRN IVP For Pain 09/16/18 15:30 09/23/18 15:29 09/17/18 08:49 Insulin Aspart (NovoLOG) BEFORE MEALS AND HS SUBQ 09/17/18 21:00 10/17/18 20:59 Lorazepam (Ativan) 1 mg Q4H PRN ORAL For Anxiety 09/16/18 15:30 09/23/18 15:29 Sodium Chloride 1,000 ml @ 50 mls/hr Q20H IVLG 09/16/18 17:00 10/16/18 16:59 09/17/18 18:45 Tamsulosin HCl (Flomax) 0.4 mg BEDTIME ORAL 09/16/18 21:34 10/16/18 21:33 09/16/18 22:33 Zolpidem Tartrate (Ambien) 5 mg HSPRN PRN ORAL Insomnia 09/16/18 15:30 09/23/18 15:29 09/16/18 23:44 Karen Jimenez MD Sep 17, 2018 20:35
[2018-09-17] MEDS: Tamsulosin 0.4mg cap ORAL SCH (21:00)
[2018-09-17] MEDS: NovoLOG Insulin Flexpen SUBQ SCH (21:00)
[2018-09-17] MEDS: Cefepime HCl 1 GM in D5W 55 ML IVPB SCH (21:31)
[2018-09-17] MEDS: Zolpidem 5mg tab ORAL PRN (21:35)
[2018-09-18] MEDS: NovoLOG Insulin Flexpen SUBQ SCH ×4 (05:57→20:41)
--- NOTE | 2018-09-18 07:06 | NUR ---
HAND-OFF: Report given to Sandra Lopez RN.
[2018-09-18 07:32] LABS: BASOPHILS % (AUTO) 0.7 % (0.0-2.0); EOSINOPHILS % (AUTO) 4.8 % (0.0-3.0); HEMATOCRIT 40.1 % (42.0-52.0); HEMOGLOBIN 12.9 G/DL (14.2-18.0); LYMPHOCYTES % (AUTO) 22.5 % (20.0-45.0); MEAN CORPUSCULAR VOLUME 95 FL (80-99); MONOCYTES % (AUTO) 8.9 % (1.0-10.0); NEUTROPHILS % (AUTO) 63.2 % (45.0-75.0); PLATELET COUNT 124 K/UL (150-450); RED BLOOD COUNT 4.23 M/UL (4.70-6.10); RED CELL DISTRIBUTION WIDTH 12.2 % (11.6-14.8); WHITE BLOOD COUNT 5.8 K/UL (4.8-10.8)
[2018-09-18 07:45] LABS: ANION GAP 3 mmol/L (5-15); BLOOD UREA NITROGEN 21 mg/dL (7-18); CALCIUM 8.7 MG/DL (8.5-10.1); CARBON DIOXIDE 25 MMOL/L (21-32); CHLORIDE 111 MMOL/L (98-107); CREATININE 0.9 MG/DL (0.55-1.30); POTASSIUM 3.7 MMOL/L (3.5-5.1); SODIUM 139 MMOL/L (136-145)
[2018-09-18 08:00] VITALS: BP 104/62
--- NOTE | 2018-09-18 08:10 | Urology Progress Note ---
Assessment/Plan Status: unchanged Assessment/Plan: 1. 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 2. BPH history. 3. Lower urinary tract symptoms. 4. Pyuria, probable UTI. 5. Hematuria. 6. Nephrolithiasis history. 7. Renal cyst. 8. Rule out neurogenic bladder. monitor clinically cont casodex and lupron flomax and proscar med/onc noted f/u on bone scan abx as ordered f/u on urine cx Subjective Allergies: Coded Allergies: NO KNOWN ALLERGIES (Unverified Allergy, Unknown, 11/29/14) Subjective all noted Objective Last 24 Hour Vital Signs Date Time Temp Pulse Resp B/P (MAP) Pulse Ox O2 Delivery O2 Flow Rate FiO2 09/17/18 21:00 Room Air 09/17/18 20:00 98.3 62 19 97/55 (69) 96 09/17/18 16:00 98.3 20 107/58 (74) 99 09/17/18 12:28 63 09/17/18 12:00 97.8 20 126/71 (89) 99 09/17/18 09:00 Room Air Intake and Output 09/17/18 09/18/18 19:00 07:00 Intake Total 600 ml 655 ml Output Total 700 ml Balance -100 ml 655 ml Intake Oral 600 ml 300 ml IV Total 355 ml Output Urine Total 700 ml # Voids 3 Microbiology Date/Time Source Procedure Growth Status 09/16/18 15:42 Urine,Clean Catch Urine Culture - Preliminary Gram Negative Bacillus 1 Resulted Current Medications Medications (Trade) Dose Ordered Sig/Maliha Route PRN Reason Start Time Stop Time Status Last Admin Dose Admin Acetaminophen (Tylenol) 650 mg Q4H PRN ORAL Mild Pain (Pain Scale 1-3) 09/16/18 15:30 10/16/18 15:29 Al Hydroxide/Mg Hydroxide (Mylanta II) 30 ml Q6H PRN ORAL dyspepsia 09/16/18 15:30 10/16/18 15:29 Albuterol/ Ipratropium (Albuterol/ Ipratropium) 3 ml Q6H PRN HHN Shortness of Breath 09/16/18 15:30 09/21/18 15:29 Aspirin (ASA) 81 mg DAILY ORAL 09/17/18 12:15 10/17/18 12:14 09/17/18 12:28 Bicalutamide (Casodex) 50 mg DAILY ORAL 09/17/18 09:00 09/22/18 08:59 09/17/18 08:45 Calcium/Vitamin D (OsCal D) 2 tab DAILY ORAL 09/17/18 12:15 10/17/18 12:14 09/17/18 12:28 Cefepime HCl 1 gm/ Dextrose 55 ml @ 110 mls/hr Q24H IVPB 09/17/18 21:00 09/24/18 20:59 09/17/18 21:31 Dextrose (Dextrose 50%) 25 ml Q30M PRN IV Hypoglycemia 09/17/18 17:00 10/17/18 16:59 Dextrose (Dextrose 50%) 50 ml Q30M PRN IV Hypoglycemia 09/17/18 17:00 10/17/18 16:59 Digoxin (Lanoxin) 0.125 mg DAILY ORAL 09/17/18 12:15 10/17/18 12:14 09/17/18 12:28 Diphenhydramine HCl (Benadryl) 25 mg Q6H PRN ORAL Itching/Pruritis 09/16/18 15:30 10/16/18 15:29 Docusate Sodium (Colace) 100 mg EVERY 12 HOURS ORAL 09/16/18 21:00 10/16/18 20:59 09/17/18 21:31 Finasteride (Proscar) 5 mg DAILY ORAL 09/17/18 09:00 10/17/18 08:59 09/17/18 08:46 Heparin Sodium (Porcine) (Heparin 5000 units/ml) 5,000 units EVERY 12 HOURS SUBQ 09/16/18 21:00 10/16/18 20:59 Hydromorphone HCl (Dilaudid) 0.5 mg Q6H PRN IVP For Pain 09/16/18 15:30 09/23/18 15:29 09/17/18 08:49 Insulin Aspart (NovoLOG) BEFORE MEALS AND HS SUBQ 09/17/18 21:00 10/17/18 20:59 Lorazepam (Ativan) 1 mg Q4H PRN ORAL For Anxiety 09/16/18 15:30 09/23/18 15:29 Sodium Chloride 1,000 ml @ 50 mls/hr Q20H IVLG 09/16/18 17:00 10/16/18 16:59 09/17/18 18:45 Tamsulosin HCl (Flomax) 0.4 mg BEDTIME ORAL 09/16/18 21:34 10/16/18 21:33 09/16/18 22:33 Zolpidem Tartrate (Ambien) 5 mg HSPRN PRN ORAL Insomnia 09/16/18 15:30 09/23/18 15:29 09/17/18 21:35 Laboratory Tests 09/17/18 08:30: White Blood Count 5.8, Red Blood Count 4.16L, Hemoglobin 12.9L, Hematocrit 38.1L , Mean Corpuscular Volume 92, Mean Corpuscular Hemoglobin 31.1H, Mean Corpuscular Hemoglobin Concent 33.9, Red Cell Distribution Width 11.7, Platelet Count 126L, Mean Platelet Volume 7.6, Neutrophils (%) (Auto) 67.8, Lymphocytes ( %) (Auto) 21.7, Monocytes (%) (Auto) 5.9, Eosinophils (%) (Auto) 4.0H, Basophils (%) (Auto) 0.5, Sodium Level 140, Potassium Level 3.6, Chloride Level 109H, Carbon Dioxide Level 26, Anion Gap 5, Blood Urea Nitrogen 20H, Creatinine 0.9, Estimat Glomerular Filtration Rate , Glucose Level 115H, Calcium Level 8.8 , Thyroid Stimulating Hormone (TSH) 3.360 09/18/18 06:40: White Blood Count 5.8, Red Blood Count 4.23L, Hemoglobin 12.9L, Hematocrit 40.1L , Mean Corpuscular Volume 95, Mean Corpuscular Hemoglobin 30.6, Mean Corpuscular Hemoglobin Concent 32.3, Red Cell Distribution Width 12.2, Platelet Count 124L, Mean Platelet Volume 7.2, Neutrophils (%) (Auto) 63.2, Lymphocytes ( %) (Auto) 22.5, Monocytes (%) (Auto) 8.9, Eosinophils (%) (Auto) 4.8H, Basophils (%) (Auto) 0.7, Sodium Level 139, Potassium Level 3.7, Chloride Level 111H, Carbon Dioxide Level 25, Anion Gap 3L, Blood Urea Nitrogen 21H, Creatinine 0.9, Estimat Glomerular Filtration Rate , Glucose Level 83, Calcium Level 8.7 Height (Feet): 5 Height (Inches): 6.00 Weight (Pounds): 240 Objective exam stable Gabino Segal MD Sep 18, 2018 08:10
--- NOTE | 2018-09-18 08:13 | Diagnostic Imaging Report ---
Indication: Reason For Exam: COUGH Technique: Single AP view of the chest. Comparison: Chest radiograph dated 11/29/2014 Findings: Unchanged cardiomediastinal silhouette. Low lung volumes with bronchovascular crowding. There is pulmonary vascular congestion. Streaky right basilar airspace opacity likely represents chronic atelectasis/scarring. Chronic elevation of the right hemidiaphragm. No pneumothorax. No pleural fluid. Interval placement of left approach dual lead pacemaker/ICD. IMPRESSION: Pulmonary vascular congestion with right basilar atelectasis.
--- NOTE | 2018-09-18 08:28 | NUR ---
NURSE NOTES: Patient is alert and oriented. Patient NPO for ultrasound of abdomen. No reports of discomfort at the moment. Bed is locked, in lowest position, and call light is within reach. Will continue to monitor.
[2018-09-18] MEDS: Heparin 5000 units/ml inj SUBQ SCH ×2 (09:00→21:00)
--- NOTE | 2018-09-18 09:03 | General Progress Note ---
Assessment/Plan Problem List: (1) UTI (urinary tract infection) ICD Codes: N39.0 - Urinary tract infection, site not specified SNOMED: 07496150 (2) PSA elevation ICD Codes: R97.20 - Elevated prostate specific antigen [PSA] SNOMED: 724621277 (3) HTN (hypertension) ICD Codes: I10 - Essential (primary) hypertension SNOMED: 37536344 (4) Diabetes ICD Codes: E11.9 - Type 2 diabetes mellitus without complications SNOMED: 73693262 (5) COPD (chronic obstructive pulmonary disease) ICD Codes: J44.9 - Chronic obstructive pulmonary disease, unspecified SNOMED: 33283202 (6) Atrial fibrillation ICD Codes: I48.91 - Unspecified atrial fibrillation SNOMED: 83598501 Status: stable, progressing Assessment/Plan: pt diet abx uro f/u cbc bmp am dc plan if clear Subjective Constitutional: Reports: weakness Allergies: Coded Allergies: NO KNOWN ALLERGIES (Unverified Allergy, Unknown, 11/29/14) All Systems: reviewed and negative except above Subjective sl anxious in bed Objective Last 24 Hour Vital Signs Date Time Temp Pulse Resp B/P (MAP) Pulse Ox O2 Delivery O2 Flow Rate FiO2 09/18/18 08:00 97.4 63 20 104/62 (76) 96 09/17/18 21:00 Room Air 09/17/18 20:00 98.3 62 19 97/55 (69) 96 09/17/18 16:00 98.3 20 107/58 (74) 99 09/17/18 12:28 63 09/17/18 12:00 97.8 20 126/71 (89) 99 Intake and Output 09/17/18 09/18/18 19:00 07:00 Intake Total 600 ml 655 ml Output Total 700 ml Balance -100 ml 655 ml Intake Oral 600 ml 300 ml IV Total 355 ml Output Urine Total 700 ml # Voids 3 Laboratory Tests 09/18/18 06:40: White Blood Count 5.8, Red Blood Count 4.23L, Hemoglobin 12.9L, Hematocrit 40.1L , Mean Corpuscular Volume 95, Mean Corpuscular Hemoglobin 30.6, Mean Corpuscular Hemoglobin Concent 32.3, Red Cell Distribution Width 12.2, Platelet Count 124L, Mean Platelet Volume 7.2, Neutrophils (%) (Auto) 63.2, Lymphocytes ( %) (Auto) 22.5, Monocytes (%) (Auto) 8.9, Eosinophils (%) (Auto) 4.8H, Basophils (%) (Auto) 0.7, Sodium Level 139, Potassium Level 3.7, Chloride Level 111H, Carbon Dioxide Level 25, Anion Gap 3L, Blood Urea Nitrogen 21H, Creatinine 0.9, Estimat Glomerular Filtration Rate , Glucose Level 83, Calcium Level 8.7 Height (Feet): 5 Height (Inches): 6.00 Weight (Pounds): 240 General Appearance: lethargic EENT: normal ENT inspection Neck: normal alignment Cardiovascular: normal peripheral pulses, normal rate, regular rhythm Respiratory/Chest: chest wall non-tender, lungs clear, normal breath sounds Abdomen: normal bowel sounds, non tender, soft Extremities: normal inspection Edema: no edema noted Arm (L), no edema noted Arm (R), no edema noted Leg (L), no edema noted Leg (R), no edema noted Pedal (L), no edema noted Pedal (R), no edema noted Generalized Neurologic: responsive, motor weakness Skin: normal pigmentation, warm/dry Mickey Pinto DO Sep 18, 2018 09:03
[2018-09-18] MEDS: Bicalutamide 50mg tab ORAL SCH (10:16)
[2018-09-18] MEDS: Aspirin Baby 81mg ORAL SCH (10:16)
[2018-09-18] MEDS: Digoxin 0.125mg tab ORAL SCH (10:16)
[2018-09-18] MEDS: Calcium Carbonate 500mg w/Vit D 200iu tab ORAL SCH (10:16)
[2018-09-18] MEDS: Docusate 100mg cap ORAL SCH (10:16)
--- NOTE | 2018-09-18 10:34 | Diagnostic Imaging Report ---
Indication: Abdominal pain. Technique: US ABD Complete Comparison: 12/01/2014 Findings: Liver appears normal in size. The bladder contour appears smooth. No focal hepatic mass lesion appreciated sonographically. There is cholelithiasis. No gallbladder wall thickening or pericholecystic fluid. Sonographic Dinh sign reported as negative. No intrahepatic biliary ductal dilatation. Common bile duct measures 3 mm in diameter. Pancreas is obscured by overlying bowel gas. Kidneys demonstrate normal echogenicity. No hydronephrosis seen bilaterally. Multiple simple appearing cysts noted in the bilateral kidneys. 2 small echogenic foci noted in the right kidney measuring less than 1 cm. This may represent small angiomyolipomas. Spleen is within the upper limits for normal size measuring 12 cm in length. Multiple echogenic foci are again noted in the spleen. Imaged portions of the abdominal aorta normal caliber. No ascites is demonstrated. IMPRESSION: Cholelithiasis. No sonographic evidence to suggest acute cholecystitis. Sonographic Dinh sign reported as negative. No biliary ductal dilatation. Simple appearing cysts in the bilateral kidneys. Multiple echogenic lesions again noted in the spleen, similar to the prior exam. Again these findings are nonspecific and may potentially represent hemangiomas. CT or MRI with contrast can be obtained for further evaluation. Bilateral renal calcifications may be parenchymal calcifications or nonobstructing stones. Subcentimeter echogenic focus in the right kidney may represent a small angiomyolipoma.
--- NOTE | 2018-09-18 11:37 | NUR ---
*-* INSURANCE *-* ALL CLINICALS AND REVIEWS HAVE BEEN FAXED TO: JIMMY HANNAH:[employer] P:[phone] F: [phone]
[2018-09-18 12:00] VITALS: BP 111/60
--- NOTE | 2018-09-18 12:12 | NUR ---
NURSE NOTES: Patient has inpatient order. Patient also reporting he has not been getting some medications from SNF. Dr. Pinto notified. New orders received.
--- NOTE | 2018-09-18 12:52 | Infectious Diseases Prog Note ---
Assessment/Plan Assessment/Plan Assessment: Probable UTI (+suprapubic discomfort) -u/a wbc 20-40, nit +, leuk +3; ycx >100k GNR Afebrile No leukocytosis -CXR: Pulmonary vascular congestion with right basilar atelectasis. Prostate CA (dx'ed 2 years ago) s/p Casodex and Lupron but lost follow up BPH UTI nephrolithiasis DM2 BPH COPD Afib, s/p PPM [facility] resident Plan: -Cont empiric Cefepime #2 for UTI pending ucx -09/16 SP Ceftriaxone x1 -f/u cx -Monitor CBC/CMP, temperatures -Uro eval Thank you for this consultation. Will continue to follow along with you. Discussed with RN. Subjective Allergies: Coded Allergies: NO KNOWN ALLERGIES (Unverified Allergy, Unknown, 11/29/14) Objective Vital Signs Last 24 Hour Vital Signs Date Time Temp Pulse Resp B/P (MAP) Pulse Ox O2 Delivery O2 Flow Rate FiO2 09/18/18 10:16 63 09/18/18 09:00 Room Air 09/18/18 08:00 97.4 63 20 104/62 (76) 96 09/17/18 21:00 Room Air 09/17/18 20:00 98.3 62 19 97/55 (69) 96 09/17/18 16:00 98.3 20 107/58 (74) 99 Height (Feet): 5 Height (Inches): 6.00 Weight (Pounds): 240 Objective GENERAL: Slightly anxious in bed, oriented x2, in no acute distress. CARDIOVASCULAR: No murmur. LUNGS: Distant and clear. ABDOMEN: Positive bowel sounds. Nontender. Nondistended. EXTREMITIES: No cyanosis, clubbing, or edema. NEUROLOGIC: The patient moves all extremities slightly weak. Microbiology Date/Time Source Procedure Growth Status 09/16/18 21:00 Nasal Nares MRSA Culture - Final Staphylococcus Aureus - Mrsa Complete 09/16/18 15:42 Urine,Clean Catch Urine Culture - Preliminary Gram Negative Bacillus 1 Resulted Laboratory Tests Test 09/18/18 06:40 White Blood Count 5.8 K/UL (4.8-10.8) Red Blood Count 4.23 M/UL (4.70-6.10) L Hemoglobin 12.9 G/DL (14.2-18.0) L Hematocrit 40.1 % (42.0-52.0) L Mean Corpuscular Volume 95 FL (80-99) Mean Corpuscular Hemoglobin 30.6 PG (27.0-31.0) Mean Corpuscular Hemoglobin Concent 32.3 G/DL (32.0-36.0) Red Cell Distribution Width 12.2 % (11.6-14.8) Platelet Count 124 K/UL (150-450) L Mean Platelet Volume 7.2 FL (6.5-10.1) Neutrophils (%) (Auto) 63.2 % (45.0-75.0) Lymphocytes (%) (Auto) 22.5 % (20.0-45.0) Monocytes (%) (Auto) 8.9 % (1.0-10.0) Eosinophils (%) (Auto) 4.8 % (0.0-3.0) H Basophils (%) (Auto) 0.7 % (0.0-2.0) Sodium Level 139 MMOL/L (136-145) Potassium Level 3.7 MMOL/L (3.5-5.1) Chloride Level 111 MMOL/L (98-107) H Carbon Dioxide Level 25 MMOL/L (21-32) Anion Gap 3 mmol/L (5-15) L Blood Urea Nitrogen 21 mg/dL (7-18) H Creatinine 0.9 MG/DL (0.55-1.30) Estimat Glomerular Filtration Rate mL/min (>60) Glucose Level 83 MG/DL (74-106) Calcium Level 8.7 MG/DL (8.5-10.1) Current Medications Medications (Trade) Dose Ordered Sig/Maliha Route PRN Reason Start Time Stop Time Status Last Admin Dose Admin Acetaminophen (Tylenol) 650 mg Q4H PRN ORAL Mild Pain (Pain Scale 1-3) 09/16/18 15:30 10/16/18 15:29 Al Hydroxide/Mg Hydroxide (Mylanta II) 30 ml Q6H PRN ORAL dyspepsia 09/16/18 15:30 10/16/18 15:29 Albuterol/ Ipratropium (Albuterol/ Ipratropium) 3 ml Q6H PRN HHN Shortness of Breath 09/16/18 15:30 09/21/18 15:29 Aspirin (ASA) 81 mg DAILY ORAL 09/17/18 12:15 10/17/18 12:14 09/18/18 10:16 Atorvastatin Calcium (Lipitor) 40 mg BEDTIME ORAL 09/18/18 21:00 10/18/18 20:59 Bicalutamide (Casodex) 50 mg DAILY ORAL 09/17/18 09:00 09/22/18 08:59 09/18/18 10:16 Calcium/Vitamin D (OsCal D) 2 tab DAILY ORAL 09/17/18 12:15 10/17/18 12:14 09/18/18 10:16 Cefepime HCl 1 gm/ Dextrose 55 ml @ 110 mls/hr Q24H IVPB 09/17/18 21:00 09/24/18 20:59 09/17/18 21:31 Dextrose (Dextrose 50%) 25 ml Q30M PRN IV Hypoglycemia 09/17/18 17:00 10/17/18 16:59 Dextrose (Dextrose 50%) 50 ml Q30M PRN IV Hypoglycemia 09/17/18 17:00 10/17/18 16:59 Digoxin (Lanoxin) 0.125 mg DAILY ORAL 09/17/18 12:15 10/17/18 12:14 09/18/18 10:16 Diphenhydramine HCl (Benadryl) 25 mg Q6H PRN ORAL Itching/Pruritis 09/16/18 15:30 10/16/18 15:29 Docusate Sodium (Colace) 250 mg DAILY ORAL 09/19/18 09:00 10/19/18 08:59 Escitalopram Oxalate (Lexapro) 10 mg BEDTIME ORAL 09/18/18 21:00 10/18/18 20:59 Finasteride (Proscar) 5 mg DAILY ORAL 09/17/18 09:00 10/17/18 08:59 09/18/18 10:16 Heparin Sodium (Porcine) (Heparin 5000 units/ml) 5,000 units EVERY 12 HOURS SUBQ 09/16/18 21:00 10/16/18 20:59 Hydromorphone HCl (Dilaudid) 0.5 mg Q6H PRN IVP For Pain 09/16/18 15:30 09/23/18 15:29 09/17/18 08:49 Insulin Aspart (NovoLOG) BEFORE MEALS AND HS SUBQ 09/17/18 21:00 10/17/18 20:59 09/18/18 12:47 Lorazepam (Ativan) 1 mg Q4H PRN ORAL For Anxiety 09/16/18 15:30 09/23/18 15:29 Sodium Chloride 1,000 ml @ 50 mls/hr Q20H IVLG 09/16/18 17:00 10/16/18 16:59 09/17/18 18:45 Sucralfate (Carafate) 1 gm BEFORE MEALS ORAL 09/18/18 16:30 10/18/18 16:29 Tamsulosin HCl (Flomax) 0.4 mg BEDTIME ORAL 09/16/18 21:34 10/16/18 21:33 09/16/18 22:33 Topiramate (Topamax) 100 mg DAILY ORAL 09/19/18 09:00 10/19/18 08:59 Zolpidem Tartrate (Ambien) 5 mg HSPRN PRN ORAL Insomnia 09/16/18 15:30 09/23/18 15:29 09/17/18 21:35 Susan Elizalde M.D. Sep 18, 2018 12:52
--- NOTE | 2018-09-18 14:49 | NUR ---
Metastatic Bone Survey done Radiology HJO 13:50
--- NOTE | 2018-09-18 15:39 | Hematology/Onc Progress Note ---
Assessment/Plan Assessment/Plan ASSESSMENT AND PLAN: # Prostate cancer, elevated psa of 65--->126, currently off any kind of treatment and has a outside urologist that he follows up with. --> likely acute elevation is due to uti, currently high and can oscillate even to 100s --> obtain skeletal survey rule out distant mets --> Pyuria- no UTI symptoms --> PSA trend 20-->65-->126 --> casodex started, consider lupron # Thrombocytopenia in the 100-150s range --> consider hepatitis and hiv --> negative --> smear has been reviewed, completed --> appreciate uro and id recs in reg to abx --> Us of abd last time showed masses in spleen--> new us abd ordered # Dm2 --> a1c goal <8 --> accuchecks qac and qhs # HTN # COPD # AFib # GERD # SNF resident The timing of this note does not necessarily reflect the time of the patient was seen. Greatly appreciate consultation! Subjective Constitutional: Denies: no symptoms, chills, fever, malaise, weakness, other HEENT: Denies: no symptoms, eye pain, blurred vision, tearing, double vision, ear pain, ear discharge, nose pain, nose congestion, throat pain, throat swelling, mouth pain, mouth swelling, other Cardiovascular: Denies: no symptoms, chest pain, edema, irregular heart rate, lightheadedness, palpitations, syncope, other Genitourinary: Denies: no symptoms, burning, discharge, frequency, flank pain, hematuria, incontinence, pain, urgency, other Neurologic/Psychiatric: Denies: no symptoms, anxiety, depressed, emotional problems, headache, numbness, paresthesia, pre-existing deficit, seizure, tingling, tremors, weakness, other Endocrine: Denies: no symptoms, excessive sweating, flushing, intolerance to cold, intolerance to heat, increased hunger, increased thirst, increased urine, unexplained weight gain, unexplained weight loss, other Allergies: Coded Allergies: NO KNOWN ALLERGIES (Unverified Allergy, Unknown, 11/29/14) Subjective 09/18: no events, psa is higher, back on casodex, still anxious Objective Objective Current Medications Medications (Trade) Dose Ordered Sig/Maliha Route PRN Reason Start Time Stop Time Status Last Admin Dose Admin Acetaminophen (Tylenol) 650 mg Q4H PRN ORAL Mild Pain (Pain Scale 1-3) 09/16/18 15:30 10/16/18 15:29 Al Hydroxide/Mg Hydroxide (Mylanta II) 30 ml Q6H PRN ORAL dyspepsia 09/16/18 15:30 10/16/18 15:29 Albuterol/ Ipratropium (Albuterol/ Ipratropium) 3 ml Q6H PRN HHN Shortness of Breath 09/16/18 15:30 09/21/18 15:29 Aspirin (ASA) 81 mg DAILY ORAL 09/17/18 12:15 10/17/18 12:14 09/18/18 10:16 Atorvastatin Calcium (Lipitor) 40 mg BEDTIME ORAL 09/18/18 21:00 10/18/18 20:59 Bicalutamide (Casodex) 50 mg DAILY ORAL 09/17/18 09:00 09/22/18 08:59 09/18/18 10:16 Calcium/Vitamin D (OsCal D) 2 tab DAILY ORAL 09/17/18 12:15 10/17/18 12:14 09/18/18 10:16 Cefepime HCl 1 gm/ Dextrose 55 ml @ 110 mls/hr Q24H IVPB 09/17/18 21:00 09/24/18 20:59 09/17/18 21:31 Dextrose (Dextrose 50%) 25 ml Q30M PRN IV Hypoglycemia 09/17/18 17:00 10/17/18 16:59 Dextrose (Dextrose 50%) 50 ml Q30M PRN IV Hypoglycemia 09/17/18 17:00 10/17/18 16:59 Digoxin (Lanoxin) 0.125 mg DAILY ORAL 09/17/18 12:15 10/17/18 12:14 09/18/18 10:16 Diphenhydramine HCl (Benadryl) 25 mg Q6H PRN ORAL Itching/Pruritis 09/16/18 15:30 10/16/18 15:29 Docusate Sodium (Colace) 250 mg DAILY ORAL 09/19/18 09:00 10/19/18 08:59 Escitalopram Oxalate (Lexapro) 10 mg BEDTIME ORAL 09/18/18 21:00 10/18/18 20:59 Finasteride (Proscar) 5 mg DAILY ORAL 09/17/18 09:00 10/17/18 08:59 09/18/18 10:16 Heparin Sodium (Porcine) (Heparin 5000 units/ml) 5,000 units EVERY 12 HOURS SUBQ 09/16/18 21:00 10/16/18 20:59 Hydromorphone HCl (Dilaudid) 0.5 mg Q6H PRN IVP For Pain 09/16/18 15:30 09/23/18 15:29 09/17/18 08:49 Insulin Aspart (NovoLOG) BEFORE MEALS AND HS SUBQ 09/17/18 21:00 10/17/18 20:59 09/18/18 12:47 Lorazepam (Ativan) 1 mg Q4H PRN ORAL For Anxiety 09/16/18 15:30 09/23/18 15:29 Sodium Chloride 1,000 ml @ 50 mls/hr Q20H IVLG 09/16/18 17:00 10/16/18 16:59 09/17/18 18:45 Sucralfate (Carafate) 1 gm BEFORE MEALS ORAL 09/18/18 16:30 10/18/18 16:29 Tamsulosin HCl (Flomax) 0.4 mg BEDTIME ORAL 09/16/18 21:34 10/16/18 21:33 09/16/18 22:33 Topiramate (Topamax) 100 mg DAILY ORAL 09/19/18 09:00 10/19/18 08:59 Zolpidem Tartrate (Ambien) 5 mg HSPRN PRN ORAL Insomnia 09/16/18 15:30 09/23/18 15:29 09/17/18 21:35 Last 24 Hour Vital Signs Date Time Temp Pulse Resp B/P (MAP) Pulse Ox O2 Delivery O2 Flow Rate FiO2 09/18/18 12:00 97.7 65 20 111/60 (77) 96 09/18/18 10:16 63 09/18/18 09:00 Room Air 09/18/18 08:00 97.4 63 20 104/62 (76) 96 09/17/18 21:00 Room Air 09/17/18 20:00 98.3 62 19 97/55 (69) 96 09/17/18 16:00 98.3 20 107/58 (74) 99 09/17/18 12:28 63 09/17/18 12:00 97.8 20 126/71 (89) 99 09/17/18 09:00 Room Air 09/17/18 08:00 98.5 63 20 103/59 (74) 100 09/17/18 04:00 97.5 69 18 101/40 (60) 97 09/17/18 01:54 Room Air 09/17/18 00:00 98.1 63 18 112/58 (76) 96 09/16/18 21:55 98.4 63 18 103/54 (70) 96 09/16/18 21:50 98.1 60 17 110/65 97 Room Air 64 09/16/18 20:19 98.1 64 17 110/65 97 Room Air 09/16/18 19:00 98.1 60 17 122/67 97 Room Air 09/16/18 17:00 98.3 60 19 113/72 98 Room Air Intake and Output 09/17/18 09/18/18 19:00 07:00 Intake Total 600 ml 655 ml Output Total 700 ml Balance -100 ml 655 ml Intake Oral 600 ml 300 ml IV Total 355 ml Output Urine Total 700 ml # Voids 3 Labs Test 09/16/18 15:18 09/16/18 15:42 09/17/18 08:30 09/18/18 06:40 White Blood Count 7.1 K/UL (4.8-10.8) 5.8 K/UL (4.8-10.8) 5.8 K/UL (4.8-10.8) Red Blood Count 4.20 M/UL (4.70-6.10) 4.16 M/UL (4.70-6.10) 4.23 M/UL (4.70-6.10) Hemoglobin 12.9 G/DL (14.2-18.0) 12.9 G/DL (14.2-18.0) 12.9 G/DL (14.2-18.0) Hematocrit 37.8 % (42.0-52.0) 38.1 % (42.0-52.0) 40.1 % (42.0-52.0) Mean Corpuscular Volume 90 FL (80-99) 92 FL (80-99) 95 FL (80-99) Mean Corpuscular Hemoglobin 30.6 PG (27.0-31.0) 31.1 PG (27.0-31.0) 30.6 PG (27.0-31.0) Mean Corpuscular Hemoglobin Concent 34.0 G/DL (32.0-36.0) 33.9 G/DL (32.0-36.0) 32.3 G/DL (32.0-36.0) Red Cell Distribution Width 11.7 % (11.6-14.8) 11.7 % (11.6-14.8) 12.2 % (11.6-14.8) Platelet Count 140 K/UL (150-450) 126 K/UL (150-450) 124 K/UL (150-450) Mean Platelet Volume 6.8 FL (6.5-10.1) 7.6 FL (6.5-10.1) 7.2 FL (6.5-10.1) Neutrophils (%) (Auto) 71.9 % (45.0-75.0) 67.8 % (45.0-75.0) 63.2 % (45.0-75.0) Lymphocytes (%) (Auto) 18.1 % (20.0-45.0) 21.7 % (20.0-45.0) 22.5 % (20.0-45.0) Monocytes (%) (Auto) 7.3 % (1.0-10.0) 5.9 % (1.0-10.0) 8.9 % (1.0-10.0) Eosinophils (%) (Auto) 2.0 % (0.0-3.0) 4.0 % (0.0-3.0) 4.8 % (0.0-3.0) Basophils (%) (Auto) 0.6 % (0.0-2.0) 0.5 % (0.0-2.0) 0.7 % (0.0-2.0) Sodium Level 142 MMOL/L (136-145) 140 MMOL/L (136-145) 139 MMOL/L (136-145) Potassium Level 3.6 MMOL/L (3.5-5.1) 3.6 MMOL/L (3.5-5.1) 3.7 MMOL/L (3.5-5.1) Chloride Level 108 MMOL/L (98-107) 109 MMOL/L (98-107) 111 MMOL/L (98-107) Carbon Dioxide Level 28 MMOL/L (21-32) 26 MMOL/L (21-32) 25 MMOL/L (21-32) Anion Gap 7 mmol/L (5-15) 5 mmol/L (5-15) 3 mmol/L (5-15) Blood Urea Nitrogen 19 mg/dL (7-18) 20 mg/dL (7-18) 21 mg/dL (7-18) Creatinine 1.0 MG/DL (0.55-1.30) 0.9 MG/DL (0.55-1.30) 0.9 MG/DL (0.55-1.30) Estimat Glomerular Filtration Rate mL/min (>60) mL/min (>60) mL/min (>60) Glucose Level 119 MG/DL (74-106) 115 MG/DL (74-106) 83 MG/DL (74-106) Calcium Level 9.1 MG/DL (8.5-10.1) 8.8 MG/DL (8.5-10.1) 8.7 MG/DL (8.5-10.1) Total Bilirubin 0.7 MG/DL (0.2-1.0) Aspartate Amino Transf (AST/SGOT) 25 U/L (15-37) Alanine Aminotransferase (ALT/SGPT) 21 U/L (12-78) Alkaline Phosphatase 73 U/L (46-116) Total Creatine Kinase 63 U/L (26-308) Creatine Kinase MB 0.7 NG/ML (0.0-3.6) Creatine Kinase MB Relative Index 1.1 Troponin I 0.000 ng/mL (0.000-0.056) Pro-B-Type Natriuretic Peptide 180 pg/mL (0-125) Total Protein 7.1 G/DL (6.4-8.2) Albumin 3.5 G/DL (3.4-5.0) Globulin 3.6 g/dL Albumin/Globulin Ratio 1.0 (1.0-2.7) Lipase 178 U/L (73-393) Prostate Specific Antigen 126.70 ng/mL (0.13-4.0) Urine Color Pale yellow Urine Appearance Cloudy Urine pH 8 (4.5-8.0) Urine Specific [place] 1.015 (1.005-1.035) Urine Protein Negative (NEGATIVE) Urine Glucose (UA) Negative (NEGATIVE) Urine Ketones Negative (NEGATIVE) Urine Blood Negative (NEGATIVE) Urine Nitrite Positive (NEGATIVE) Urine Bilirubin Negative (NEGATIVE) Urine Urobilinogen Normal MG/DL (0.0-1.0) Urine Leukocyte Esterase 3+ (NEGATIVE) Urine RBC 2-4 /HPF (0 - 0) Urine WBC 20-30 /HPF (0 - 0) Urine Squamous Epithelial Cells None /LPF (NONE/OCC) Urine Bacteria Many /HPF (NONE) Thyroid Stimulating Hormone (TSH) 3.360 uiU/mL (0.358-3.740) Height (Feet): 5 Height (Inches): 6.00 Weight (Pounds): 240 Objective PHYSICAL EXAMINATION: GENERAL: The patient is an elderly gentleman, awake, alert, oriented x4. No obvious distress. CHEST: Within normal limits. ABDOMEN: Soft, nontender, nondistended. EXTREMITIES: Warm, well perfused. No cyanosis, clubbing, or edema. BACK: No CVA tenderness to percussion. NEUROLOGIC: Grossly nonfocal. Antony Thurston MD Sep 18, 2018 15:39
[2018-09-18 16:00] VITALS: BP 122/70
--- NOTE | 2018-09-18 16:40 | Diagnostic Imaging Report ---
Indication: History of prostate cancer. Assess for bony lesion. Technique: Radiographic images of the axial and appendicular skeleton including PA view of the chest, lateral views of the spine, lateral view of the skull anterior views of the arms and legs. Total number radiographic images in this osseous series 17 Comparison: 04/13/2018 Findings: PA view of the chest demonstrates an indwelling left-sided pacemaker with lead tips projecting over the expected region of the right atrium and ventricle, similar to the prior exam. There are atherosclerotic vascular calcifications. There is unchanged elevation of the right hemidiaphragm with mild linear atelectasis or scarring in the right lower lobe. There is no new focal consolidation. No pleural effusion or pneumothorax. There are some degenerative changes in the spine. Remote/healed right-sided rib fractures noted. No discrete lytic or sclerotic bone lesion is identified. Lateral views of the spine demonstrate multilevel degenerative changes of the cervical, thoracic and lumbar spine without evidence of acute fracture. There is grade 1 anterolisthesis of L5 on S1, similar to the prior exam. Again, no definite sclerotic or lytic bone lesion is identified. No definite focal lesion is noted on the lateral radiograph of the skull. Some small calcific lesions are again noted surrounding the right femoral neck which may represent sequela of prior injury or degenerative changes. No rib fractures identified. Symphysis pubis and sacroiliac joints are maintained. Again no discrete sclerotic or lytic bone lesion is noted in the pelvis. Some calcifications noted adjacent to the medial right femoral condyle may potentially be related to prior ligamentous injury. Degenerative changes are noted in the bilateral knees with joint space narrowing and mild subchondral sclerosis. Innumerable soft tissue calcifications are again seen in the right leg, unchanged the prior exam. These may represent phleboliths. Similar but much less abundant calcifications are seen in the left leg. No discrete sclerotic or lytic lesion is noted within the bilateral humeri or forearms. No fractures or dislocations noted in these regions. Bilateral elbow joints and glenohumeral joints are maintained, without evidence of dislocation. IMPRESSION: Overall no significant interval change from exam of 04/13/2018. No discrete sclerotic or lytic bone lesion is appreciated radiographically. Again, more sensitive evaluation with nuclear medicine bone scan is recommended as clinically indicated. Soft tissue calcifications in the bilateral leg, unchanged from the prior exam. Again findings are nonspecific. These may potentially represent phleboliths. They may represent sequela of prior trauma or possibly be related to connective tissue disorder.
[2018-09-18] MEDS: Sucralfate 1gm tab ORAL SCH (17:23)
--- NOTE | 2018-09-18 19:05 | NUR ---
CASE MANAGEMENT: REVIEW 78Y/M OFELIA FROM [facility] CC: ABNORMAL LABS PSA 122.5 SI: PROSTATE CANCER, ELEVATED PSA OF 65--->126 T 97.4 HR 63 RR 20 BP 104/62 SAT 96% ROOM AIR H/H 12.9/40.1 BUN 21 IS: CEFTRIAXONE IV X1 PATIENT ADMITTED TO MED/SURG UNIT 09/18/2018 DCP: PATIENT IS FROM [facility]
[2018-09-18] MEDS: Hydromorphone 0.5mg/0.5ml inj IVP PRN (19:10)
--- NOTE | 2018-09-18 19:25 | Pulmonology Progress Note ---
Assessment/Plan Problems: (1) Anemia (2) COPD (chronic obstructive pulmonary disease) (3) Diabetes (4) HTN (hypertension) (5) PSA elevation Assessment/Plan all reviewed symptomatic treatment psych evaluatin check electrolytes Subjective ROS Limited/Unobtainable: No Allergies: Coded Allergies: NO KNOWN ALLERGIES (Unverified Allergy, Unknown, 11/29/14) Objective Last 24 Hour Vital Signs Date Time Temp Pulse Resp B/P (MAP) Pulse Ox O2 Delivery O2 Flow Rate FiO2 09/18/18 16:00 97.7 62 20 122/70 (87) 96 09/18/18 12:00 97.7 65 20 111/60 (77) 96 09/18/18 10:16 63 09/18/18 09:00 Room Air 09/18/18 08:00 97.4 63 20 104/62 (76) 96 09/17/18 21:00 Room Air 09/17/18 20:00 98.3 62 19 97/55 (69) 96 Intake and Output 09/17/18 09/18/18 19:00 07:00 Intake Total 600 ml 655 ml Output Total 700 ml Balance -100 ml 655 ml Intake Oral 600 ml 300 ml IV Total 355 ml Output Urine Total 700 ml # Voids 3 General Appearance: WD/WN HEENT: normocephalic Respiratory/Chest: chest wall non-tender, lungs clear Cardiovascular: normal peripheral pulses, regular rhythm Abdomen: soft, non tender Genitourinary: normal external genitalia Neurologic/Psychiatric: electrical controls assembler II-XII grossly normal Lymphatic: no neck adenopathy Microbiology Date/Time Source Procedure Growth Status 09/16/18 21:00 Nasal Nares MRSA Culture - Final Staphylococcus Aureus - Mrsa Complete 09/16/18 15:42 Urine,Clean Catch Urine Culture - Preliminary Gram Negative Bacillus 1 Resulted Laboratory Tests 09/18/18 06:40: White Blood Count 5.8, Red Blood Count 4.23L, Hemoglobin 12.9L, Hematocrit 40.1L , Mean Corpuscular Volume 95, Mean Corpuscular Hemoglobin 30.6, Mean Corpuscular Hemoglobin Concent 32.3, Red Cell Distribution Width 12.2, Platelet Count 124L, Mean Platelet Volume 7.2, Neutrophils (%) (Auto) 63.2, Lymphocytes ( %) (Auto) 22.5, Monocytes (%) (Auto) 8.9, Eosinophils (%) (Auto) 4.8H, Basophils (%) (Auto) 0.7, Sodium Level 139, Potassium Level 3.7, Chloride Level 111H, Carbon Dioxide Level 25, Anion Gap 3L, Blood Urea Nitrogen 21H, Creatinine 0.9, Estimat Glomerular Filtration Rate , Glucose Level 83, Calcium Level 8.7 Current Medications Medications (Trade) Dose Ordered Sig/Maliha Route PRN Reason Start Time Stop Time Status Last Admin Dose Admin Acetaminophen (Tylenol) 650 mg Q4H PRN ORAL Mild Pain (Pain Scale 1-3) 09/16/18 15:30 10/16/18 15:29 Al Hydroxide/Mg Hydroxide (Mylanta II) 30 ml Q6H PRN ORAL dyspepsia 09/16/18 15:30 10/16/18 15:29 Albuterol/ Ipratropium (Albuterol/ Ipratropium) 3 ml Q6H PRN HHN Shortness of Breath 09/16/18 15:30 09/21/18 15:29 Aspirin (ASA) 81 mg DAILY ORAL 09/17/18 12:15 10/17/18 12:14 09/18/18 10:16 Atorvastatin Calcium (Lipitor) 40 mg BEDTIME ORAL 09/18/18 21:00 10/18/18 20:59 Bicalutamide (Casodex) 50 mg DAILY ORAL 09/17/18 09:00 09/22/18 08:59 09/18/18 10:16 Calcium/Vitamin D (OsCal D) 2 tab DAILY ORAL 09/17/18 12:15 10/17/18 12:14 09/18/18 10:16 Cefepime HCl 1 gm/ Dextrose 55 ml @ 110 mls/hr Q24H IVPB 09/17/18 21:00 09/24/18 20:59 09/17/18 21:31 Dextrose (Dextrose 50%) 25 ml Q30M PRN IV Hypoglycemia 09/17/18 17:00 10/17/18 16:59 Dextrose (Dextrose 50%) 50 ml Q30M PRN IV Hypoglycemia 09/17/18 17:00 10/17/18 16:59 Digoxin (Lanoxin) 0.125 mg DAILY ORAL 09/17/18 12:15 10/17/18 12:14 09/18/18 10:16 Diphenhydramine HCl (Benadryl) 25 mg Q6H PRN ORAL Itching/Pruritis 09/16/18 15:30 10/16/18 15:29 Docusate Sodium (Colace) 250 mg DAILY ORAL 09/19/18 09:00 10/19/18 08:59 Escitalopram Oxalate (Lexapro) 10 mg BEDTIME ORAL 09/18/18 21:00 10/18/18 20:59 Finasteride (Proscar) 5 mg DAILY ORAL 09/17/18 09:00 10/17/18 08:59 09/18/18 10:16 Heparin Sodium (Porcine) (Heparin 5000 units/ml) 5,000 units EVERY 12 HOURS SUBQ 09/16/18 21:00 10/16/18 20:59 Hydromorphone HCl (Dilaudid) 0.5 mg Q6H PRN IVP For Pain 09/16/18 15:30 09/23/18 15:29 09/18/18 19:10 Insulin Aspart (NovoLOG) BEFORE MEALS AND HS SUBQ 09/17/18 21:00 10/17/18 20:59 09/18/18 12:47 Lorazepam (Ativan) 1 mg Q4H PRN ORAL For Anxiety 09/16/18 15:30 09/23/18 15:29 Sodium Chloride 1,000 ml @ 50 mls/hr Q20H IVLG 09/16/18 17:00 10/16/18 16:59 09/18/18 19:10 Sucralfate (Carafate) 1 gm BEFORE MEALS ORAL 09/18/18 16:30 10/18/18 16:29 09/18/18 17:23 Tamsulosin HCl (Flomax) 0.4 mg BEDTIME ORAL 09/16/18 21:34 10/16/18 21:33 09/16/18 22:33 Topiramate (Topamax) 100 mg DAILY ORAL 09/19/18 09:00 10/19/18 08:59 Zolpidem Tartrate (Ambien) 5 mg HSPRN PRN ORAL Insomnia 09/16/18 15:30 09/23/18 15:29 09/17/18 21:35 Karen Jimenez MD Sep 18, 2018 19:25
--- NOTE | 2018-09-18 19:26 | NUR ---
NURSE NOTES: Received report from AUNG Flores. Patient is in bed, awake and oriented. Patient breathing room air with no distress or SOB. Bed is locked and in lowest position with call light in reach. Bed alarm on. Will continue to monitor.
--- NOTE | 2018-09-18 19:51 | NUR ---
HAND-OFF: Report given to AUNG Navarro.
[2018-09-18 20:00] VITALS: BP 102/61
[2018-09-18] MEDS: Cefepime HCl 1 GM in D5W 55 ML IVPB SCH (21:00)
[2018-09-18] MEDS: Tamsulosin 0.4mg cap ORAL SCH (21:00)
[2018-09-18] MEDS: Atorvastatin 20mg tab ORAL SCH (21:53)
[2018-09-18] MEDS: Zolpidem 5mg tab ORAL PRN (22:35)
[2018-09-19] VITALS: BP 109/59
[2018-09-19] MEDS: Sucralfate 1gm tab ORAL SCH ×3 (05:41→17:47)
[2018-09-19] MEDS: NovoLOG Insulin Flexpen SUBQ SCH ×4 (06:18→21:02)
--- NOTE | 2018-09-19 06:21 | NUR ---
NURSE NOTES: Patient refused AM blood draw per leather heel breaster from lab.
[2018-09-19] MEDS: Hydromorphone 0.5mg/0.5ml inj IVP PRN ×2 (06:37→21:57)
--- NOTE | 2018-09-19 06:48 | NUR ---
NURSE NOTES: Patient stated he is ok with having his blood drawn. Notified lab, and they said they will come back.
[2018-09-19 07:42] LABS: BASOPHILS % (AUTO) 0.8 % (0.0-2.0); EOSINOPHILS % (AUTO) 4.2 % (0.0-3.0); HEMATOCRIT 39.9 % (42.0-52.0); HEMOGLOBIN 13.1 G/DL (14.2-18.0); LYMPHOCYTES % (AUTO) 21.7 % (20.0-45.0); MEAN CORPUSCULAR VOLUME 93 FL (80-99); MONOCYTES % (AUTO) 8.7 % (1.0-10.0); NEUTROPHILS % (AUTO) 64.6 % (45.0-75.0); PLATELET COUNT 134 K/UL (150-450); RED BLOOD COUNT 4.27 M/UL (4.70-6.10); RED CELL DISTRIBUTION WIDTH 12.1 % (11.6-14.8); WHITE BLOOD COUNT 6.8 K/UL (4.8-10.8)
--- NOTE | 2018-09-19 07:57 | Urology Progress Note ---
Assessment/Plan Status: stable, progressing Assessment/Plan: 1. 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 2. BPH history. 3. Lower urinary tract symptoms. 4. Pyuria, probable UTI. 5. Hematuria. 6. Nephrolithiasis history. 7. Renal cyst. 8. Rule out neurogenic bladder. monitor clinically cont casodex, apparently has been on lupron as outpt flomax and proscar med/onc noted will need dedicated bone scan consider CT A/P abx as ordered f/u on urine cx recheck serum PSA post abx may need to add Xtandi or chemo? will d/w onc Subjective Allergies: Coded Allergies: NO KNOWN ALLERGIES (Unverified Allergy, Unknown, 11/29/14) Subjective all noted Objective Last 24 Hour Vital Signs Date Time Temp Pulse Resp B/P (MAP) Pulse Ox O2 Delivery O2 Flow Rate FiO2 09/19/18 00:00 98.3 66 20 109/59 (76) 95 09/18/18 21:00 Room Air 09/18/18 20:00 98.2 62 20 102/61 (75) 98 09/18/18 16:00 97.7 62 20 122/70 (87) 96 09/18/18 12:00 97.7 65 20 111/60 (77) 96 09/18/18 10:16 63 09/18/18 09:00 Room Air 09/18/18 08:00 97.4 63 20 104/62 (76) 96 Intake and Output 09/18/18 09/19/18 19:00 07:00 Intake Total 600 ml 725 ml Output Total 550 ml 650 ml Balance 50 ml 75 ml Intake Oral 600 ml 120 ml IV Total 605 ml Output Urine Total 550 ml 650 ml # Voids 4 2 # Bowel Movements 1 1 Microbiology Date/Time Source Procedure Growth Status 09/16/18 21:00 Nasal Nares MRSA Culture - Final Staphylococcus Aureus - Mrsa Complete 09/16/18 15:42 Urine,Clean Catch Urine Culture - Preliminary Gram Negative Bacillus 1 Resulted 09/16/18 21:00 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 Complete Current Medications Medications (Trade) Dose Ordered Sig/Maliha Route PRN Reason Start Time Stop Time Status Last Admin Dose Admin Acetaminophen (Tylenol) 650 mg Q4H PRN ORAL Mild Pain (Pain Scale 1-3) 09/16/18 15:30 96/19 15:29 Al Hydroxide/Mg Hydroxide (Mylanta II) 30 ml Q6H PRN ORAL dyspepsia 09/16/18 15:30 10/16/18 15:29 Albuterol/ Ipratropium (Albuterol/ Ipratropium) 3 ml Q6H PRN HHN Shortness of Breath 09/16/18 15:30 09/21/18 15:29 Aspirin (ASA) 81 mg DAILY ORAL 09/17/18 12:15 10/17/18 12:14 09/18/18 10:16 Atorvastatin Calcium (Lipitor) 40 mg BEDTIME ORAL 09/18/18 21:00 10/18/18 20:59 09/18/18 21:53 Bicalutamide (Casodex) 50 mg DAILY ORAL 09/17/18 09:00 09/22/18 08:59 09/18/18 10:16 Calcium/Vitamin D (OsCal D) 2 tab DAILY ORAL 09/17/18 12:15 10/17/18 12:14 09/18/18 10:16 Cefepime HCl 1 gm/ Dextrose 55 ml @ 110 mls/hr Q24H IVPB 09/17/18 21:00 09/24/18 20:59 09/18/18 21:00 Dextrose (Dextrose 50%) 25 ml Q30M PRN IV Hypoglycemia 09/17/18 17:00 10/17/18 16:59 Dextrose (Dextrose 50%) 50 ml Q30M PRN IV Hypoglycemia 09/17/18 17:00 10/17/18 16:59 Digoxin (Lanoxin) 0.125 mg DAILY ORAL 09/17/18 12:15 10/17/18 12:14 09/18/18 10:16 Diphenhydramine HCl (Benadryl) 25 mg Q6H PRN ORAL Itching/Pruritis 09/16/18 15:30 10/16/18 15:29 Docusate Sodium (Colace) 250 mg DAILY ORAL 09/19/18 09:00 10/19/18 08:59 Escitalopram Oxalate (Lexapro) 10 mg BEDTIME ORAL 09/18/18 21:00 10/18/18 20:59 09/18/18 21:00 Finasteride (Proscar) 5 mg DAILY ORAL 09/17/18 09:00 10/17/18 08:59 09/18/18 10:16 Heparin Sodium (Porcine) (Heparin 5000 units/ml) 5,000 units EVERY 12 HOURS SUBQ 09/16/18 21:00 10/16/18 20:59 Hydromorphone HCl (Dilaudid) 0.5 mg Q6H PRN IVP For Pain 09/16/18 15:30 09/23/18 15:29 09/19/18 06:37 Insulin Aspart (NovoLOG) BEFORE MEALS AND HS SUBQ 09/17/18 21:00 10/17/18 20:59 09/18/18 12:47 Lorazepam (Ativan) 1 mg Q4H PRN ORAL For Anxiety 09/16/18 15:30 09/23/18 15:29 Sodium Chloride 1,000 ml @ 50 mls/hr Q20H IVLG 09/16/18 17:00 10/16/18 16:59 09/18/18 19:10 Sucralfate (Carafate) 1 gm BEFORE MEALS ORAL 09/18/18 16:30 10/18/18 16:29 09/19/18 05:41 Tamsulosin HCl (Flomax) 0.4 mg BEDTIME ORAL 09/16/18 21:34 10/16/18 21:33 09/18/18 21:00 Topiramate (Topamax) 100 mg DAILY ORAL 09/19/18 09:00 10/19/18 08:59 Zolpidem Tartrate (Ambien) 5 mg HSPRN PRN ORAL Insomnia 09/16/18 15:30 09/23/18 15:29 09/18/18 22:35 Laboratory Tests 09/19/18 07:15: White Blood Count 6.8, Red Blood Count 4.27L, Hemoglobin 13.1L, Hematocrit 39.9L , Mean Corpuscular Volume 93, Mean Corpuscular Hemoglobin 30.6, Mean Corpuscular Hemoglobin Concent 32.8, Red Cell Distribution Width 12.1, Platelet Count 134L, Mean Platelet Volume 6.5, Neutrophils (%) (Auto) 64.6, Lymphocytes ( %) (Auto) 21.7, Monocytes (%) (Auto) 8.7, Eosinophils (%) (Auto) 4.2H, Basophils (%) (Auto) 0.8, Sodium Level [Pending], Potassium Level [Pending], Chloride Level [Pending], Carbon Dioxide Level [Pending], Blood Urea Nitrogen [ Pending], Creatinine [Pending], Estimat Glomerular Filtration Rate [Pending], Glucose Level [Pending], Calcium Level [Pending] Height (Feet): 5 Height (Inches): 6.00 Weight (Pounds): 240 Objective exam stable bone densitometry exam noted, no discrete lesion Gabino Segal MD Sep 19, 2018 07:56
[2018-09-19 08:00] VITALS: BP 106/65
--- NOTE | 2018-09-19 08:00 | NUR ---
HAND-OFF: Report given to AUNG Flores.
[2018-09-19 08:08] LABS: ANION GAP 7 mmol/L (5-15); BLOOD UREA NITROGEN 20 mg/dL (7-18); CALCIUM 8.4 MG/DL (8.5-10.1); CARBON DIOXIDE 25 MMOL/L (21-32); CHLORIDE 111 MMOL/L (98-107); CREATININE 0.9 MG/DL (0.55-1.30); SODIUM 143 MMOL/L (136-145)
--- NOTE | 2018-09-19 08:30 | NUR ---
NURSE NOTES: Patient is alert and oriented. Patient is on room air. Side rails are upx2, bed is locked, in lowest position, and call light is within reach. Will continue to monitor.
--- NOTE | 2018-09-19 09:02 | General Progress Note ---
Assessment/Plan Problem List: (1) UTI (urinary tract infection) ICD Codes: N39.0 - Urinary tract infection, site not specified SNOMED: 57495789 (2) PSA elevation ICD Codes: R97.20 - Elevated prostate specific antigen [PSA] SNOMED: 765104271 (3) HTN (hypertension) ICD Codes: I10 - Essential (primary) hypertension SNOMED: 59568991 (4) Diabetes ICD Codes: E11.9 - Type 2 diabetes mellitus without complications SNOMED: 74743556 (5) COPD (chronic obstructive pulmonary disease) ICD Codes: J44.9 - Chronic obstructive pulmonary disease, unspecified SNOMED: 42826647 (6) Atrial fibrillation ICD Codes: I48.91 - Unspecified atrial fibrillation SNOMED: 86652734 Status: stable, progressing Assessment/Plan: pt diet abx uro f/u cbc bmp am psyc transfer Subjective Constitutional: Reports: weakness Allergies: Coded Allergies: NO KNOWN ALLERGIES (Unverified Allergy, Unknown, 11/29/14) All Systems: reviewed and negative except above Subjective sl anxious in bed Objective Last 24 Hour Vital Signs Date Time Temp Pulse Resp B/P (MAP) Pulse Ox O2 Delivery O2 Flow Rate FiO2 09/19/18 08:00 98.1 65 17 106/65 (79) 97 09/19/18 00:00 98.3 66 20 109/59 (76) 95 09/18/18 21:00 Room Air 09/18/18 20:00 98.2 62 20 102/61 (75) 98 09/18/18 16:00 97.7 62 20 122/70 (87) 96 09/18/18 12:00 97.7 65 20 111/60 (77) 96 09/18/18 10:16 63 Intake and Output 09/18/18 09/19/18 19:00 07:00 Intake Total 600 ml 725 ml Output Total 550 ml 650 ml Balance 50 ml 75 ml Intake Oral 600 ml 120 ml IV Total 605 ml Output Urine Total 550 ml 650 ml # Voids 4 2 # Bowel Movements 1 1 Laboratory Tests 09/19/18 07:15: White Blood Count 6.8, Red Blood Count 4.27L, Hemoglobin 13.1L, Hematocrit 39.9L , Mean Corpuscular Volume 93, Mean Corpuscular Hemoglobin 30.6, Mean Corpuscular Hemoglobin Concent 32.8, Red Cell Distribution Width 12.1, Platelet Count 134L, Mean Platelet Volume 6.5, Neutrophils (%) (Auto) 64.6, Lymphocytes ( %) (Auto) 21.7, Monocytes (%) (Auto) 8.7, Eosinophils (%) (Auto) 4.2H, Basophils (%) (Auto) 0.8, Sodium Level 143, Potassium Level 4.0, Chloride Level 111H, Carbon Dioxide Level 25, Anion Gap 7, Blood Urea Nitrogen 20H, Creatinine 0.9, Estimat Glomerular Filtration Rate , Glucose Level 88, Calcium Level 8.4L Height (Feet): 5 Height (Inches): 6.00 Weight (Pounds): 240 General Appearance: lethargic EENT: normal ENT inspection Neck: normal alignment Cardiovascular: normal peripheral pulses, normal rate, regular rhythm Respiratory/Chest: chest wall non-tender, lungs clear, normal breath sounds Abdomen: normal bowel sounds, non tender, soft Extremities: normal inspection Edema: no edema noted Arm (L), no edema noted Arm (R), no edema noted Leg (L), no edema noted Leg (R), no edema noted Pedal (L), no edema noted Pedal (R), no edema noted Generalized Neurologic: motor weakness Skin: normal pigmentation, warm/dry Mickey Pinto DO Sep 19, 2018 09:02
[2018-09-19] MEDS: Docusate 250mg cap ORAL SCH (09:18)
[2018-09-19] MEDS: Aspirin Baby 81mg ORAL SCH (09:18)
[2018-09-19] MEDS: Calcium Carbonate 500mg w/Vit D 200iu tab ORAL SCH (09:18)
[2018-09-19] MEDS: Digoxin 0.125mg tab ORAL SCH (09:18)
[2018-09-19] MEDS: Bicalutamide 50mg tab ORAL SCH (09:18)
[2018-09-19] MEDS: Topiramate 100mg tab ORAL SCH (09:18)
[2018-09-19] MEDS: Heparin 5000 units/ml inj SUBQ SCH ×2 (09:32→21:00)
--- NOTE | 2018-09-19 09:56 | Pulmonology Progress Note ---
Assessment/Plan Problems: (1) Anemia (2) COPD (chronic obstructive pulmonary disease) (3) Diabetes (4) HTN (hypertension) (5) PSA elevation Assessment/Plan no new complains all reviewed symptomatic treatment psych evaluatin check electrolytes Subjective ROS Limited/Unobtainable: No Constitutional: Reports: no symptoms HEENT: Repors: no symptoms Allergies: Coded Allergies: NO KNOWN ALLERGIES (Unverified Allergy, Unknown, 11/29/14) Objective Last 24 Hour Vital Signs Date Time Temp Pulse Resp B/P (MAP) Pulse Ox O2 Delivery O2 Flow Rate FiO2 09/19/18 09:18 65 09/19/18 08:00 98.1 65 17 106/65 (79) 97 09/19/18 00:00 98.3 66 20 109/59 (76) 95 09/18/18 21:00 Room Air 09/18/18 20:00 98.2 62 20 102/61 (75) 98 09/18/18 16:00 97.7 62 20 122/70 (87) 96 09/18/18 12:00 97.7 65 20 111/60 (77) 96 09/18/18 10:16 63 Intake and Output 09/18/18 09/19/18 19:00 07:00 Intake Total 600 ml 725 ml Output Total 550 ml 650 ml Balance 50 ml 75 ml Intake Oral 600 ml 120 ml IV Total 605 ml Output Urine Total 550 ml 650 ml # Voids 4 2 # Bowel Movements 1 1 General Appearance: WD/WN HEENT: normocephalic, atraumatic Respiratory/Chest: chest wall non-tender, lungs clear Abdomen: normal bowel sounds, soft, non tender, no organomegaly Genitourinary: normal external genitalia Skin: no rash Neurologic/Psychiatric: social psychologist II-XII grossly normal Microbiology Date/Time Source Procedure Growth Status 09/16/18 21:00 Nasal Nares MRSA Culture - Final Staphylococcus Aureus - Mrsa Complete 09/16/18 15:42 Urine,Clean Catch Urine Culture - Preliminary Gram Negative Bacillus 1 Resulted 09/16/18 21:00 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 Complete Laboratory Tests 09/19/18 07:15: White Blood Count 6.8, Red Blood Count 4.27L, Hemoglobin 13.1L, Hematocrit 39.9L , Mean Corpuscular Volume 93, Mean Corpuscular Hemoglobin 30.6, Mean Corpuscular Hemoglobin Concent 32.8, Red Cell Distribution Width 12.1, Platelet Count 134L, Mean Platelet Volume 6.5, Neutrophils (%) (Auto) 64.6, Lymphocytes ( %) (Auto) 21.7, Monocytes (%) (Auto) 8.7, Eosinophils (%) (Auto) 4.2H, Basophils (%) (Auto) 0.8, Sodium Level 143, Potassium Level 4.0, Chloride Level 111H, Carbon Dioxide Level 25, Anion Gap 7, Blood Urea Nitrogen 20H, Creatinine 0.9, Estimat Glomerular Filtration Rate , Glucose Level 88, Calcium Level 8.4L Current Medications Medications (Trade) Dose Ordered Sig/Maliha Route PRN Reason Start Time Stop Time Status Last Admin Dose Admin Acetaminophen (Tylenol) 650 mg Q4H PRN ORAL Mild Pain (Pain Scale 1-3) 09/16/18 15:30 10/16/18 15:29 Al Hydroxide/Mg Hydroxide (Mylanta II) 30 ml Q6H PRN ORAL dyspepsia 09/16/18 15:30 10/16/18 15:29 Albuterol/ Ipratropium (Albuterol/ Ipratropium) 3 ml Q6H PRN HHN Shortness of Breath 09/16/18 15:30 09/21/18 15:29 Aspirin (ASA) 81 mg DAILY ORAL 09/17/18 12:15 10/17/18 12:14 09/19/18 09:18 Atorvastatin Calcium (Lipitor) 40 mg BEDTIME ORAL 09/18/18 21:00 10/18/18 20:59 09/18/18 21:53 Bicalutamide (Casodex) 50 mg DAILY ORAL 09/17/18 09:00 09/22/18 08:59 09/19/18 09:18 Calcium/Vitamin D (OsCal D) 2 tab DAILY ORAL 09/17/18 12:15 10/17/18 12:14 09/19/18 09:18 Cefepime HCl 1 gm/ Dextrose 55 ml @ 110 mls/hr Q24H IVPB 09/17/18 21:00 09/24/18 20:59 09/18/18 21:00 Dextrose (Dextrose 50%) 25 ml Q30M PRN IV Hypoglycemia 09/17/18 17:00 10/17/18 16:59 Dextrose (Dextrose 50%) 50 ml Q30M PRN IV Hypoglycemia 09/17/18 17:00 10/17/18 16:59 Digoxin (Lanoxin) 0.125 mg DAILY ORAL 09/17/18 12:15 10/17/18 12:14 09/19/18 09:18 Diphenhydramine HCl (Benadryl) 25 mg Q6H PRN ORAL Itching/Pruritis 09/16/18 15:30 10/16/18 15:29 Docusate Sodium (Colace) 250 mg DAILY ORAL 09/19/18 09:00 10/19/18 08:59 09/19/18 09:18 Escitalopram Oxalate (Lexapro) 10 mg BEDTIME ORAL 09/18/18 21:00 10/18/18 20:59 09/18/18 21:00 Finasteride (Proscar) 5 mg DAILY ORAL 09/17/18 09:00 10/17/18 08:59 09/19/18 09:18 Heparin Sodium (Porcine) (Heparin 5000 units/ml) 5,000 units EVERY 12 HOURS SUBQ 09/16/18 21:00 10/16/18 20:59 09/19/18 09:32 Hydromorphone HCl (Dilaudid) 0.5 mg Q6H PRN IVP For Pain 09/16/18 15:30 09/23/18 15:29 09/19/18 06:37 Insulin Aspart (NovoLOG) BEFORE MEALS AND HS SUBQ 09/17/18 21:00 10/17/18 20:59 09/18/18 12:47 Lorazepam (Ativan) 1 mg Q4H PRN ORAL For Anxiety 09/16/18 15:30 09/23/18 15:29 Sodium Chloride 1,000 ml @ 50 mls/hr Q20H IVLG 09/16/18 17:00 10/16/18 16:59 09/18/18 19:10 Sucralfate (Carafate) 1 gm BEFORE MEALS ORAL 09/18/18 16:30 10/18/18 16:29 09/19/18 05:41 Tamsulosin HCl (Flomax) 0.4 mg BEDTIME ORAL 09/16/18 21:34 10/16/18 21:33 09/18/18 21:00 Topiramate (Topamax) 100 mg DAILY ORAL 09/19/18 09:00 10/19/18 08:59 09/19/18 09:18 Zolpidem Tartrate (Ambien) 5 mg HSPRN PRN ORAL Insomnia 09/16/18 15:30 09/23/18 15:29 09/18/18 22:35 Karen Jimenez MD Sep 19, 2018 09:56
[2018-09-19 12:00] VITALS: BP 127/72
--- NOTE | 2018-09-19 12:01 | Infectious Diseases Prog Note ---
Assessment/Plan Assessment/Plan Assessment: Probable UTI (+suprapubic discomfort) -u/a wbc 20-40, nit +, leuk +3; ycx >100k GNR Afebrile No leukocytosis -CXR: Pulmonary vascular congestion with right basilar atelectasis. Prostate CA (dx'ed 2 years ago) s/p Casodex and Lupron but lost follow up -bone densitometry: Overall no significant interval change from exam of 2018. No discrete sclerotic or lytic bone lesion is appreciated radiographically. Again, more sensitive evaluation with nuclear medicine bone scan is recommended as clinically indicated. Soft tissue calcifications in the bilateral leg, unchanged from the prior exam. Again findings are nonspecific. These may potentially represent phleboliths. They may represent sequela of prior trauma or possibly be related to connective tissue disorder. BPH UTI nephrolithiasis DM2 BPH COPD Afib, s/p PPM [place] resident Plan: -Cont empiric Cefepime #3 for UTI pending ucx -09/16 SP Ceftriaxone x1 -f/u cx -Monitor CBC/CMP, temperatures -Uro f/u Thank you for this consultation. Will continue to follow along with you. Discussed with RN. Subjective Allergies: Coded Allergies: NO KNOWN ALLERGIES (Unverified Allergy, Unknown, 11/29/14) Subjective afebrile no leukocytosis UCx: ID of GNR still pending Objective Vital Signs Last 24 Hour Vital Signs Date Time Temp Pulse Resp B/P (MAP) Pulse Ox O2 Delivery O2 Flow Rate FiO2 09/19/18 09:18 65 09/19/18 08:45 Room Air 09/19/18 08:00 98.1 65 17 106/65 (79) 97 09/19/18 00:00 98.3 66 20 109/59 (76) 95 09/18/18 21:00 Room Air 09/18/18 20:00 98.2 62 20 102/61 (75) 98 09/18/18 16:00 97.7 62 20 122/70 (87) 96 09/18/18 12:00 97.7 65 20 111/60 (77) 96 Height (Feet): 5 Height (Inches): 6.00 Weight (Pounds): 240 Objective GENERAL: Slightly anxious in bed, oriented x2, in no acute distress. CARDIOVASCULAR: No murmur. LUNGS: Distant and clear. ABDOMEN: Positive bowel sounds. Nontender. Nondistended. EXTREMITIES: No cyanosis, clubbing, or edema. NEUROLOGIC: The patient moves all extremities slightly weak. Microbiology Date/Time Source Procedure Growth Status 09/16/18 21:00 Nasal Nares MRSA Culture - Final Staphylococcus Aureus - Mrsa Complete 09/16/18 15:42 Urine,Clean Catch Urine Culture - Preliminary Gram Negative Bacillus 1 Resulted 09/16/18 21:00 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 Complete Laboratory Tests Test 09/19/18 07:15 White Blood Count 6.8 K/UL (4.8-10.8) Red Blood Count 4.27 M/UL (4.70-6.10) L Hemoglobin 13.1 G/DL (14.2-18.0) L Hematocrit 39.9 % (42.0-52.0) L Mean Corpuscular Volume 93 FL (80-99) Mean Corpuscular Hemoglobin 30.6 PG (27.0-31.0) Mean Corpuscular Hemoglobin Concent 32.8 G/DL (32.0-36.0) Red Cell Distribution Width 12.1 % (11.6-14.8) Platelet Count 134 K/UL (150-450) L Mean Platelet Volume 6.5 FL (6.5-10.1) Neutrophils (%) (Auto) 64.6 % (45.0-75.0) Lymphocytes (%) (Auto) 21.7 % (20.0-45.0) Monocytes (%) (Auto) 8.7 % (1.0-10.0) Eosinophils (%) (Auto) 4.2 % (0.0-3.0) H Basophils (%) (Auto) 0.8 % (0.0-2.0) Sodium Level 143 MMOL/L (136-145) Potassium Level 4.0 MMOL/L (3.5-5.1) Chloride Level 111 MMOL/L (98-107) H Carbon Dioxide Level 25 MMOL/L (21-32) Anion Gap 7 mmol/L (5-15) Blood Urea Nitrogen 20 mg/dL (7-18) H Creatinine 0.9 MG/DL (0.55-1.30) Estimat Glomerular Filtration Rate mL/min (>60) Glucose Level 88 MG/DL (74-106) Calcium Level 8.4 MG/DL (8.5-10.1) L Current Medications Medications (Trade) Dose Ordered Sig/Maliha Route PRN Reason Start Time Stop Time Status Last Admin Dose Admin Acetaminophen (Tylenol) 650 mg Q4H PRN ORAL Mild Pain (Pain Scale 1-3) 09/16/18 15:30 10/16/18 15:29 Al Hydroxide/Mg Hydroxide (Mylanta II) 30 ml Q6H PRN ORAL dyspepsia 09/16/18 15:30 10/16/18 15:29 Albuterol/ Ipratropium (Albuterol/ Ipratropium) 3 ml Q6H PRN HHN Shortness of Breath 09/16/18 15:30 09/21/18 15:29 Aspirin (ASA) 81 mg DAILY ORAL 09/17/18 12:15 10/17/18 12:14 09/19/18 09:18 Atorvastatin Calcium (Lipitor) 40 mg BEDTIME ORAL 09/18/18 21:00 10/18/18 20:59 09/18/18 21:53 Bicalutamide (Casodex) 50 mg DAILY ORAL 09/17/18 09:00 09/22/18 08:59 09/19/18 09:18 Calcium/Vitamin D (OsCal D) 2 tab DAILY ORAL 09/17/18 12:15 10/17/18 12:14 09/19/18 09:18 Cefepime HCl 1 gm/ Dextrose 55 ml @ 110 mls/hr Q24H IVPB 09/17/18 21:00 09/24/18 20:59 09/18/18 21:00 Dextrose (Dextrose 50%) 25 ml Q30M PRN IV Hypoglycemia 09/17/18 17:00 10/17/18 16:59 Dextrose (Dextrose 50%) 50 ml Q30M PRN IV Hypoglycemia 09/17/18 17:00 10/17/18 16:59 Digoxin (Lanoxin) 0.125 mg DAILY ORAL 09/17/18 12:15 10/17/18 12:14 09/19/18 09:18 Diphenhydramine HCl (Benadryl) 25 mg Q6H PRN ORAL Itching/Pruritis 09/16/18 15:30 10/16/18 15:29 Docusate Sodium (Colace) 250 mg DAILY ORAL 09/19/18 09:00 10/19/18 08:59 09/19/18 09:18 Escitalopram Oxalate (Lexapro) 10 mg BEDTIME ORAL 09/18/18 21:00 10/18/18 20:59 09/18/18 21:00 Finasteride (Proscar) 5 mg DAILY ORAL 09/17/18 09:00 10/17/18 08:59 09/19/18 09:18 Heparin Sodium (Porcine) (Heparin 5000 units/ml) 5,000 units EVERY 12 HOURS SUBQ 09/16/18 21:00 10/16/18 20:59 09/19/18 09:32 Hydromorphone HCl (Dilaudid) 0.5 mg Q6H PRN IVP For Pain 09/16/18 15:30 09/23/18 15:29 09/19/18 06:37 Insulin Aspart (NovoLOG) BEFORE MEALS AND HS SUBQ 09/17/18 21:00 10/17/18 20:59 09/18/18 12:47 Lorazepam (Ativan) 1 mg Q4H PRN ORAL For Anxiety 09/16/18 15:30 09/23/18 15:29 Sodium Chloride 1,000 ml @ 50 mls/hr Q20H IVLG 09/16/18 17:00 10/16/18 16:59 09/18/18 19:10 Sucralfate (Carafate) 1 gm BEFORE MEALS ORAL 09/18/18 16:30 10/18/18 16:29 09/19/18 05:41 Tamsulosin HCl (Flomax) 0.4 mg BEDTIME ORAL 09/16/18 21:34 10/16/18 21:33 09/18/18 21:00 Topiramate (Topamax) 100 mg DAILY ORAL 09/19/18 09:00 10/19/18 08:59 09/19/18 09:18 Zolpidem Tartrate (Ambien) 5 mg HSPRN PRN ORAL Insomnia 09/16/18 15:30 09/23/18 15:29 09/18/18 22:35 Susan Elizalde M.D. Sep 19, 2018 12:01
[2018-09-19 16:00] VITALS: BP 152/56
--- NOTE | 2018-09-19 19:28 | NUR ---
HAND-OFF: Report given to AUNG Odom.
--- NOTE | 2018-09-19 19:43 | NUR ---
NURSE NOTES: Received patient awake in bed, no s/s of acute distress, no c/o pain at this time. IV access asymptomatic, running IVF at 50ml/hr. Patient stated that he "does not eat for 3 days sometimes when he's depressed." Siderail pads refused by patient.
[2018-09-19 20:00] VITALS: BP 152/56
[2018-09-19] MEDS: Cefepime HCl 1 GM in D5W 55 ML IVPB SCH (20:58)
[2018-09-19] MEDS: Atorvastatin 20mg tab ORAL SCH (21:03)
[2018-09-19] MEDS: Tamsulosin 0.4mg cap ORAL SCH (21:04)
[2018-09-19] MEDS: Zolpidem 5mg tab ORAL PRN (21:20)
[2018-09-20] VITALS: BP 107/63
[2018-09-20] MEDS: NovoLOG Insulin Flexpen SUBQ SCH ×4 (06:30→21:47)
[2018-09-20] MEDS: Sucralfate 1gm tab ORAL SCH ×3 (06:44→16:33)
--- NOTE | 2018-09-20 07:41 | NUR ---
HAND-OFF: Report given to AUNG Waterman.
--- NOTE | 2018-09-20 07:52 | NUR ---
NURSE NOTES: Patient received stable, awake in bed. Alert and oriented x4, breathing unlabored on room air. Reports pain in neck which is being alleviated by ice pack. Bed locked in lowest position, call light placed within reach. Will continue to monitor.
[2018-09-20 08:10] LABS: EOSINOPHILS % (AUTO) 5.3 % (0.0-3.0); HEMATOCRIT 38.4 % (42.0-52.0); HEMOGLOBIN 12.5 G/DL (14.2-18.0); LYMPHOCYTES % (AUTO) 22.6 % (20.0-45.0); MEAN CORPUSCULAR VOLUME 94 FL (80-99); MONOCYTES % (AUTO) 8.2 % (1.0-10.0); PLATELET COUNT 115 K/UL (150-450); RED BLOOD COUNT 4.06 M/UL (4.70-6.10); RED CELL DISTRIBUTION WIDTH 12.4 % (11.6-14.8); WHITE BLOOD COUNT 5.2 K/UL (4.8-10.8)
[2018-09-20 08:29] LABS: ANION GAP 5 mmol/L (5-15); BLOOD UREA NITROGEN 19 mg/dL (7-18); CALCIUM 8.4 MG/DL (8.5-10.1); CARBON DIOXIDE 26 MMOL/L (21-32); CHLORIDE 111 MMOL/L (98-107); CREATININE 0.7 MG/DL (0.55-1.30); POTASSIUM 3.8 MMOL/L (3.5-5.1); SODIUM 142 MMOL/L (136-145)
--- NOTE | 2018-09-20 08:50 | General Progress Note ---
Assessment/Plan Problem List: (1) UTI (urinary tract infection) ICD Codes: N39.0 - Urinary tract infection, site not specified SNOMED: 40812326 (2) PSA elevation ICD Codes: R97.20 - Elevated prostate specific antigen [PSA] SNOMED: 360728186 (3) HTN (hypertension) ICD Codes: I10 - Essential (primary) hypertension SNOMED: 66422326 (4) Diabetes ICD Codes: E11.9 - Type 2 diabetes mellitus without complications SNOMED: 61012281 (5) COPD (chronic obstructive pulmonary disease) ICD Codes: J44.9 - Chronic obstructive pulmonary disease, unspecified SNOMED: 43601593 (6) Atrial fibrillation ICD Codes: I48.91 - Unspecified atrial fibrillation SNOMED: 45605159 Status: stable, progressing Assessment/Plan: pt diet abx uro f/u cbc bmp am psyc transfer Subjective Constitutional: Reports: weakness Allergies: Coded Allergies: NO KNOWN ALLERGIES (Unverified Allergy, Unknown, 11/29/14) All Systems: reviewed and negative except above Subjective sl anxious in bed Objective Last 24 Hour Vital Signs Date Time Temp Pulse Resp B/P (MAP) Pulse Ox O2 Delivery O2 Flow Rate FiO2 09/20/18 00:00 98.4 63 19 107/63 (78) 98 09/19/18 22:27 98.4 09/19/18 21:00 Room Air 09/19/18 20:00 98.9 63 19 152/56 (88) 98 09/19/18 16:00 98.4 76 18 152/56 (88) 96 09/19/18 12:00 98.4 63 18 127/72 (90) 95 09/19/18 09:18 65 Intake and Output 09/19/18 09/20/18 19:00 07:00 Intake Total 650 ml 600 ml Output Total 700 ml Balance 650 ml -100 ml Intake Oral 600 ml 600 ml IV Total 50 ml Output Urine Total 700 ml # Voids 2 # Bowel Movements 1 1 Laboratory Tests 09/20/18 06:35: White Blood Count 5.2, Red Blood Count 4.06L, Hemoglobin 12.5L, Hematocrit 38.4L , Mean Corpuscular Volume 94, Mean Corpuscular Hemoglobin 30.8, Mean Corpuscular Hemoglobin Concent 32.6, Red Cell Distribution Width 12.4, Platelet Count 115L, Mean Platelet Volume 6.5, Neutrophils (%) (Auto) 63.0, Lymphocytes ( %) (Auto) 22.6, Monocytes (%) (Auto) 8.2, Eosinophils (%) (Auto) 5.3H, Basophils (%) (Auto) 1.0, Sodium Level 142, Potassium Level 3.8, Chloride Level 111H, Carbon Dioxide Level 26, Anion Gap 5, Blood Urea Nitrogen 19H, Creatinine 0.7, Estimat Glomerular Filtration Rate , Glucose Level 85, Calcium Level 8.4L Height (Feet): 5 Height (Inches): 6.00 Weight (Pounds): 240 General Appearance: lethargic EENT: normal ENT inspection Neck: normal alignment Cardiovascular: normal peripheral pulses, normal rate, regular rhythm Respiratory/Chest: chest wall non-tender, lungs clear, normal breath sounds Abdomen: normal bowel sounds, non tender, soft Extremities: normal inspection Edema: no edema noted Arm (L), no edema noted Arm (R), no edema noted Leg (L), no edema noted Leg (R), no edema noted Pedal (L), no edema noted Pedal (R), no edema noted Generalized Neurologic: motor weakness Skin: normal pigmentation, warm/dry Mickey Pinto DO Sep 20, 2018 08:50
[2018-09-20] MEDS: Heparin 5000 units/ml inj SUBQ SCH ×2 (09:00→21:00)
[2018-09-20] MEDS: Aspirin Baby 81mg ORAL SCH (09:07)
[2018-09-20] MEDS: Calcium Carbonate 500mg w/Vit D 200iu tab ORAL SCH (09:08)
[2018-09-20] MEDS: Bicalutamide 50mg tab ORAL SCH (09:08)
[2018-09-20] MEDS: Digoxin 0.125mg tab ORAL SCH (09:08)
[2018-09-20] MEDS: Topiramate 100mg tab ORAL SCH (09:08)
[2018-09-20 09:18] VITALS: BP 102/64
[2018-09-20] MEDS: Docusate 250mg cap ORAL SCH (09:18)
--- NOTE | 2018-09-20 12:26 | NUR ---
NURSE NOTES: Patient refused his insulin - RN informed him that he is to receive 4 units based on his sliding scale. Patient stated he should be receiving 6 units instead, and stated he will receive "6 units or nothing at all." RN explained to him the importance of following the prescribed sliding scale. Patient stated he will stick to the sliding scale that he knows and refused to receive the 4 units, verbalized understanding of the risks of not receiving insulin. Patient then rejected his lunch meal. Patient is alert and not displaying signs of hyperglycemia. RN to continue to monitor the patient.
--- NOTE | 2018-09-20 12:43 | Urology Progress Note ---
Assessment/Plan Status: stable, progressing Assessment/Plan: 1. 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 2. BPH history. 3. Lower urinary tract symptoms. 4. Pyuria, probable UTI. 5. Hematuria. 6. Nephrolithiasis history. 7. Renal cyst. 8. Rule out neurogenic bladder. monitor clinically cont casodex, apparently has been on lupron as outpt flomax and proscar med/onc noted will need dedicated bone scan consider CT A/P abx as ordered recheck serum PSA post abx may need to add Xtandi or chemo? will d/w onc Subjective Allergies: Coded Allergies: NO KNOWN ALLERGIES (Unverified Allergy, Unknown, 11/29/14) Subjective all noted Objective Last 24 Hour Vital Signs Date Time Temp Pulse Resp B/P (MAP) Pulse Ox O2 Delivery O2 Flow Rate FiO2 09/20/18 09:18 98.3 62 18 102/64 (77) 97 09/20/18 09:08 63 09/20/18 09:00 Room Air 09/20/18 00:00 98.4 63 19 107/63 (78) 98 09/19/18 22:27 98.4 09/19/18 21:00 Room Air 09/19/18 20:00 98.9 63 19 152/56 (88) 98 09/19/18 16:00 98.4 76 18 152/56 (88) 96 Intake and Output 09/19/18 09/20/18 19:00 07:00 Intake Total 650 ml 600 ml Output Total 700 ml Balance 650 ml -100 ml Intake Oral 600 ml 600 ml IV Total 50 ml Output Urine Total 700 ml # Voids 2 # Bowel Movements 1 1 Microbiology Date/Time Source Procedure Growth Status 09/16/18 21:00 Nasal Nares MRSA Culture - Final Staphylococcus Aureus - Mrsa Complete 09/16/18 15:42 Urine,Clean Catch Urine Culture - Final Klebsiella Pneumoniae Escherichia Coli Complete 09/16/18 21:00 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 Complete Current Medications Medications (Trade) Dose Ordered Sig/Maliha Route PRN Reason Start Time Stop Time Status Last Admin Dose Admin Acetaminophen (Tylenol) 650 mg Q4H PRN ORAL Mild Pain (Pain Scale 1-3) 09/16/18 15:30 10/16/18 15:29 Al Hydroxide/Mg Hydroxide (Mylanta II) 30 ml Q6H PRN ORAL dyspepsia 09/16/18 15:30 10/16/18 15:29 Albuterol/ Ipratropium (Albuterol/ Ipratropium) 3 ml Q6H PRN HHN Shortness of Breath 09/16/18 15:30 09/21/18 15:29 Aspirin (ASA) 81 mg DAILY ORAL 09/17/18 12:15 10/17/18 12:14 09/20/18 09:07 Atorvastatin Calcium (Lipitor) 40 mg BEDTIME ORAL 09/18/18 21:00 10/18/18 20:59 09/19/18 21:03 Bicalutamide (Casodex) 50 mg DAILY ORAL 09/17/18 09:00 09/22/18 08:59 09/20/18 09:08 Calcium/Vitamin D (OsCal D) 2 tab DAILY ORAL 09/17/18 12:15 10/17/18 12:14 09/20/18 09:08 Cefepime HCl 1 gm/ Dextrose 55 ml @ 110 mls/hr Q24H IVPB 09/17/18 21:00 09/24/18 20:59 09/19/18 20:58 Dextrose (Dextrose 50%) 25 ml Q30M PRN IV Hypoglycemia 09/17/18 17:00 10/17/18 16:59 Dextrose (Dextrose 50%) 50 ml Q30M PRN IV Hypoglycemia 09/17/18 17:00 10/17/18 16:59 Digoxin (Lanoxin) 0.125 mg DAILY ORAL 09/17/18 12:15 10/17/18 12:14 09/20/18 09:08 Diphenhydramine HCl (Benadryl) 25 mg Q6H PRN ORAL Itching/Pruritis 09/16/18 15:30 10/16/18 15:29 Docusate Sodium (Colace) 250 mg DAILY ORAL 09/19/18 09:00 10/19/18 08:59 09/20/18 09:18 Escitalopram Oxalate (Lexapro) 10 mg BEDTIME ORAL 09/18/18 21:00 10/18/18 20:59 09/19/18 21:03 Finasteride (Proscar) 5 mg DAILY ORAL 09/17/18 09:00 10/17/18 08:59 09/20/18 09:08 Heparin Sodium (Porcine) (Heparin 5000 units/ml) 5,000 units EVERY 12 HOURS SUBQ 09/16/18 21:00 10/16/18 20:59 09/19/18 09:32 Hydromorphone HCl (Dilaudid) 0.5 mg Q6H PRN IVP For Pain 09/16/18 15:30 09/23/18 15:29 09/19/18 21:57 Insulin Aspart (NovoLOG) BEFORE MEALS AND HS SUBQ 09/17/18 21:00 10/17/18 20:59 09/19/18 21:02 Lorazepam (Ativan) 1 mg Q4H PRN ORAL For Anxiety 09/16/18 15:30 09/23/18 15:29 Sodium Chloride 1,000 ml @ 50 mls/hr Q20H IVLG 09/16/18 17:00 10/16/18 16:59 09/19/18 15:09 Sucralfate (Carafate) 1 gm BEFORE MEALS ORAL 09/18/18 16:30 10/18/18 16:29 09/20/18 06:44 Tamsulosin HCl (Flomax) 0.4 mg BEDTIME ORAL 09/16/18 21:34 10/16/18 21:33 09/19/18 21:04 Topiramate (Topamax) 100 mg DAILY ORAL 09/19/18 09:00 10/19/18 08:59 09/20/18 09:08 Zolpidem Tartrate (Ambien) 5 mg HSPRN PRN ORAL Insomnia 09/16/18 15:30 09/23/18 15:29 09/19/18 21:20 Laboratory Tests 09/20/18 06:35: White Blood Count 5.2, Red Blood Count 4.06L, Hemoglobin 12.5L, Hematocrit 38.4L , Mean Corpuscular Volume 94, Mean Corpuscular Hemoglobin 30.8, Mean Corpuscular Hemoglobin Concent 32.6, Red Cell Distribution Width 12.4, Platelet Count 115L, Mean Platelet Volume 6.5, Neutrophils (%) (Auto) 63.0, Lymphocytes ( %) (Auto) 22.6, Monocytes (%) (Auto) 8.2, Eosinophils (%) (Auto) 5.3H, Basophils (%) (Auto) 1.0, Sodium Level 142, Potassium Level 3.8, Chloride Level 111H, Carbon Dioxide Level 26, Anion Gap 5, Blood Urea Nitrogen 19H, Creatinine 0.7, Estimat Glomerular Filtration Rate , Glucose Level 85, Calcium Level 8.4L Height (Feet): 5 Height (Inches): 6.00 Weight (Pounds): 240 Objective exam stable bone densitometry exam noted, no discrete lesion Gabino Segal MD Sep 20, 2018 12:43
--- NOTE | 2018-09-20 14:55 | Cardiology Report ---
APPROVED REPORT EKG Measurement Heart [id number] AV sequential pacemaker Abnormal ECG
[2018-09-20 16:00] VITALS: BP 117/72
--- NOTE | 2018-09-20 16:41 | Hematology/Onc Progress Note ---
Assessment/Plan Assessment/Plan ASSESSMENT AND PLAN: # Prostate cancer, elevated psa of 65--->126, currently off any kind of treatment and has a outside urologist that he follows up with. --> likely acute elevation is due to uti, currently high and can oscillate even to 100s --> obtain skeletal survey rule out distant mets--> SHOWS NOT METS --> Pyuria- no UTI symptoms --> PSA trend 20-->65-->126 --> casodex started, consider lupron (as per uro) --> discussed with Luzma # Thrombocytopenia in the 100-150s range --> consider hepatitis and hiv --> negative --> smear has been reviewed, completed --> appreciate uro and id recs in reg to abx --> Us of abd last time showed masses in spleen--> new us abd ordered --> plt trend 140-->130-->115 # Dm2 --> a1c goal <8 --> accuchecks qac and qhs # HTN # COPD # AFib # GERD # SNF resident The timing of this note does not necessarily reflect the time of the patient was seen. Greatly appreciate consultation! Subjective Constitutional: Denies: no symptoms, chills, fever, malaise, weakness, other HEENT: Denies: no symptoms, eye pain, blurred vision, tearing, double vision, ear pain, ear discharge, nose pain, nose congestion, throat pain, throat swelling, mouth pain, mouth swelling, other Cardiovascular: Denies: no symptoms, chest pain, edema, irregular heart rate, lightheadedness, palpitations, syncope, other Gastrointestinal/Abdominal: Denies: no symptoms, abdomen distended, abdominal pain, black stools, tarry stools, blood in stool, constipated, diarrhea, difficulty swallowing, nausea, poor appetite, poor fluid intake, rectal bleeding , vomiting, other Genitourinary: Denies: no symptoms, burning, discharge, frequency, flank pain, hematuria, incontinence, pain, urgency, other Endocrine: Denies: no symptoms, excessive sweating, flushing, intolerance to cold, intolerance to heat, increased hunger, increased thirst, increased urine, unexplained weight gain, unexplained weight loss, other Allergies: Coded Allergies: NO KNOWN ALLERGIES (Unverified Allergy, Unknown, 11/29/14) Subjective 09/18: no events, psa is higher, back on casodex, still anxious Objective Objective Current Medications Medications (Trade) Dose Ordered Sig/Maliha Route PRN Reason Start Time Stop Time Status Last Admin Dose Admin Acetaminophen (Tylenol) 650 mg Q4H PRN ORAL Mild Pain (Pain Scale 1-3) 09/16/18 15:30 10/16/18 15:29 Al Hydroxide/Mg Hydroxide (Mylanta II) 30 ml Q6H PRN ORAL dyspepsia 09/16/18 15:30 10/16/18 15:29 Albuterol/ Ipratropium (Albuterol/ Ipratropium) 3 ml Q6H PRN HHN Shortness of Breath 09/16/18 15:30 09/21/18 15:29 Aspirin (ASA) 81 mg DAILY ORAL 09/17/18 12:15 10/17/18 12:14 09/20/18 09:07 Atorvastatin Calcium (Lipitor) 40 mg BEDTIME ORAL 09/18/18 21:00 10/18/18 20:59 09/19/18 21:03 Bicalutamide (Casodex) 50 mg DAILY ORAL 09/17/18 09:00 09/22/18 08:59 09/20/18 09:08 Calcium/Vitamin D (OsCal D) 2 tab DAILY ORAL 09/17/18 12:15 10/17/18 12:14 09/20/18 09:08 Ceftriaxone Sodium 1 gm/ Dextrose 55 ml @ 110 mls/hr Q24H IVPB 09/20/18 21:00 09/27/18 20:59 Dextrose (Dextrose 50%) 25 ml Q30M PRN IV Hypoglycemia 09/17/18 17:00 10/17/18 16:59 Dextrose (Dextrose 50%) 50 ml Q30M PRN IV Hypoglycemia 09/17/18 17:00 10/17/18 16:59 Digoxin (Lanoxin) 0.125 mg DAILY ORAL 09/17/18 12:15 10/17/18 12:14 09/20/18 09:08 Diphenhydramine HCl (Benadryl) 25 mg Q6H PRN ORAL Itching/Pruritis 09/16/18 15:30 10/16/18 15:29 Docusate Sodium (Colace) 250 mg DAILY ORAL 09/19/18 09:00 10/19/18 08:59 09/20/18 09:18 Escitalopram Oxalate (Lexapro) 10 mg BEDTIME ORAL 09/18/18 21:00 10/18/18 20:59 09/19/18 21:03 Finasteride (Proscar) 5 mg DAILY ORAL 09/17/18 09:00 10/17/18 08:59 09/20/18 09:08 Heparin Sodium (Porcine) (Heparin 5000 units/ml) 5,000 units EVERY 12 HOURS SUBQ 09/16/18 21:00 10/16/18 20:59 09/19/18 09:32 Hydromorphone HCl (Dilaudid) 0.5 mg Q6H PRN IVP For Pain 09/16/18 15:30 09/23/18 15:29 09/19/18 21:57 Insulin Aspart (NovoLOG) BEFORE MEALS AND HS SUBQ 09/17/18 21:00 10/17/18 20:59 09/20/18 16:37 Lorazepam (Ativan) 1 mg Q4H PRN ORAL For Anxiety 09/16/18 15:30 09/23/18 15:29 Sodium Chloride 1,000 ml @ 50 mls/hr Q20H IVLG 09/16/18 17:00 10/16/18 16:59 09/19/18 15:09 Sucralfate (Carafate) 1 gm BEFORE MEALS ORAL 09/18/18 16:30 10/18/18 16:29 09/20/18 16:33 Tamsulosin HCl (Flomax) 0.4 mg BEDTIME ORAL 09/16/18 21:34 10/16/18 21:33 09/19/18 21:04 Topiramate (Topamax) 100 mg DAILY ORAL 09/19/18 09:00 10/19/18 08:59 09/20/18 09:08 Zolpidem Tartrate (Ambien) 5 mg HSPRN PRN ORAL Insomnia 09/16/18 15:30 09/23/18 15:29 09/19/18 21:20 Last 24 Hour Vital Signs Date Time Temp Pulse Resp B/P (MAP) Pulse Ox O2 Delivery O2 Flow Rate FiO2 09/20/18 09:18 98.3 62 18 102/64 (77) 97 09/20/18 09:08 63 09/20/18 09:00 Room Air 09/20/18 00:00 98.4 63 19 107/63 (78) 98 09/19/18 22:27 98.4 09/19/18 21:00 Room Air 09/19/18 20:00 98.9 63 19 152/56 (88) 98 09/19/18 16:00 98.4 76 18 152/56 (88) 96 09/19/18 12:00 98.4 63 18 127/72 (90) 95 09/19/18 09:18 65 09/19/18 08:45 Room Air 09/19/18 08:00 98.1 65 17 106/65 (79) 97 09/19/18 00:00 98.3 66 20 109/59 (76) 95 09/18/18 21:00 Room Air 09/18/18 20:00 98.2 62 20 102/61 (75) 98 Intake and Output 09/19/18 09/20/18 18:59 06:59 Intake Total 650 ml 600 ml Output Total 700 ml Balance 650 ml -100 ml Intake Oral 600 ml 600 ml IV Total 50 ml Output Urine Total 700 ml # Voids 2 # Bowel Movements 1 1 Labs Test 09/18/18 06:40 09/19/18 07:15 09/20/18 06:35 White Blood Count 5.8 K/UL (4.8-10.8) 6.8 K/UL (4.8-10.8) 5.2 K/UL (4.8-10.8) Red Blood Count 4.23 M/UL (4.70-6.10) 4.27 M/UL (4.70-6.10) 4.06 M/UL (4.70-6.10) Hemoglobin 12.9 G/DL (14.2-18.0) 13.1 G/DL (14.2-18.0) 12.5 G/DL (14.2-18.0) Hematocrit 40.1 % (42.0-52.0) 39.9 % (42.0-52.0) 38.4 % (42.0-52.0) Mean Corpuscular Volume 95 FL (80-99) 93 FL (80-99) 94 FL (80-99) Mean Corpuscular Hemoglobin 30.6 PG (27.0-31.0) 30.6 PG (27.0-31.0) 30.8 PG (27.0-31.0) Mean Corpuscular Hemoglobin Concent 32.3 G/DL (32.0-36.0) 32.8 G/DL (32.0-36.0) 32.6 G/DL (32.0-36.0) Red Cell Distribution Width 12.2 % (11.6-14.8) 12.1 % (11.6-14.8) 12.4 % (11.6-14.8) Platelet Count 124 K/UL (150-450) 134 K/UL (150-450) 115 K/UL (150-450) Mean Platelet Volume 7.2 FL (6.5-10.1) 6.5 FL (6.5-10.1) 6.5 FL (6.5-10.1) Neutrophils (%) (Auto) 63.2 % (45.0-75.0) 64.6 % (45.0-75.0) 63.0 % (45.0-75.0) Lymphocytes (%) (Auto) 22.5 % (20.0-45.0) 21.7 % (20.0-45.0) 22.6 % (20.0-45.0) Monocytes (%) (Auto) 8.9 % (1.0-10.0) 8.7 % (1.0-10.0) 8.2 % (1.0-10.0) Eosinophils (%) (Auto) 4.8 % (0.0-3.0) 4.2 % (0.0-3.0) 5.3 % (0.0-3.0) Basophils (%) (Auto) 0.7 % (0.0-2.0) 0.8 % (0.0-2.0) 1.0 % (0.0-2.0) Sodium Level 139 MMOL/L (136-145) 143 MMOL/L (136-145) 142 MMOL/L (136-145) Potassium Level 3.7 MMOL/L (3.5-5.1) 4.0 MMOL/L (3.5-5.1) 3.8 MMOL/L (3.5-5.1) Chloride Level 111 MMOL/L (98-107) 111 MMOL/L (98-107) 111 MMOL/L (98-107) Carbon Dioxide Level 25 MMOL/L (21-32) 25 MMOL/L (21-32) 26 MMOL/L (21-32) Anion Gap 3 mmol/L (5-15) 7 mmol/L (5-15) 5 mmol/L (5-15) Blood Urea Nitrogen 21 mg/dL (7-18) 20 mg/dL (7-18) 19 mg/dL (7-18) Creatinine 0.9 MG/DL (0.55-1.30) 0.9 MG/DL (0.55-1.30) 0.7 MG/DL (0.55-1.30) Estimat Glomerular Filtration Rate mL/min (>60) mL/min (>60) mL/min (>60) Glucose Level 83 MG/DL (74-106) 88 MG/DL (74-106) 85 MG/DL (74-106) Calcium Level 8.7 MG/DL (8.5-10.1) 8.4 MG/DL (8.5-10.1) 8.4 MG/DL (8.5-10.1) Height (Feet): 5 Height (Inches): 6.00 Weight (Pounds): 240 Objective PHYSICAL EXAMINATION: GENERAL: The patient is an elderly gentleman, awake, alert, oriented x4. No obvious distress. CHEST: Within normal limits. ABDOMEN: Soft, nontender, nondistended. EXTREMITIES: Warm, well perfused. No cyanosis, clubbing, or edema. BACK: No CVA tenderness to percussion. NEUROLOGIC: Grossly nonfocal. Antony Thurston MD Sep 20, 2018 16:41
--- NOTE | 2018-09-20 19:25 | NUR ---
NURSE NOTES: Received patient in bed. AAO x 4, on room air. No pain, no acute distress noted at this time. IV site intact and running NS 50cc/hr. Side rails padded, bed lowest position, locked, alarm on, call light within reach. Will continue to monitor.
--- NOTE | 2018-09-20 19:49 | Pulmonology Progress Note ---
Assessment/Plan Problems: (1) Anemia (2) COPD (chronic obstructive pulmonary disease) (3) Diabetes (4) HTN (hypertension) (5) PSA elevation Assessment/Plan titrate fio2 to sat of 92% no new complains all reviewed symptomatic treatment psych evaluatin check electrolytes dc planning Subjective ROS Limited/Unobtainable: No Constitutional: Reports: no symptoms HEENT: Repors: no symptoms Respiratory: Reports: no symptoms Allergies: Coded Allergies: NO KNOWN ALLERGIES (Unverified Allergy, Unknown, 11/29/14) Objective Last 24 Hour Vital Signs Date Time Temp Pulse Resp B/P (MAP) Pulse Ox O2 Delivery O2 Flow Rate FiO2 09/20/18 16:00 98.2 85 17 117/72 (87) 98 09/20/18 09:18 98.3 62 18 102/64 (77) 97 09/20/18 09:08 63 09/20/18 09:00 Room Air 09/20/18 00:00 98.4 63 19 107/63 (78) 98 09/19/18 22:27 98.4 09/19/18 21:00 Room Air 09/19/18 20:00 98.9 63 19 152/56 (88) 98 Intake and Output 09/19/18 09/20/18 18:59 06:59 Intake Total 650 ml 600 ml Output Total 700 ml Balance 650 ml -100 ml Intake Oral 600 ml 600 ml IV Total 50 ml Output Urine Total 700 ml # Voids 2 # Bowel Movements 1 1 General Appearance: WD/WN HEENT: atraumatic Respiratory/Chest: chest wall non-tender, lungs clear Cardiovascular: normal peripheral pulses, regular rhythm Abdomen: normal bowel sounds, soft, non tender Extremities: no cyanosis Skin: no rash Laboratory Tests 09/20/18 06:35: White Blood Count 5.2, Red Blood Count 4.06L, Hemoglobin 12.5L, Hematocrit 38.4L , Mean Corpuscular Volume 94, Mean Corpuscular Hemoglobin 30.8, Mean Corpuscular Hemoglobin Concent 32.6, Red Cell Distribution Width 12.4, Platelet Count 115L, Mean Platelet Volume 6.5, Neutrophils (%) (Auto) 63.0, Lymphocytes ( %) (Auto) 22.6, Monocytes (%) (Auto) 8.2, Eosinophils (%) (Auto) 5.3H, Basophils (%) (Auto) 1.0, Sodium Level 142, Potassium Level 3.8, Chloride Level 111H, Carbon Dioxide Level 26, Anion Gap 5, Blood Urea Nitrogen 19H, Creatinine 0.7, Estimat Glomerular Filtration Rate , Glucose Level 85, Calcium Level 8.4L Current Medications Medications (Trade) Dose Ordered Sig/Maliha Route PRN Reason Start Time Stop Time Status Last Admin Dose Admin Acetaminophen (Tylenol) 650 mg Q4H PRN ORAL Mild Pain (Pain Scale 1-3) 09/16/18 15:30 10/16/18 15:29 Al Hydroxide/Mg Hydroxide (Mylanta II) 30 ml Q6H PRN ORAL dyspepsia 09/16/18 15:30 10/16/18 15:29 Albuterol/ Ipratropium (Albuterol/ Ipratropium) 3 ml Q6H PRN HHN Shortness of Breath 09/16/18 15:30 09/21/18 15:29 Aspirin (ASA) 81 mg DAILY ORAL 09/17/18 12:15 10/17/18 12:14 09/20/18 09:07 Atorvastatin Calcium (Lipitor) 40 mg BEDTIME ORAL 09/18/18 21:00 10/18/18 20:59 09/19/18 21:03 Bicalutamide (Casodex) 50 mg DAILY ORAL 09/17/18 09:00 09/22/18 08:59 09/20/18 09:08 Calcium/Vitamin D (OsCal D) 2 tab DAILY ORAL 09/17/18 12:15 10/17/18 12:14 09/20/18 09:08 Ceftriaxone Sodium 1 gm/ Dextrose 55 ml @ 110 mls/hr Q24H IVPB 09/20/18 21:00 09/27/18 20:59 Dextrose (Dextrose 50%) 25 ml Q30M PRN IV Hypoglycemia 09/17/18 17:00 10/17/18 16:59 Dextrose (Dextrose 50%) 50 ml Q30M PRN IV Hypoglycemia 09/17/18 17:00 10/17/18 16:59 Digoxin (Lanoxin) 0.125 mg DAILY ORAL 09/17/18 12:15 10/17/18 12:14 09/20/18 09:08 Diphenhydramine HCl (Benadryl) 25 mg Q6H PRN ORAL Itching/Pruritis 09/16/18 15:30 10/16/18 15:29 Docusate Sodium (Colace) 250 mg DAILY ORAL 09/19/18 09:00 10/19/18 08:59 09/20/18 09:18 Escitalopram Oxalate (Lexapro) 10 mg BEDTIME ORAL 09/18/18 21:00 10/18/18 20:59 09/19/18 21:03 Finasteride (Proscar) 5 mg DAILY ORAL 09/17/18 09:00 10/17/18 08:59 09/20/18 09:08 Heparin Sodium (Porcine) (Heparin 5000 units/ml) 5,000 units EVERY 12 HOURS SUBQ 09/16/18 21:00 10/16/18 20:59 09/19/18 09:32 Hydromorphone HCl (Dilaudid) 0.5 mg Q6H PRN IVP For Pain 09/16/18 15:30 09/23/18 15:29 09/19/18 21:57 Insulin Aspart (NovoLOG) BEFORE MEALS AND HS SUBQ 09/17/18 21:00 10/17/18 20:59 09/20/18 16:37 Lorazepam (Ativan) 1 mg Q4H PRN ORAL For Anxiety 09/16/18 15:30 09/23/18 15:29 Sodium Chloride 1,000 ml @ 50 mls/hr Q20H IVLG 09/16/18 17:00 10/16/18 16:59 09/19/18 15:09 Sucralfate (Carafate) 1 gm BEFORE MEALS ORAL 09/18/18 16:30 10/18/18 16:29 09/20/18 16:33 Tamsulosin HCl (Flomax) 0.4 mg BEDTIME ORAL 09/16/18 21:34 10/16/18 21:33 09/19/18 21:04 Topiramate (Topamax) 100 mg DAILY ORAL 09/19/18 09:00 10/19/18 08:59 09/20/18 09:08 Zolpidem Tartrate (Ambien) 5 mg HSPRN PRN ORAL Insomnia 09/16/18 15:30 09/23/18 15:29 09/19/18 21:20 Karen Jimenez MD Sep 20, 2018 19:48
[2018-09-20 20:00] VITALS: BP 96/51
[2018-09-20] MEDS: cefTRIAXone 1gm/D5W 55ml IVPB SCH ×2 (21:23)
[2018-09-20] MEDS: Atorvastatin 20mg tab ORAL SCH (21:24)
[2018-09-20] MEDS: Tamsulosin 0.4mg cap ORAL SCH (21:24)
[2018-09-20] MEDS: Zolpidem 5mg tab ORAL PRN (21:33)
[2018-09-21] VITALS: BP 84/41
--- NOTE | 2018-09-21 03:30 | Consultation ---
DATE OF CONSULTATION: 09/19/2018 NOTE: POOR AUDIO. PSYCHOTHERAPY CONSULTATION PROGRESS NOTE ATTENDING PHYSICIAN: Mickey Pinto D.O. CONSULTING PHYSICIAN: Elizabeth Ross PsyD. HISTORY OF PRESENT ILLNESS: This patient is a male patient. The patient is a 78-year-old from [facility]. The patient was apparently brought into the hospital for abnormal labs. He has a history of major depression and he has been very anxious and difficulty sleeping. For these reasons, he was referred for psychotherapeutic services. When assessed the patient, the patient is very focused on his . He has been very irritable, anxious affect, agitated. He denies suicidal or homicidal thoughts of ideation. Denies any auditory or visual hallucinations. anxious when there is change. He has been having distress and possible urinary retention as well and is asking for pain medication . Denies suicidal or homicidal thoughts of ideation. Denies any auditory or visual hallucinations. current medical condition. PAST MEDICAL HISTORY: Includes history of hypertension, diabetes, COPD, and atrial fibrillation. ALLERGIES: The patient has no known drug allergies. SUBSTANCE ABUSE HISTORY: There is no indication of alcohol use, illicit drug use, or smoking cigarettes. PSYCHIATRIC HISTORY: The patient has history of major depression. He has been treated with psychotropic medications in the past. SOCIAL HISTORY: The patient is a 78-year-old male patient from [facility] nursing [facility], financially sustained through [employer]. MENTAL STATUS EXAMINATION: The patient is alert and oriented to person, place, and time. His mood is anxious. Affect is congruent. Thought process is disorganized. Thought content is . Poor attention and concentration. Poor insight, judgment, and impulse control. 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 PLAN: I assessed the patient and provided the patient with reality orientation with focus on improving cognitive function of the patient who is very confused and disorganized. . Provided the patient with supportive psychotherapy, which would provide positive coping skills including positive thought processes positive coping skills . This clinician has reviewed the patient's chart. Discussed the treatment with treatment team. Elizabeth Ross PsyD. DR: Kami JOB#: [id number] CC:
[2018-09-21] MEDS: Sucralfate 1gm tab ORAL SCH ×3 (06:08→16:37)
[2018-09-21] MEDS: NovoLOG Insulin Flexpen SUBQ SCH ×4 (06:10→20:50)
--- NOTE | 2018-09-21 07:25 | NUR ---
HAND-OFF: Report given to AUNG Dubon.
--- NOTE | 2018-09-21 07:58 | NUR ---
NURSE NOTES: Received pt in bed. Room air. AO x4. No c/o of pain/distress. States he refused his breakfast. IV on L hand 22g intact and patent, running NS 50/hr. Side rails padded. Bed in the lowest, locked, and alarm on. Call light within reach. Will continue to monitor
[2018-09-21 08:00] VITALS: BP 111/65
[2018-09-21 08:01] LABS: BASOPHILS % (AUTO) 0.9 % (0.0-2.0); EOSINOPHILS % (AUTO) 4.3 % (0.0-3.0); HEMATOCRIT 39.3 % (42.0-52.0); MEAN CORPUSCULAR VOLUME 94 FL (80-99); MONOCYTES % (AUTO) 7.9 % (1.0-10.0); PLATELET COUNT 119 K/UL (150-450); RED BLOOD COUNT 4.18 M/UL (4.70-6.10); WHITE BLOOD COUNT 5.8 K/UL (4.8-10.8)
--- NOTE | 2018-09-21 08:10 | NUR ---
DIRECTOR OF BLOOD Co-Signature Notes: Reviewed patient's chart. Reviewed and approved DIRECTOR OF BLOOD notes Addendum: 09/21/18 at 0810 by SAIDA EMERY PT,MG Amended: Links added.
--- NOTE | 2018-09-21 08:10 | NUR ---
BUNCH BREAKER MACHINE OPERATOR Co-Signature Notes: Reviewed patient's chart. Reviewed and approved BUNCH BREAKER MACHINE OPERATOR notes Addendum: 09/21/18 at 0810 by SAIDA EMERY PT,MG Amended: Links added.
--- NOTE | 2018-09-21 08:17 | Urology Progress Note ---
Assessment/Plan Status: stable, progressing Assessment/Plan: 1. 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 2. BPH history. 3. Lower urinary tract symptoms. 4. Pyuria, probable UTI. 5. Hematuria. 6. Nephrolithiasis history. 7. Renal cyst. 8. Rule out neurogenic bladder. monitor clinically cont casodex, apparently has been on lupron as outpt flomax and proscar med/onc noted will need dedicated bone scan, ordered and awaiting result consider CT A/P abx as ordered recheck serum PSA post abx recheck UA and urine cx later may need to add Xtandi or chemo? I have discussed this pt's case only with 's Blair and Karena Subjective Allergies: Coded Allergies: NO KNOWN ALLERGIES (Unverified Allergy, Unknown, 11/29/14) Subjective all noted, feels fair Objective Last 24 Hour Vital Signs Date Time Temp Pulse Resp B/P (MAP) Pulse Ox O2 Delivery O2 Flow Rate FiO2 09/21/18 00:00 97.9 64 16 84/41 (55) 95 09/20/18 21:00 Room Air 09/20/18 20:00 98.1 67 17 96/51 (66) 96 09/20/18 16:00 98.2 85 17 117/72 (87) 98 09/20/18 09:18 98.3 62 18 102/64 (77) 97 09/20/18 09:08 63 09/20/18 09:00 Room Air Intake and Output 09/20/18 09/21/18 19:00 07:00 Intake Total 1000 ml 205 ml Output Total 1600 ml Balance -600 ml 205 ml Intake Oral 1000 ml IV Total 205 ml Output Urine Total 1600 ml # Voids 2 # Bowel Movements 1 Microbiology Date/Time Source Procedure Growth Status 09/16/18 21:00 Nasal Nares MRSA Culture - Final Staphylococcus Aureus - Mrsa Complete 09/16/18 15:42 Urine,Clean Catch Urine Culture - Final Klebsiella Pneumoniae Escherichia Coli Complete 09/16/18 21:00 Rectum - Final NO CARBAPENEM-RESISTANT ENTEROBACTERI... Complete Current Medications Medications (Trade) Dose Ordered Sig/Maliha Route PRN Reason Start Time Stop Time Status Last Admin Dose Admin Acetaminophen (Tylenol) 650 mg Q4H PRN ORAL Mild Pain (Pain Scale 1-3) 09/16/18 15:30 10/16/18 15:29 Al Hydroxide/Mg Hydroxide (Mylanta II) 30 ml Q6H PRN ORAL dyspepsia 09/16/18 15:30 10/16/18 15:29 Albuterol/ Ipratropium (Albuterol/ Ipratropium) 3 ml Q6H PRN HHN Shortness of Breath 09/16/18 15:30 09/21/18 15:29 Aspirin (ASA) 81 mg DAILY ORAL 09/17/18 12:15 10/17/18 12:14 09/20/18 09:07 Atorvastatin Calcium (Lipitor) 40 mg BEDTIME ORAL 09/18/18 21:00 10/18/18 20:59 09/20/18 21:24 Bicalutamide (Casodex) 50 mg DAILY ORAL 09/17/18 09:00 09/22/18 08:59 09/20/18 09:08 Calcium/Vitamin D (OsCal D) 2 tab DAILY ORAL 09/17/18 12:15 10/17/18 12:14 09/20/18 09:08 Ceftriaxone Sodium 1 gm/ Dextrose 55 ml @ 110 mls/hr Q24H IVPB 09/20/18 21:00 09/27/18 20:59 09/20/18 21:23 Dextrose (Dextrose 50%) 25 ml Q30M PRN IV Hypoglycemia 09/17/18 17:00 10/17/18 16:59 Dextrose (Dextrose 50%) 50 ml Q30M PRN IV Hypoglycemia 09/17/18 17:00 10/17/18 16:59 Digoxin (Lanoxin) 0.125 mg DAILY ORAL 09/17/18 12:15 10/17/18 12:14 09/20/18 09:08 Diphenhydramine HCl (Benadryl) 25 mg Q6H PRN ORAL Itching/Pruritis 09/16/18 15:30 10/16/18 15:29 Docusate Sodium (Colace) 250 mg DAILY ORAL 09/19/18 09:00 10/19/18 08:59 09/20/18 09:18 Escitalopram Oxalate (Lexapro) 10 mg BEDTIME ORAL 09/18/18 21:00 10/18/18 20:59 09/20/18 21:24 Finasteride (Proscar) 5 mg DAILY ORAL 09/17/18 09:00 10/17/18 08:59 09/20/18 09:08 Heparin Sodium (Porcine) (Heparin 5000 units/ml) 5,000 units EVERY 12 HOURS SUBQ 09/16/18 21:00 10/16/18 20:59 09/19/18 09:32 Hydromorphone HCl (Dilaudid) 0.5 mg Q6H PRN IVP For Pain 09/16/18 15:30 09/23/18 15:29 09/19/18 21:57 Insulin Aspart (NovoLOG) BEFORE MEALS AND HS SUBQ 09/17/18 21:00 10/17/18 20:59 09/21/18 06:10 Lorazepam (Ativan) 1 mg Q4H PRN ORAL For Anxiety 09/16/18 15:30 09/23/18 15:29 Sodium Chloride 1,000 ml @ 50 mls/hr Q20H IVLG 09/16/18 17:00 10/16/18 16:59 09/20/18 21:23 Sucralfate (Carafate) 1 gm BEFORE MEALS ORAL 09/18/18 16:30 10/18/18 16:29 09/21/18 06:08 Tamsulosin HCl (Flomax) 0.4 mg BEDTIME ORAL 09/16/18 21:34 10/16/18 21:33 09/20/18 21:24 Topiramate (Topamax) 100 mg DAILY ORAL 09/19/18 09:00 10/19/18 08:59 09/20/18 09:08 Zolpidem Tartrate (Ambien) 5 mg HSPRN PRN ORAL Insomnia 09/16/18 15:30 09/23/18 15:29 09/20/18 21:33 Laboratory Tests 09/21/18 06:03: White Blood Count 5.8, Red Blood Count 4.18L, Hemoglobin 13.0L, Hematocrit 39.3L , Mean Corpuscular Volume 94, Mean Corpuscular Hemoglobin 31.0, Mean Corpuscular Hemoglobin Concent 33.0, Red Cell Distribution Width 12.0, Platelet Count 119L, Mean Platelet Volume 7.0, Neutrophils (%) (Auto) 70.0, Lymphocytes ( %) (Auto) 17.0L, Monocytes (%) (Auto) 7.9, Eosinophils (%) (Auto) 4.3H, Basophils (%) (Auto) 0.9, Sodium Level [Pending], Potassium Level [Pending], Chloride Level [Pending], Carbon Dioxide Level [Pending], Blood Urea Nitrogen [ Pending], Creatinine [Pending], Estimat Glomerular Filtration Rate [Pending], Glucose Level [Pending], Calcium Level [Pending] Height (Feet): 5 Height (Inches): 6.00 Weight (Pounds): 240 Objective exam stable bone densitometry exam noted, no discrete lesion Gabino Segal MD Sep 21, 2018 08:17
[2018-09-21] MEDS: Bicalutamide 50mg tab ORAL SCH (08:28)
[2018-09-21] MEDS: Calcium Carbonate 500mg w/Vit D 200iu tab ORAL SCH (08:28)
[2018-09-21] MEDS: Docusate 250mg cap ORAL SCH (08:28)
[2018-09-21] MEDS: Topiramate 100mg tab ORAL SCH (08:28)
[2018-09-21] MEDS: Aspirin Baby 81mg ORAL SCH (08:28)
[2018-09-21] MEDS: Digoxin 0.125mg tab ORAL SCH (08:28)
[2018-09-21] MEDS: Hydromorphone 0.5mg/0.5ml inj IVP PRN ×2 (08:29→16:10)
[2018-09-21 08:32] LABS: ANION GAP 8 mmol/L (5-15); BLOOD UREA NITROGEN 16 mg/dL (7-18); CALCIUM 8.8 MG/DL (8.5-10.1); CARBON DIOXIDE 25 MMOL/L (21-32); CHLORIDE 110 MMOL/L (98-107); CREATININE 0.7 MG/DL (0.55-1.30); POTASSIUM 3.7 MMOL/L (3.5-5.1); SODIUM 143 MMOL/L (136-145)
[2018-09-21] MEDS: Heparin 5000 units/ml inj SUBQ SCH ×3 (08:33→20:54)
--- NOTE | 2018-09-21 08:59 | General Progress Note ---
Assessment/Plan Problem List: (1) UTI (urinary tract infection) ICD Codes: N39.0 - Urinary tract infection, site not specified SNOMED: 48599813 (2) PSA elevation ICD Codes: R97.20 - Elevated prostate specific antigen [PSA] SNOMED: 025782767 (3) HTN (hypertension) ICD Codes: I10 - Essential (primary) hypertension SNOMED: 49816781 (4) Diabetes ICD Codes: E11.9 - Type 2 diabetes mellitus without complications SNOMED: 71993228 (5) COPD (chronic obstructive pulmonary disease) ICD Codes: J44.9 - Chronic obstructive pulmonary disease, unspecified SNOMED: 15855142 (6) Atrial fibrillation ICD Codes: I48.91 - Unspecified atrial fibrillation SNOMED: 91237829 Status: stable, progressing Assessment/Plan: pt diet abx uro f/u cbc bmp am psyc transfer Subjective Constitutional: Reports: weakness Allergies: Coded Allergies: NO KNOWN ALLERGIES (Unverified Allergy, Unknown, 11/29/14) All Systems: reviewed and negative except above Subjective sl anxious in bed Objective Last 24 Hour Vital Signs Date Time Temp Pulse Resp B/P (MAP) Pulse Ox O2 Delivery O2 Flow Rate FiO2 09/21/18 08:28 64 09/21/18 00:00 97.9 64 16 84/41 (55) 95 09/20/18 21:00 Room Air 09/20/18 20:00 98.1 67 17 96/51 (66) 96 09/20/18 16:00 98.2 85 17 117/72 (87) 98 09/20/18 09:18 98.3 62 18 102/64 (77) 97 09/20/18 09:08 63 09/20/18 09:00 Room Air Intake and Output 09/20/18 09/21/18 19:00 07:00 Intake Total 1000 ml 505 ml Output Total 1600 ml Balance -600 ml 505 ml Intake Oral 1000 ml IV Total 505 ml Output Urine Total 1600 ml # Voids 2 # Bowel Movements 1 Laboratory Tests 09/21/18 06:03: White Blood Count 5.8, Red Blood Count 4.18L, Hemoglobin 13.0L, Hematocrit 39.3L , Mean Corpuscular Volume 94, Mean Corpuscular Hemoglobin 31.0, Mean Corpuscular Hemoglobin Concent 33.0, Red Cell Distribution Width 12.0, Platelet Count 119L, Mean Platelet Volume 7.0, Neutrophils (%) (Auto) 70.0, Lymphocytes ( %) (Auto) 17.0L, Monocytes (%) (Auto) 7.9, Eosinophils (%) (Auto) 4.3H, Basophils (%) (Auto) 0.9, Sodium Level 143, Potassium Level 3.7, Chloride Level 110H, Carbon Dioxide Level 25, Anion Gap 8, Blood Urea Nitrogen 16, Creatinine 0.7, Estimat Glomerular Filtration Rate , Glucose Level 82, Calcium Level 8.8 Height (Feet): 5 Height (Inches): 6.00 Weight (Pounds): 240 General Appearance: lethargic EENT: normal ENT inspection Neck: normal alignment Cardiovascular: normal peripheral pulses, normal rate, regular rhythm Respiratory/Chest: chest wall non-tender, lungs clear, normal breath sounds Abdomen: normal bowel sounds, non tender, soft Extremities: normal inspection Edema: no edema noted Arm (L), no edema noted Arm (R), no edema noted Leg (L), no edema noted Leg (R), no edema noted Pedal (L), no edema noted Pedal (R), no edema noted Generalized Neurologic: responsive, motor weakness Skin: normal pigmentation, warm/dry Mickey Pinto DO Sep 21, 2018 08:59
--- NOTE | 2018-09-21 10:37 | NUR ---
NM Bone Scan: Whole body bone scan was explained in full to the patient. Patient has decided to refuse the NM bone scan. Informed AUNG Dubon
[2018-09-21 12:00] VITALS: BP 115/54
--- NOTE | 2018-09-21 13:43 | Pulmonology Progress Note ---
Assessment/Plan Problems: (1) Anemia (2) COPD (chronic obstructive pulmonary disease) (3) Diabetes (4) HTN (hypertension) (5) PSA elevation Assessment/Plan respiratory treatment check electrolytes monitor BP titrate fio2 to sat of 92% sliding scale diabetic diet Subjective ROS Limited/Unobtainable: No Respiratory: Reports: no symptoms Allergies: Coded Allergies: NO KNOWN ALLERGIES (Unverified Allergy, Unknown, 11/29/14) Objective Last 24 Hour Vital Signs Date Time Temp Pulse Resp B/P (MAP) Pulse Ox O2 Delivery O2 Flow Rate FiO2 09/21/18 12:00 98.7 64 18 115/54 (74) 96 09/21/18 09:00 Room Air 09/21/18 08:28 64 09/21/18 08:00 97.6 61 18 111/65 (80) 96 09/21/18 00:00 97.9 64 16 84/41 (55) 95 09/20/18 21:00 Room Air 09/20/18 20:00 98.1 67 17 96/51 (66) 96 09/20/18 16:00 98.2 85 17 117/72 (87) 98 Intake and Output 09/20/18 09/21/18 19:00 07:00 Intake Total 1000 ml 505 ml Output Total 1600 ml Balance -600 ml 505 ml Intake Oral 1000 ml IV Total 505 ml Output Urine Total 1600 ml # Voids 2 # Bowel Movements 1 General Appearance: WD/WN HEENT: atraumatic, mucous membranes moist Respiratory/Chest: chest wall non-tender, lungs clear Cardiovascular: normal peripheral pulses, normal rate Abdomen: normal bowel sounds, no organomegaly Genitourinary: normal external genitalia Skin: no rash Laboratory Tests 09/21/18 06:03: White Blood Count 5.8, Red Blood Count 4.18L, Hemoglobin 13.0L, Hematocrit 39.3L , Mean Corpuscular Volume 94, Mean Corpuscular Hemoglobin 31.0, Mean Corpuscular Hemoglobin Concent 33.0, Red Cell Distribution Width 12.0, Platelet Count 119L, Mean Platelet Volume 7.0, Neutrophils (%) (Auto) 70.0, Lymphocytes ( %) (Auto) 17.0L, Monocytes (%) (Auto) 7.9, Eosinophils (%) (Auto) 4.3H, Basophils (%) (Auto) 0.9, Sodium Level 143, Potassium Level 3.7, Chloride Level 110H, Carbon Dioxide Level 25, Anion Gap 8, Blood Urea Nitrogen 16, Creatinine 0.7, Estimat Glomerular Filtration Rate , Glucose Level 82, Calcium Level 8.8 Current Medications Medications (Trade) Dose Ordered Sig/Maliha Route PRN Reason Start Time Stop Time Status Last Admin Dose Admin Acetaminophen (Tylenol) 650 mg Q4H PRN ORAL Mild Pain (Pain Scale 1-3) 09/16/18 15:30 10/16/18 15:29 Al Hydroxide/Mg Hydroxide (Mylanta II) 30 ml Q6H PRN ORAL dyspepsia 09/16/18 15:30 10/16/18 15:29 Albuterol/ Ipratropium (Albuterol/ Ipratropium) 3 ml Q6H PRN HHN Shortness of Breath 09/16/18 15:30 09/21/18 15:29 Aspirin (ASA) 81 mg DAILY ORAL 09/17/18 12:15 10/17/18 12:14 09/21/18 08:28 Atorvastatin Calcium (Lipitor) 40 mg BEDTIME ORAL 09/18/18 21:00 10/18/18 20:59 09/20/18 21:24 Bicalutamide (Casodex) 50 mg DAILY ORAL 09/17/18 09:00 09/22/18 08:59 09/21/18 08:28 Calcium/Vitamin D (OsCal D) 2 tab DAILY ORAL 09/17/18 12:15 10/17/18 12:14 09/21/18 08:28 Ceftriaxone Sodium 1 gm/ Dextrose 55 ml @ 110 mls/hr Q24H IVPB 09/20/18 21:00 09/27/18 20:59 09/20/18 21:23 Dextrose (Dextrose 50%) 25 ml Q30M PRN IV Hypoglycemia 09/17/18 17:00 10/17/18 16:59 Dextrose (Dextrose 50%) 50 ml Q30M PRN IV Hypoglycemia 09/17/18 17:00 10/17/18 16:59 Digoxin (Lanoxin) 0.125 mg DAILY ORAL 09/17/18 12:15 10/17/18 12:14 09/21/18 08:28 Diphenhydramine HCl (Benadryl) 25 mg Q6H PRN ORAL Itching/Pruritis 09/16/18 15:30 10/16/18 15:29 Docusate Sodium (Colace) 250 mg DAILY ORAL 09/19/18 09:00 10/19/18 08:59 09/21/18 08:28 Escitalopram Oxalate (Lexapro) 10 mg BEDTIME ORAL 09/18/18 21:00 10/18/18 20:59 09/20/18 21:24 Finasteride (Proscar) 5 mg DAILY ORAL 09/17/18 09:00 10/17/18 08:59 09/21/18 08:32 Heparin Sodium (Porcine) (Heparin 5000 units/ml) 5,000 units EVERY 12 HOURS SUBQ 09/16/18 21:00 10/16/18 20:59 09/21/18 08:43 Hydromorphone HCl (Dilaudid) 0.5 mg Q6H PRN IVP For Pain 09/16/18 15:30 09/23/18 15:29 09/21/18 08:29 Insulin Aspart (NovoLOG) BEFORE MEALS AND HS SUBQ 09/17/18 21:00 10/17/18 20:59 09/21/18 11:45 Lorazepam (Ativan) 1 mg Q4H PRN ORAL For Anxiety 09/16/18 15:30 09/23/18 15:29 Sodium Chloride 1,000 ml @ 50 mls/hr Q20H IVLG 09/16/18 17:00 10/16/18 16:59 09/20/18 21:23 Sucralfate (Carafate) 1 gm BEFORE MEALS ORAL 09/18/18 16:30 10/18/18 16:29 09/21/18 11:45 Tamsulosin HCl (Flomax) 0.4 mg BEDTIME ORAL 09/16/18 21:34 10/16/18 21:33 09/20/18 21:24 Topiramate (Topamax) 100 mg DAILY ORAL 09/19/18 09:00 10/19/18 08:59 09/21/18 08:28 Zolpidem Tartrate (Ambien) 5 mg HSPRN PRN ORAL Insomnia 09/16/18 15:30 09/23/18 15:29 09/20/18 21:33 Karen Jimenez MD Sep 21, 2018 13:43
--- NOTE | 2018-09-21 13:46 | Infectious Diseases Prog Note ---
Assessment/Plan Assessment/Plan Assessment: Probable UTI (+suprapubic discomfort) -u/a wbc 20-40, nit +, leuk +3; ycx >100k E.coli (silva S), K. pna (R amp, bactrim; otherwise S) Afebrile No leukocytosis -CXR: Pulmonary vascular congestion with right basilar atelectasis. Prostate CA (dx'ed 2 years ago) s/p Casodex and Lupron but lost follow up -bone densitometry: Overall no significant interval change from exam of 2018. No discrete sclerotic or lytic bone lesion is appreciated radiographically. Again, more sensitive evaluation with nuclear medicine bone scan is recommended as clinically indicated. Soft tissue calcifications in the bilateral leg, unchanged from the prior exam. Again findings are nonspecific. These may potentially represent phleboliths. They may represent sequela of prior trauma or possibly be related to connective tissue disorder. BPH UTI nephrolithiasis DM2 BPH COPD Afib, s/p PPM NH resident Plan: -Cont Ceftriaxone #2 (abx d#06/16) for UTI -upon discharge, can be transition to PO Keflex 500mg bid -09/20 SP Cefepime #4 -09/16 SP Ceftriaxone x1 -f/u cx -Monitor CBC/CMP, temperatures -Uro f/u Thank you for this consultation. Will continue to follow along with you. Discussed with RN. Subjective Allergies: Coded Allergies: NO KNOWN ALLERGIES (Unverified Allergy, Unknown, 11/29/14) Subjective afebrile no leukocytosis Objective Vital Signs Last 24 Hour Vital Signs Date Time Temp Pulse Resp B/P (MAP) Pulse Ox O2 Delivery O2 Flow Rate FiO2 09/21/18 12:00 98.7 64 18 115/54 (74) 96 09/21/18 09:00 Room Air 09/21/18 08:28 64 09/21/18 08:00 97.6 61 18 111/65 (80) 96 09/21/18 00:00 97.9 64 16 84/41 (55) 95 09/20/18 21:00 Room Air 09/20/18 20:00 98.1 67 17 96/51 (66) 96 09/20/18 16:00 98.2 85 17 117/72 (87) 98 Height (Feet): 5 Height (Inches): 6.00 Weight (Pounds): 240 Objective GENERAL: Slightly anxious in bed, oriented x2, in no acute distress. CARDIOVASCULAR: No murmur. LUNGS: Distant and clear. ABDOMEN: Positive bowel sounds. Nontender. Nondistended. EXTREMITIES: No cyanosis, clubbing, or edema. NEUROLOGIC: The patient moves all extremities slightly weak. Laboratory Tests Test 09/21/18 06:03 White Blood Count 5.8 K/UL (4.8-10.8) Red Blood Count 4.18 M/UL (4.70-6.10) L Hemoglobin 13.0 G/DL (14.2-18.0) L Hematocrit 39.3 % (42.0-52.0) L Mean Corpuscular Volume 94 FL (80-99) Mean Corpuscular Hemoglobin 31.0 PG (27.0-31.0) Mean Corpuscular Hemoglobin Concent 33.0 G/DL (32.0-36.0) Red Cell Distribution Width 12.0 % (11.6-14.8) Platelet Count 119 K/UL (150-450) L Mean Platelet Volume 7.0 FL (6.5-10.1) Neutrophils (%) (Auto) 70.0 % (45.0-75.0) Lymphocytes (%) (Auto) 17.0 % (20.0-45.0) L Monocytes (%) (Auto) 7.9 % (1.0-10.0) Eosinophils (%) (Auto) 4.3 % (0.0-3.0) H Basophils (%) (Auto) 0.9 % (0.0-2.0) Sodium Level 143 MMOL/L (136-145) Potassium Level 3.7 MMOL/L (3.5-5.1) Chloride Level 110 MMOL/L (98-107) H Carbon Dioxide Level 25 MMOL/L (21-32) Anion Gap 8 mmol/L (5-15) Blood Urea Nitrogen 16 mg/dL (7-18) Creatinine 0.7 MG/DL (0.55-1.30) Estimat Glomerular Filtration Rate mL/min (>60) Glucose Level 82 MG/DL (74-106) Calcium Level 8.8 MG/DL (8.5-10.1) Current Medications Medications (Trade) Dose Ordered Sig/Maliha Route PRN Reason Start Time Stop Time Status Last Admin Dose Admin Acetaminophen (Tylenol) 650 mg Q4H PRN ORAL Mild Pain (Pain Scale 1-3) 09/16/18 15:30 10/16/18 15:29 Al Hydroxide/Mg Hydroxide (Mylanta II) 30 ml Q6H PRN ORAL dyspepsia 09/16/18 15:30 10/16/18 15:29 Albuterol/ Ipratropium (Albuterol/ Ipratropium) 3 ml Q6H PRN HHN Shortness of Breath 09/16/18 15:30 09/21/18 15:29 Aspirin (ASA) 81 mg DAILY ORAL 09/17/18 12:15 10/17/18 12:14 09/21/18 08:28 Atorvastatin Calcium (Lipitor) 40 mg BEDTIME ORAL 09/18/18 21:00 10/18/18 20:59 09/20/18 21:24 Bicalutamide (Casodex) 50 mg DAILY ORAL 09/17/18 09:00 09/22/18 08:59 09/21/18 08:28 Calcium/Vitamin D (OsCal D) 2 tab DAILY ORAL 09/17/18 12:15 10/17/18 12:14 09/21/18 08:28 Ceftriaxone Sodium 1 gm/ Dextrose 55 ml @ 110 mls/hr Q24H IVPB 09/20/18 21:00 09/27/18 20:59 09/20/18 21:23 Dextrose (Dextrose 50%) 25 ml Q30M PRN IV Hypoglycemia 09/17/18 17:00 10/17/18 16:59 Dextrose (Dextrose 50%) 50 ml Q30M PRN IV Hypoglycemia 09/17/18 17:00 10/17/18 16:59 Digoxin (Lanoxin) 0.125 mg DAILY ORAL 09/17/18 12:15 10/17/18 12:14 09/21/18 08:28 Diphenhydramine HCl (Benadryl) 25 mg Q6H PRN ORAL Itching/Pruritis 09/16/18 15:30 10/16/18 15:29 Docusate Sodium (Colace) 250 mg DAILY ORAL 09/19/18 09:00 10/19/18 08:59 09/21/18 08:28 Escitalopram Oxalate (Lexapro) 10 mg BEDTIME ORAL 09/18/18 21:00 10/18/18 20:59 09/20/18 21:24 Finasteride (Proscar) 5 mg DAILY ORAL 09/17/18 09:00 10/17/18 08:59 09/21/18 08:32 Heparin Sodium (Porcine) (Heparin 5000 units/ml) 5,000 units EVERY 12 HOURS SUBQ 09/16/18 21:00 10/16/18 20:59 09/21/18 08:43 Hydromorphone HCl (Dilaudid) 0.5 mg Q6H PRN IVP For Pain 09/16/18 15:30 09/23/18 15:29 09/21/18 08:29 Insulin Aspart (NovoLOG) BEFORE MEALS AND HS SUBQ 09/17/18 21:00 10/17/18 20:59 09/21/18 11:45 Lorazepam (Ativan) 1 mg Q4H PRN ORAL For Anxiety 09/16/18 15:30 09/23/18 15:29 Sodium Chloride 1,000 ml @ 50 mls/hr Q20H IVLG 09/16/18 17:00 10/16/18 16:59 09/20/18 21:23 Sucralfate (Carafate) 1 gm BEFORE MEALS ORAL 09/18/18 16:30 10/18/18 16:29 09/21/18 11:45 Tamsulosin HCl (Flomax) 0.4 mg BEDTIME ORAL 09/16/18 21:34 10/16/18 21:33 09/20/18 21:24 Topiramate (Topamax) 100 mg DAILY ORAL 09/19/18 09:00 10/19/18 08:59 09/21/18 08:28 Zolpidem Tartrate (Ambien) 5 mg HSPRN PRN ORAL Insomnia 09/16/18 15:30 09/23/18 15:29 09/20/18 21:33 Susan Elizalde M.D. Sep 21, 2018 13:46
--- NOTE | 2018-09-21 15:26 | Hematology/Onc Progress Note ---
Assessment/Plan Assessment/Plan ASSESSMENT AND PLAN: # Prostate cancer, elevated psa of 65--->126, currently off any kind of treatment and has a outside urologist that he follows up with. --> likely acute elevation is due to uti, currently high and can oscillate even to 100s --> obtain skeletal survey rule out distant mets--> SHOWS NOT METS --> Pyuria- no UTI symptoms --> PSA trend 20-->65-->126 --> casodex started, consider lupron (as per uro) --> discussed with Luzma --> if better performance status, may need zytiga or xtandi # Thrombocytopenia in the 100-150s range --> consider hepatitis and hiv --> negative --> smear has been reviewed, completed --> appreciate uro and id recs in reg to abx --> Us of abd last time showed masses in spleen--> new us abd ordered --> plt trend 140-->130-->115-->119 # Dm2 --> a1c goal <8 --> accuchecks qac and qhs --> endo eval prn # HTN # COPD # AFib # GERD # SNF resident The timing of this note does not necessarily reflect the time of the patient was seen. Greatly appreciate consultation! Subjective Constitutional: Denies: no symptoms, chills, fever, malaise, weakness, other HEENT: Denies: no symptoms, eye pain, blurred vision, tearing, double vision, ear pain, ear discharge, nose pain, nose congestion, throat pain, throat swelling, mouth pain, mouth swelling, other Cardiovascular: Denies: no symptoms, chest pain, edema, irregular heart rate, lightheadedness, palpitations, syncope, other Respiratory: Denies: no symptoms, cough, shortness of breath, SOB with excertion, SOB at rest, sputum, wheezing, other Genitourinary: Denies: no symptoms, burning, discharge, frequency, flank pain, hematuria, incontinence, pain, urgency, other Neurologic/Psychiatric: Denies: no symptoms, anxiety, depressed, emotional problems, headache, numbness, paresthesia, pre-existing deficit, seizure, tingling, tremors, weakness, other Endocrine: Denies: no symptoms, excessive sweating, flushing, intolerance to cold, intolerance to heat, increased hunger, increased thirst, increased urine, unexplained weight gain, unexplained weight loss, other Allergies: Coded Allergies: NO KNOWN ALLERGIES (Unverified Allergy, Unknown, 11/29/14) Subjective 09/18: no events, psa is higher, back on casodex, still anxious 09/20: no events, no fevers, seen and dw uro 09/21: no bleeding reported, labs reviewed no bleeding Objective Objective Current Medications Medications (Trade) Dose Ordered Sig/Maliha Route PRN Reason Start Time Stop Time Status Last Admin Dose Admin Acetaminophen (Tylenol) 650 mg Q4H PRN ORAL Mild Pain (Pain Scale 1-3) 09/16/18 15:30 10/16/18 15:29 Al Hydroxide/Mg Hydroxide (Mylanta II) 30 ml Q6H PRN ORAL dyspepsia 09/16/18 15:30 10/16/18 15:29 Albuterol/ Ipratropium (Albuterol/ Ipratropium) 3 ml Q6H PRN HHN Shortness of Breath 09/16/18 15:30 09/21/18 15:29 Aspirin (ASA) 81 mg DAILY ORAL 09/17/18 12:15 10/17/18 12:14 09/21/18 08:28 Atorvastatin Calcium (Lipitor) 40 mg BEDTIME ORAL 09/18/18 21:00 10/18/18 20:59 09/20/18 21:24 Bicalutamide (Casodex) 50 mg DAILY ORAL 09/17/18 09:00 09/22/18 08:59 09/21/18 08:28 Calcium/Vitamin D (OsCal D) 2 tab DAILY ORAL 09/17/18 12:15 10/17/18 12:14 09/21/18 08:28 Ceftriaxone Sodium 1 gm/ Dextrose 55 ml @ 110 mls/hr Q24H IVPB 09/20/18 21:00 09/27/18 20:59 09/20/18 21:23 Dextrose (Dextrose 50%) 25 ml Q30M PRN IV Hypoglycemia 09/17/18 17:00 10/17/18 16:59 Dextrose (Dextrose 50%) 50 ml Q30M PRN IV Hypoglycemia 09/17/18 17:00 10/17/18 16:59 Digoxin (Lanoxin) 0.125 mg DAILY ORAL 09/17/18 12:15 10/17/18 12:14 09/21/18 08:28 Diphenhydramine HCl (Benadryl) 25 mg Q6H PRN ORAL Itching/Pruritis 09/16/18 15:30 10/16/18 15:29 Docusate Sodium (Colace) 250 mg DAILY ORAL 09/19/18 09:00 10/19/18 08:59 09/21/18 08:28 Escitalopram Oxalate (Lexapro) 10 mg BEDTIME ORAL 09/18/18 21:00 10/18/18 20:59 09/20/18 21:24 Finasteride (Proscar) 5 mg DAILY ORAL 09/17/18 09:00 10/17/18 08:59 09/21/18 08:32 Heparin Sodium (Porcine) (Heparin 5000 units/ml) 5,000 units EVERY 12 HOURS SUBQ 09/16/18 21:00 10/16/18 20:59 09/21/18 08:43 Hydromorphone HCl (Dilaudid) 0.5 mg Q6H PRN IVP For Pain 09/16/18 15:30 09/23/18 15:29 09/21/18 08:29 Insulin Aspart (NovoLOG) BEFORE MEALS AND HS SUBQ 09/17/18 21:00 10/17/18 20:59 09/21/18 11:45 Lorazepam (Ativan) 1 mg Q4H PRN ORAL For Anxiety 09/16/18 15:30 09/23/18 15:29 Sodium Chloride 1,000 ml @ 50 mls/hr Q20H IVLG 09/16/18 17:00 10/16/18 16:59 09/20/18 21:23 Sucralfate (Carafate) 1 gm BEFORE MEALS ORAL 09/18/18 16:30 10/18/18 16:29 09/21/18 11:45 Tamsulosin HCl (Flomax) 0.4 mg BEDTIME ORAL 09/16/18 21:34 10/16/18 21:33 09/20/18 21:24 Topiramate (Topamax) 100 mg DAILY ORAL 09/19/18 09:00 10/19/18 08:59 09/21/18 08:28 Zolpidem Tartrate (Ambien) 5 mg HSPRN PRN ORAL Insomnia 09/16/18 15:30 09/23/18 15:29 09/20/18 21:33 Last 24 Hour Vital Signs Date Time Temp Pulse Resp B/P (MAP) Pulse Ox O2 Delivery O2 Flow Rate FiO2 09/21/18 12:00 98.7 64 18 115/54 (74) 96 09/21/18 09:00 Room Air 09/21/18 08:28 64 09/21/18 08:00 97.6 61 18 111/65 (80) 96 09/21/18 00:00 97.9 64 16 84/41 (55) 95 09/20/18 21:00 Room Air 09/20/18 20:00 98.1 67 17 96/51 (66) 96 09/20/18 16:00 98.2 85 17 117/72 (87) 98 09/20/18 09:18 98.3 62 18 102/64 (77) 97 09/20/18 09:08 63 09/20/18 09:00 Room Air 09/20/18 00:00 98.4 63 19 107/63 (78) 98 09/19/18 22:27 98.4 09/19/18 21:00 Room Air 09/19/18 20:00 98.9 63 19 152/56 (88) 98 09/19/18 16:00 98.4 76 18 152/56 (88) 96 Intake and Output 09/20/18 09/21/18 19:00 07:00 Intake Total 1000 ml 505 ml Output Total 1600 ml Balance -600 ml 505 ml Intake Oral 1000 ml IV Total 505 ml Output Urine Total 1600 ml # Voids 2 # Bowel Movements 1 Labs Test 09/19/18 07:15 09/20/18 06:35 09/21/18 06:03 White Blood Count 6.8 K/UL (4.8-10.8) 5.2 K/UL (4.8-10.8) 5.8 K/UL (4.8-10.8) Red Blood Count 4.27 M/UL (4.70-6.10) 4.06 M/UL (4.70-6.10) 4.18 M/UL (4.70-6.10) Hemoglobin 13.1 G/DL (14.2-18.0) 12.5 G/DL (14.2-18.0) 13.0 G/DL (14.2-18.0) Hematocrit 39.9 % (42.0-52.0) 38.4 % (42.0-52.0) 39.3 % (42.0-52.0) Mean Corpuscular Volume 93 FL (80-99) 94 FL (80-99) 94 FL (80-99) Mean Corpuscular Hemoglobin 30.6 PG (27.0-31.0) 30.8 PG (27.0-31.0) 31.0 PG (27.0-31.0) Mean Corpuscular Hemoglobin Concent 32.8 G/DL (32.0-36.0) 32.6 G/DL (32.0-36.0) 33.0 G/DL (32.0-36.0) Red Cell Distribution Width 12.1 % (11.6-14.8) 12.4 % (11.6-14.8) 12.0 % (11.6-14.8) Platelet Count 134 K/UL (150-450) 115 K/UL (150-450) 119 K/UL (150-450) Mean Platelet Volume 6.5 FL (6.5-10.1) 6.5 FL (6.5-10.1) 7.0 FL (6.5-10.1) Neutrophils (%) (Auto) 64.6 % (45.0-75.0) 63.0 % (45.0-75.0) 70.0 % (45.0-75.0) Lymphocytes (%) (Auto) 21.7 % (20.0-45.0) 22.6 % (20.0-45.0) 17.0 % (20.0-45.0) Monocytes (%) (Auto) 8.7 % (1.0-10.0) 8.2 % (1.0-10.0) 7.9 % (1.0-10.0) Eosinophils (%) (Auto) 4.2 % (0.0-3.0) 5.3 % (0.0-3.0) 4.3 % (0.0-3.0) Basophils (%) (Auto) 0.8 % (0.0-2.0) 1.0 % (0.0-2.0) 0.9 % (0.0-2.0) Sodium Level 143 MMOL/L (136-145) 142 MMOL/L (136-145) 143 MMOL/L (136-145) Potassium Level 4.0 MMOL/L (3.5-5.1) 3.8 MMOL/L (3.5-5.1) 3.7 MMOL/L (3.5-5.1) Chloride Level 111 MMOL/L (98-107) 111 MMOL/L (98-107) 110 MMOL/L (98-107) Carbon Dioxide Level 25 MMOL/L (21-32) 26 MMOL/L (21-32) 25 MMOL/L (21-32) Anion Gap 7 mmol/L (5-15) 5 mmol/L (5-15) 8 mmol/L (5-15) Blood Urea Nitrogen 20 mg/dL (7-18) 19 mg/dL (7-18) 16 mg/dL (7-18) Creatinine 0.9 MG/DL (0.55-1.30) 0.7 MG/DL (0.55-1.30) 0.7 MG/DL (0.55-1.30) Estimat Glomerular Filtration Rate mL/min (>60) mL/min (>60) mL/min (>60) Glucose Level 88 MG/DL (74-106) 85 MG/DL (74-106) 82 MG/DL (74-106) Calcium Level 8.4 MG/DL (8.5-10.1) 8.4 MG/DL (8.5-10.1) 8.8 MG/DL (8.5-10.1) Height (Feet): 5 Height (Inches): 6.00 Weight (Pounds): 240 Objective PHYSICAL EXAMINATION: GENERAL: The patient is an elderly gentleman, awake, alert, oriented x4. No obvious distress. CHEST: Within normal limits. ABDOMEN: Soft, nontender, nondistended. EXTREMITIES: Warm, well perfused. No cyanosis, clubbing, or edema. BACK: No CVA tenderness to percussion. NEUROLOGIC: Grossly nonfocal. Antony Thurston MD Sep 21, 2018 15:26
[2018-09-21 16:00] VITALS: BP 116/59
--- NOTE | 2018-09-21 16:45 | Consultation ---
DATE OF CONSULTATION: 09/21/2018 CONSULTING PHYSICIAN: Molina Tapia M.D. HISTORY OF PRESENT ILLNESS: This is a 78-year-old male patient, who came in because of the abnormal labs , but this patient is very confused. He lives in [facility] financially supported by [employer] and Medicare. He has racing thoughts, pressured speech, mood lability, and altered mental status. He has previous diagnosis of bipolar II. MEDICAL HISTORY: He has abnormal labs, neuropathy, and lower extremity weakness. ALLERGIES: This patient has no known drug allergies. SUBSTANCE ABUSE HISTORY: Denies. PAIN ASSESSMENT: 0/10. DEVELOPMENTAL PROBLEMS: Denies. SOCIAL HISTORY: The patient lives in [facility], financially supported by [employer] and Medicare. PSYCHIATRIC HISTORY: He has had multiple psychiatric admissions. STRENGTHS: He is motivated to get better and has a place to live. He is healthy. WEAKNESSES: He is impulsive. Minimal support system. MENTAL STATUS EXAMINATION: This is a 78-year-old male. Appearance is disheveled. Attitude, irritable and agitated. Affect, guarded and restricted. Intellect, poor. Mood, depressed and anxious. Motor activity, psychomotor agitation. Attention span is poor. Orientation x2. Speech is pressured. Thought process, disorganized and illogical. Insight and judgment is poor. DIAGNOSES: PRIMARY: Schizoaffective, bipolar type. SECONDARY: Denies. PSYCHOSOCIAL STRESSORS: Financial. Functional impairment, severe. PLAN: Continue this patient on Topamax 100 mg a day and Lexapro 10 mg a day. Provide him with 20 minutes of cognitive behavioral therapy to help him identify his automatic negative thoughts and help him convert those negative thoughts to more positive thoughts to reduce depression, anxiety, mood lability, and help him have more adaptive behavioral pattern. Chart reviewed. Discussed with staff. Molina Tapia M.D. DR: FRANSICO JOB#: [id number] CC:
--- NOTE | 2018-09-21 19:11 | NUR ---
HAND-OFF: Report given to AUNG Leger.
--- NOTE | 2018-09-21 19:28 | NUR ---
CASE MANAGEMENT: REVIEW SI: PROSTATE CANCER, ELEVATED PSA OF 65--->126 T 98.3 HR 61 RR 20 BP 116/59 SAT 94% ROOM AIR H/H 13.0/39.3 CHLOR 110 IS: CEFTRIAXONE IV Q24 TOPAMAX PO QD CARAFATE PO QD DIGOXIN PO QD NS IVF @ 50ML/HR MED/SURG UNIT STATUS DCP: PATIENT IS FROM [facility]
[2018-09-21 20:00] VITALS: BP 112/52
[2018-09-21] MEDS: cefTRIAXone 1gm/D5W 55ml IVPB SCH ×2 (20:44)
[2018-09-21] MEDS: Tamsulosin 0.4mg cap ORAL SCH (20:45)
[2018-09-21] MEDS: Atorvastatin 20mg tab ORAL SCH (20:45)
[2018-09-21] MEDS: Zolpidem 5mg tab ORAL PRN (21:22)
--- NOTE | 2018-09-22 | NUR ---
NURSE NOTES: Pt refused checking vitals @0000 and @0400. Stated "I don't want you to wake me up. I have insomnia."
[2018-09-22] MEDS: NovoLOG Insulin Flexpen SUBQ SCH ×4 (06:13→21:00)
[2018-09-22] MEDS: Sucralfate 1gm tab ORAL SCH ×3 (06:13→16:22)
[2018-09-22 07:08] LABS: ANION GAP 2 mmol/L (5-15); BLOOD UREA NITROGEN 21 mg/dL (7-18); CALCIUM 8.6 MG/DL (8.5-10.1); CARBON DIOXIDE 29 MMOL/L (21-32); CHLORIDE 112 MMOL/L (98-107); CREATININE 0.9 MG/DL (0.55-1.30); POTASSIUM 4.5 MMOL/L (3.5-5.1); SODIUM 143 MMOL/L (136-145)
[2018-09-22 07:11] LABS: BASOPHILS % (AUTO) 1.1 % (0.0-2.0); EOSINOPHILS % (AUTO) 5.9 % (0.0-3.0); HEMOGLOBIN 12.2 G/DL (14.2-18.0); LYMPHOCYTES % (AUTO) 22.2 % (20.0-45.0); MEAN CORPUSCULAR VOLUME 94 FL (80-99); MONOCYTES % (AUTO) 8.6 % (1.0-10.0); NEUTROPHILS % (AUTO) 62.2 % (45.0-75.0); PLATELET COUNT 124 K/UL (150-450); RED BLOOD COUNT 3.94 M/UL (4.70-6.10); RED CELL DISTRIBUTION WIDTH 12.5 % (11.6-14.8); WHITE BLOOD COUNT 5.5 K/UL (4.8-10.8)
--- NOTE | 2018-09-22 07:43 | NUR ---
HAND-OFF: Report given to Juliana Myers RN.
--- NOTE | 2018-09-22 07:57 | NUR ---
NURSE NOTES: pt in bed with no sob nor in any form of distress noted. breathing regular and unlabored. denies pain at this time. bed in lowest position. call light within reach at all time. will continue to monitor.
--- NOTE | 2018-09-22 08:12 | Urology Progress Note ---
Assessment/Plan Status: stable, progressing Assessment/Plan: 1. 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 2. BPH history. 3. Lower urinary tract symptoms. 4. Pyuria, probable UTI. 5. Hematuria. 6. Nephrolithiasis history. 7. Renal cyst. 8. Rule out neurogenic bladder. monitor clinically cont casodex, apparently has been on lupron as outpt flomax and proscar med/onc noted will need dedicated bone scan, pt refused consider CT A/P ? abx as ordered recheck serum PSA post abx recheck UA and urine cx later may need to add Xtandi or chemo? I have previously discussed this pt's case only with 's Blair and Karena Subjective Allergies: Coded Allergies: NO KNOWN ALLERGIES (Unverified Allergy, Unknown, 11/29/14) Subjective all noted, feels fair, refused bone scan Objective Last 24 Hour Vital Signs Date Time Temp Pulse Resp B/P (MAP) Pulse Ox O2 Delivery O2 Flow Rate FiO2 09/21/18 21:00 Room Air 09/21/18 20:00 97.9 61 20 112/52 (72) 97 09/21/18 16:00 98.3 61 20 116/59 (78) 94 09/21/18 12:00 98.7 64 18 115/54 (74) 96 09/21/18 09:00 Room Air 09/21/18 08:28 64 Intake and Output 09/21/18 09/22/18 19:00 07:00 Intake Total 1150 ml 655 ml Output Total 200 ml Balance 950 ml 655 ml Intake Oral 600 ml IV Total 550 ml 655 ml Output Urine Total 200 ml # Voids 3 2 Microbiology Date/Time Source Procedure Growth Status 09/16/18 21:00 Nasal Nares MRSA Culture - Final Staphylococcus Aureus - Mrsa Complete 09/16/18 15:42 Urine,Clean Catch Urine Culture - Final Klebsiella Pneumoniae Escherichia Coli Complete 09/16/18 21:00 Rectum - Final NO CARBAPENEM-RESISTANT ENTEROBACTERI... Complete Current Medications Medications (Trade) Dose Ordered Sig/Maliha Route PRN Reason Start Time Stop Time Status Last Admin Dose Admin Acetaminophen (Tylenol) 650 mg Q4H PRN ORAL Mild Pain (Pain Scale 1-3) 09/16/18 15:30 10/16/18 15:29 Al Hydroxide/Mg Hydroxide (Mylanta II) 30 ml Q6H PRN ORAL dyspepsia 09/16/18 15:30 10/16/18 15:29 Aspirin (ASA) 81 mg DAILY ORAL 09/17/18 12:15 10/17/18 12:14 09/21/18 08:28 Atorvastatin Calcium (Lipitor) 40 mg BEDTIME ORAL 09/18/18 21:00 10/18/18 20:59 09/21/18 20:45 Bicalutamide (Casodex) 50 mg DAILY ORAL 09/17/18 09:00 09/22/18 08:59 09/21/18 08:28 Calcium/Vitamin D (OsCal D) 2 tab DAILY ORAL 09/17/18 12:15 10/17/18 12:14 09/21/18 08:28 Ceftriaxone Sodium 1 gm/ Dextrose 55 ml @ 110 mls/hr Q24H IVPB 09/20/18 21:00 09/27/18 20:59 09/21/18 20:44 Dextrose (Dextrose 50%) 25 ml Q30M PRN IV Hypoglycemia 09/17/18 17:00 10/17/18 16:59 Dextrose (Dextrose 50%) 50 ml Q30M PRN IV Hypoglycemia 09/17/18 17:00 10/17/18 16:59 Digoxin (Lanoxin) 0.125 mg DAILY ORAL 09/17/18 12:15 10/17/18 12:14 09/21/18 08:28 Diphenhydramine HCl (Benadryl) 25 mg Q6H PRN ORAL Itching/Pruritis 09/16/18 15:30 10/16/18 15:29 Docusate Sodium (Colace) 250 mg DAILY ORAL 09/19/18 09:00 10/19/18 08:59 09/21/18 08:28 Escitalopram Oxalate (Lexapro) 10 mg BEDTIME ORAL 09/18/18 21:00 10/18/18 20:59 09/21/18 20:44 Finasteride (Proscar) 5 mg DAILY ORAL 09/17/18 09:00 10/17/18 08:59 09/21/18 08:32 Heparin Sodium (Porcine) (Heparin 5000 units/ml) 5,000 units EVERY 12 HOURS SUBQ 09/16/18 21:00 10/16/18 20:59 09/21/18 08:43 Hydromorphone HCl (Dilaudid) 0.5 mg Q6H PRN IVP For Pain 09/16/18 15:30 09/23/18 15:29 09/21/18 16:10 Insulin Aspart (NovoLOG) BEFORE MEALS AND HS SUBQ 09/17/18 21:00 10/17/18 20:59 09/21/18 20:50 Lorazepam (Ativan) 1 mg Q4H PRN ORAL For Anxiety 09/16/18 15:30 09/23/18 15:29 Sodium Chloride 1,000 ml @ 50 mls/hr Q20H IVLG 09/16/18 17:00 10/16/18 16:59 09/21/18 17:15 Sucralfate (Carafate) 1 gm BEFORE MEALS ORAL 09/18/18 16:30 10/18/18 16:29 09/21/18 16:37 Tamsulosin HCl (Flomax) 0.4 mg BEDTIME ORAL 09/16/18 21:34 10/16/18 21:33 09/21/18 20:45 Topiramate (Topamax) 100 mg DAILY ORAL 09/19/18 09:00 10/19/18 08:59 09/21/18 08:28 Zolpidem Tartrate (Ambien) 5 mg HSPRN PRN ORAL Insomnia 09/16/18 15:30 09/23/18 15:29 09/21/18 21:22 Laboratory Tests 09/22/18 05:30: White Blood Count 5.5, Red Blood Count 3.94L, Hemoglobin 12.2L, Hematocrit 37.0L , Mean Corpuscular Volume 94, Mean Corpuscular Hemoglobin 31.0, Mean Corpuscular Hemoglobin Concent 33.1, Red Cell Distribution Width 12.5, Platelet Count 124L, Mean Platelet Volume 7.9, Neutrophils (%) (Auto) 62.2, Lymphocytes ( %) (Auto) 22.2, Monocytes (%) (Auto) 8.6, Eosinophils (%) (Auto) 5.9H, Basophils (%) (Auto) 1.1, Sodium Level 143, Potassium Level 4.5, Chloride Level 112H, Carbon Dioxide Level 29, Anion Gap 2L, Blood Urea Nitrogen 21H, Creatinine 0.9, Estimat Glomerular Filtration Rate , Glucose Level 100, Calcium Level 8.6 Height (Feet): 5 Height (Inches): 6.00 Weight (Pounds): 240 Objective exam stable bone densitometry exam noted, no discrete lesion Gabino Segal MD Sep 22, 2018 08:12
[2018-09-22 08:54] VITALS: BP 113/58
[2018-09-22] MEDS: Docusate 250mg cap ORAL SCH (08:58)
[2018-09-22] MEDS: Topiramate 100mg tab ORAL SCH (08:58)
[2018-09-22] MEDS: Calcium Carbonate 500mg w/Vit D 200iu tab ORAL SCH (08:58)
[2018-09-22] MEDS: Aspirin Baby 81mg ORAL SCH (08:58)
[2018-09-22] MEDS: Digoxin 0.125mg tab ORAL SCH (08:58)
[2018-09-22] MEDS: Heparin 5000 units/ml inj SUBQ SCH ×2 (09:00→21:00)
--- NOTE | 2018-09-22 10:02 | NUR ---
*-* INSURANCE *-* ALL CLINICALS AND REVIEWS HAVE BEEN FAXED TO: JIMMY HANNAH:DION P:[phone] F: [phone]
--- NOTE | 2018-09-22 10:30 | NUR ---
PT NOTE Attempted to see patient for PT treatment. Patient initially agreed to participate, then declined to participate stating, "I changed my mind." Tahir contreras RN notified.
--- NOTE | 2018-09-22 11:05 | Infectious Diseases Prog Note ---
Assessment/Plan Assessment/Plan Assessment: Probable UTI (+suprapubic discomfort) -u/a wbc 20-40, nit +, leuk +3; ycx >100k E.coli (silva S), K. pna (R amp, bactrim; otherwise S) Afebrile No leukocytosis -CXR: Pulmonary vascular congestion with right basilar atelectasis. Prostate CA (dx'ed 2 years ago) s/p Casodex and Lupron but lost follow up -bone densitometry: Overall no significant interval change from exam of 2018. No discrete sclerotic or lytic bone lesion is appreciated radiographically. Again, more sensitive evaluation with nuclear medicine bone scan is recommended as clinically indicated. Soft tissue calcifications in the bilateral leg, unchanged from the prior exam. Again findings are nonspecific. These may potentially represent phleboliths. They may represent sequela of prior trauma or possibly be related to connective tissue disorder. BPH UTI nephrolithiasis DM2 BPH COPD Afib, s/p PPM [facility] resident Plan: -Cont Ceftriaxone #3 (abx d#/) for UTI -upon discharge, can be transition to PO Keflex 500mg bid -09/20 SP Cefepime #4 -09/16 SP Ceftriaxone x1 -f/u cx -Monitor CBC/CMP, temperatures -Uro f/u Thank you for this consultation. Will continue to follow along with you. Discussed with RN. Subjective Allergies: Coded Allergies: NO KNOWN ALLERGIES (Unverified Allergy, Unknown, 11/29/14) Subjective afebrile no leukocytosis Objective Vital Signs Last 24 Hour Vital Signs Date Time Temp Pulse Resp B/P (MAP) Pulse Ox O2 Delivery O2 Flow Rate FiO2 09/22/18 09:00 Room Air 09/22/18 08:58 66 09/22/18 08:54 97.7 66 19 113/58 (76) 98 09/21/18 21:00 Room Air 09/21/18 20:00 97.9 61 20 112/52 (72) 97 09/21/18 16:00 98.3 61 20 116/59 (78) 94 09/21/18 12:00 98.7 64 18 115/54 (74) 96 Height (Feet): 5 Height (Inches): 6.00 Weight (Pounds): 240 Objective GENERAL: Slightly anxious in bed, oriented x2, in no acute distress. CARDIOVASCULAR: No murmur. LUNGS: Distant and clear. ABDOMEN: Positive bowel sounds. Nontender. Nondistended. EXTREMITIES: No cyanosis, clubbing, or edema. NEUROLOGIC: The patient moves all extremities slightly weak. Laboratory Tests Test 09/22/18 05:30 White Blood Count 5.5 K/UL (4.8-10.8) Red Blood Count 3.94 M/UL (4.70-6.10) L Hemoglobin 12.2 G/DL (14.2-18.0) L Hematocrit 37.0 % (42.0-52.0) L Mean Corpuscular Volume 94 FL (80-99) Mean Corpuscular Hemoglobin 31.0 PG (27.0-31.0) Mean Corpuscular Hemoglobin Concent 33.1 G/DL (32.0-36.0) Red Cell Distribution Width 12.5 % (11.6-14.8) Platelet Count 124 K/UL (150-450) L Mean Platelet Volume 7.9 FL (6.5-10.1) Neutrophils (%) (Auto) 62.2 % (45.0-75.0) Lymphocytes (%) (Auto) 22.2 % (20.0-45.0) Monocytes (%) (Auto) 8.6 % (1.0-10.0) Eosinophils (%) (Auto) 5.9 % (0.0-3.0) H Basophils (%) (Auto) 1.1 % (0.0-2.0) Sodium Level 143 MMOL/L (136-145) Potassium Level 4.5 MMOL/L (3.5-5.1) Chloride Level 112 MMOL/L (98-107) H Carbon Dioxide Level 29 MMOL/L (21-32) Anion Gap 2 mmol/L (5-15) L Blood Urea Nitrogen 21 mg/dL (7-18) H Creatinine 0.9 MG/DL (0.55-1.30) Estimat Glomerular Filtration Rate mL/min (>60) Glucose Level 100 MG/DL (74-106) Calcium Level 8.6 MG/DL (8.5-10.1) Current Medications Medications (Trade) Dose Ordered Sig/Maliha Route PRN Reason Start Time Stop Time Status Last Admin Dose Admin Acetaminophen (Tylenol) 650 mg Q4H PRN ORAL Mild Pain (Pain Scale 1-3) 09/16/18 15:30 10/16/18 15:29 Al Hydroxide/Mg Hydroxide (Mylanta II) 30 ml Q6H PRN ORAL dyspepsia 09/16/18 15:30 10/16/18 15:29 Aspirin (ASA) 81 mg DAILY ORAL 09/17/18 12:15 10/17/18 12:14 09/22/18 08:58 Atorvastatin Calcium (Lipitor) 40 mg BEDTIME ORAL 09/18/18 21:00 10/18/18 20:59 09/21/18 20:45 Calcium/Vitamin D (OsCal D) 2 tab DAILY ORAL 09/17/18 12:15 10/17/18 12:14 09/22/18 08:58 Ceftriaxone Sodium 1 gm/ Dextrose 55 ml @ 110 mls/hr Q24H IVPB 09/20/18 21:00 09/27/18 20:59 09/21/18 20:44 Dextrose (Dextrose 50%) 25 ml Q30M PRN IV Hypoglycemia 09/17/18 17:00 10/17/18 16:59 Dextrose (Dextrose 50%) 50 ml Q30M PRN IV Hypoglycemia 09/17/18 17:00 10/17/18 16:59 Digoxin (Lanoxin) 0.125 mg DAILY ORAL 09/17/18 12:15 10/17/18 12:14 09/22/18 08:58 Diphenhydramine HCl (Benadryl) 25 mg Q6H PRN ORAL Itching/Pruritis 09/16/18 15:30 10/16/18 15:29 Docusate Sodium (Colace) 250 mg DAILY ORAL 09/19/18 09:00 10/19/18 08:59 09/22/18 08:58 Escitalopram Oxalate (Lexapro) 10 mg BEDTIME ORAL 09/18/18 21:00 10/18/18 20:59 09/21/18 20:44 Finasteride (Proscar) 5 mg DAILY ORAL 09/17/18 09:00 10/17/18 08:59 09/22/18 08:58 Heparin Sodium (Porcine) (Heparin 5000 units/ml) 5,000 units EVERY 12 HOURS SUBQ 09/16/18 21:00 10/16/18 20:59 09/22/18 09:00 Hydromorphone HCl (Dilaudid) 0.5 mg Q6H PRN IVP For Pain 09/16/18 15:30 09/23/18 15:29 09/21/18 16:10 Insulin Aspart (NovoLOG) BEFORE MEALS AND HS SUBQ 09/17/18 21:00 10/17/18 20:59 09/21/18 20:50 Lorazepam (Ativan) 1 mg Q4H PRN ORAL For Anxiety 09/16/18 15:30 09/23/18 15:29 Sodium Chloride 1,000 ml @ 50 mls/hr Q20H IVLG 09/16/18 17:00 10/16/18 16:59 09/21/18 17:15 Sucralfate (Carafate) 1 gm BEFORE MEALS ORAL 09/18/18 16:30 10/18/18 16:29 09/21/18 16:37 Tamsulosin HCl (Flomax) 0.4 mg BEDTIME ORAL 09/16/18 21:34 10/16/18 21:33 09/21/18 20:45 Topiramate (Topamax) 100 mg DAILY ORAL 09/19/18 09:00 10/19/18 08:59 09/22/18 08:58 Zolpidem Tartrate (Ambien) 5 mg HSPRN PRN ORAL Insomnia 09/16/18 15:30 09/23/18 15:29 09/21/18 21:22 Susan Elizalde M.D. Sep 22, 2018 11:05
[2018-09-22 12:00] VITALS: BP 98/47
--- NOTE | 2018-09-22 14:11 | Pulmonology Progress Note ---
Assessment/Plan Problems: (1) Anemia (2) COPD (chronic obstructive pulmonary disease) (3) Diabetes (4) HTN (hypertension) (5) PSA elevation Assessment/Plan no new complains all reviewed symptomatic treatment psych evaluatin check electrolytes awaiting CT scan Subjective ROS Limited/Unobtainable: No Constitutional: Reports: no symptoms HEENT: Repors: no symptoms Allergies: Coded Allergies: NO KNOWN ALLERGIES (Unverified Allergy, Unknown, 11/29/14) Objective Last 24 Hour Vital Signs Date Time Temp Pulse Resp B/P (MAP) Pulse Ox O2 Delivery O2 Flow Rate FiO2 09/22/18 12:00 97.9 66 19 98/47 (64) 97 09/22/18 09:00 Room Air 09/22/18 08:58 66 09/22/18 08:54 97.7 66 19 113/58 (76) 98 09/21/18 21:00 Room Air 09/21/18 20:00 97.9 61 20 112/52 (72) 97 09/21/18 16:00 98.3 61 20 116/59 (78) 94 Intake and Output 09/21/18 09/22/18 19:00 07:00 Intake Total 1150 ml 655 ml Output Total 200 ml Balance 950 ml 655 ml Intake Oral 600 ml IV Total 550 ml 655 ml Output Urine Total 200 ml # Voids 3 2 General Appearance: WD/WN, no acute distress HEENT: normocephalic, atraumatic Respiratory/Chest: chest wall non-tender, lungs clear Cardiovascular: normal peripheral pulses, normal rate Abdomen: normal bowel sounds, soft, non tender Genitourinary: normal external genitalia Skin: no rash Neurologic/Psychiatric: tile trimmer II-XII grossly normal Lymphatic: no neck adenopathy Laboratory Tests 09/22/18 05:30: White Blood Count 5.5, Red Blood Count 3.94L, Hemoglobin 12.2L, Hematocrit 37.0L , Mean Corpuscular Volume 94, Mean Corpuscular Hemoglobin 31.0, Mean Corpuscular Hemoglobin Concent 33.1, Red Cell Distribution Width 12.5, Platelet Count 124L, Mean Platelet Volume 7.9, Neutrophils (%) (Auto) 62.2, Lymphocytes ( %) (Auto) 22.2, Monocytes (%) (Auto) 8.6, Eosinophils (%) (Auto) 5.9H, Basophils (%) (Auto) 1.1, Sodium Level 143, Potassium Level 4.5, Chloride Level 112H, Carbon Dioxide Level 29, Anion Gap 2L, Blood Urea Nitrogen 21H, Creatinine 0.9, Estimat Glomerular Filtration Rate , Glucose Level 100, Calcium Level 8.6 Current Medications Medications (Trade) Dose Ordered Sig/Maliha Route PRN Reason Start Time Stop Time Status Last Admin Dose Admin Acetaminophen (Tylenol) 650 mg Q4H PRN ORAL Mild Pain (Pain Scale 1-3) 09/16/18 15:30 10/16/18 15:29 Al Hydroxide/Mg Hydroxide (Mylanta II) 30 ml Q6H PRN ORAL dyspepsia 09/16/18 15:30 10/16/18 15:29 Aspirin (ASA) 81 mg DAILY ORAL 09/17/18 12:15 10/17/18 12:14 09/22/18 08:58 Atorvastatin Calcium (Lipitor) 40 mg BEDTIME ORAL 09/18/18 21:00 10/18/18 20:59 09/21/18 20:45 Calcium/Vitamin D (OsCal D) 2 tab DAILY ORAL 09/17/18 12:15 10/17/18 12:14 09/22/18 08:58 Ceftriaxone Sodium 1 gm/ Dextrose 55 ml @ 110 mls/hr Q24H IVPB 09/20/18 21:00 09/27/18 20:59 09/21/18 20:44 Dextrose (Dextrose 50%) 25 ml Q30M PRN IV Hypoglycemia 09/17/18 17:00 10/17/18 16:59 Dextrose (Dextrose 50%) 50 ml Q30M PRN IV Hypoglycemia 09/17/18 17:00 10/17/18 16:59 Digoxin (Lanoxin) 0.125 mg DAILY ORAL 09/17/18 12:15 10/17/18 12:14 09/22/18 08:58 Diphenhydramine HCl (Benadryl) 25 mg Q6H PRN ORAL Itching/Pruritis 09/16/18 15:30 10/16/18 15:29 Docusate Sodium (Colace) 250 mg DAILY ORAL 09/19/18 09:00 10/19/18 08:59 09/22/18 08:58 Escitalopram Oxalate (Lexapro) 10 mg BEDTIME ORAL 09/18/18 21:00 10/18/18 20:59 09/21/18 20:44 Finasteride (Proscar) 5 mg DAILY ORAL 09/17/18 09:00 10/17/18 08:59 09/22/18 08:58 Heparin Sodium (Porcine) (Heparin 5000 units/ml) 5,000 units EVERY 12 HOURS SUBQ 09/16/18 21:00 10/16/18 20:59 09/22/18 09:00 Hydromorphone HCl (Dilaudid) 0.5 mg Q6H PRN IVP For Pain 09/16/18 15:30 09/23/18 15:29 09/21/18 16:10 Insulin Aspart (NovoLOG) BEFORE MEALS AND HS SUBQ 09/17/18 21:00 10/17/18 20:59 09/21/18 20:50 Lorazepam (Ativan) 1 mg Q4H PRN ORAL For Anxiety 09/16/18 15:30 09/23/18 15:29 Sodium Chloride 1,000 ml @ 50 mls/hr Q20H IVLG 09/16/18 17:00 10/16/18 16:59 09/22/18 12:21 Sucralfate (Carafate) 1 gm BEFORE MEALS ORAL 09/18/18 16:30 10/18/18 16:29 09/22/18 11:34 Tamsulosin HCl (Flomax) 0.4 mg BEDTIME ORAL 09/16/18 21:34 10/16/18 21:33 09/21/18 20:45 Topiramate (Topamax) 100 mg DAILY ORAL 09/19/18 09:00 10/19/18 08:59 09/22/18 08:58 Zolpidem Tartrate (Ambien) 5 mg HSPRN PRN ORAL Insomnia 09/16/18 15:30 09/23/18 15:29 09/21/18 21:22 Karen Jimenez MD Sep 22, 2018 14:10
--- NOTE | 2018-09-22 14:57 | General Progress Note ---
Assessment/Plan Problem List: (1) UTI (urinary tract infection) ICD Codes: N39.0 - Urinary tract infection, site not specified SNOMED: 19800364 (2) PSA elevation ICD Codes: R97.20 - Elevated prostate specific antigen [PSA] SNOMED: 616512489 (3) HTN (hypertension) ICD Codes: I10 - Essential (primary) hypertension SNOMED: 76597687 (4) Diabetes ICD Codes: E11.9 - Type 2 diabetes mellitus without complications SNOMED: 66086941 (5) COPD (chronic obstructive pulmonary disease) ICD Codes: J44.9 - Chronic obstructive pulmonary disease, unspecified SNOMED: 15215284 (6) Atrial fibrillation ICD Codes: I48.91 - Unspecified atrial fibrillation SNOMED: 98788494 Status: stable, progressing Assessment/Plan: pt diet abx uro f/u cbc bmp am psyc transfer Subjective Constitutional: Reports: weakness Allergies: Coded Allergies: NO KNOWN ALLERGIES (Unverified Allergy, Unknown, 11/29/14) All Systems: reviewed and negative except above Subjective sl anxious in bed Objective Last 24 Hour Vital Signs Date Time Temp Pulse Resp B/P (MAP) Pulse Ox O2 Delivery O2 Flow Rate FiO2 09/22/18 12:00 97.9 66 19 98/47 (64) 97 09/22/18 09:00 Room Air 09/22/18 08:58 66 09/22/18 08:54 97.7 66 19 113/58 (76) 98 09/21/18 21:00 Room Air 09/21/18 20:00 97.9 61 20 112/52 (72) 97 09/21/18 16:00 98.3 61 20 116/59 (78) 94 Intake and Output 09/21/18 09/22/18 19:00 07:00 Intake Total 1150 ml 655 ml Output Total 200 ml Balance 950 ml 655 ml Intake Oral 600 ml IV Total 550 ml 655 ml Output Urine Total 200 ml # Voids 3 2 Laboratory Tests 09/22/18 05:30: White Blood Count 5.5, Red Blood Count 3.94L, Hemoglobin 12.2L, Hematocrit 37.0L , Mean Corpuscular Volume 94, Mean Corpuscular Hemoglobin 31.0, Mean Corpuscular Hemoglobin Concent 33.1, Red Cell Distribution Width 12.5, Platelet Count 124L, Mean Platelet Volume 7.9, Neutrophils (%) (Auto) 62.2, Lymphocytes ( %) (Auto) 22.2, Monocytes (%) (Auto) 8.6, Eosinophils (%) (Auto) 5.9H, Basophils (%) (Auto) 1.1, Sodium Level 143, Potassium Level 4.5, Chloride Level 112H, Carbon Dioxide Level 29, Anion Gap 2L, Blood Urea Nitrogen 21H, Creatinine 0.9, Estimat Glomerular Filtration Rate , Glucose Level 100, Calcium Level 8.6 Height (Feet): 5 Height (Inches): 6.00 Weight (Pounds): 240 General Appearance: lethargic EENT: normal ENT inspection Neck: normal alignment Cardiovascular: normal peripheral pulses, normal rate, regular rhythm Respiratory/Chest: chest wall non-tender, lungs clear, normal breath sounds Abdomen: normal bowel sounds, non tender, soft Extremities: normal inspection Edema: no edema noted Arm (L), no edema noted Arm (R), no edema noted Leg (L), no edema noted Leg (R), no edema noted Pedal (L), no edema noted Pedal (R), no edema noted Generalized Neurologic: responsive, motor weakness Skin: warm/dry Mickey Pinto DO Sep 22, 2018 14:57
[2018-09-22 16:00] VITALS: BP 137/66
--- NOTE | 2018-09-22 18:54 | NUR ---
CASE MANAGEMENT: REVIEW SI: PROSTATE CANCER, ELEVATED PSA OF 65--->126 . UTI T 97.9 HR 66 RR 19 BP 98/47 SAT 97% ROOM AIR H/H 12.02/37.0 BUN 21 IS: CEFTRIAXONE IV Q24 TOPAMAX PO QD CARAFATE PO QD DIGOXIN PO QD NS IVF @ 50ML/HR MED/SURG UNIT STATUS DCP: PATIENT IS FROM [facility]
--- NOTE | 2018-09-22 19:11 | NUR ---
HAND-OFF: Report given to AUNG Leger.
--- NOTE | 2018-09-22 19:56 | NUR ---
NURSE NOTES: Received patient in bed. AAO x 4, on room air. No pain, no acute distress noted at this time. IV site intact and running NS 50cc/hr. Bed lowest position, locked, alarm on, call light within reach. Will continue to monitor.
[2018-09-22 20:00] VITALS: BP 146/57
--- NOTE | 2018-09-22 20:21 | Hematology/Onc Progress Note ---
Assessment/Plan Assessment/Plan ASSESSMENT AND PLAN: # Prostate cancer, elevated psa of 65--->126, currently off any kind of treatment and has a outside urologist that he follows up with. --> likely acute elevation is due to uti, currently high and can oscillate even to 100s --> obtain skeletal survey rule out distant mets--> SHOWS NOT METS --> Pyuria- no UTI symptoms --> PSA trend 20-->65-->126 --> casodex started, consider lupron (as per uro) --> discussed with Luzma --> if better performance status, may need zytiga or xtandi # Thrombocytopenia in the 100-150s range --> consider hepatitis and hiv --> negative --> smear has been reviewed, completed --> appreciate uro and id recs in reg to abx --> Us of abd last time showed masses in spleen--> new us abd ordered --> plt trend 140-->130-->115-->119->124k # Dm2 --> a1c goal <8 --> accuchecks qac and qhs --> endo eval prn # Psych hx --> may need transfer # HTN # COPD # AFib # GERD # SNF resident The timing of this note does not necessarily reflect the time of the patient was seen. Greatly appreciate consultation! Subjective HEENT: Denies: no symptoms, eye pain, blurred vision, tearing, double vision, ear pain, ear discharge, nose pain, nose congestion, throat pain, throat swelling, mouth pain, mouth swelling, other Cardiovascular: Denies: no symptoms, chest pain, edema, irregular heart rate, lightheadedness, palpitations, syncope, other Gastrointestinal/Abdominal: Denies: no symptoms, abdomen distended, abdominal pain, black stools, tarry stools, blood in stool, constipated, diarrhea, difficulty swallowing, nausea, poor appetite, poor fluid intake, rectal bleeding , vomiting, other Genitourinary: Denies: no symptoms, burning, discharge, frequency, flank pain, hematuria, incontinence, pain, urgency, other Neurologic/Psychiatric: Denies: no symptoms, anxiety, depressed, emotional problems, headache, numbness, paresthesia, pre-existing deficit, seizure, tingling, tremors, weakness, other Endocrine: Denies: no symptoms, excessive sweating, flushing, intolerance to cold, intolerance to heat, increased hunger, increased thirst, increased urine, unexplained weight gain, unexplained weight loss, other Hematologic/Lymphatic: Denies: no symptoms, anemia, easy bleeding, easy bruising, adenopathy, other Allergies: Coded Allergies: NO KNOWN ALLERGIES (Unverified Allergy, Unknown, 11/29/14) Subjective 09/18: no events, psa is higher, back on casodex, still anxious 09/20: no events, no fevers, seen and dw uro 09/21: no bleeding reported, labs reviewed no bleeding 09/22: no f/c, no night sweats, seen by uro, id abx prn Objective Objective Current Medications Medications (Trade) Dose Ordered Sig/Maliha Route PRN Reason Start Time Stop Time Status Last Admin Dose Admin Acetaminophen (Tylenol) 650 mg Q4H PRN ORAL Mild Pain (Pain Scale 1-3) 09/16/18 15:30 10/16/18 15:29 Al Hydroxide/Mg Hydroxide (Mylanta II) 30 ml Q6H PRN ORAL dyspepsia 09/16/18 15:30 10/16/18 15:29 Aspirin (ASA) 81 mg DAILY ORAL 09/17/18 12:15 10/17/18 12:14 09/22/18 08:58 Atorvastatin Calcium (Lipitor) 40 mg BEDTIME ORAL 09/18/18 21:00 10/18/18 20:59 09/21/18 20:45 Calcium/Vitamin D (OsCal D) 2 tab DAILY ORAL 09/17/18 12:15 10/17/18 12:14 09/22/18 08:58 Ceftriaxone Sodium 1 gm/ Dextrose 55 ml @ 110 mls/hr Q24H IVPB 09/20/18 21:00 09/27/18 20:59 09/21/18 20:44 Dextrose (Dextrose 50%) 25 ml Q30M PRN IV Hypoglycemia 09/17/18 17:00 10/17/18 16:59 Dextrose (Dextrose 50%) 50 ml Q30M PRN IV Hypoglycemia 09/17/18 17:00 10/17/18 16:59 Digoxin (Lanoxin) 0.125 mg DAILY ORAL 09/17/18 12:15 10/17/18 12:14 09/22/18 08:58 Diphenhydramine HCl (Benadryl) 25 mg Q6H PRN ORAL Itching/Pruritis 09/16/18 15:30 10/16/18 15:29 Docusate Sodium (Colace) 250 mg DAILY ORAL 09/19/18 09:00 10/19/18 08:59 09/22/18 08:58 Escitalopram Oxalate (Lexapro) 10 mg BEDTIME ORAL 09/18/18 21:00 10/18/18 20:59 09/21/18 20:44 Finasteride (Proscar) 5 mg DAILY ORAL 09/17/18 09:00 10/17/18 08:59 09/22/18 08:58 Heparin Sodium (Porcine) (Heparin 5000 units/ml) 5,000 units EVERY 12 HOURS SUBQ 09/16/18 21:00 10/16/18 20:59 09/22/18 09:00 Hydromorphone HCl (Dilaudid) 0.5 mg Q6H PRN IVP For Pain 09/16/18 15:30 09/23/18 15:29 09/21/18 16:10 Insulin Aspart (NovoLOG) BEFORE MEALS AND HS SUBQ 09/17/18 21:00 10/17/18 20:59 09/22/18 17:02 Lorazepam (Ativan) 1 mg Q4H PRN ORAL For Anxiety 09/16/18 15:30 09/23/18 15:29 Sodium Chloride 1,000 ml @ 50 mls/hr Q20H IVLG 09/16/18 17:00 10/16/18 16:59 09/22/18 12:21 Sucralfate (Carafate) 1 gm BEFORE MEALS ORAL 09/18/18 16:30 10/18/18 16:29 09/22/18 16:22 Tamsulosin HCl (Flomax) 0.4 mg BEDTIME ORAL 09/16/18 21:34 10/16/18 21:33 09/21/18 20:45 Topiramate (Topamax) 100 mg DAILY ORAL 09/19/18 09:00 10/19/18 08:59 09/22/18 08:58 Zolpidem Tartrate (Ambien) 5 mg HSPRN PRN ORAL Insomnia 09/16/18 15:30 09/23/18 15:29 09/21/18 21:22 Last 24 Hour Vital Signs Date Time Temp Pulse Resp B/P (MAP) Pulse Ox O2 Delivery O2 Flow Rate FiO2 09/22/18 16:00 98.0 61 18 137/66 (89) 97 09/22/18 12:00 97.9 66 19 98/47 (64) 97 09/22/18 09:00 Room Air 09/22/18 08:58 66 09/22/18 08:54 97.7 66 19 113/58 (76) 98 09/21/18 21:00 Room Air 09/21/18 20:00 97.9 61 20 112/52 (72) 97 09/21/18 16:00 98.3 61 20 116/59 (78) 94 09/21/18 12:00 98.7 64 18 115/54 (74) 96 09/21/18 09:00 Room Air 09/21/18 08:28 64 09/21/18 08:00 97.6 61 18 111/65 (80) 96 09/21/18 00:00 97.9 64 16 84/41 (55) 95 09/20/18 21:00 Room Air Intake and Output 09/21/18 09/22/18 18:59 06:59 Intake Total 1150 ml 655 ml Output Total 200 ml Balance 950 ml 655 ml Intake Oral 600 ml IV Total 550 ml 655 ml Output Urine Total 200 ml # Voids 3 2 Labs Test 09/20/18 06:35 09/21/18 06:03 09/22/18 05:30 White Blood Count 5.2 K/UL (4.8-10.8) 5.8 K/UL (4.8-10.8) 5.5 K/UL (4.8-10.8) Red Blood Count 4.06 M/UL (4.70-6.10) 4.18 M/UL (4.70-6.10) 3.94 M/UL (4.70-6.10) Hemoglobin 12.5 G/DL (14.2-18.0) 13.0 G/DL (14.2-18.0) 12.2 G/DL (14.2-18.0) Hematocrit 38.4 % (42.0-52.0) 39.3 % (42.0-52.0) 37.0 % (42.0-52.0) Mean Corpuscular Volume 94 FL (80-99) 94 FL (80-99) 94 FL (80-99) Mean Corpuscular Hemoglobin 30.8 PG (27.0-31.0) 31.0 PG (27.0-31.0) 31.0 PG (27.0-31.0) Mean Corpuscular Hemoglobin Concent 32.6 G/DL (32.0-36.0) 33.0 G/DL (32.0-36.0) 33.1 G/DL (32.0-36.0) Red Cell Distribution Width 12.4 % (11.6-14.8) 12.0 % (11.6-14.8) 12.5 % (11.6-14.8) Platelet Count 115 K/UL (150-450) 119 K/UL (150-450) 124 K/UL (150-450) Mean Platelet Volume 6.5 FL (6.5-10.1) 7.0 FL (6.5-10.1) 7.9 FL (6.5-10.1) Neutrophils (%) (Auto) 63.0 % (45.0-75.0) 70.0 % (45.0-75.0) 62.2 % (45.0-75.0) Lymphocytes (%) (Auto) 22.6 % (20.0-45.0) 17.0 % (20.0-45.0) 22.2 % (20.0-45.0) Monocytes (%) (Auto) 8.2 % (1.0-10.0) 7.9 % (1.0-10.0) 8.6 % (1.0-10.0) Eosinophils (%) (Auto) 5.3 % (0.0-3.0) 4.3 % (0.0-3.0) 5.9 % (0.0-3.0) Basophils (%) (Auto) 1.0 % (0.0-2.0) 0.9 % (0.0-2.0) 1.1 % (0.0-2.0) Sodium Level 142 MMOL/L (136-145) 143 MMOL/L (136-145) 143 MMOL/L (136-145) Potassium Level 3.8 MMOL/L (3.5-5.1) 3.7 MMOL/L (3.5-5.1) 4.5 MMOL/L (3.5-5.1) Chloride Level 111 MMOL/L (98-107) 110 MMOL/L (98-107) 112 MMOL/L (98-107) Carbon Dioxide Level 26 MMOL/L (21-32) 25 MMOL/L (21-32) 29 MMOL/L (21-32) Anion Gap 5 mmol/L (5-15) 8 mmol/L (5-15) 2 mmol/L (5-15) Blood Urea Nitrogen 19 mg/dL (7-18) 16 mg/dL (7-18) 21 mg/dL (7-18) Creatinine 0.7 MG/DL (0.55-1.30) 0.7 MG/DL (0.55-1.30) 0.9 MG/DL (0.55-1.30) Estimat Glomerular Filtration Rate mL/min (>60) mL/min (>60) mL/min (>60) Glucose Level 85 MG/DL (74-106) 82 MG/DL (74-106) 100 MG/DL (74-106) Calcium Level 8.4 MG/DL (8.5-10.1) 8.8 MG/DL (8.5-10.1) 8.6 MG/DL (8.5-10.1) Height (Feet): 5 Height (Inches): 6.00 Weight (Pounds): 240 Objective PHYSICAL EXAMINATION: GENERAL: The patient is an elderly gentleman, awake, alert, oriented x4. No obvious distress. CHEST: Within normal limits. ABDOMEN: Soft, nontender, nondistended. EXTREMITIES: Warm, well perfused. No cyanosis, clubbing, or edema. BACK: No CVA tenderness to percussion. NEUROLOGIC: Grossly nonfocal. Antony Thurston MD Sep 22, 2018 20:21
[2018-09-22] MEDS: Tamsulosin 0.4mg cap ORAL SCH (21:05)
[2018-09-22] MEDS: cefTRIAXone 1gm/D5W 55ml IVPB SCH ×2 (21:05)
[2018-09-22] MEDS: Atorvastatin 20mg tab ORAL SCH (21:05)
[2018-09-22] MEDS: Zolpidem 5mg tab ORAL PRN (21:06)
--- NOTE | 2018-09-23 00:45 | Progress Note ---
DATE: 09/22/2018 SUBJECTIVE: The patient is a 78-year-old male patient with abnormal laboratories, came in today to assess diagnosis of bipolar 2. Since he have a lot of . He does have irritability, confusion, and disorganized thought process. That is why, he does require inpatient treatment at this time. because of his low energy, poor appetite, and extreme mood lability. MENTAL STATUS EXAMINATION: This is a 78-year-old male. Appearance is disheveled. Attitude, irritable and agitated. Affect, guarded and restricted. Intellect poor. Mood, depressed and anxious. Motor activity, psychomotor agitation. Attention span is poor. Orientation x2. Speech is low volume, slurred. Thought process, disorganized and illogical. Insight and judgment is poor. DIAGNOSIS: Bipolar 2. PLAN: Treat with Topamax 100 mg a day and Lexapro 10 mg . A 20 minutes of cognitive behavioral therapy to help him identify his automatic negative thoughts and help him convert those negative thoughts to more positive thoughts to reduce depression, anxiety, mood lability. Chart reviewed. Discussed with staff. . Molina Tapia M.D. DR: SHAYE JOB#: [id number] CC:
[2018-09-23] MEDS: Sucralfate 1gm tab ORAL SCH ×3 (06:00→17:37)
[2018-09-23] MEDS: NovoLOG Insulin Flexpen SUBQ SCH ×3 (06:03→17:37)
[2018-09-23] MEDS: Hydromorphone 0.5mg/0.5ml inj IVP PRN (06:15)
[2018-09-23 07:26] LABS: BASOPHILS % (AUTO) 0.8 % (0.0-2.0); EOSINOPHILS % (AUTO) 4.6 % (0.0-3.0); HEMOGLOBIN 12.8 G/DL (14.2-18.0); LYMPHOCYTES % (AUTO) 22.9 % (20.0-45.0); MEAN CORPUSCULAR VOLUME 94 FL (80-99); MONOCYTES % (AUTO) 7.4 % (1.0-10.0); NEUTROPHILS % (AUTO) 64.3 % (45.0-75.0); PLATELET COUNT 134 K/UL (150-450); RED BLOOD COUNT 4.16 M/UL (4.70-6.10); RED CELL DISTRIBUTION WIDTH 12.4 % (11.6-14.8); WHITE BLOOD COUNT 5.8 K/UL (4.8-10.8)
[2018-09-23 07:29] LABS: ANION GAP 8 mmol/L (5-15); BLOOD UREA NITROGEN 23 mg/dL (7-18); CALCIUM 8.8 MG/DL (8.5-10.1); CARBON DIOXIDE 24 MMOL/L (21-32); CHLORIDE 113 MMOL/L (98-107); CREATININE 0.8 MG/DL (0.55-1.30); POTASSIUM 3.8 MMOL/L (3.5-5.1); SODIUM 145 MMOL/L (136-145)
--- NOTE | 2018-09-23 07:45 | NUR ---
NURSE NOTES: Report received from AUNG Leger. AOx4. IN RA. Denies any pain or SOB. R H 24g running NS @ 50. Bed on lowest position, side rails upx2 brakes engaged. Call light within easy reach.
[2018-09-23 08:00] VITALS: BP 130/74
--- NOTE | 2018-09-23 08:08 | NUR ---
HAND-OFF: Report given to AUNG Fernandez.
--- NOTE | 2018-09-23 08:36 | Urology Progress Note ---
Assessment/Plan Status: stable, progressing Assessment/Plan: 1. 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 2. BPH history. 3. Lower urinary tract symptoms. 4. Pyuria, probable UTI. 5. Hematuria. 6. Nephrolithiasis history. 7. Renal cyst. 8. Rule out neurogenic bladder. monitor clinically cont casodex, apparently has been on lupron as outpt flomax and proscar med/onc noted will need dedicated bone scan, pt refused consider CT A/P, pt agreed to it, d/w Dr. Thurston who agrees, will order abx as ordered recheck serum PSA post abx recheck UA and urine cx later may need to add Xtandi or chemo? I have previously discussed this pt's case only with 's [place] Subjective Allergies: Coded Allergies: NO KNOWN ALLERGIES (Unverified Allergy, Unknown, 11/29/14) Subjective all noted, feels fair, refused bone scan Objective Last 24 Hour Vital Signs Date Time Temp Pulse Resp B/P (MAP) Pulse Ox O2 Delivery O2 Flow Rate FiO2 09/22/18 21:00 Room Air 09/22/18 20:00 98.8 67 16 146/57 (86) 97 09/22/18 16:00 98.0 61 18 137/66 (89) 97 09/22/18 12:00 97.9 66 19 98/47 (64) 97 09/22/18 09:00 Room Air 09/22/18 08:58 66 09/22/18 08:54 97.7 66 19 113/58 (76) 98 Intake and Output 09/22/18 09/23/18 19:00 07:00 Intake Total 550 ml 1505 ml Balance 550 ml 1505 ml IV Total 550 ml 705 ml Other 800 ml # Voids 2 # Bowel Movements 3 Microbiology Date/Time Source Procedure Growth Status 09/16/18 21:00 Nasal Nares MRSA Culture - Final Staphylococcus Aureus - Mrsa Complete 09/16/18 15:42 Urine,Clean Catch Urine Culture - Final Klebsiella Pneumoniae Escherichia Coli Complete 09/16/18 21:00 Rectum - Final NO CARBAPENEM-RESISTANT ENTEROBACTERI... Complete Current Medications Medications (Trade) Dose Ordered Sig/Maliha Route PRN Reason Start Time Stop Time Status Last Admin Dose Admin Acetaminophen (Tylenol) 650 mg Q4H PRN ORAL Mild Pain (Pain Scale 1-3) 09/16/18 15:30 10/16/18 15:29 Al Hydroxide/Mg Hydroxide (Mylanta II) 30 ml Q6H PRN ORAL dyspepsia 09/16/18 15:30 10/16/18 15:29 Aspirin (ASA) 81 mg DAILY ORAL 09/17/18 12:15 10/17/18 12:14 09/22/18 08:58 Atorvastatin Calcium (Lipitor) 40 mg BEDTIME ORAL 09/18/18 21:00 10/18/18 20:59 09/22/18 21:05 Calcium/Vitamin D (OsCal D) 2 tab DAILY ORAL 09/17/18 12:15 10/17/18 12:14 09/22/18 08:58 Ceftriaxone Sodium 1 gm/ Dextrose 55 ml @ 110 mls/hr Q24H IVPB 09/20/18 21:00 09/27/18 20:59 09/22/18 21:05 Dextrose (Dextrose 50%) 25 ml Q30M PRN IV Hypoglycemia 09/17/18 17:00 10/17/18 16:59 Dextrose (Dextrose 50%) 50 ml Q30M PRN IV Hypoglycemia 09/17/18 17:00 10/17/18 16:59 Digoxin (Lanoxin) 0.125 mg DAILY ORAL 09/17/18 12:15 10/17/18 12:14 09/22/18 08:58 Diphenhydramine HCl (Benadryl) 25 mg Q6H PRN ORAL Itching/Pruritis 09/16/18 15:30 10/16/18 15:29 Docusate Sodium (Colace) 250 mg DAILY ORAL 09/19/18 09:00 10/19/18 08:59 09/22/18 08:58 Escitalopram Oxalate (Lexapro) 10 mg BEDTIME ORAL 09/18/18 21:00 10/18/18 20:59 09/22/18 21:05 Finasteride (Proscar) 5 mg DAILY ORAL 09/17/18 09:00 10/17/18 08:59 09/22/18 08:58 Heparin Sodium (Porcine) (Heparin 5000 units/ml) 5,000 units EVERY 12 HOURS SUBQ 09/16/18 21:00 10/16/18 20:59 09/22/18 09:00 Hydromorphone HCl (Dilaudid) 0.5 mg Q6H PRN IVP For Pain 09/16/18 15:30 09/23/18 15:29 09/23/18 06:15 Insulin Aspart (NovoLOG) BEFORE MEALS AND HS SUBQ 09/17/18 21:00 10/17/18 20:59 09/22/18 17:02 Lorazepam (Ativan) 1 mg Q4H PRN ORAL For Anxiety 09/16/18 15:30 09/23/18 15:29 Sodium Chloride 1,000 ml @ 50 mls/hr Q20H IVLG 09/16/18 17:00 10/16/18 16:59 09/22/18 12:21 Sucralfate (Carafate) 1 gm BEFORE MEALS ORAL 09/18/18 16:30 10/18/18 16:29 09/23/18 06:00 Tamsulosin HCl (Flomax) 0.4 mg BEDTIME ORAL 09/16/18 21:34 10/16/18 21:33 09/22/18 21:05 Topiramate (Topamax) 100 mg DAILY ORAL 09/19/18 09:00 10/19/18 08:59 09/22/18 08:58 Zolpidem Tartrate (Ambien) 5 mg HSPRN PRN ORAL Insomnia 09/16/18 15:30 09/23/18 15:29 09/22/18 21:06 Laboratory Tests 09/23/18 05:20: White Blood Count 5.8, Red Blood Count 4.16L, Hemoglobin 12.8L, Hematocrit 39.0L , Mean Corpuscular Volume 94, Mean Corpuscular Hemoglobin 30.8, Mean Corpuscular Hemoglobin Concent 32.9, Red Cell Distribution Width 12.4, Platelet Count 134L, Mean Platelet Volume 6.6, Neutrophils (%) (Auto) 64.3, Lymphocytes ( %) (Auto) 22.9, Monocytes (%) (Auto) 7.4, Eosinophils (%) (Auto) 4.6H, Basophils (%) (Auto) 0.8, Sodium Level 145, Potassium Level 3.8, Chloride Level 113H, Carbon Dioxide Level 24, Anion Gap 8, Blood Urea Nitrogen 23H, Creatinine 0.8, Estimat Glomerular Filtration Rate , Glucose Level 94, Calcium Level 8.8, Digoxin Level 0.4L Height (Feet): 5 Height (Inches): 6.00 Weight (Pounds): 234 Objective exam stable bone densitometry exam noted, no discrete lesion Gabino Segal MD Sep 23, 2018 08:36
[2018-09-23] MEDS: Calcium Carbonate 500mg w/Vit D 200iu tab ORAL SCH (09:40)
[2018-09-23] MEDS: Digoxin 0.125mg tab ORAL SCH (09:41)
[2018-09-23] MEDS: Docusate 250mg cap ORAL SCH (09:41)
[2018-09-23] MEDS: Aspirin Baby 81mg ORAL SCH (09:42)
[2018-09-23] MEDS: Topiramate 100mg tab ORAL SCH (09:42)
[2018-09-23] MEDS: Heparin 5000 units/ml inj SUBQ SCH (09:47)
--- NOTE | 2018-09-23 10:06 | General Progress Note ---
Assessment/Plan Problem List: (1) UTI (urinary tract infection) ICD Codes: N39.0 - Urinary tract infection, site not specified SNOMED: 61020035 (2) PSA elevation ICD Codes: R97.20 - Elevated prostate specific antigen [PSA] SNOMED: 708371416 (3) HTN (hypertension) ICD Codes: I10 - Essential (primary) hypertension SNOMED: 71773526 (4) Diabetes ICD Codes: E11.9 - Type 2 diabetes mellitus without complications SNOMED: 19529548 (5) COPD (chronic obstructive pulmonary disease) ICD Codes: J44.9 - Chronic obstructive pulmonary disease, unspecified SNOMED: 05069983 (6) Atrial fibrillation ICD Codes: I48.91 - Unspecified atrial fibrillation SNOMED: 68809552 Status: stable, progressing Assessment/Plan: pt diet abx uro f/u dc if clear Subjective Constitutional: Reports: weakness Allergies: Coded Allergies: NO KNOWN ALLERGIES (Unverified Allergy, Unknown, 11/29/14) All Systems: reviewed and negative except above Subjective sl anxious in bed Objective Last 24 Hour Vital Signs Date Time Temp Pulse Resp B/P (MAP) Pulse Ox O2 Delivery O2 Flow Rate FiO2 09/23/18 09:41 61 09/22/18 21:00 Room Air 09/22/18 20:00 98.8 67 16 146/57 (86) 97 09/22/18 16:00 98.0 61 18 137/66 (89) 97 09/22/18 12:00 97.9 66 19 98/47 (64) 97 Intake and Output 09/22/18 09/23/18 19:00 07:00 Intake Total 550 ml 1505 ml Balance 550 ml 1505 ml IV Total 550 ml 705 ml Other 800 ml # Voids 2 # Bowel Movements 3 Laboratory Tests 09/23/18 05:20: White Blood Count 5.8, Red Blood Count 4.16L, Hemoglobin 12.8L, Hematocrit 39.0L , Mean Corpuscular Volume 94, Mean Corpuscular Hemoglobin 30.8, Mean Corpuscular Hemoglobin Concent 32.9, Red Cell Distribution Width 12.4, Platelet Count 134L, Mean Platelet Volume 6.6, Neutrophils (%) (Auto) 64.3, Lymphocytes ( %) (Auto) 22.9, Monocytes (%) (Auto) 7.4, Eosinophils (%) (Auto) 4.6H, Basophils (%) (Auto) 0.8, Sodium Level 145, Potassium Level 3.8, Chloride Level 113H, Carbon Dioxide Level 24, Anion Gap 8, Blood Urea Nitrogen 23H, Creatinine 0.8, Estimat Glomerular Filtration Rate , Glucose Level 94, Calcium Level 8.8, Digoxin Level 0.4L Height (Feet): 5 Height (Inches): 6.00 Weight (Pounds): 234 General Appearance: lethargic EENT: normal ENT inspection Neck: normal alignment Cardiovascular: normal peripheral pulses, normal rate, regular rhythm Respiratory/Chest: chest wall non-tender, lungs clear, normal breath sounds Abdomen: normal bowel sounds, non tender, soft Extremities: normal inspection Edema: no edema noted Arm (L), no edema noted Arm (R), no edema noted Leg (L), no edema noted Leg (R), no edema noted Pedal (L), no edema noted Pedal (R), no edema noted Generalized Neurologic: responsive, motor weakness Skin: normal pigmentation, warm/dry Mickey Pinto DO Sep 23, 2018 10:05
[2018-09-23] MEDS ORDERED: Isovue-300 100ml vial INJ PRN (10:30)
--- NOTE | 2018-09-23 11:00 | Progress Note ---
DATE: 09/23/2018 SUBJECTIVE: This is a 78-year-old male patient came in with lot of depression, anxiety, and extreme mood lability worsened by stress of his medical illness. That is why his attending has requested daily psychiatric consultation. DIAGNOSIS: Bipolar II. PLAN: Continue stabilizing mood with Lamictal and anxiety and depression with Lexapro. 20 minutes of cognitive behavioral therapy to help him identify his automatic negative thoughts and help him convert those negative thoughts to more positive thoughts to reduce depression, anxiety, and mood lability. Chart reviewed. Discussed with staff. The patient is seen and assessed at bedside. Molina Tapia M.D. DR: FRANSICO JOB#: [id number] CC:
[2018-09-23 12:00] VITALS: BP 133/80
--- NOTE | 2018-09-23 13:26 | Infectious Diseases Prog Note ---
Assessment/Plan Assessment/Plan Assessment: Probable UTI (+suprapubic discomfort) -u/a wbc 20-40, nit +, leuk +3; ycx >100k E.coli (silva S), K. pna (R amp, bactrim; otherwise S) Afebrile No leukocytosis -CXR: Pulmonary vascular congestion with right basilar atelectasis. Prostate CA (dx'ed 2 years ago) s/p Casodex and Lupron but lost follow up -bone densitometry: Overall no significant interval change from exam of 2018. No discrete sclerotic or lytic bone lesion is appreciated radiographically. Again, more sensitive evaluation with nuclear medicine bone scan is recommended as clinically indicated. Soft tissue calcifications in the bilateral leg, unchanged from the prior exam. Again findings are nonspecific. These may potentially represent phleboliths. They may represent sequela of prior trauma or possibly be related to connective tissue disorder. BPH UTI nephrolithiasis DM2 BPH COPD Afib, s/p PPM NH resident Plan: -Cont Ceftriaxone #4 (abx d#08/16) for UTI -upon discharge, can be transition to PO Keflex 500mg bid -09/20 SP Cefepime #4 -09/16 SP Ceftriaxone x1 -f/u cx -Monitor CBC/CMP, temperatures -Uro f/u Thank you for this consultation. Will continue to follow along with you. Discussed with RN. Subjective Allergies: Coded Allergies: NO KNOWN ALLERGIES (Unverified Allergy, Unknown, 11/29/14) Subjective afebrile no leukocytosis Objective Vital Signs Last 24 Hour Vital Signs Date Time Temp Pulse Resp B/P (MAP) Pulse Ox O2 Delivery O2 Flow Rate FiO2 09/23/18 09:41 61 09/23/18 09:00 Room Air 09/23/18 08:00 97.8 61 16 130/74 (92) 98 09/22/18 21:00 Room Air 09/22/18 20:00 98.8 67 16 146/57 (86) 97 09/22/18 16:00 98.0 61 18 137/66 (89) 97 Height (Feet): 5 Height (Inches): 6.00 Weight (Pounds): 234 Objective GENERAL: Slightly anxious in bed, oriented x2, in no acute distress. CARDIOVASCULAR: No murmur. LUNGS: Distant and clear. ABDOMEN: Positive bowel sounds. Nontender. Nondistended. EXTREMITIES: No cyanosis, clubbing, or edema. NEUROLOGIC: The patient moves all extremities slightly weak. Laboratory Tests Test 09/23/18 05:20 White Blood Count 5.8 K/UL (4.8-10.8) Red Blood Count 4.16 M/UL (4.70-6.10) L Hemoglobin 12.8 G/DL (14.2-18.0) L Hematocrit 39.0 % (42.0-52.0) L Mean Corpuscular Volume 94 FL (80-99) Mean Corpuscular Hemoglobin 30.8 PG (27.0-31.0) Mean Corpuscular Hemoglobin Concent 32.9 G/DL (32.0-36.0) Red Cell Distribution Width 12.4 % (11.6-14.8) Platelet Count 134 K/UL (150-450) L Mean Platelet Volume 6.6 FL (6.5-10.1) Neutrophils (%) (Auto) 64.3 % (45.0-75.0) Lymphocytes (%) (Auto) 22.9 % (20.0-45.0) Monocytes (%) (Auto) 7.4 % (1.0-10.0) Eosinophils (%) (Auto) 4.6 % (0.0-3.0) H Basophils (%) (Auto) 0.8 % (0.0-2.0) Sodium Level 145 MMOL/L (136-145) Potassium Level 3.8 MMOL/L (3.5-5.1) Chloride Level 113 MMOL/L (98-107) H Carbon Dioxide Level 24 MMOL/L (21-32) Anion Gap 8 mmol/L (5-15) Blood Urea Nitrogen 23 mg/dL (7-18) H Creatinine 0.8 MG/DL (0.55-1.30) Estimat Glomerular Filtration Rate mL/min (>60) Glucose Level 94 MG/DL (74-106) Calcium Level 8.8 MG/DL (8.5-10.1) Digoxin Level 0.4 NG/ML (0.5-2.0) L Current Medications Medications (Trade) Dose Ordered Sig/Maliha Route PRN Reason Start Time Stop Time Status Last Admin Dose Admin Acetaminophen (Tylenol) 650 mg Q4H PRN ORAL Mild Pain (Pain Scale 1-3) 09/16/18 15:30 10/16/18 15:29 Al Hydroxide/Mg Hydroxide (Mylanta II) 30 ml Q6H PRN ORAL dyspepsia 09/16/18 15:30 10/16/18 15:29 Aspirin (ASA) 81 mg DAILY ORAL 09/17/18 12:15 10/17/18 12:14 09/23/18 09:42 Atorvastatin Calcium (Lipitor) 40 mg BEDTIME ORAL 09/18/18 21:00 10/18/18 20:59 09/22/18 21:05 Barium Sulfate (Readi-Cat 2) 450 ml NOW PRN ORAL Radiology Procedure 09/23/18 10:30 09/25/18 10:23 Calcium/Vitamin D (OsCal D) 2 tab DAILY ORAL 09/17/18 12:15 10/17/18 12:14 09/23/18 09:40 Ceftriaxone Sodium 1 gm/ Dextrose 55 ml @ 110 mls/hr Q24H IVPB 09/20/18 21:00 09/27/18 20:59 09/22/18 21:05 Dextrose (Dextrose 50%) 25 ml Q30M PRN IV Hypoglycemia 09/17/18 17:00 10/17/18 16:59 Dextrose (Dextrose 50%) 50 ml Q30M PRN IV Hypoglycemia 09/17/18 17:00 10/17/18 16:59 Digoxin (Lanoxin) 0.125 mg DAILY ORAL 09/17/18 12:15 10/17/18 12:14 09/23/18 09:41 Diphenhydramine HCl (Benadryl) 25 mg Q6H PRN ORAL Itching/Pruritis 09/16/18 15:30 10/16/18 15:29 Docusate Sodium (Colace) 250 mg DAILY ORAL 09/19/18 09:00 10/19/18 08:59 09/23/18 09:41 Escitalopram Oxalate (Lexapro) 10 mg BEDTIME ORAL 09/18/18 21:00 10/18/18 20:59 09/22/18 21:05 Finasteride (Proscar) 5 mg DAILY ORAL 09/17/18 09:00 10/17/18 08:59 09/23/18 09:40 Heparin Sodium (Porcine) (Heparin 5000 units/ml) 5,000 units EVERY 12 HOURS SUBQ 09/16/18 21:00 10/16/18 20:59 09/23/18 09:47 Hydromorphone HCl (Dilaudid) 0.5 mg Q6H PRN IVP For Pain 09/16/18 15:30 09/23/18 15:29 09/23/18 06:15 Insulin Aspart (NovoLOG) BEFORE MEALS AND HS SUBQ 09/17/18 21:00 10/17/18 20:59 09/22/18 17:02 Iopamidol (Isovue-300 100ml) 100 ml NOW PRN INJ Radiology Procedure 09/23/18 10:30 09/24/18 10:29 Lorazepam (Ativan) 1 mg Q4H PRN ORAL For Anxiety 09/16/18 15:30 09/23/18 15:29 Sodium Chloride 1,000 ml @ 50 mls/hr Q20H IVLG 09/16/18 17:00 10/16/18 16:59 09/23/18 09:43 Sucralfate (Carafate) 1 gm BEFORE MEALS ORAL 09/18/18 16:30 10/18/18 16:29 09/23/18 12:30 Tamsulosin HCl (Flomax) 0.4 mg BEDTIME ORAL 09/16/18 21:34 10/16/18 21:33 09/22/18 21:05 Topiramate (Topamax) 100 mg DAILY ORAL 09/19/18 09:00 10/19/18 08:59 09/23/18 09:42 Zolpidem Tartrate (Ambien) 5 mg HSPRN PRN ORAL Insomnia 09/16/18 15:30 09/23/18 15:29 09/22/18 21:06 Susan Elizalde M.D. Sep 23, 2018 13:26
[2018-09-23] MEDS ORDERED: CEPHALEXIN500 MG ORAL (13:35)
--- NOTE | 2018-09-23 14:03 | Pulmonology Progress Note ---
Assessment/Plan Problems: (1) Anemia (2) COPD (chronic obstructive pulmonary disease) (3) Diabetes (4) HTN (hypertension) (5) PSA elevation Assessment/Plan no new complains all reviewed symptomatic treatment psych evaluation check electrolytes awaiting CT scan dc planning in process Subjective ROS Limited/Unobtainable: No Constitutional: Reports: no symptoms HEENT: Repors: no symptoms Respiratory: Reports: no symptoms Allergies: Coded Allergies: NO KNOWN ALLERGIES (Unverified Allergy, Unknown, 11/29/14) Objective Last 24 Hour Vital Signs Date Time Temp Pulse Resp B/P (MAP) Pulse Ox O2 Delivery O2 Flow Rate FiO2 09/23/18 09:41 61 09/23/18 09:00 Room Air 09/23/18 08:00 97.8 61 16 130/74 (92) 98 09/22/18 21:00 Room Air 09/22/18 20:00 98.8 67 16 146/57 (86) 97 09/22/18 16:00 98.0 61 18 137/66 (89) 97 Intake and Output 09/22/18 09/23/18 19:00 07:00 Intake Total 550 ml 1505 ml Balance 550 ml 1505 ml IV Total 550 ml 705 ml Other 800 ml # Voids 2 # Bowel Movements 3 General Appearance: WD/WN HEENT: atraumatic, anicteric Cardiovascular: normal peripheral pulses, regular rhythm Abdomen: soft, non tender, non distended Extremities: no cyanosis Skin: no rash, no lesions Laboratory Tests 09/23/18 05:20: White Blood Count 5.8, Red Blood Count 4.16L, Hemoglobin 12.8L, Hematocrit 39.0L , Mean Corpuscular Volume 94, Mean Corpuscular Hemoglobin 30.8, Mean Corpuscular Hemoglobin Concent 32.9, Red Cell Distribution Width 12.4, Platelet Count 134L, Mean Platelet Volume 6.6, Neutrophils (%) (Auto) 64.3, Lymphocytes ( %) (Auto) 22.9, Monocytes (%) (Auto) 7.4, Eosinophils (%) (Auto) 4.6H, Basophils (%) (Auto) 0.8, Sodium Level 145, Potassium Level 3.8, Chloride Level 113H, Carbon Dioxide Level 24, Anion Gap 8, Blood Urea Nitrogen 23H, Creatinine 0.8, Estimat Glomerular Filtration Rate , Glucose Level 94, Calcium Level 8.8, Digoxin Level 0.4L Current Medications Medications (Trade) Dose Ordered Sig/Maliha Route PRN Reason Start Time Stop Time Status Last Admin Dose Admin Acetaminophen (Tylenol) 650 mg Q4H PRN ORAL Mild Pain (Pain Scale 1-3) 09/16/18 15:30 10/16/18 15:29 Al Hydroxide/Mg Hydroxide (Mylanta II) 30 ml Q6H PRN ORAL dyspepsia 09/16/18 15:30 10/16/18 15:29 Aspirin (ASA) 81 mg DAILY ORAL 09/17/18 12:15 10/17/18 12:14 09/23/18 09:42 Atorvastatin Calcium (Lipitor) 40 mg BEDTIME ORAL 09/18/18 21:00 10/18/18 20:59 09/22/18 21:05 Barium Sulfate (Readi-Cat 2) 450 ml NOW PRN ORAL Radiology Procedure 09/23/18 10:30 09/25/18 10:23 Calcium/Vitamin D (OsCal D) 2 tab DAILY ORAL 09/17/18 12:15 10/17/18 12:14 09/23/18 09:40 Ceftriaxone Sodium 1 gm/ Dextrose 55 ml @ 110 mls/hr Q24H IVPB 09/20/18 21:00 09/27/18 20:59 09/22/18 21:05 Dextrose (Dextrose 50%) 25 ml Q30M PRN IV Hypoglycemia 09/17/18 17:00 10/17/18 16:59 Dextrose (Dextrose 50%) 50 ml Q30M PRN IV Hypoglycemia 09/17/18 17:00 10/17/18 16:59 Digoxin (Lanoxin) 0.125 mg DAILY ORAL 09/17/18 12:15 10/17/18 12:14 09/23/18 09:41 Diphenhydramine HCl (Benadryl) 25 mg Q6H PRN ORAL Itching/Pruritis 09/16/18 15:30 10/16/18 15:29 Docusate Sodium (Colace) 250 mg DAILY ORAL 09/19/18 09:00 10/19/18 08:59 09/23/18 09:41 Escitalopram Oxalate (Lexapro) 10 mg BEDTIME ORAL 09/18/18 21:00 10/18/18 20:59 09/22/18 21:05 Finasteride (Proscar) 5 mg DAILY ORAL 09/17/18 09:00 10/17/18 08:59 09/23/18 09:40 Heparin Sodium (Porcine) (Heparin 5000 units/ml) 5,000 units EVERY 12 HOURS SUBQ 09/16/18 21:00 10/16/18 20:59 09/23/18 09:47 Hydromorphone HCl (Dilaudid) 0.5 mg Q6H PRN IVP For Pain 09/16/18 15:30 09/23/18 15:29 09/23/18 06:15 Insulin Aspart (NovoLOG) BEFORE MEALS AND HS SUBQ 09/17/18 21:00 10/17/18 20:59 09/22/18 17:02 Iopamidol (Isovue-300 100ml) 100 ml NOW PRN INJ Radiology Procedure 09/23/18 10:30 09/24/18 10:29 Lorazepam (Ativan) 1 mg Q4H PRN ORAL For Anxiety 09/16/18 15:30 09/23/18 15:29 Sodium Chloride 1,000 ml @ 50 mls/hr Q20H IVLG 09/16/18 17:00 10/16/18 16:59 09/23/18 09:43 Sucralfate (Carafate) 1 gm BEFORE MEALS ORAL 09/18/18 16:30 10/18/18 16:29 09/23/18 12:30 Tamsulosin HCl (Flomax) 0.4 mg BEDTIME ORAL 09/16/18 21:34 10/16/18 21:33 09/22/18 21:05 Topiramate (Topamax) 100 mg DAILY ORAL 09/19/18 09:00 10/19/18 08:59 09/23/18 09:42 Zolpidem Tartrate (Ambien) 5 mg HSPRN PRN ORAL Insomnia 09/16/18 15:30 09/23/18 15:29 09/22/18 21:06 Karen Jimenez MD Sep 23, 2018 14:03
--- NOTE | 2018-09-23 14:15 | NUR ---
*-* INSURANCE *-* ALL CLINICALS AND REVIEWS HAVE BEEN FAXED TO: JIMMY HANNAH:DION P:[phone] F: [phone]
--- NOTE | 2018-09-23 14:16 | Hematology/Onc Progress Note ---
Assessment/Plan Assessment/Plan ASSESSMENT AND PLAN: # Prostate cancer, elevated psa of 65--->126, currently off any kind of treatment and has a outside urologist that he follows up with. --> likely acute elevation is due to uti, currently high and can oscillate even to 100s --> obtain skeletal survey rule out distant mets--> SHOWS NOT METS --> Pyuria- no UTI symptoms --> PSA trend 20-->65-->126 --> casodex started, consider lupron (as per uro) --> discussed with Luzma --> if better performance status, may need zytiga or xtandi --> ct a/p pending # Thrombocytopenia in the 100-150s range --> consider hepatitis and hiv --> negative --> smear has been reviewed, completed --> appreciate uro and id recs in reg to abx --> Us of abd last time showed masses in spleen-> results us pending --> plt trend 140-->130-->115-->119->124k-->134k # Dm2 --> a1c goal <8 --> accuchecks qac and qhs --> endo eval prn # Psych hx --> may need transfer # HTN # COPD # AFib # GERD # SNF resident The timing of this note does not necessarily reflect the time of the patient was seen. Greatly appreciate consultation! Subjective Constitutional: Denies: no symptoms, chills, fever, malaise, weakness, other HEENT: Denies: no symptoms, eye pain, blurred vision, tearing, double vision, ear pain, ear discharge, nose pain, nose congestion, throat pain, throat swelling, mouth pain, mouth swelling, other Cardiovascular: Denies: no symptoms, chest pain, edema, irregular heart rate, lightheadedness, palpitations, syncope, other Respiratory: Denies: no symptoms, cough, shortness of breath, SOB with excertion, SOB at rest, sputum, wheezing, other Genitourinary: Denies: no symptoms, burning, discharge, frequency, flank pain, hematuria, incontinence, pain, urgency, other Neurologic/Psychiatric: Denies: no symptoms, anxiety, depressed, emotional problems, headache, numbness, paresthesia, pre-existing deficit, seizure, tingling, tremors, weakness, other Endocrine: Denies: no symptoms, excessive sweating, flushing, intolerance to cold, intolerance to heat, increased hunger, increased thirst, increased urine, unexplained weight gain, unexplained weight loss, other Allergies: Coded Allergies: NO KNOWN ALLERGIES (Unverified Allergy, Unknown, 11/29/14) Subjective 09/18: no events, psa is higher, back on casodex, still anxious 09/20: no events, no fevers, seen and dw uro 09/21: no bleeding reported, labs reviewed no bleeding 09/22: no f/c, no night sweats, seen by uro, id abx prn 09/23: ct a/p has been ordered with uro, labs reviewed Objective Objective Current Medications Medications (Trade) Dose Ordered Sig/Maliha Route PRN Reason Start Time Stop Time Status Last Admin Dose Admin Acetaminophen (Tylenol) 650 mg Q4H PRN ORAL Mild Pain (Pain Scale 1-3) 09/16/18 15:30 10/16/18 15:29 Al Hydroxide/Mg Hydroxide (Mylanta II) 30 ml Q6H PRN ORAL dyspepsia 09/16/18 15:30 10/16/18 15:29 Aspirin (ASA) 81 mg DAILY ORAL 09/17/18 12:15 10/17/18 12:14 09/23/18 09:42 Atorvastatin Calcium (Lipitor) 40 mg BEDTIME ORAL 09/18/18 21:00 10/18/18 20:59 09/22/18 21:05 Barium Sulfate (Readi-Cat 2) 450 ml NOW PRN ORAL Radiology Procedure 09/23/18 10:30 09/25/18 10:23 Calcium/Vitamin D (OsCal D) 2 tab DAILY ORAL 09/17/18 12:15 10/17/18 12:14 09/23/18 09:40 Ceftriaxone Sodium 1 gm/ Dextrose 55 ml @ 110 mls/hr Q24H IVPB 09/20/18 21:00 09/27/18 20:59 09/22/18 21:05 Dextrose (Dextrose 50%) 25 ml Q30M PRN IV Hypoglycemia 09/17/18 17:00 10/17/18 16:59 Dextrose (Dextrose 50%) 50 ml Q30M PRN IV Hypoglycemia 09/17/18 17:00 10/17/18 16:59 Digoxin (Lanoxin) 0.125 mg DAILY ORAL 09/17/18 12:15 10/17/18 12:14 09/23/18 09:41 Diphenhydramine HCl (Benadryl) 25 mg Q6H PRN ORAL Itching/Pruritis 09/16/18 15:30 10/16/18 15:29 Docusate Sodium (Colace) 250 mg DAILY ORAL 09/19/18 09:00 10/19/18 08:59 09/23/18 09:41 Escitalopram Oxalate (Lexapro) 10 mg BEDTIME ORAL 09/18/18 21:00 10/18/18 20:59 09/22/18 21:05 Finasteride (Proscar) 5 mg DAILY ORAL 09/17/18 09:00 10/17/18 08:59 09/23/18 09:40 Heparin Sodium (Porcine) (Heparin 5000 units/ml) 5,000 units EVERY 12 HOURS SUBQ 09/16/18 21:00 10/16/18 20:59 09/23/18 09:47 Hydromorphone HCl (Dilaudid) 0.5 mg Q6H PRN IVP For Pain 09/16/18 15:30 09/23/18 15:29 09/23/18 06:15 Insulin Aspart (NovoLOG) BEFORE MEALS AND HS SUBQ 09/17/18 21:00 10/17/18 20:59 09/22/18 17:02 Iopamidol (Isovue-300 100ml) 100 ml NOW PRN INJ Radiology Procedure 09/23/18 10:30 09/24/18 10:29 Lorazepam (Ativan) 1 mg Q4H PRN ORAL For Anxiety 09/16/18 15:30 09/23/18 15:29 Sodium Chloride 1,000 ml @ 50 mls/hr Q20H IVLG 09/16/18 17:00 10/16/18 16:59 09/23/18 09:43 Sucralfate (Carafate) 1 gm BEFORE MEALS ORAL 09/18/18 16:30 10/18/18 16:29 09/23/18 12:30 Tamsulosin HCl (Flomax) 0.4 mg BEDTIME ORAL 09/16/18 21:34 10/16/18 21:33 09/22/18 21:05 Topiramate (Topamax) 100 mg DAILY ORAL 09/19/18 09:00 10/19/18 08:59 09/23/18 09:42 Zolpidem Tartrate (Ambien) 5 mg HSPRN PRN ORAL Insomnia 09/16/18 15:30 09/23/18 15:29 09/22/18 21:06 Last 24 Hour Vital Signs Date Time Temp Pulse Resp B/P (MAP) Pulse Ox O2 Delivery O2 Flow Rate FiO2 09/23/18 12:00 98.0 68 18 133/80 (97) 97 09/23/18 09:41 61 09/23/18 09:00 Room Air 09/23/18 08:00 97.8 61 16 130/74 (92) 98 09/22/18 21:00 Room Air 09/22/18 20:00 98.8 67 16 146/57 (86) 97 09/22/18 16:00 98.0 61 18 137/66 (89) 97 09/22/18 12:00 97.9 66 19 98/47 (64) 97 09/22/18 09:00 Room Air 09/22/18 08:58 66 09/22/18 08:54 97.7 66 19 113/58 (76) 98 09/21/18 21:00 Room Air 09/21/18 20:00 97.9 61 20 112/52 (72) 97 09/21/18 16:00 98.3 61 20 116/59 (78) 94 Intake and Output 09/22/18 09/23/18 19:00 07:00 Intake Total 550 ml 1505 ml Balance 550 ml 1505 ml IV Total 550 ml 705 ml Other 800 ml # Voids 2 # Bowel Movements 3 Labs Test 09/21/18 06:03 09/22/18 05:30 09/23/18 05:20 White Blood Count 5.8 K/UL (4.8-10.8) 5.5 K/UL (4.8-10.8) 5.8 K/UL (4.8-10.8) Red Blood Count 4.18 M/UL (4.70-6.10) 3.94 M/UL (4.70-6.10) 4.16 M/UL (4.70-6.10) Hemoglobin 13.0 G/DL (14.2-18.0) 12.2 G/DL (14.2-18.0) 12.8 G/DL (14.2-18.0) Hematocrit 39.3 % (42.0-52.0) 37.0 % (42.0-52.0) 39.0 % (42.0-52.0) Mean Corpuscular Volume 94 FL (80-99) 94 FL (80-99) 94 FL (80-99) Mean Corpuscular Hemoglobin 31.0 PG (27.0-31.0) 31.0 PG (27.0-31.0) 30.8 PG (27.0-31.0) Mean Corpuscular Hemoglobin Concent 33.0 G/DL (32.0-36.0) 33.1 G/DL (32.0-36.0) 32.9 G/DL (32.0-36.0) Red Cell Distribution Width 12.0 % (11.6-14.8) 12.5 % (11.6-14.8) 12.4 % (11.6-14.8) Platelet Count 119 K/UL (150-450) 124 K/UL (150-450) 134 K/UL (150-450) Mean Platelet Volume 7.0 FL (6.5-10.1) 7.9 FL (6.5-10.1) 6.6 FL (6.5-10.1) Neutrophils (%) (Auto) 70.0 % (45.0-75.0) 62.2 % (45.0-75.0) 64.3 % (45.0-75.0) Lymphocytes (%) (Auto) 17.0 % (20.0-45.0) 22.2 % (20.0-45.0) 22.9 % (20.0-45.0) Monocytes (%) (Auto) 7.9 % (1.0-10.0) 8.6 % (1.0-10.0) 7.4 % (1.0-10.0) Eosinophils (%) (Auto) 4.3 % (0.0-3.0) 5.9 % (0.0-3.0) 4.6 % (0.0-3.0) Basophils (%) (Auto) 0.9 % (0.0-2.0) 1.1 % (0.0-2.0) 0.8 % (0.0-2.0) Sodium Level 143 MMOL/L (136-145) 143 MMOL/L (136-145) 145 MMOL/L (136-145) Potassium Level 3.7 MMOL/L (3.5-5.1) 4.5 MMOL/L (3.5-5.1) 3.8 MMOL/L (3.5-5.1) Chloride Level 110 MMOL/L (98-107) 112 MMOL/L (98-107) 113 MMOL/L (98-107) Carbon Dioxide Level 25 MMOL/L (21-32) 29 MMOL/L (21-32) 24 MMOL/L (21-32) Anion Gap 8 mmol/L (5-15) 2 mmol/L (5-15) 8 mmol/L (5-15) Blood Urea Nitrogen 16 mg/dL (7-18) 21 mg/dL (7-18) 23 mg/dL (7-18) Creatinine 0.7 MG/DL (0.55-1.30) 0.9 MG/DL (0.55-1.30) 0.8 MG/DL (0.55-1.30) Estimat Glomerular Filtration Rate mL/min (>60) mL/min (>60) mL/min (>60) Glucose Level 82 MG/DL (74-106) 100 MG/DL (74-106) 94 MG/DL (74-106) Calcium Level 8.8 MG/DL (8.5-10.1) 8.6 MG/DL (8.5-10.1) 8.8 MG/DL (8.5-10.1) Digoxin Level 0.4 NG/ML (0.5-2.0) Height (Feet): 5 Height (Inches): 6.00 Weight (Pounds): 234 Objective PE GENERAL: The patient is an elderly gentleman, awake, alert, oriented x4. No obvious distress. CHEST: Within normal limits. ABDOMEN: Soft, nontender, nondistended. EXTREMITIES: Warm, well perfused. No cyanosis, clubbing, or edema. BACK: No CVA tenderness to percussion. NEUROLOGIC: Grossly nonfocal. Antony Thurston MD Sep 23, 2018 14:16
--- NOTE | 2018-09-23 14:27 | NUR ---
RD ASSESSMENT & RECOMMENDATIONS SEE CARE ACTIVITY FOR COMPLETE ASSESSMENT DAILY ESTIMATED NEEDS: Needs based on Obese, pulmonary / 83kg 20-25 kcals/kg 5230-9670 total kcals 1-1.5 g protein/kg 83-125 g total protein 25-30 mL/kg 1151-1459 total fluid mLs NUTRITION DIAGNOSIS: Chewing difficulty r/t poor dentition as evidenced by pt requesting soft easy chew texture. CURRENT DIET: Regular PO DIET RECOMMENDATIONS: CCHO MED, double protein portions/ texture as tolerated ADDITIONAL RECOMMENDATIONS: * Calibrated bedscale wt for accurate CBW * A1C for eval of glycemic control .
--- NOTE | 2018-09-23 14:58 | NUR ---
DISCHARGE PLANNING DISCHARGE ORDER NOTED Patient has been accepted to; [facility] [address] [place] [address] Bed: 27-A Skilled [phone] for Nurse to Nurse report [facility] ETA for transportation: Will-Call
[2018-09-23 16:00] VITALS: BP 113/64
--- NOTE | 2018-09-23 16:57 | Diagnostic Imaging Report ---
Indication: Abdominal pain Technique: Continuous helical transaxial imaging of the abdomen and pelvis was obtained from the lung bases to the pubic symphysis during intravenous contrast administration. Coronal 2-D reformats were also obtained. Study obtained in a Siemens sensation [address] Automatic Exposure Control was utilized. Total Dose length Product (DLP): [address] Dose Index Volume (CTDIvol): 0.15, 19.51, 18.84 mGy Comparison: None Findings: The lung bases notable for cystic dilatation of the bronchioles which are larger than their corresponding pulmonary artery branches. Findings consistent with bronchiectasis. There are multiple gallstones within the gallbladder lumen demonstrated. A hiatal hernia is present. Pacemaker noted. Interposition of the hepatic flexure of the colon noted between the anterior part of the diaphragm and the liver. There is narrowing of intervertebral discs and accompanying endplate osteophyte formation. Hypertrophied facet joints also demonstrated. There is a rounded curvilinear calcification in the splenic hilum consistent with an 8 mm splenic artery aneurysm. There are a few tiny hypodensities within the spleen nonspecific in nature. There are punctate calcific foci within the left kidney consistent with nonobstructive stones. There are multiple bilateral renal cysts. Bowel gas pattern is nonobstructive. Urinary bladder is unremarkable. Moderate calcification of aorta demonstrated. There is narrowing of intervertebral discs and accompanying endplate osteophyte formation. Hypertrophied facet joints also demonstrated. IMPRESSION: Tiny hypodensities within the spleen too small to characterize adequately. These could be small hemangiomata or cysts. Cholelithiasis Nonobstructive stones within the left kidney. Hiatal hernia Degenerative spondylosis of the thoracolumbar spine. Multiple bilateral renal cysts. Atherosclerotic vascular disease. Pacemaker. Bronchiectasis involving the lung bases. The CT scanner at [facility] is accredited by the [employer] and the scans are performed using dose optimization techniques as appropriate to a performed exam including Automatic Exposure control.
--- NOTE | 2018-09-23 19:30 | NUR ---
NURSE NOTES: Patient awake in bed. Waiting for pharmacy picking technician anytime by [facility]. Call light and needs in reach. Will follow up accordingly.
--- NOTE | 2018-09-23 19:50 | NUR ---
HAND-OFF: Report given to AUNG Clark. Patient in stable condition. RN aware of discharge planning.
--- NOTE | 2018-09-23 20:45 | NUR ---
NURSE NOTES: Discharged patient via gurney with 2 ambulance staff. Belongings checked with patient and taken by patient. IV access removed. Cleaned patient. Patient had a normal bowel movement.
--- NOTE | 2018-09-24 07:43 | Discharge Summary ---
Discharge Summary Discharge Summary _ DATE OF ADMISSION: 09/16/2018 DATE OF DISCHARGE: 09/23/2018 DISCHARGED BY: DR Pinto REASON FOR ADMISSION: 78 years old male , resident of intermediate facility, with past medical history of diabetes mellitus, hypertension, COPD, atrial fibrillation, dementia , history of elevated PSA, prostate cancer diagnosed 2 years ago, presented to emergency department complaining of acute onset of suprapubic discomfort, and urinary retention. No fever or chills. No nausea, vomiting, or diarrhea. Upon evaluation vital signs were stable. Laboratory work-up revealed no leukocytosis, hemoglobin 12.9, hematocrit 27.8, platelets 140. Stable electrolytes and renal parameters. Glucose 119. Troponin negative. pro BNP 180. Albumin 3.5. PSA 126.7. Urinalysis revealed gross evidence of UTI. Chest x-ray revealed pulmonary vascular congestion with right basilar atelectasis. Pacemaker noted. Patient started on empiric antibiotic. Urologist was consulted from emergency department. Patient admitted to medical surgical floor for further management CONSULTANTS: pulmonary Dr. Jimenez ID specialist Dr. Elizalde nuclear fuels research engineer/oncologist Dr. Thurston urology Dr. Segal psychiatrist Dr. Tapia [facility] COURSE: Patient admitted to medical surgical floor. Antibiotics provided as per ID specialist recommendation. Urine culture revealed Klebsiella and E. coli. Antibiotic regimen was optimized based on sensitivity. Patient remained afebrile, no leukocytosis. Upon discharge IV antibiotic was changed to oral to complete the treatment at the intermediate facility. Patient with history of prostate cancer, diagnosed 2 years ago. Patient had Lupron and then apparently stopped follow-up with urologist. Bone density scan revealed no significant interval change from exam of 2018. No discrete sclerotic or lytic bone lesions were appreciated radiographically. Urologist seen and evaluated patient. Urologist recommended Casodex. Flomax and Proscar continued. Urologist suggested to recheck serum PSA after antibiotic treatment , as well as the urine and culture. Oncologist followed. Patient had ENGRAVER ORNAMENTAL DESIGN between 65-126. He was off any kind of treatment at the time of the presentation to the hospital and had an outside urologist that he followed. Acute elevation was likely due to UTI, as per oncologist. Bone density scan showed no metastasis. Patient started on Casodex. Oncologist recommended consider Lupron as per urologist. Platelet counts were closely monitored and remained at baseline. Hepatitis panel was negative. HIV test was nonreactive. Last platelet count 134. CT of the abdomen and pelvis revealed tiny hypo-densities within the spleen too small to characterize adequately. These could be small hemangiomata or cysts. Cholelithiasis Nonobstructive stones within the left kidney. Hiatal hernia Degenerative spondylosis of the thoracolumbar spine. Multiple bilateral renal cysts. Atherosclerotic vascular disease. Pacemaker. Bronchiectasis involving the lung bases. Commercial Instructor Supervisor followed. Supplemental oxygen was on board as needed to keep pulse oximetry above 92%. Bronchodilator therapy via handheld nebulizing therapy was on board as needed. Patient remained respiratory ogden stable. Pulse oximetry stable on room air. No evidence of COPD exacerbation. Hemoglobin and hematocrit were closely monitored with goal to keep hemoglobin above 7. Hemoglobin and hematocrit remained at baseline. Prior to discharge hemoglobin 12.8, hematocrit 39. Blood pressure was closely monitored and remained stable Blood sugar was managed with sliding scale of insulin. Renal parameters and electrolytes were closely monitored and remain stable. Electrolytes corrected as needed, and nephrotoxins were avoided. SNF medication continued. DVT prophylaxis provided. Supportive care provided. Pain management address as needed. Bowel regimen instituted. Psychiatrist followed. Per psychiatrist patient had bipolar type II. Psychiatric medication regimen was optimized as per psychiatrist. Cognitive behavioral therapy provided. Patient clinically stabilized and was ready for transfer back to intermediate facility with outpatient follow-up with urologist. FINAL DIAGNOSES: UTI with Klebsiella and E. coli Prostate cancer, likely advanced Acute elevation in PSA, likely due to UTI BPH COPD Diabetes mellitus Hypertension Anemia Atrial fibrillation History of nephrolithiasis Thrombocytopenia Bipolar type 2 DISCHARGE MEDICATIONS: See Medication Reconciliation list. DISCHARGE INSTRUCTIONS: Patient was discharged to the intermediate facility. Follow up with medical doctor at the facility. Follow-up with urologist as outpatient. I have been assigned to dictate discharge summary for this account. I was not involved in the patient's management. Fartun Mccauley NP Sep 24, 2018 07:43
--- NOTE | 2018-09-24 14:41 | NUR ---
*-* INSURANCE *-* DISCHARGE SUMMARY HAVE BEEN FAXED TO: JIMMY HANNAH:DION P:[id number] F: [phone]
== END 2018-09-23 20:45 | DRG 463 ==
LOC: EDBD 14:25 → EDBEDREQ 14:55 → EMR 15:40 → OBSVTOIN 17:45 → 4E 17:45 → EDBEDREQ 18:06
DX: N39.0 Urinary tract infection, site not specified (principal); C61 Malignant neoplasm of prostate; E11.9 Type 2 diabetes mellitus without complications; I10 Essential (primary) hypertension; J44.9 Chronic obstructive pulmonary disease, unspecified; I48.91 Unspecified atrial fibrillation; Z95.0 Presence of cardiac pacemaker; B96.1 Klebsiella pneumoniae [K. pneumoniae] as the cause of diseases classified elsewhere; R31.9 Hematuria, unspecified; K80.20 Calculus of gallbladder without cholecystitis without obstruction; N20.0 Calculus of kidney; K44.9 Diaphragmatic hernia without obstruction or gangrene; M43.05 Spondylolysis, thoracolumbar region; N28.1 Cyst of kidney, acquired; I25.10 Atherosclerotic heart disease of native coronary artery without angina pectoris; R97.20 Elevated prostate specific antigen [PSA]; N40.1 Benign prostatic hyperplasia with lower urinary tract symptoms; R33.8 Other retention of urine; B96.20 Unspecified Escherichia coli [E. coli] as the cause of diseases classified elsewhere; D69.6 Thrombocytopenia, unspecified; F31.81 Bipolar II disorder; Z79.82 Long term (current) use of aspirin; Z79.4 Long term (current) use of insulin; K21.9 Gastro-esophageal reflux disease without esophagitis; F33.1 Major depressive disorder, recurrent, moderate
CPT/HCPCS: 36415; 71045; 74177; 76700; 77075; 80048; 80053; 80162; 81003; 82550; 82553; 82962; 83690; 83880; 84153; 84443; 84484; 85025; 87081; 87086; 87181; 93005; 96360; 96361; 96365; 96374; 96375; 97803; 99284; J1815

== ENCOUNTER 2018-11-11 16:45 | Inpatient (IN) | payer MEDICARE, OTHER ==
[~2018-11-11] VITALS: Ht 172.7 cm; Wt 105.0 kg
[~2018-11-11 16:45] MED LIST changes: +CEPHALEXIN500 MG ORAL
[2018-11-11 16:48] VITALS: BP 110/73
--- NOTE | 2018-11-11 16:55 | NUR ---
ED Nurse Note: Patient was dropped into ED from [facility] due to "increased confusion." patient reports he got collins an argument with on of the nurses and got kicked out. he reports that he can not go back there. patient is alert awake x4 ambulatory with his walker. breathing unlabored and even, speaking in full sentences.
[2018-11-11] MEDS ORDERED: MYLANTA30 M1 GT (17:07)
[2018-11-11 18:09] LABS: BASOPHILS % (AUTO) 0.8 % (0.0-2.0); EOSINOPHILS % (AUTO) 2.9 % (0.0-3.0); HEMOGLOBIN 13.3 G/DL (14.2-18.0); LYMPHOCYTES % (AUTO) 13.2 % (20.0-45.0); MEAN CORPUSCULAR VOLUME 92 FL (80-99); MONOCYTES % (AUTO) 6.5 % (1.0-10.0); NEUTROPHILS % (AUTO) 76.7 % (45.0-75.0); PLATELET COUNT 128 K/UL (150-450); RED BLOOD COUNT 4.23 M/UL (4.70-6.10); RED CELL DISTRIBUTION WIDTH 11.1 % (11.6-14.8); WHITE BLOOD COUNT 7.2 K/UL (4.8-10.8)
[2018-11-11 18:12] LABS: ANION GAP 8 mmol/L (5-15); BLOOD UREA NITROGEN 24 mg/dL (7-18); CALCIUM 9.1 MG/DL (8.5-10.1); CARBON DIOXIDE 26 MMOL/L (21-32); CHLORIDE 112 MMOL/L (98-107); CREATININE 1.1 MG/DL (0.55-1.30); SODIUM 145 MMOL/L (136-145)
[2018-11-11 18:17] LABS: ALANINE AMINOTRANSFERASE 20 U/L (12-78); ALBUMIN 3.5 G/DL (3.4-5.0); ALKALINE PHOSPHATASE 88 U/L (46-116); ASPARTATE AMINO TRANSFERASE 22 U/L (15-37); BILIRUBIN,TOTAL 0.5 MG/DL (0.2-1.0)
--- NOTE | 2018-11-11 18:19 | Emergency Room Report ---
History of Present Illness General Chief Complaint: Behavioral Complaint Source: Patient Present Illness HPI 78-year-old male presents ED for evaluation. Patient states that [facility] Facility states that patient was agitated and aggressive with nursing staff today. Facility states patient appeared acutely confused and agitated. Upon arrival patient is calm and collected. Patient admits to getting into argument with nurse today. Per records patient does have a psychiatric history. Patient denies hearing voices. Denies SI or HI. Denies fevers or chills. No other aggravating relieving factors. Denies any other associated symptoms Allergies: Coded Allergies: NO KNOWN ALLERGIES (Unverified Allergy, Unknown, 11/29/14) Patient History Past Medical History: DM, HTN, AFib, COPD, seizures, psych hx Past Surgical History: pacemaker Pertinent Family History: none Social History: Denies: smoking, alcohol use, drug use Immunizations: UTD Reviewed Nursing Documentation: PMH: Agreed; PSxH: Agreed Nursing Documentation-PMH Past Medical History: No History, Except For Hx Cardiac Problems: Yes - Atrial Fibrillation Hx Hypertension: Yes Hx Pacemaker: Yes Hx COPD: Yes Hx Diabetes: Yes Hx Cancer: Yes Hx Gastrointestinal Problems: Yes Hx Neurological Problems: Yes Hx Seizures: Yes Review of Systems All Other Systems: negative except mentioned in HPI Physical Exam Vital Signs Date Time Temp Pulse Resp B/P (MAP) Pulse Ox O2 Delivery O2 Flow Rate FiO2 11/11/18 16:48 99.3 72 18 110/73 (85) 94 Room Air Sp02 EP Interpretation: reviewed, normal General Appearance: no apparent distress, alert, GCS 15, non-toxic, obese Head: normocephalic, atraumatic Eyes: bilateral eye normal inspection, bilateral eye PERRL ENT: hearing grossly normal, normal pharynx, no angioedema, normal voice Neck: full range of motion, supple/symm/no masses Respiratory: chest non-tender, lungs clear, normal breath sounds, speaking full sentences Cardiovascular #1: regular rate, rhythm, no edema Cardiovascular #2: 2+ carotid (R), 2+ carotid (L), 2+ radial (R), 2+ radial (L) , 2+ dorsalis pedis (R), 2+ dorsalis pedis (L) Gastrointestinal: normal bowel sounds, non tender, soft, non-distended, no guarding, no rebound Rectal: deferred Genitourinary: normal inspection, no CVA tenderness Musculoskeletal: back normal, gait/station normal, normal range of motion, non- tender Neurologic: alert, oriented x3, responsive, motor strength/tone normal, sensory intact, speech normal Psychiatric: anxious Reflexes: 3+ bicep (R), 3+ bicep (L), 3+ tricep (R), 3+ tricep (L), 3+ knee (R) , 3+ knee (L) Skin: other - see nursing notes Lymphatic: no adenopathy Medical Decision Making Diagnostic Impression: Primary Impression: Agitation Additional Impressions: Acute encephalopathy Behavioral disorder ER Course Hospital Course 78-year-old male presents ED for agitated behavior at the facility. History of psych Differential diagnoses include: psychosis, ETOH, dementia, delerium Clinical course Patient placed on stretcher. On cardiac nurse specialist with stable vitals. After initial history and physical, I ordered labs, UA Labs - no leukocytosis, hb/hct stable, electrolytes ok, UA negative Patient has history of mood instability and psychiatric history. Facility is not comfortable accepting patient back until medically optimized. Patient will require admission. Case discussed with Dr Pinto and they agreed to admit patient to their service for further care and support I feel this is a highly complex case requiring extensive working including EKG/ Rhythm strip, Xray/CT/US, Blood/urine lab work, repeat exams while in ED, and administration of strong opiates/narcotics for pain control, admission to hospital or close patient follow up. Diagnosis - agitation, acute encephalopathy, behavioral disorder Patient admitted to floor in serious condition Labs Test 11/11/18 17:28 11/11/18 17:38 White Blood Count 7.2 K/UL (4.8-10.8) Red Blood Count 4.23 M/UL (4.70-6.10) Hemoglobin 13.3 G/DL (14.2-18.0) Hematocrit 39.0 % (42.0-52.0) Mean Corpuscular Volume 92 FL (80-99) Mean Corpuscular Hemoglobin 31.5 PG (27.0-31.0) Mean Corpuscular Hemoglobin Concent 34.2 G/DL (32.0-36.0) Red Cell Distribution Width 11.1 % (11.6-14.8) Platelet Count 128 K/UL (150-450) Mean Platelet Volume 6.8 FL (6.5-10.1) Neutrophils (%) (Auto) 76.7 % (45.0-75.0) Lymphocytes (%) (Auto) 13.2 % (20.0-45.0) Monocytes (%) (Auto) 6.5 % (1.0-10.0) Eosinophils (%) (Auto) 2.9 % (0.0-3.0) Basophils (%) (Auto) 0.8 % (0.0-2.0) Sodium Level 145 MMOL/L (136-145) Potassium Level 4.0 MMOL/L (3.5-5.1) Chloride Level 112 MMOL/L (98-107) Carbon Dioxide Level 26 MMOL/L (21-32) Anion Gap 8 mmol/L (5-15) Blood Urea Nitrogen 24 mg/dL (7-18) Creatinine 1.1 MG/DL (0.55-1.30) Estimat Glomerular Filtration Rate mL/min (>60) Glucose Level 109 MG/DL (74-106) Calcium Level 9.1 MG/DL (8.5-10.1) Total Bilirubin 0.5 MG/DL (0.2-1.0) Aspartate Amino Transf (AST/SGOT) 22 U/L (15-37) Alanine Aminotransferase (ALT/SGPT) 20 U/L (12-78) Alkaline Phosphatase 88 U/L (46-116) Total Protein 7.0 G/DL (6.4-8.2) Albumin 3.5 G/DL (3.4-5.0) Globulin 3.5 g/dL Albumin/Globulin Ratio 1.0 (1.0-2.7) Salicylates Level 0.3 ug/mL (2.8-20) Acetaminophen Level < 2 MCG/ML (10-30) Serum Alcohol < 3 mg/dL Urine Color Yellow Urine Appearance Clear Urine pH 8 (4.5-8.0) Urine Specific [place] 1.015 (1.005-1.035) Urine Protein Negative (NEGATIVE) Urine Glucose (UA) Negative (NEGATIVE) Urine Ketones Negative (NEGATIVE) Urine Blood Negative (NEGATIVE) Urine Nitrite Negative (NEGATIVE) Urine Bilirubin Negative (NEGATIVE) Urine Urobilinogen Normal MG/DL (0.0-1.0) Urine Leukocyte Esterase 1+ (NEGATIVE) Urine RBC 0-2 /HPF (0 - 0) Urine WBC 2-4 /HPF (0 - 0) Urine Squamous Epithelial Cells None /LPF (NONE/OCC) Urine Amorphous Sediment Moderate /LPF (NONE) Urine Bacteria Few /HPF (NONE) Urine Opiates Screen Negative (NEGATIVE) Urine Barbiturates Screen Negative (NEGATIVE) Phencyclidine (PCP) Screen Negative (NEGATIVE) Urine Amphetamines Screen Negative (NEGATIVE) Urine Benzodiazepines Screen Negative (NEGATIVE) Urine Cocaine Screen Negative (NEGATIVE) Urine Marijuana (THC) Screen Negative (NEGATIVE) Last Vital Signs Date Time Temp Pulse Resp B/P (MAP) Pulse Ox O2 Delivery O2 Flow Rate FiO2 11/11/18 17:49 72 18 Room Air 11/11/18 16:48 99.3 110/73 (85) 94 Status: improved Disposition: ADMITTED INPATIENT Condition: Serious Referrals: Mickey Pinto DO (PCP) Sukumar Perez MD Nov 11, 2018 18:18
--- NOTE | 2018-11-11 18:52 | NUR ---
ED Nurse Note: UA sent to lab
--- NOTE | 2018-11-11 19:04 | NUR ---
HAND-OFF: Report given to CYNTHIA HALE. patient stable in bed.
[2018-11-11 19:13] LABS: APPEARANCE,URINE CLEAR; BILIRUBIN, URINE NEGATIVE (NEGATIVE); GLUCOSE, URINE (UA) NEGATIVE (NEGATIVE); KETONES,URINE NEGATIVE (NEGATIVE); LEUKOCYTE ESTERASE ,URINE 1+ (NEGATIVE); NITRITE,URINE NEGATIVE (NEGATIVE); PH,URINE 8 (4.5-8.0); PROTEIN,URINE NEGATIVE (NEGATIVE); UROBILINOGEN,URINE NORMAL MG/DL (0.0-1.0)
[2018-11-11 19:16] LABS: COLOR,URINE YELLOW
[2018-11-11 19:26] VITALS: BP_SYST 118; BP_SYST 96; BP_DIAS 56; BP_DIAS 76
--- NOTE | 2018-11-11 20:15 | NUR ---
ER Nurse Note: Pt awake and alert, VSS, RA, no signs of distress. IV in LT hand, infusing continous infusion at 200ml of NS. Pt denies pain. States pacemaker on LT upper chest with hx of a fib. All orders completed per ERMD orders. Pending admission. All safety measures met; will continue to montior.
--- NOTE | 2018-11-11 20:36 | NUR ---
ER Nurse Note: Report given to Yaneli RN in [place] for continutiy of care. All belongings accounted for. Pt stable.
[2018-11-11] MEDS: NovoLOG Insulin Flexpen SUBQ SCH (21:00)
[2018-11-11] MEDS ORDERED: Miralax 17gm pkt ORAL PRN (21:00)
[2018-11-11] MEDS ORDERED: LORazepam 1mg tab ORAL PRN (21:00)
[2018-11-11] MEDS ORDERED: LORazepam Inj 2mg/ml 1ml IV PRN ×2 (21:00)
--- NOTE | 2018-11-11 21:29 | NUR ---
NURSE NOTES: Admitted patient from ER, under Dr Pinto, transported via gurney. Report received from Cristal HORAN. Patient is alert and oriented. Verbally able to make needs known. Breathing on room air.No c/o pain or discomfort at this time. Belongings list verified and signed by patient, patient refused to send valuables for safekeeping. Admission assessment done. skin intact and IV site on left arm is patent. Admission orders acknowledged from Dr De La Cruz. Oriented patient to the unit. Bed in low and locked position. Call light within reach. Bed alarm applied. Patient will be monitored.
--- NOTE | 2018-11-11 22:00 | NUR ---
NURSE NOTES: Pt is in bed, awake and verbal. No acute distress noted.Vitals stable. Pt is calm now. Pt is somewhat confused. Pain medication will be given as ordered PRN. Fall precaution is in place. Bed locked low in position,side rails up and call light within reach. Bed alarm on. Pt will be monitored. Trainee Gayle JustinRN will be assisting in the care of this patient.
[2018-11-11] MEDS: Tamsulosin 0.4mg cap ORAL SCH (23:19)
[2018-11-11] MEDS: Zolpidem 5mg tab ORAL PRN (23:19)
[2018-11-11] MEDS: Morphine Sulfate 2mg/ml Inj(IV/IM USE ONLY) IVP PRN (23:21)
[2018-11-11] MEDS: Heparin 5000 units/ml inj SUBQ SCH (23:22)
[2018-11-12] VITALS: BP 104/60
--- NOTE | 2018-11-12 01:30 | NUR ---
NURSE NOTES: Patient is in bed, asleep. No c/o pain or discomfort at this time. Medications administered as ordered and assisted as needed.Bed in low and locked position Call light within reach. Patient will be monitored.
[2018-11-12 04:00] VITALS: BP 97/61
[2018-11-12] MEDS: NovoLOG Insulin Flexpen SUBQ SCH ×4 (06:11→21:00)
[2018-11-12 06:34] LABS: BASOPHILS % (AUTO) 0.6 % (0.0-2.0); EOSINOPHILS % (AUTO) 4.9 % (0.0-3.0); HEMATOCRIT 36.3 % (42.0-52.0); HEMOGLOBIN 12.1 G/DL (14.2-18.0); LYMPHOCYTES % (AUTO) 18.6 % (20.0-45.0); MEAN CORPUSCULAR VOLUME 93 FL (80-99); MONOCYTES % (AUTO) 11.5 % (1.0-10.0); NEUTROPHILS % (AUTO) 64.4 % (45.0-75.0); PLATELET COUNT 110 K/UL (150-450); RED BLOOD COUNT 3.92 M/UL (4.70-6.10); RED CELL DISTRIBUTION WIDTH 11.9 % (11.6-14.8); WHITE BLOOD COUNT 4.8 K/UL (4.8-10.8)
[2018-11-12 06:51] LABS: ALANINE AMINOTRANSFERASE 15 U/L (12-78); ALBUMIN 2.9 G/DL (3.4-5.0); ALBUMIN/GLOBULIN RATIO 0.9 (1.0-2.7); ALKALINE PHOSPHATASE 70 U/L (46-116); ANION GAP 10 mmol/L (5-15); ASPARTATE AMINO TRANSFERASE 20 U/L (15-37); BILIRUBIN,TOTAL 0.7 MG/DL (0.2-1.0); BLOOD UREA NITROGEN 15 mg/dL (7-18); CALCIUM 8.3 MG/DL (8.5-10.1); CARBON DIOXIDE 23 MMOL/L (21-32); CHLORIDE 112 MMOL/L (98-107); CHOLESTEROL 69 MG/DL (< 200); CREATININE 0.8 MG/DL (0.55-1.30); HDL CHOLESTEROL 29 MG/DL (40-60); POTASSIUM 3.5 MMOL/L (3.5-5.1); SODIUM 145 MMOL/L (136-145); TRIGLYCERIDES 44 MG/DL (30-150)
[2018-11-12] MEDS: Morphine Sulfate 2mg/ml Inj(IV/IM USE ONLY) IVP PRN ×2 (06:56→14:37)
--- NOTE | 2018-11-12 07:28 | NUR ---
HAND-OFF: Report given to AUNG Blandon.
--- NOTE | 2018-11-12 07:30 | NUR ---
NURSE NOTES: Received pt from MARÍA RN. Pt is alert and orient x4. pt is in RA, no SOB or acute respiratory distress noted. Pt has intact iv access LH 22G is running well. all needs attended, bed is locked and is in the lowest position. call light within easy reach. will continue to monitor.
[2018-11-12 08:00] VITALS: BP 101/63
[2018-11-12] MEDS: Digoxin 0.125mg tab ORAL SCH (08:54)
[2018-11-12] MEDS: Topiramate 100mg tab ORAL SCH (08:54)
[2018-11-12] MEDS: Heparin 5000 units/ml inj SUBQ SCH (09:01)
--- NOTE | 2018-11-12 11:27 | NUR ---
*-* NO INSURANCE INFORMATION IN THE BAR UNABLE TO SEND CLINICALS OR REVIEWS *-*
[2018-11-12 12:00] VITALS: BP 101/51
--- NOTE | 2018-11-12 14:15 | Consultation ---
History of Present Illness General Chief Complaint: Behavioral Complaint Present Illness Allergies: Coded Allergies: NO KNOWN ALLERGIES (Unverified Allergy, Unknown, 11/29/14) Uncoded Allergies: Sheep wool (Allergy, Unknown, 11/12/18) Medication History Scheduled Aspirin* (Aspir 81*), 81 MG ORAL DAILY, (Reported) Atorvastatin Calcium* (Lipitor*), 40 MG ORAL BEDTIME, (Reported) Bicalutamide (Casodex), 50 MG ORAL DAILY, (Reported) Calcium Carbonate/Vitamin D3 (Calcium + Vitamin D Tablet), 2 EACH PO DAILY, ( Reported) Cephalexin* (Keflex*), 500 MG ORAL BID, (Reported) Digoxin* (Digoxin*), 125 MCG ORAL DAILY, (Reported) Docusate Sodium* (Docusate Sodium*), 250 MG ORAL HS, (Reported) Docusate Sodium* (Colace*), 250 MG ORAL DAILY, (Reported) Docusate Sodium* (Docusate Sodium*), 250 MG ORAL DAILY, (Reported) Escitalopram Oxalate (Escitalopram Oxalate*), 5 MG ORAL BEDTIME, (Reported) Escitalopram Oxalate* (Lexapro*), 10 MG ORAL DAILY, (Reported) Finasteride* (Proscar*), 5 MG ORAL DAILY, (Reported) Heparin Sod (Porcine) (Heparin Sodium*), 5,000 UNITS SUBQ EVERY 12 HOURS, ( Reported) Insulin Aspart (Novolog), SUBQ AC+HS, (Reported) Insulin Regular, Human* (Novolin R*), 0 SUBQ .SLIDING SCALE, (Reported) Leuprolide Acetate (Lupron Depot), 7.5 MG IM MONTHLY ON THE , (Reported) Sennosides (Senokot), 2 TAB PO BID, (Reported) Sucralfate* (Carafate*), 1 GM ORAL TID AC, (Reported) Sucralfate* (Carafate*), 1 GM ORAL TID before meal, (Reported) Tamsulosin Hcl (Tamsulosin Hcl*), 0.4 MG ORAL BEDTIME, (Reported) Topiramate* (Topamax*), 100 MG ORAL DAILY, (Reported) Scheduled PRN Acetaminophen (Tylenol), 650 MG ORAL Q4HR PRN for Prn Pain/Headache/Temp > 101, (Reported) Ipratropium/Albuterol Sulfate (DuoNeb 0.5-3(2.5)mg/3ml), 3 ML HHN Q4HR PRN for Shortness of Breath, (Reported) Lorazepam* (Ativan*), 1 MG ORAL Q6HR PRN for For Anxiety, (Reported) Nitroglycerin (Nitrostat), 0.4 MG SL Q5M X3 DOSES PRN for CHEST PAIN, (Reported) Polyethylene Glycol 3350* (Miralax*), 17 GM ORAL DAILY PRN for Constipation, ( Reported) Zolpidem Tartrate* (Ambien*), 5 MG ORAL HS PRN for Insomnia, (Reported) Miscellaneous Medications Al Hydroxide/mg Hydroxide (Mag-Al Liquid), 30 ML GT, (Reported) Patient History Healthcare decision maker Resuscitation status Full Code Advanced Directive on File Physical Exam Last 24 Hour Vital Signs Date Time Temp Pulse Resp B/P (MAP) Pulse Ox O2 Delivery O2 Flow Rate FiO2 11/12/18 12:00 97.4 63 18 101/51 (68) 96 11/12/18 08:54 66 11/12/18 08:00 98.0 66 17 101/63 (76) 97 11/12/18 04:00 97.9 64 16 97/61 (73) 95 11/12/18 00:00 97.8 67 16 104/60 (75) 95 11/11/18 21:46 Room Air 11/11/18 20:36 97.1 62 14 96/56 96 Room Air 11/11/18 19:26 97.1 62 14 96/56 96 Room Air 11/11/18 17:49 72 18 Room Air 11/11/18 16:48 99.3 72 18 110/73 (85) 94 Room Air 11/11/18 16:48 99.3 72 18 110/73 94 Room Air Intake and Output 11/11/18 11/12/18 18:59 06:59 Output Total 600 ml Balance -600 ml Output Urine Total 600 ml # Voids 1 Laboratory Tests Test 11/11/18 17:28 11/11/18 17:38 11/12/18 05:35 White Blood Count 7.2 K/UL (4.8-10.8) 4.8 K/UL (4.8-10.8) Red Blood Count 4.23 M/UL (4.70-6.10) L 3.92 M/UL (4.70-6.10) L Hemoglobin 13.3 G/DL (14.2-18.0) L 12.1 G/DL (14.2-18.0) L Hematocrit 39.0 % (42.0-52.0) L 36.3 % (42.0-52.0) L Mean Corpuscular Volume 92 FL (80-99) 93 FL (80-99) Mean Corpuscular Hemoglobin 31.5 PG (27.0-31.0) H 30.8 PG (27.0-31.0) Mean Corpuscular Hemoglobin Concent 34.2 G/DL (32.0-36.0) 33.3 G/DL (32.0-36.0) Red Cell Distribution Width 11.1 % (11.6-14.8) L 11.9 % (11.6-14.8) Platelet Count 128 K/UL (150-450) L 110 K/UL (150-450) L Mean Platelet Volume 6.8 FL (6.5-10.1) 7.1 FL (6.5-10.1) Neutrophils (%) (Auto) 76.7 % (45.0-75.0) H 64.4 % (45.0-75.0) Lymphocytes (%) (Auto) 13.2 % (20.0-45.0) L 18.6 % (20.0-45.0) L Monocytes (%) (Auto) 6.5 % (1.0-10.0) 11.5 % (1.0-10.0) H Eosinophils (%) (Auto) 2.9 % (0.0-3.0) 4.9 % (0.0-3.0) H Basophils (%) (Auto) 0.8 % (0.0-2.0) 0.6 % (0.0-2.0) Sodium Level 145 MMOL/L (136-145) 145 MMOL/L (136-145) Potassium Level 4.0 MMOL/L (3.5-5.1) 3.5 MMOL/L (3.5-5.1) Chloride Level 112 MMOL/L (98-107) H 112 MMOL/L (98-107) H Carbon Dioxide Level 26 MMOL/L (21-32) 23 MMOL/L (21-32) Anion Gap 8 mmol/L (5-15) 10 mmol/L (5-15) Blood Urea Nitrogen 24 mg/dL (7-18) H 15 mg/dL (7-18) Creatinine 1.1 MG/DL (0.55-1.30) 0.8 MG/DL (0.55-1.30) Estimat Glomerular Filtration Rate mL/min (>60) mL/min (>60) Glucose Level 109 MG/DL (74-106) H 83 MG/DL (74-106) Calcium Level 9.1 MG/DL (8.5-10.1) 8.3 MG/DL (8.5-10.1) L Total Bilirubin 0.5 MG/DL (0.2-1.0) 0.7 MG/DL (0.2-1.0) Aspartate Amino Transf (AST/SGOT) 22 U/L (15-37) 20 U/L (15-37) Alanine Aminotransferase (ALT/SGPT) 20 U/L (12-78) 15 U/L (12-78) Alkaline Phosphatase 88 U/L (46-116) 70 U/L (46-116) Total Protein 7.0 G/DL (6.4-8.2) 6.1 G/DL (6.4-8.2) L Albumin 3.5 G/DL (3.4-5.0) 2.9 G/DL (3.4-5.0) L Globulin 3.5 g/dL 3.2 g/dL Albumin/Globulin Ratio 1.0 (1.0-2.7) 0.9 (1.0-2.7) L Salicylates Level 0.3 ug/mL (2.8-20) L Acetaminophen Level < 2 MCG/ML (10-30) L Serum Alcohol < 3 mg/dL Urine Color Yellow Urine Appearance Clear Urine pH 8 (4.5-8.0) Urine Specific [place] 1.015 (1.005-1.035) Urine Protein Negative (NEGATIVE) Urine Glucose (UA) Negative (NEGATIVE) Urine Ketones Negative (NEGATIVE) Urine Blood Negative (NEGATIVE) Urine Nitrite Negative (NEGATIVE) Urine Bilirubin Negative (NEGATIVE) Urine Urobilinogen Normal MG/DL (0.0-1.0) Urine Leukocyte Esterase 1+ (NEGATIVE) H Urine RBC 0-2 /HPF (0 - 0) H Urine WBC 2-4 /HPF (0 - 0) Urine Squamous Epithelial Cells None /LPF (NONE/OCC) Urine Amorphous Sediment Moderate /LPF (NONE) H Urine Bacteria Few /HPF (NONE) Urine Opiates Screen Negative (NEGATIVE) Urine Barbiturates Screen Negative (NEGATIVE) Phencyclidine (PCP) Screen Negative (NEGATIVE) Urine Amphetamines Screen Negative (NEGATIVE) Urine Benzodiazepines Screen Negative (NEGATIVE) Urine Cocaine Screen Negative (NEGATIVE) Urine Marijuana (THC) Screen Negative (NEGATIVE) Triglycerides Level 44 MG/DL (30-150) Cholesterol Level 69 MG/DL (< 200) LDL Cholesterol 39 mg/dL (<100) HDL Cholesterol 29 MG/DL (40-60) L Cholesterol/HDL Ratio 2.4 (3.3-4.4) L Microbiology Date/Time Source Procedure Growth Status 11/11/18 17:30 Rectum Received Height (Feet): 5 Height (Inches): 8.00 Weight (Pounds): 232 Medications Current Medications Medications (Trade) Dose Ordered Sig/Maliha Route PRN Reason Start Time Stop Time Status Last Admin Dose Admin Acetaminophen (Tylenol) 650 mg Q4H PRN ORAL fever 11/11/18 21:00 12/11/18 20:59 Atorvastatin Calcium (Lipitor) 40 mg BEDTIME ORAL 11/12/18 21:00 12/12/18 20:59 Calcium/Vitamin D (OsCal D) 2 tab DAILY ORAL 11/12/18 13:00 12/12/18 12:59 Dextrose (Dextrose 50%) 25 ml Q30M PRN IV Hypoglycemia 11/11/18 21:00 12/11/18 20:59 Dextrose (Dextrose 50%) 50 ml Q30M PRN IV Hypoglycemia 11/11/18 21:00 12/11/18 20:59 Digoxin (Lanoxin) 0.125 mg DAILY ORAL 11/12/18 09:00 12/12/18 08:59 11/12/18 08:54 Finasteride (Proscar) 5 mg DAILY ORAL 11/12/18 09:00 12/12/18 08:59 11/12/18 08:54 Heparin Sodium (Porcine) (Heparin 5000 units/ml) 5,000 units EVERY 12 HOURS SUBQ 11/11/18 21:00 12/11/18 20:59 11/12/18 09:01 Insulin Aspart (NovoLOG) BEFORE MEALS AND HS SUBQ 11/11/18 21:00 12/11/18 20:59 11/12/18 12:40 Lorazepam (Ativan 2mg/ml 1ml) 0.5 mg Q4H PRN IV For Anxiety 11/11/18 21:00 11/18/18 20:59 Lorazepam (Ativan) 1 mg Q6H PRN ORAL For Anxiety 11/11/18 21:00 11/18/18 20:59 Morphine Sulfate (Morphine Sulfate) 1 mg Q4H PRN IVP For Pain 11/11/18 21:00 11/18/18 20:59 11/12/18 06:56 Ondansetron HCl (Zofran) 4 mg Q6H PRN IVP Nausea & Vomiting 11/11/18 21:00 12/11/18 20:59 Polyethylene Glycol (Miralax) 17 gm HSPRN PRN ORAL Constipation 11/11/18 21:00 12/11/18 20:59 Tamsulosin HCl (Flomax) 0.4 mg BEDTIME ORAL 11/11/18 21:00 12/11/18 20:59 11/11/18 23:19 Topiramate (Topamax) 100 mg DAILY ORAL 11/12/18 09:00 12/12/18 08:59 11/12/18 08:54 Zolpidem Tartrate (Ambien) 5 mg HSPRN PRN ORAL Insomnia 11/11/18 21:00 11/18/18 20:59 11/11/18 23:19 Assessment/Plan Problem List: (1) COPD (chronic obstructive pulmonary disease) ICD Codes: J44.9 - Chronic obstructive pulmonary disease, unspecified SNOMED: 06152895 (2) Diabetes ICD Codes: E11.9 - Type 2 diabetes mellitus without complications SNOMED: 60191735 (3) HTN (hypertension) ICD Codes: I10 - Essential (primary) hypertension SNOMED: 71739390 Assessment/Plan: urine cultures IV abx symptomatic treatment respiratory treatment check electrolytes hold Heparin b/o low PLT Karen Jimenez MD Nov 12, 2018 14:15
--- NOTE | 2018-11-12 14:21 | NUR ---
NURSE NOTES: Dr CASPER visited pt and because PLT 110, ordered to D/C heparin and ordered SCD, noted and carried out. will continue to monitor.
[2018-11-12] MEDS: Calcium Carbonate 500mg w/Vit D 200iu tab ORAL SCH (14:31)
[2018-11-12 16:00] VITALS: BP 106/55
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
[2018-11-12] MEDS: Sucralfate 1gm tab ORAL SCH (17:09)
--- NOTE | 2018-11-12 17:15 | History and Physical Report ---
DATE OF ADMISSION: 11/11/2018 CONSULTANTS: 1. Karen Jimenez M.D. 2. Molina Tapia M.D. CHIEF COMPLAINT: Agitation, confusion, and encephalopathy. BRIEF HISTORY: This is a 78-year-old male from [facility] presented with the above-mentioned diagnosis, came to [facility], diagnosed with the above, admitted to medical floor for further treatment. Currently, slightly anxious in bed, no complaint. REVIEW OF SYSTEMS: No chest pain. No shortness of breath. No nausea, vomiting, or diarrhea. PAST MEDICAL HISTORY: Includes hypertension, seizure, BPH, COPD, GERD, anemia, hyperlipidemia, and insomnia. PAST SURGICAL HISTORY: Pacer. MEDICATIONS: Include Lipitor, Os-Sai, Lanoxin, Proscar, Flomax, Tylenol, MiraLAX, zolpidem, insulin, and heparin. ALLERGIES: Denies. SOCIAL HISTORY: No smoking. No alcohol. No intravenous drug abuse. FAMILY HISTORY: Noncontributory. PHYSICAL EXAMINATION: GENERAL: Slightly anxious in bed, oriented x2, in no acute distress. VITAL SIGNS: Temperature 97, pulse 63, respirations 18, and blood pressure 101/51. CARDIOVASCULAR: No murmurs. LUNGS: Distant and clear. ABDOMEN: Bowel sounds positive. Nontender. Nondistended. EXTREMITIES: No cyanosis, clubbing, or edema. NEUROLOGIC: The patient moves all extremities, slightly weak. LABORATORY AND DIAGNOSTIC DATA: Labs at this time show H and H are 12 and 36. Otherwise, platelets 110. BMP shows chloride 112. Calcium 8.3. Albumin 2.9. Urinalysis showed 1+ leukocyte esterase. ASSESSMENT: 1. UTI. 2. . 3. Encephalopathy. 4. Malnutrition. 5. Seizures. 6. BPH. 7. COPD. 8. GERD. 9. Hypertension. 10. Anemia. 11. Hyperlipidemia. 12. Insomnia. PLAN: 1. Antibiotics per Infectious Disease. 2. Blood pressure, seizure, and pain control. 3. Dietary followup. 4. Resume home medications. 5. Psychiatric treatment. Mickey Pinto D.O. DR: LUPE JOB#: [id number] CC:
--- NOTE | 2018-11-12 19:15 | NUR ---
HAND-OFF: Report given to LAZ ALLAN.
[2018-11-12 20:00] VITALS: BP 101/60
--- NOTE | 2018-11-12 20:00 | NUR ---
NURSE NOTES: RECEIVED PATIENT LYING IN BED, AWAKE, ALERT/ORIENTED X4, VERBALLY RESPONSIVE, DENIES PAIN. NO SIGNS AND SYMPTOMS OF ACUTE CARDIO RESPIRATORY DISTRESS/SHORTNESS OF BREATH, DENIES CHEST PAIN. NO COMPLAINTS OF GI DISCOMFORT, NO N/V/D, CONTINENT OF B/B, URINAL AT BEDSIDE. SEIZURE PRECAUTIONS/CONTACT ISOLATION OBSERVED AT ALL TIMES., SIDE RAILS PADDED FOR PREVENTIVE MEASURES. ASSISTED WITH COMFORT CARE. SIDE RAILS UP X3/BED IN LOWEST POSITION FOR SAFETY, ENCOURAGED PATIENT TO UTILIZE CALL LIGHT FOR ASSISTANCE, VERBALIZED UNDERSTANDING. AM LABS. NAD.
[2018-11-12] MEDS: Atorvastatin 20mg tab ORAL SCH (21:06)
[2018-11-12] MEDS: Tamsulosin 0.4mg cap ORAL SCH (21:06)
[2018-11-12] MEDS: Zolpidem 5mg tab ORAL PRN (21:14)
[2018-11-13 04:00] VITALS: BP 107/59
[2018-11-13] MEDS: NovoLOG Insulin Flexpen SUBQ SCH ×4 (06:30→20:46)
--- NOTE | 2018-11-13 06:31 | NUR ---
NURSE NOTES: BLOOD GLUCOSE LEVEL MONITORED VIA GLUCOMETER WITH RESULT 91MG/DL, ASYMPTOMATIC, NO SLIDING SCALE COVERAGE.
[2018-11-13] MEDS: Sucralfate 1gm tab ORAL SCH ×3 (06:49→17:16)
[2018-11-13 07:00] LABS: ANION GAP 7 mmol/L (5-15); BLOOD UREA NITROGEN 17 mg/dL (7-18); CALCIUM 8.4 MG/DL (8.5-10.1); CARBON DIOXIDE 25 MMOL/L (21-32); CHLORIDE 111 MMOL/L (98-107); CREATININE 0.9 MG/DL (0.55-1.30); POTASSIUM 3.8 MMOL/L (3.5-5.1); SODIUM 143 MMOL/L (136-145)
[2018-11-13 07:03] LABS: BASOPHILS % (AUTO) 0.8 % (0.0-2.0); EOSINOPHILS % (AUTO) 4.3 % (0.0-3.0); HEMATOCRIT 38.1 % (42.0-52.0); HEMOGLOBIN 12.6 G/DL (14.2-18.0); LYMPHOCYTES % (AUTO) 26.7 % (20.0-45.0); MEAN CORPUSCULAR VOLUME 93 FL (80-99); MONOCYTES % (AUTO) 10.7 % (1.0-10.0); NEUTROPHILS % (AUTO) 57.6 % (45.0-75.0); PLATELET COUNT 110 K/UL (150-450); RED BLOOD COUNT 4.11 M/UL (4.70-6.10); RED CELL DISTRIBUTION WIDTH 11.8 % (11.6-14.8); WHITE BLOOD COUNT 4.8 K/UL (4.8-10.8)
--- NOTE | 2018-11-13 07:30 | NUR ---
NURSE NOTES: Received pt from LAZ HORAN. Pt is alert and orient x4. pt is in RA, no SOB or acute respiratory distress noted. Pt has intact iv access LH 22G SL. Pt is eating breakfast independently. all needs attended, bed is locked and is in the lowest position. call light within easy reach. will continue to monitor.
[2018-11-13 08:00] VITALS: BP 116/69
--- NOTE | 2018-11-13 08:57 | General Progress Note ---
Assessment/Plan Problem List: (1) UTI (urinary tract infection) ICD Codes: N39.0 - Urinary tract infection, site not specified SNOMED: 10755132 (2) Behavioral disorder SNOMED: 414837022, 513800329 (3) Agitation ICD Codes: R45.1 - Restlessness and agitation SNOMED: 218021452, 260725713 (4) Acute encephalopathy ICD Codes: G93.40 - Encephalopathy, unspecified SNOMED: 82044750, 406877659 (5) HTN (hypertension) ICD Codes: I10 - Essential (primary) hypertension SNOMED: 66553368 (6) COPD (chronic obstructive pulmonary disease) ICD Codes: J44.9 - Chronic obstructive pulmonary disease, unspecified SNOMED: 39363849 (7) Anemia ICD Codes: D64.9 - Anemia, unspecified SNOMED: 124055200 Status: stable, progressing Assessment/Plan: pt diet abx cbc bmp am psyc transfer Subjective Constitutional: Reports: weakness Allergies: Coded Allergies: NO KNOWN ALLERGIES (Unverified Allergy, Unknown, 11/29/14) Uncoded Allergies: Sheep wool (Allergy, Unknown, 11/12/18) All Systems: reviewed and negative except above Objective Last 24 Hour Vital Signs Date Time Temp Pulse Resp B/P (MAP) Pulse Ox O2 Delivery O2 Flow Rate FiO2 11/13/18 08:00 97.7 61 17 116/69 (85) 93 11/13/18 04:00 98.8 59 20 107/59 (75) 94 11/12/18 21:00 Room Air 11/12/18 20:00 98.6 64 20 101/60 (74) 94 11/12/18 16:00 98.3 68 18 106/55 (72) 98 11/12/18 15:07 97.4 11/12/18 12:00 97.4 63 18 101/51 (68) 96 11/12/18 09:00 Room Air Intake and Output 11/12/18 11/13/18 19:00 07:00 Intake Total 860 ml 600 ml Output Total 700 ml Balance 860 ml -100 ml Intake Oral 860 ml 600 ml Output Urine Total 700 ml # Voids 6 # Bowel Movements 1 Laboratory Tests 11/13/18 05:30: White Blood Count 4.8, Red Blood Count 4.11L, Hemoglobin 12.6L, Hematocrit 38.1L , Mean Corpuscular Volume 93, Mean Corpuscular Hemoglobin 30.7, Mean Corpuscular Hemoglobin Concent 33.2, Red Cell Distribution Width 11.8, Platelet Count 110L, Mean Platelet Volume 6.4L, Neutrophils (%) (Auto) 57.6, Lymphocytes (%) (Auto) 26.7, Monocytes (%) (Auto) 10.7H, Eosinophils (%) (Auto) 4.3H, Basophils (%) (Auto) 0.8, Sodium Level 143, Potassium Level 3.8, Chloride Level 111H, Carbon Dioxide Level 25, Anion Gap 7, Blood Urea Nitrogen 17, Creatinine 0.9, Estimat Glomerular Filtration Rate , Glucose Level 89, Calcium Level 8.4L Height (Feet): 5 Height (Inches): 8.00 Weight (Pounds): 232 General Appearance: lethargic EENT: normal ENT inspection Neck: normal alignment Cardiovascular: normal peripheral pulses, normal rate, regular rhythm Respiratory/Chest: chest wall non-tender, lungs clear, normal breath sounds Abdomen: normal bowel sounds, non tender, soft Extremities: normal inspection Edema: no edema noted Arm (L), no edema noted Arm (R), no edema noted Leg (L), no edema noted Leg (R), no edema noted Pedal (L), no edema noted Pedal (R), no edema noted Generalized Neurologic: responsive, motor weakness Skin: normal pigmentation, warm/dry Mickey Pinto DO Nov 13, 2018 08:57
[2018-11-13] MEDS: Aspirin Baby 81mg ORAL SCH (09:51)
[2018-11-13] MEDS: Digoxin 0.125mg tab ORAL SCH (09:51)
[2018-11-13] MEDS: Topiramate 100mg tab ORAL SCH (09:51)
[2018-11-13] MEDS: Calcium Carbonate 500mg w/Vit D 200iu tab ORAL SCH (09:51)
--- NOTE | 2018-11-13 09:59 | NUR ---
P.T NOTE: P.T EVALUATION COMPLETED AND TX INITIATED. PLEASE REFER TO P.T EVALUATION FOR CURRENT FUNCTIONAL STATUS. PATIENT IS ALERT, 0 X 4 , PLEASANT AND COOPERATIVE. PATIENT DENIED C/O PAIN HOWEVER REPORTS GENERALIZED WEAKNESS. PATIENT CURRENTLY REQUIRE EXTENDED TIME AND SBA FOR BED MOBILITIES AND CGA X 1 FOR TRANSFERS AND GAIT/AMBULATION USING THE FWW. SKILLED P.T SERVICE IS WARRANTED TO INCREASE HIS STRENGTH, BALANCE AND ENDURANCE FOR RETURN TO [facility]. RECOMMEND DC TO PRIOR LIVING SET UP AT [facility]. THANK YOU FOR THIS REFERRAL.
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
[2018-11-13 12:00] VITALS: BP 119/70
--- NOTE | 2018-11-13 14:01 | Pulmonology Progress Note ---
Assessment/Plan Problems: (1) COPD (chronic obstructive pulmonary disease) (2) Diabetes (3) HTN (hypertension) Assessment/Plan better concerned that his old place wont take him back monitor BP symptomatic treatment Subjective ROS Limited/Unobtainable: No Constitutional: Reports: no symptoms HEENT: Repors: no symptoms Respiratory: Reports: no symptoms Allergies: Coded Allergies: NO KNOWN ALLERGIES (Unverified Allergy, Unknown, 11/29/14) Uncoded Allergies: Sheep wool (Allergy, Unknown, 11/12/18) Objective Last 24 Hour Vital Signs Date Time Temp Pulse Resp B/P (MAP) Pulse Ox O2 Delivery O2 Flow Rate FiO2 11/13/18 12:00 97.8 70 18 119/70 (86) 95 11/13/18 09:51 61 11/13/18 09:00 Room Air 11/13/18 08:00 97.7 61 17 116/69 (85) 93 11/13/18 04:00 98.8 59 20 107/59 (75) 94 11/12/18 21:00 Room Air 11/12/18 20:00 98.6 64 20 101/60 (74) 94 11/12/18 16:00 98.3 68 18 106/55 (72) 98 11/12/18 15:07 97.4 Intake and Output 11/12/18 11/13/18 18:59 06:59 Intake Total 860 ml 600 ml Output Total 700 ml Balance 860 ml -100 ml Intake Oral 860 ml 600 ml Output Urine Total 700 ml # Voids 6 # Bowel Movements 1 General Appearance: WD/WN HEENT: normocephalic, anicteric Respiratory/Chest: chest wall non-tender, normal breath sounds Cardiovascular: normal peripheral pulses Abdomen: normal bowel sounds Genitourinary: normal external genitalia Skin: no rash, no lesions Microbiology Date/Time Source Procedure Growth Status 11/11/18 17:30 Rectum Received Laboratory Tests 11/13/18 05:30: White Blood Count 4.8, Red Blood Count 4.11L, Hemoglobin 12.6L, Hematocrit 38.1L , Mean Corpuscular Volume 93, Mean Corpuscular Hemoglobin 30.7, Mean Corpuscular Hemoglobin Concent 33.2, Red Cell Distribution Width 11.8, Platelet Count 110L, Mean Platelet Volume 6.4L, Neutrophils (%) (Auto) 57.6, Lymphocytes (%) (Auto) 26.7, Monocytes (%) (Auto) 10.7H, Eosinophils (%) (Auto) 4.3H, Basophils (%) (Auto) 0.8, Sodium Level 143, Potassium Level 3.8, Chloride Level 111H, Carbon Dioxide Level 25, Anion Gap 7, Blood Urea Nitrogen 17, Creatinine 0.9, Estimat Glomerular Filtration Rate , Glucose Level 89, Calcium Level 8.4L Current Medications Medications (Trade) Dose Ordered Sig/Maliha Route PRN Reason Start Time Stop Time Status Last Admin Dose Admin Acetaminophen (Tylenol) 650 mg Q4H PRN ORAL fever 11/11/18 21:00 12/11/18 20:59 Aripiprazole (Abilify) 5 mg DAILY ORAL 11/13/18 09:00 12/13/18 08:59 11/13/18 09:52 Aspirin (ASA) 81 mg DAILY ORAL 11/13/18 09:00 12/13/18 08:59 11/13/18 09:51 Atorvastatin Calcium (Lipitor) 40 mg BEDTIME ORAL 11/12/18 21:00 12/12/18 20:59 11/12/18 21:06 Calcium/Vitamin D (OsCal D) 2 tab DAILY ORAL 11/12/18 13:00 12/12/18 12:59 11/13/18 09:51 Dextrose (Dextrose 50%) 25 ml Q30M PRN IV Hypoglycemia 11/11/18 21:00 12/11/18 20:59 Dextrose (Dextrose 50%) 50 ml Q30M PRN IV Hypoglycemia 11/11/18 21:00 12/11/18 20:59 Digoxin (Lanoxin) 0.125 mg DAILY ORAL 11/12/18 09:00 12/12/18 08:59 11/13/18 09:51 Docusate Sodium (Colace) 250 mg DAILY ORAL 11/13/18 18:00 12/13/18 17:59 Escitalopram Oxalate (Lexapro) 10 mg DAILY ORAL 11/13/18 09:00 12/13/18 08:59 11/13/18 09:53 Finasteride (Proscar) 5 mg DAILY ORAL 11/12/18 09:00 12/12/18 08:59 11/13/18 09:51 Insulin Aspart (NovoLOG) BEFORE MEALS AND HS SUBQ 11/11/18 21:00 12/11/18 20:59 11/12/18 12:40 Lorazepam (Ativan 2mg/ml 1ml) 0.5 mg Q4H PRN IV For Anxiety 11/11/18 21:00 11/18/18 20:59 Lorazepam (Ativan) 1 mg Q6H PRN ORAL For Anxiety 11/11/18 21:00 11/18/18 20:59 Morphine Sulfate (Morphine Sulfate) 1 mg Q4H PRN IVP For Pain 11/11/18 21:00 11/18/18 20:59 11/12/18 14:37 Ondansetron HCl (Zofran) 4 mg Q6H PRN IVP Nausea & Vomiting 11/11/18 21:00 12/11/18 20:59 Polyethylene Glycol (Miralax) 17 gm HSPRN PRN ORAL Constipation 11/11/18 21:00 12/11/18 20:59 Sucralfate (Carafate) 1 gm TIAC ORAL 11/12/18 16:30 12/12/18 16:29 11/13/18 12:14 Tamsulosin HCl (Flomax) 0.4 mg BEDTIME ORAL 11/11/18 21:00 12/11/18 20:59 11/12/18 21:06 Topiramate (Topamax) 100 mg DAILY ORAL 11/12/18 09:00 12/12/18 08:59 11/13/18 09:51 Zolpidem Tartrate (Ambien) 5 mg HSPRN PRN ORAL Insomnia 11/11/18 21:00 11/18/18 20:59 11/12/18 21:14 Karen Jimenez MD Nov 13, 2018 14:01
[2018-11-13 16:00] VITALS: BP 117/81
[2018-11-13] MEDS: Docusate 250mg cap ORAL SCH (17:18)
--- NOTE | 2018-11-13 19:20 | NUR ---
NURSE NOTES: Patient is in bed, awake, alert and verbal. Breathing on room air with no signs of distress or SOB noted. IV site on left arm is patent and intact. Bed locked and in lowest position. Bed alarm is on. Call light in reach.Patient will be monitored..
--- NOTE | 2018-11-13 19:21 | NUR ---
HAND-OFF: Report given to MARÍA HORAN.
[2018-11-13 20:00] VITALS: BP 94/53
--- NOTE | 2018-11-13 20:30 | NUR ---
NURSE NOTES: Patient is in bed, awake, alert and verbal. Breathing on room air with no signs of distress or SOB noted. IV site on left arm is patent and intact. Bed locked and in lowest position. Bed alarm is on. Call light in reach.Patient will be monitored. Trainee, Gayle JustinRN will be assisting in the care of this patient.
[2018-11-13] MEDS: Atorvastatin 20mg tab ORAL SCH (20:34)
[2018-11-13] MEDS: Tamsulosin 0.4mg cap ORAL SCH (20:34)
[2018-11-13] MEDS: Morphine Sulfate 2mg/ml Inj(IV/IM USE ONLY) IVP PRN (20:35)
[2018-11-13] MEDS: Zolpidem 5mg tab ORAL PRN (20:42)
--- NOTE | 2018-11-14 01:00 | Consultation ---
DATE OF CONSULTATION: 11/13/2018 NOTE: POOR AUDIO CONSULTING PHYSICIAN: Molina Tapia M.D. HISTORY OF PRESENT ILLNESS: This is a 78-year-old male patient with agitation. This patient came to the hospital from [facility] and when he came in, he appeared to be very agitated and irritable. I saw and assessed him at bedside. He is very demanding with the nurses, I am seeing because he had some issues discussed with nurses but apparently this patient came from [facility] he came into the ER, he was agitated, very anxious, mood labile. He has a history of bipolar 2 disorder. He stated the nurses shelter and stated he did not want to talk about it . PAST MEDICAL HISTORY: He has a history of hypertension, seizure disorder, BPH, COPD, GERD, anemia, hyperlipidemia. ALLERGIES: He has no known drug allergies. SUBSTANCE ABUSE HISTORY: Denies drug and alcohol use. FAMILY PSYCHIATRIC HISTORY: Denies. PAIN ASSESSMENT: . DEVELOPMENTAL PROBLEMS: Denies. SOCIAL HISTORY: The patient is financially supported by [employer] and Medicare. PAST PSYCHIATRIC HISTORY: The patient has history of bipolar 2, rule out schizoaffective, bipolar type. STRENGTHS: He is motivated to get better and has a place to live. WEAKNESSES: He is impulsive and minimal support system. MENTAL STATUS EXAMINATION: This is a 78-year-old male patient. Appearance is disheveled. Attitude, irritable and agitated. Affect, guarded and restricted. Intellect poor because he has no current events, does not know last four presidents. Mood, depressed and anxious. Motor activity, psychomotor agitation. Attention span is poor because he cannot do serial sevens or spell world backwards. Orientation x2, he is oriented to person and place. No time, situation. Speech is pressured, hyperverbal. Thought process, disorganized and illogical. Thought content, he has paranoid delusions . Abstract reasoning is poor because he does not understand proverbs, only has concrete thinking. Insight is poor. He does not recognize psych disorder. Judgment is poor. . Short-term memory appeared to be reduced. with good short-term memory. Long-term memory is intact based on the knowledge of long-term events in his life his gait is normal. . DIAGNOSES: 1. Bipolar 2, rule out schizoaffective, bipolar type. 2. Secondary . 3. Medical is hypertension, seizure disorder, BPH, COPD, GERD, anemia, hyperlipidemia. 4. Psychosocial stressors, financial. 5. Function impairment, severe. 6. mild. PLAN: Plan for this patient is to treat with medication regimen of Topamax 100 mg daily as well as Ativan 1 mg every 6 hours p.r.n. anxiety and agitation. . Treat this patient with a dose of Lexapro at a dose 10 mg daily and also treat the patient with a medication regimen of . Also treat the patient with mood stabilizer such as Abilify at a dose of 5 mg daily. Provided with 20 minutes of cognitive behavioral therapy. A 20 minutes of cognitive behavioral therapy was provided to help him identify his automatic negative thoughts and help to convert his negative thoughts to more positive thoughts to reduce depression, anxiety, and mood lability and he will continue to be followed by Psychiatry throughout his hospital course. Chart reviewed. Discussed with staff. Seen and assessed at bedside. Molina Tapia M.D. DR: SHAYE JOB#: [id number] CC:
--- NOTE | 2018-11-14 02:21 | NUR ---
NURSE NOTES: Pt is in bed asleep. No C/O pain or discomfort @this time. Meds administered as ordered and assisted as needed. Bed in low and locked position, bed alarm is on. Call light within reach, walker at bedside. Pt will be monitored.
--- NOTE | 2018-11-14 04:30 | NUR ---
NURSE NOTES: Pt refused to take his vitals @ 4 o clock.
[2018-11-14] MEDS: Sucralfate 1gm tab ORAL SCH ×5 (06:02→20:40)
[2018-11-14] MEDS: NovoLOG Insulin Flexpen SUBQ SCH ×4 (06:06→21:00)
[2018-11-14 06:58] LABS: ANION GAP 8 mmol/L (5-15); BLOOD UREA NITROGEN 24 mg/dL (7-18); CALCIUM 8.7 MG/DL (8.5-10.1); CARBON DIOXIDE 24 MMOL/L (21-32); CHLORIDE 111 MMOL/L (98-107); POTASSIUM 3.8 MMOL/L (3.5-5.1); SODIUM 143 MMOL/L (136-145)
[2018-11-14 07:00] LABS: BASOPHILS % (AUTO) 0.6 % (0.0-2.0); EOSINOPHILS % (AUTO) 3.7 % (0.0-3.0); HEMATOCRIT 38.9 % (42.0-52.0); HEMOGLOBIN 13.2 G/DL (14.2-18.0); MEAN CORPUSCULAR VOLUME 92 FL (80-99); MONOCYTES % (AUTO) 8.4 % (1.0-10.0); NEUTROPHILS % (AUTO) 68.2 % (45.0-75.0); PLATELET COUNT 124 K/UL (150-450); RED BLOOD COUNT 4.24 M/UL (4.70-6.10); RED CELL DISTRIBUTION WIDTH 11.7 % (11.6-14.8); WHITE BLOOD COUNT 6.1 K/UL (4.8-10.8)
--- NOTE | 2018-11-14 07:15 | NUR ---
HAND-OFF: Report given to Devante Vaca and Roxanne jarrell RN..
--- NOTE | 2018-11-14 07:20 | NUR ---
NURSE NOTES: Patient is in bed, awake, alert and verbal. Breathing on room air with no signs of distress or SOB noted. IV site on left arm is patent and intact. Bed locked and in lowest position. Bed alarm is on. Call light in reach.Patient will be monitored.. Addendum: 11/15/18 at 0235 by Cee Justin RN NURSE NOTES: Actual time of documentation is 11/14/18 @9511
--- NOTE | 2018-11-14 07:27 | Pulmonology Progress Note ---
Assessment/Plan Problems: (1) COPD (chronic obstructive pulmonary disease) (2) Diabetes (3) HTN (hypertension) Assessment/Plan no new complains all reviewed better concerned that his old place wont take him back monitor BP symptomatic treatment Subjective ROS Limited/Unobtainable: No Constitutional: Reports: no symptoms HEENT: Repors: no symptoms Respiratory: Reports: no symptoms Allergies: Coded Allergies: NO KNOWN ALLERGIES (Unverified Allergy, Unknown, 11/29/14) Uncoded Allergies: Sheep wool (Allergy, Unknown, 11/12/18) Objective Last 24 Hour Vital Signs Date Time Temp Pulse Resp B/P (MAP) Pulse Ox O2 Delivery O2 Flow Rate FiO2 11/13/18 21:00 Room Air 11/13/18 20:00 97.9 62 18 94/53 (67) 96 11/13/18 20:00 97.9 62 18 94/53 (67) 95 11/13/18 16:00 98.5 76 18 117/81 (93) 95 11/13/18 12:00 97.8 70 18 119/70 (86) 95 11/13/18 09:51 61 11/13/18 09:00 Room Air 11/13/18 08:00 97.7 61 17 116/69 (85) 93 Intake and Output 11/13/18 11/14/18 19:00 07:00 Intake Total 650 ml Output Total 450 ml Balance 650 ml -450 ml Other 650 ml Output Urine Total 450 ml # Voids 4 General Appearance: WD/WN HEENT: normocephalic, atraumatic Respiratory/Chest: chest wall non-tender, normal breath sounds Cardiovascular: normal peripheral pulses, normal rate Abdomen: normal bowel sounds, no organomegaly Genitourinary: normal external genitalia Extremities: no clubbing Neurologic/Psychiatric: abnormal gait Microbiology Date/Time Source Procedure Growth Status 11/11/18 17:30 Nasal Nares MRSA Culture - Final Staphylococcus Aureus - Mrsa Complete 11/11/18 17:30 Rectum - Final NO CARBAPENEM-RESISTANT ENTEROBACTERI... Complete 11/11/18 17:30 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 Complete Laboratory Tests 11/14/18 05:55: White Blood Count 6.1, Red Blood Count 4.24L, Hemoglobin 13.2L, Hematocrit 38.9L , Mean Corpuscular Volume 92, Mean Corpuscular Hemoglobin 31.2H, Mean Corpuscular Hemoglobin Concent 34.0, Red Cell Distribution Width 11.7, Platelet Count 124L, Mean Platelet Volume 6.7, Neutrophils (%) (Auto) 68.2, Lymphocytes ( %) (Auto) 19.0L, Monocytes (%) (Auto) 8.4, Eosinophils (%) (Auto) 3.7H, Basophils (%) (Auto) 0.6, Sodium Level 143, Potassium Level 3.8, Chloride Level 111H, Carbon Dioxide Level 24, Anion Gap 8, Blood Urea Nitrogen 24H, Creatinine 1.0, Estimat Glomerular Filtration Rate , Glucose Level 95, Calcium Level 8.7 Current Medications Medications (Trade) Dose Ordered Sig/Maliha Route PRN Reason Start Time Stop Time Status Last Admin Dose Admin Acetaminophen (Tylenol) 650 mg Q4H PRN ORAL fever 11/11/18 21:00 12/11/18 20:59 Aripiprazole (Abilify) 5 mg DAILY ORAL 11/13/18 09:00 12/13/18 08:59 11/13/18 09:52 Aspirin (ASA) 81 mg DAILY ORAL 11/13/18 09:00 12/13/18 08:59 11/13/18 09:51 Atorvastatin Calcium (Lipitor) 40 mg BEDTIME ORAL 11/12/18 21:00 12/12/18 20:59 11/13/18 20:34 Calcium/Vitamin D (OsCal D) 2 tab DAILY ORAL 11/12/18 13:00 12/12/18 12:59 11/13/18 09:51 Dextrose (Dextrose 50%) 25 ml Q30M PRN IV Hypoglycemia 11/11/18 21:00 12/11/18 20:59 Dextrose (Dextrose 50%) 50 ml Q30M PRN IV Hypoglycemia 11/11/18 21:00 12/11/18 20:59 Digoxin (Lanoxin) 0.125 mg DAILY ORAL 11/12/18 09:00 12/12/18 08:59 11/13/18 09:51 Docusate Sodium (Colace) 250 mg DAILY ORAL 11/13/18 18:00 12/13/18 17:59 11/13/18 17:18 Escitalopram Oxalate (Lexapro) 10 mg DAILY ORAL 11/13/18 09:00 12/13/18 08:59 11/13/18 09:53 Finasteride (Proscar) 5 mg DAILY ORAL 11/12/18 09:00 12/12/18 08:59 11/13/18 09:51 Insulin Aspart (NovoLOG) BEFORE MEALS AND HS SUBQ 11/11/18 21:00 12/11/18 20:59 11/14/18 06:06 Lorazepam (Ativan 2mg/ml 1ml) 0.5 mg Q4H PRN IV For Anxiety 11/11/18 21:00 11/18/18 20:59 Lorazepam (Ativan) 1 mg Q6H PRN ORAL For Anxiety 11/11/18 21:00 11/18/18 20:59 Morphine Sulfate (Morphine Sulfate) 1 mg Q4H PRN IVP For Pain 11/11/18 21:00 11/18/18 20:59 11/13/18 20:35 Ondansetron HCl (Zofran) 4 mg Q6H PRN IVP Nausea & Vomiting 11/11/18 21:00 12/11/18 20:59 Polyethylene Glycol (Miralax) 17 gm HSPRN PRN ORAL Constipation 11/11/18 21:00 12/11/18 20:59 Sucralfate (Carafate) 1 gm TIAC ORAL 11/12/18 16:30 12/12/18 16:29 11/14/18 06:02 Tamsulosin HCl (Flomax) 0.4 mg BEDTIME ORAL 11/11/18 21:00 12/11/18 20:59 11/13/18 20:34 Topiramate (Topamax) 100 mg DAILY ORAL 11/12/18 09:00 12/12/18 08:59 11/13/18 09:51 Zolpidem Tartrate (Ambien) 5 mg HSPRN PRN ORAL Insomnia 11/11/18 21:00 11/18/18 20:59 11/13/18 20:42 Karen Jimenez MD Nov 14, 2018 07:27
[2018-11-14 08:00] VITALS: BP 120/62
[2018-11-14] MEDS: Docusate 250mg cap ORAL SCH (09:00)
[2018-11-14] MEDS: Topiramate 100mg tab ORAL SCH (09:01)
[2018-11-14] MEDS: Calcium Carbonate 500mg w/Vit D 200iu tab ORAL SCH (09:01)
[2018-11-14] MEDS: Aspirin Baby 81mg ORAL SCH (09:01)
[2018-11-14] MEDS: Digoxin 0.125mg tab ORAL SCH (09:04)
--- NOTE | 2018-11-14 10:49 | General Progress Note ---
Assessment/Plan Problem List: (1) UTI (urinary tract infection) ICD Codes: N39.0 - Urinary tract infection, site not specified SNOMED: 36496123 (2) Behavioral disorder SNOMED: 143950777, 220659283 (3) Agitation ICD Codes: R45.1 - Restlessness and agitation SNOMED: 511362469, 835734355 (4) Acute encephalopathy ICD Codes: G93.40 - Encephalopathy, unspecified SNOMED: 88930393, 288315128 (5) HTN (hypertension) ICD Codes: I10 - Essential (primary) hypertension SNOMED: 08486833 (6) COPD (chronic obstructive pulmonary disease) ICD Codes: J44.9 - Chronic obstructive pulmonary disease, unspecified SNOMED: 33566964 (7) Anemia ICD Codes: D64.9 - Anemia, unspecified SNOMED: 688422584 Status: stable, progressing Assessment/Plan: pt diet abx cbc bmp am aru eval Subjective Constitutional: Reports: weakness Allergies: Coded Allergies: NO KNOWN ALLERGIES (Unverified Allergy, Unknown, 11/29/14) Uncoded Allergies: Sheep wool (Allergy, Unknown, 11/12/18) All Systems: reviewed and negative except above Subjective sleepy calm Objective Last 24 Hour Vital Signs Date Time Temp Pulse Resp B/P (MAP) Pulse Ox O2 Delivery O2 Flow Rate FiO2 11/14/18 09:04 62 11/14/18 08:00 97.5 62 18 120/62 (81) 95 11/13/18 21:00 Room Air 11/13/18 20:00 97.9 62 18 94/53 (67) 96 11/13/18 20:00 97.9 62 18 94/53 (67) 95 11/13/18 16:00 98.5 76 18 117/81 (93) 95 11/13/18 12:00 97.8 70 18 119/70 (86) 95 Intake and Output 11/13/18 11/14/18 19:00 07:00 Intake Total 650 ml Output Total 450 ml Balance 650 ml -450 ml Other 650 ml Output Urine Total 450 ml # Voids 4 Laboratory Tests 11/14/18 05:55: White Blood Count 6.1, Red Blood Count 4.24L, Hemoglobin 13.2L, Hematocrit 38.9L , Mean Corpuscular Volume 92, Mean Corpuscular Hemoglobin 31.2H, Mean Corpuscular Hemoglobin Concent 34.0, Red Cell Distribution Width 11.7, Platelet Count 124L, Mean Platelet Volume 6.7, Neutrophils (%) (Auto) 68.2, Lymphocytes ( %) (Auto) 19.0L, Monocytes (%) (Auto) 8.4, Eosinophils (%) (Auto) 3.7H, Basophils (%) (Auto) 0.6, Sodium Level 143, Potassium Level 3.8, Chloride Level 111H, Carbon Dioxide Level 24, Anion Gap 8, Blood Urea Nitrogen 24H, Creatinine 1.0, Estimat Glomerular Filtration Rate , Glucose Level 95, Calcium Level 8.7 Height (Feet): 5 Height (Inches): 8.00 Weight (Pounds): 232 General Appearance: lethargic EENT: normal ENT inspection Neck: normal alignment Cardiovascular: normal peripheral pulses, normal rate, regular rhythm Respiratory/Chest: chest wall non-tender, lungs clear, normal breath sounds Abdomen: normal bowel sounds, non tender, soft Extremities: normal inspection Edema: no edema noted Arm (L), no edema noted Arm (R), no edema noted Leg (L), no edema noted Leg (R), no edema noted Pedal (L), no edema noted Pedal (R), no edema noted Generalized Neurologic: motor weakness Skin: normal pigmentation, warm/dry Mickey Pinto DO Nov 14, 2018 10:49
--- NOTE | 2018-11-14 11:45 | Progress Note ---
DATE: 11/14/2018 SUBJECTIVE: This is a 78-year-old male patient with agitation, acute encephalopathy. He still has some mood lability, confusion, disorganized thought process. He was seen and assessed at bedside today. consultation requested because the patient has extreme mood lability and agitation, worsened by stress of his medical illness. MENTAL STATUS EXAMINATION: This is a 78-year-old male. Appearance is disheveled. Attitude, irritable and agitated. Affect, guarded and restricted. Intellect, poor. Mood, depressed and anxious. Motor activity, psychomotor agitation. Attention span is poor. Orientation x2. Speech is low volume, slurred. Thought process, disorganized and illogical. Insight and judgment is poor DIAGNOSIS: Paranoid schizophrenia, rule out schizoaffective bipolar type. PLAN: I am going to continue treatment with Lexapro and his mood stabilizing medications. Provided him with 20 minutes of cognitive behavioral therapy to help him identify his automatic negative thoughts help him convert his negative thoughts to more positive thoughts to reduce depression, anxiety, and mood lability. A 20 minutes of cognitive behavioral therapy provided. Chart reviewed. Discussed with staff. Seen and assessed at bedside. Molina Tapia M.D. DR: SHAYE JOB#: [id number] CC:
--- NOTE | 2018-11-14 11:52 | NUR ---
NURSE NOTES: Received report from AUNG Araujo. Pt is in bed awake, alert, oriented, on RA, IV site intact. No apparent distress noted. Bed locked in lowest position, side rails up, call light within reach.
[2018-11-14 12:00] VITALS: BP 103/56
--- NOTE | 2018-11-14 15:51 | NUR ---
NURSE NOTES: PT REQUESTS TO INCREASE PROSCAR 5MG TO 10MG. DR COPPOLA AT BEDSIDE AND MADE AWARE OF PT'S REQUEST. PER DR COPPOLA, DO NOT INCREASE CURRENT PROSCAR DOSE.
[2018-11-14 16:00] VITALS: BP 131/76
--- NOTE | 2018-11-14 17:32 | NUR ---
CASE MANAGEMENT: REVIEW 11/13/2018 SI: AGITATION. ACUTE ENCEPHALOPATHY T 97.9 HR 62 RR 18 B/P 94/53 SATS 95% ON RA LABS: CL CA 8.4 IS:LIPITOR PO QHS DIGOXIN PO QD PROSCAR PO QD TOPAMAX PO QD ASA PO QD ABILIFY PO QD LEXAPRO PO QD INSULIN ASPART SUBQ AC/HS : TO MED/SURG [facility] DCP: NOW HOMELESS 11/14/2018 SI: AGITATION. ACUTE ENCEPHALOPATHY T 98.8 HR 79 RR 17 B/P 131/76 SATS 95% ON RA CL 111 BUN 24 PSA 149.02 IS:LIPITOR PO QHS DIGOXIN PO QD PROSCAR PO QD TOPAMAX PO QD ASA PO QD ABILIFY PO QD LEXAPRO PO QD INSULIN ASPART SUBQ AC/HS : TO MED/SURG 4 [facility] DCP: NOW HOMELESS
--- NOTE | 2018-11-14 18:15 | Consultation ---
DATE OF CONSULTATION: 11/14/2018 CONSULTING PHYSICIAN: Gabino Segal M.D. REFERRING PHYSICIAN: Mickey Pinto D.O. REASON FOR CONSULTATION: For followup of the prostate cancer and lower urinary tract symptoms. HISTORY OF PRESENT ILLNESS: This is a 78-year-old male. He is known to me from previous evaluations. The patient has a history of prostate cancer, which was diagnosed a number of years ago. However, I do not believe he has had any specific treatments because of lack of follow-up. I did see him in the hospital during the last visit at which time, his PSA was significantly elevated of 126. Metastatic workup was ordered including a CT scan, which was negative. However, the patient refused to have a bone scan. He did have an outpatient followup, which he missed. He is able to urinate. He has some urinary frequency. Follow-up evaluation has been requested. PAST MEDICAL HISTORY: Significant for above, also history of hypertension, seizure disorder, COPD, GERD, hyperlipidemia, and insomnia. PAST SURGICAL HISTORY: He has a pacemaker. Other surgeries are unknown. CURRENT MEDICATIONS: Here in the hospital, the patient is on Colace, aspirin, Abilify, Lexapro, Lipitor, Carafate, Os-Sai, Lanoxin, Proscar, Topamax, Ativan, Flomax, MiraLAX, Zofran, Ambien, insulin. ALLERGIES: No known drug allergies. SOCIAL HISTORY: He is a [facility]. FAMILY HISTORY: Noncontributory. REVIEW OF SYSTEMS: As above. PHYSICAL EXAMINATION: GENERAL: An elderly male, obese. VITAL SIGNS: Temperature 97.5, blood pressure 120/62, pulse 62, and respirations 18. HEENT: Normocephalic. NECK: Supple. ABDOMEN: Soft. EXTREMITIES: No clubbing or cyanosis. LABORATORY DATA: BUN is 24 and creatinine 1.0. White count 6.1, hemoglobin 13.2, and platelets 124,000. UA showed 2 to 4 wbc's and 1+ leukocyte esterase. DIAGNOSTIC IMAGING STUDIES: The patient had a CT scan of the abdomen and pelvis back in September of this year. There was mention of nonobstructing stones in the left kidney and bilateral renal cysts. There were no mention of adenopathy. IMPRESSION: 1. History of prostate cancer, likely advanced. 2. BPH. 3. Lower urinary tract symptoms. 4. UTI history. 5. Hematuria history. 6. Nephrolithiasis. 7. Renal cyst. 8. Probable neurogenic bladder. PLAN AND DISCUSSION: The patient is to be monitored clinically. He is to continue with Flomax and Proscar as ordered. The patient is requesting to have a repeat PSA, which I will order. I again recommend metastatic workup. I would recommend to get a bone scan again if the patient allows. He will likely need to be on Lupron. I would also consider Casodex, but I do not know if he has been on it recently. Thank you, Dr. Pinto, for asking me to see this patient in consultation. Gabino Segal M.D. DR: LOC JOB#: [id number] CC: Molina Tapia M.D.; Fax#: [phone]
--- NOTE | 2018-11-14 19:32 | NUR ---
NURSE NOTES: PT COMPLAINS OF UPSET STOMACH. DR CASPER MADE AWARE, WITH NEW ORDERS FOR PROTONIX 40MG PO DAILY AND SUCRALFATE 1GM PO TID. ORDERS ENTERED.
--- NOTE | 2018-11-14 19:33 | NUR ---
HAND-OFF: Report given to Cassie HOBSON RN.
[2018-11-14 20:00] VITALS: BP 103/59
[2018-11-14] MEDS: Tamsulosin 0.4mg cap ORAL SCH (20:40)
[2018-11-14] MEDS: Atorvastatin 20mg tab ORAL SCH (20:42)
[2018-11-14] MEDS: Zolpidem 5mg tab ORAL PRN (20:42)
[2018-11-14] MEDS: Morphine Sulfate 2mg/ml Inj(IV/IM USE ONLY) IVP PRN (20:43)
--- NOTE | 2018-11-14 21:45 | NUR ---
NURSE NOTES: Patient is in bed, awake, alert and verbal. Breathing on room air with no signs of distress or SOB noted. IV site on left arm is patent and intact. BS 97. Pt was given a sandwich per request. Bed locked and in lowest position. Bed alarm is on. Call light in reach.Patient will be monitored. Trainee, Gayle JustinRN will be assisting in the care of this patient.
--- NOTE | 2018-11-15 00:32 | NUR ---
NURSE NOTES: Pt refused to take vital signs @ midnight(0000)
[2018-11-15 04:00] VITALS: BP 98/60
--- NOTE | 2018-11-15 05:57 | NUR ---
NURSE NOTES: Pt refused blood draw for labs ( CBC, BMP) despite education and encouragement multiple times.
[2018-11-15] MEDS: NovoLOG Insulin Flexpen SUBQ SCH ×4 (06:30→21:20)
--- NOTE | 2018-11-15 06:37 | NUR ---
NURSE NOTES: Pt refused Blood draw from PICC line for morning labs despite education and encouragement multiple times. Fruit [employer] Nut Grower Renee and charge nurse Katarzyna Gaspar aware. Next shift RN will be informed. Addendum: 11/15/18 at 0641 by MARÍA HOBSON RN RN Disregard above note; wrong patient.
--- NOTE | 2018-11-15 06:43 | NUR ---
NURSE NOTES: Pt is in bed, asleep. No acute distress noted. BS 89.
--- NOTE | 2018-11-15 07:27 | NUR ---
HAND-OFF: Report given to Eleanor HORAN..
[2018-11-15 08:00] VITALS: BP 109/56
--- NOTE | 2018-11-15 08:00 | NUR ---
NURSE NOTES: Patient awake ,alert and oriented,respirations unlabored..Breakfast at bed side,patient does not want breakfast at tis time.Patient voided jay color urine.Call light within reach.
--- NOTE | 2018-11-15 08:57 | Urology Progress Note ---
Assessment/Plan Status: stable, progressing Assessment/Plan: 1. History of prostate cancer, likely advanced. 2. BPH. 3. Lower urinary tract symptoms. 4. UTI history. 5. Hematuria history. 6. Nephrolithiasis. 7. Renal cyst. 8. Probable neurogenic bladder. sig PSA elevation concern for met disease cont flomax and proscar add casodex check bone scan (pt had refused last admission) will need lupron Subjective Allergies: Coded Allergies: NO KNOWN ALLERGIES (Unverified Allergy, Unknown, 11/29/14) Uncoded Allergies: Sheep wool (Allergy, Unknown, 11/12/18) Subjective all noted, feels fair Objective Last 24 Hour Vital Signs Date Time Temp Pulse Resp B/P (MAP) Pulse Ox O2 Delivery O2 Flow Rate FiO2 11/15/18 04:00 97.5 65 19 98/60 (73) 95 11/14/18 21:00 Room Air 11/14/18 20:00 98.2 61 19 103/59 (74) 96 11/14/18 16:00 98.8 79 17 131/76 (94) 95 11/14/18 12:00 98.2 60 19 103/56 (72) 93 11/14/18 09:04 62 11/14/18 09:00 Room Air Intake and Output 11/14/18 11/15/18 19:00 07:00 Intake Total 500 ml 540 ml Output Total 700 ml Balance 500 ml -160 ml Intake Oral 540 ml Other 500 ml Output Urine Total 700 ml # Bowel Movements 1 Microbiology Date/Time Source Procedure Growth Status 11/11/18 17:30 Nasal Nares MRSA Culture - Final Staphylococcus Aureus - Mrsa Complete 11/11/18 17:30 Rectum - Final NO CARBAPENEM-RESISTANT ENTEROBACTERI... Complete Current Medications Medications (Trade) Dose Ordered Sig/Maliha Route PRN Reason Start Time Stop Time Status Last Admin Dose Admin Acetaminophen (Tylenol) 650 mg Q4H PRN ORAL fever 11/11/18 21:00 12/11/18 20:59 Aripiprazole (Abilify) 5 mg DAILY ORAL 11/13/18 09:00 12/13/18 08:59 11/14/18 08:59 Aspirin (ASA) 81 mg DAILY ORAL 11/13/18 09:00 12/13/18 08:59 11/14/18 09:01 Atorvastatin Calcium (Lipitor) 40 mg BEDTIME ORAL 11/12/18 21:00 12/12/18 20:59 11/14/18 20:42 Calcium/Vitamin D (OsCal D) 2 tab DAILY ORAL 11/12/18 13:00 12/12/18 12:59 11/14/18 09:01 Dextrose (Dextrose 50%) 25 ml Q30M PRN IV Hypoglycemia 11/11/18 21:00 12/11/18 20:59 Dextrose (Dextrose 50%) 50 ml Q30M PRN IV Hypoglycemia 11/11/18 21:00 12/11/18 20:59 Digoxin (Lanoxin) 0.125 mg DAILY ORAL 11/12/18 09:00 12/12/18 08:59 11/14/18 09:04 Docusate Sodium (Colace) 250 mg DAILY ORAL 11/13/18 18:00 12/13/18 17:59 11/14/18 09:00 Escitalopram Oxalate (Lexapro) 10 mg DAILY ORAL 11/13/18 09:00 12/13/18 08:59 11/14/18 09:00 Finasteride (Proscar) 5 mg DAILY ORAL 11/12/18 09:00 12/12/18 08:59 11/14/18 09:05 Insulin Aspart (NovoLOG) BEFORE MEALS AND HS SUBQ 11/11/18 21:00 12/11/18 20:59 11/14/18 11:39 Lorazepam (Ativan 2mg/ml 1ml) 0.5 mg Q4H PRN IV For Anxiety 11/11/18 21:00 11/18/18 20:59 Lorazepam (Ativan) 1 mg Q6H PRN ORAL For Anxiety 11/11/18 21:00 11/18/18 20:59 Morphine Sulfate (Morphine Sulfate) 1 mg Q4H PRN IVP For Pain 11/11/18 21:00 11/18/18 20:59 11/14/18 20:43 Ondansetron HCl (Zofran) 4 mg Q6H PRN IVP Nausea & Vomiting 11/11/18 21:00 12/11/18 20:59 Pantoprazole (Protonix) 40 mg DAILY ORAL 11/14/18 21:00 12/14/18 20:59 Polyethylene Glycol (Miralax) 17 gm HSPRN PRN ORAL Constipation 11/11/18 21:00 11/1/19 20:59 Sucralfate (Carafate) 1 gm TID ORAL 11/14/18 20:00 12/14/18 19:59 Tamsulosin HCl (Flomax) 0.4 mg BEDTIME ORAL 11/11/18 21:00 12/11/18 20:59 11/14/18 20:40 Topiramate (Topamax) 100 mg DAILY ORAL 11/12/18 09:00 12/12/18 08:59 11/14/18 09:01 Zolpidem Tartrate (Ambien) 5 mg HSPRN PRN ORAL Insomnia 11/11/18 21:00 11/18/18 20:59 11/14/18 20:42 Height (Feet): 5 Height (Inches): 8.00 Weight (Pounds): 232 Objective exam stable PSA 149 Gabino Segal MD Nov 15, 2018 08:57
[2018-11-15] MEDS: Sucralfate 1gm tab ORAL SCH ×3 (09:00→19:02)
[2018-11-15] MEDS: Aspirin Baby 81mg ORAL SCH (09:49)
[2018-11-15] MEDS: Digoxin 0.125mg tab ORAL SCH (09:50)
[2018-11-15] MEDS: Topiramate 100mg tab ORAL SCH (09:51)
[2018-11-15] MEDS: Docusate 250mg cap ORAL SCH (09:51)
[2018-11-15] MEDS: Calcium Carbonate 500mg w/Vit D 200iu tab ORAL SCH (09:53)
--- NOTE | 2018-11-15 09:54 | NUR ---
CASE MANAGEMENT: REVIEW 11/15/2018 SI: AGITATION. ACUTE ENCEPHALOPATHY T 97.5 HR 65 RR 19 B/P 98/60 SATS 95% ON RA NO LABS TODAY IS:LIPITOR PO QHS DIGOXIN PO QD PROSCAR PO QD TOPAMAX PO QD ASA PO QD ABILIFY PO QD LEXAPRO PO QD INSULIN ASPART SUBQ AC/HS : TO MED[facility] DCP: NOW HOMELESS
--- NOTE | 2018-11-15 09:54 | General Progress Note ---
Assessment/Plan Problem List: (1) UTI (urinary tract infection) ICD Codes: N39.0 - Urinary tract infection, site not specified SNOMED: 18373793 (2) Behavioral disorder SNOMED: 809791400, 395810329 (3) Agitation ICD Codes: R45.1 - Restlessness and agitation SNOMED: 496079241, 595386707 (4) Acute encephalopathy ICD Codes: G93.40 - Encephalopathy, unspecified SNOMED: 73468065, 884923947 (5) HTN (hypertension) ICD Codes: I10 - Essential (primary) hypertension SNOMED: 57705048 (6) COPD (chronic obstructive pulmonary disease) ICD Codes: J44.9 - Chronic obstructive pulmonary disease, unspecified SNOMED: 68029668 (7) Anemia ICD Codes: D64.9 - Anemia, unspecified SNOMED: 630742171 Status: stable, progressing Assessment/Plan: pt diet abx cbc bmp am aru eval Subjective Constitutional: Reports: weakness Allergies: Coded Allergies: NO KNOWN ALLERGIES (Unverified Allergy, Unknown, 11/29/14) Uncoded Allergies: Sheep wool (Allergy, Unknown, 11/12/18) All Systems: reviewed and negative except above Subjective sleepy calm Objective Last 24 Hour Vital Signs Date Time Temp Pulse Resp B/P (MAP) Pulse Ox O2 Delivery O2 Flow Rate FiO2 11/15/18 04:00 97.5 65 19 98/60 (73) 95 11/14/18 21:00 Room Air 11/14/18 20:00 98.2 61 19 103/59 (74) 96 11/14/18 16:00 98.8 79 17 131/76 (94) 95 11/14/18 12:00 98.2 60 19 103/56 (72) 93 Intake and Output 11/14/18 11/15/18 19:00 07:00 Intake Total 500 ml 540 ml Output Total 700 ml Balance 500 ml -160 ml Intake Oral 540 ml Other 500 ml Output Urine Total 700 ml # Bowel Movements 1 Height (Feet): 5 Height (Inches): 8.00 Weight (Pounds): 232 General Appearance: lethargic EENT: normal ENT inspection Neck: normal alignment Cardiovascular: normal peripheral pulses, normal rate, regular rhythm Respiratory/Chest: chest wall non-tender, lungs clear, normal breath sounds Abdomen: normal bowel sounds, non tender, soft Extremities: normal inspection Edema: no edema noted Arm (L), no edema noted Arm (R), no edema noted Leg (L), no edema noted Leg (R), no edema noted Pedal (L), no edema noted Pedal (R), no edema noted Generalized Neurologic: motor weakness Skin: normal pigmentation, warm/dry Mickey Pinto DO Nov 15, 2018 09:54
--- NOTE | 2018-11-15 10:23 | NUR ---
DISCHARGE PLANNING: NOTE CLINICALS FAXED TO [facility] FOR [facility]AL
[2018-11-15 11:05] LABS: ANION GAP 6 mmol/L (5-15); BLOOD UREA NITROGEN 22 mg/dL (7-18); CALCIUM 8.7 MG/DL (8.5-10.1); CARBON DIOXIDE 28 MMOL/L (21-32); CHLORIDE 110 MMOL/L (98-107); CREATININE 0.9 MG/DL (0.55-1.30); POTASSIUM 4.1 MMOL/L (3.5-5.1); SODIUM 144 MMOL/L (136-145)
[2018-11-15 11:07] LABS: BASOPHILS % (AUTO) 0.6 % (0.0-2.0); EOSINOPHILS % (AUTO) 3.6 % (0.0-3.0); HEMATOCRIT 38.6 % (42.0-52.0); MEAN CORPUSCULAR VOLUME 91 FL (80-99); MONOCYTES % (AUTO) 7.5 % (1.0-10.0); NEUTROPHILS % (AUTO) 68.3 % (45.0-75.0); PLATELET COUNT 130 K/UL (150-450); RED BLOOD COUNT 4.22 M/UL (4.70-6.10); RED CELL DISTRIBUTION WIDTH 11.7 % (11.6-14.8)
[2018-11-15 12:00] VITALS: BP 115/69
[2018-11-15 16:00] VITALS: BP 106/70
--- NOTE | 2018-11-15 18:30 | NUR ---
NURSE NOTES: Patient resting,no complaints at this time,bed alarm on,call light within reach.
--- NOTE | 2018-11-15 19:10 | NUR ---
HAND-OFF: Report given to Gayle HORAN/MARÍA RN.
--- NOTE | 2018-11-15 19:25 | NUR ---
NURSE NOTES: Patient is in bed, awake, alert and verbal. Breathing on room air with no signs of distress or SOB noted. IV site on left arm is patent and intact. Bed in locked and lowest position. Bed alarm is on. Call light in reach.Patient will be monitored.
[2018-11-15 20:00] VITALS: BP 101/55
--- NOTE | 2018-11-15 20:00 | Progress Note ---
DATE: 11/15/2018 SUBJECTIVE: The patient is a 78-year-old male patient came in for agitation and encephalopathy but this patient continues to have some confusion, some disorganized thought process, confusion, worsened by stress of his medical illness. He did have some mood lability, MENTAL STATUS EXAMINATION: The patient is a 78-year-old male. Appearance is disheveled. Attitude, irritable and agitated. Affect, guarded and restricted. Intellect poor. Mood, depressed and anxious. Motor activity, psychomotor agitation. Attention span is poor. Orientation x2. Speech is low volume, slurred. Thought process, disorganized and illogical. Insight and judgment is poor. DIAGNOSIS: Major depressive disorder, severe, recurrent with psychotic features, rule out bipolar 2. PLAN: Treat him with Lexapro 10 mg daily as well as treat this patient with a medication regimen of Topamax 100 mg daily, Abilify 5 mg daily as well provided him with 20 minutes of cognitive behavioral therapy to help him identify his automatic negative thoughts, help convert negative thoughts to more positive thoughts to reduce depression, anxiety, and mood lability. Molina Tapia M.D. DR: Chavez JOB#: [id number] CC:
[2018-11-15] MEDS: Atorvastatin 20mg tab ORAL SCH (21:16)
[2018-11-15] MEDS: Zolpidem 5mg tab ORAL PRN (21:16)
[2018-11-15] MEDS: Tamsulosin 0.4mg cap ORAL SCH (21:16)
--- NOTE | 2018-11-16 00:35 | NUR ---
NURSE NOTES: Pt refused to take vital signs @ midnight(0000)
[2018-11-16 04:00] VITALS: BP 98/60
--- NOTE | 2018-11-16 05:00 | NUR ---
NURSE NOTES: Pt would like to go back to [facility] if the facility will accept him. He wants case management to arrange transfer if possible.
[2018-11-16] MEDS: NovoLOG Insulin Flexpen SUBQ SCH ×4 (06:15→20:26)
[2018-11-16] MEDS: Morphine Sulfate 2mg/ml Inj(IV/IM USE ONLY) IVP PRN (06:23)
[2018-11-16 07:11] LABS: BASOPHILS % (AUTO) 0.6 % (0.0-2.0); EOSINOPHILS % (AUTO) 4.9 % (0.0-3.0); HEMATOCRIT 36.5 % (42.0-52.0); HEMOGLOBIN 12.6 G/DL (14.2-18.0); LYMPHOCYTES % (AUTO) 25.4 % (20.0-45.0); MEAN CORPUSCULAR VOLUME 91 FL (80-99); MONOCYTES % (AUTO) 7.9 % (1.0-10.0); NEUTROPHILS % (AUTO) 61.2 % (45.0-75.0); PLATELET COUNT 126 K/UL (150-450); RED BLOOD COUNT 4.03 M/UL (4.70-6.10); RED CELL DISTRIBUTION WIDTH 11.8 % (11.6-14.8); WHITE BLOOD COUNT 6.3 K/UL (4.8-10.8)
--- NOTE | 2018-11-16 07:15 | NUR ---
HAND-OFF: Report given to Shira HORAN.
[2018-11-16 07:25] LABS: ANION GAP 9 mmol/L (5-15); BLOOD UREA NITROGEN 22 mg/dL (7-18); CALCIUM 8.8 MG/DL (8.5-10.1); CARBON DIOXIDE 25 MMOL/L (21-32); CHLORIDE 111 MMOL/L (98-107); POTASSIUM 3.8 MMOL/L (3.5-5.1); SODIUM 145 MMOL/L (136-145)
[2018-11-16 08:00] VITALS: BP 104/64
--- NOTE | 2018-11-16 08:03 | NUR ---
NURSE NOTES: Pt resting in bed. A/O x 3, forgetful. Denies pain. no SOB noted. side rails padded. possible bone scan am. call light within reach. fall precaution maintained. will continue to monitor.
[2018-11-16] MEDS: Digoxin 0.125mg tab ORAL SCH (08:56)
--- NOTE | 2018-11-16 08:57 | Urology Progress Note ---
Assessment/Plan Status: stable, progressing Assessment/Plan: 1. History of prostate cancer, likely advanced. 2. BPH. 3. Lower urinary tract symptoms. 4. UTI history. 5. Hematuria history. 6. Nephrolithiasis. 7. Renal cyst. 8. Probable neurogenic bladder. sig PSA elevation concern for met disease cont flomax and proscar casodex added check bone scan (pt had refused last admission), pt now willing to do will need lupron, later after casodex renal fxn stable Subjective Allergies: Coded Allergies: NO KNOWN ALLERGIES (Unverified Allergy, Unknown, 11/29/14) Uncoded Allergies: Sheep wool (Allergy, Unknown, 11/12/18) Subjective all noted, feels fair Objective Last 24 Hour Vital Signs Date Time Temp Pulse Resp B/P (MAP) Pulse Ox O2 Delivery O2 Flow Rate FiO2 11/16/18 04:00 98.8 68 18 98/60 (73) 96 11/15/18 21:00 Room Air 11/15/18 20:00 99.0 62 18 101/55 (70) 95 11/15/18 16:00 98.3 69 18 106/70 (82) 94 11/15/18 12:00 97.5 68 17 115/69 (84) 96 11/15/18 09:50 62 11/15/18 09:00 Room Air Intake and Output 11/15/18 11/16/18 19:00 07:00 Intake Total 420 ml Output Total 500 ml 600 ml Balance -500 ml -180 ml Intake Oral 420 ml Output Urine Total 500 ml 600 ml Microbiology Date/Time Source Procedure Growth Status 11/11/18 17:30 Nasal Nares MRSA Culture - Final Staphylococcus Aureus - Mrsa Complete 11/11/18 17:30 Rectum - Final NO CARBAPENEM-RESISTANT ENTEROBACTERI... Complete Current Medications Medications (Trade) Dose Ordered Sig/Maliha Route PRN Reason Start Time Stop Time Status Last Admin Dose Admin Acetaminophen (Tylenol) 650 mg Q4H PRN ORAL fever 11/11/18 21:00 12/11/18 20:59 Aripiprazole (Abilify) 5 mg DAILY ORAL 11/13/18 09:00 12/13/18 08:59 11/15/18 09:50 Aspirin (ASA) 81 mg DAILY ORAL 11/13/18 09:00 12/13/18 08:59 11/15/18 09:49 Atorvastatin Calcium (Lipitor) 40 mg BEDTIME ORAL 11/12/18 21:00 12/12/18 20:59 11/15/18 21:16 Bicalutamide (Casodex) 50 mg DAILY ORAL 11/16/18 09:00 11/21/18 08:59 Calcium/Vitamin D (OsCal D) 2 tab DAILY ORAL 11/12/18 13:00 12/12/18 12:59 11/15/18 09:53 Dextrose (Dextrose 50%) 25 ml Q30M PRN IV Hypoglycemia 11/11/18 21:00 12/11/18 20:59 Dextrose (Dextrose 50%) 50 ml Q30M PRN IV Hypoglycemia 11/11/18 21:00 12/11/18 20:59 Digoxin (Lanoxin) 0.125 mg DAILY ORAL 11/12/18 09:00 12/12/18 08:59 11/15/18 09:50 Docusate Sodium (Colace) 250 mg DAILY ORAL 11/13/18 18:00 12/13/18 17:59 11/15/18 09:51 Escitalopram Oxalate (Lexapro) 10 mg DAILY ORAL 11/13/18 09:00 12/13/18 08:59 11/15/18 09:53 Finasteride (Proscar) 5 mg DAILY ORAL 11/12/18 09:00 12/12/18 08:59 11/15/18 09:50 Insulin Aspart (NovoLOG) BEFORE MEALS AND HS SUBQ 11/11/18 21:00 12/11/18 20:59 11/15/18 21:20 Lorazepam (Ativan 2mg/ml 1ml) 0.5 mg Q4H PRN IV For Anxiety 11/11/18 21:00 11/18/18 20:59 Lorazepam (Ativan) 1 mg Q6H PRN ORAL For Anxiety 11/11/18 21:00 11/18/18 20:59 Morphine Sulfate (Morphine Sulfate) 1 mg Q4H PRN IVP For Pain 11/11/18 21:00 11/18/18 20:59 11/16/18 06:23 Ondansetron HCl (Zofran) 4 mg Q6H PRN IVP Nausea & Vomiting 11/11/18 21:00 12/11/18 20:59 Pantoprazole (Protonix) 40 mg DAILY ORAL 11/14/18 21:00 12/14/18 20:59 11/15/18 09:51 Polyethylene Glycol (Miralax) 17 gm HSPRN PRN ORAL Constipation 11/11/18 21:00 12/11/18 20:59 Sucralfate (Carafate) 1 gm TID ORAL 11/14/18 20:00 12/14/18 19:59 11/15/18 19:02 Tamsulosin HCl (Flomax) 0.4 mg BEDTIME ORAL 11/11/18 21:00 12/11/18 20:59 11/15/18 21:16 Topiramate (Topamax) 100 mg DAILY ORAL 11/12/18 09:00 12/12/18 08:59 11/15/18 09:51 Zolpidem Tartrate (Ambien) 5 mg HSPRN PRN ORAL Insomnia 11/11/18 21:00 11/18/18 20:59 11/15/18 21:16 Laboratory Tests 11/15/18 10:45: White Blood Count 6.0, Red Blood Count 4.22L, Hemoglobin 13.0L, Hematocrit 38.6L , Mean Corpuscular Volume 91, Mean Corpuscular Hemoglobin 30.7, Mean Corpuscular Hemoglobin Concent 33.6, Red Cell Distribution Width 11.7, Platelet Count 130L, Mean Platelet Volume 6.8, Neutrophils (%) (Auto) 68.3, Lymphocytes ( %) (Auto) 20.0, Monocytes (%) (Auto) 7.5, Eosinophils (%) (Auto) 3.6H, Basophils (%) (Auto) 0.6, Sodium Level 144, Potassium Level 4.1, Chloride Level 110H, Carbon Dioxide Level 28, Anion Gap 6, Blood Urea Nitrogen 22H, Creatinine 0.9, Estimat Glomerular Filtration Rate , Glucose Level 112H, Calcium Level 8.7 11/16/18 06:05: White Blood Count 6.3, Red Blood Count 4.03L, Hemoglobin 12.6L, Hematocrit 36.5L , Mean Corpuscular Volume 91, Mean Corpuscular Hemoglobin 31.2H, Mean Corpuscular Hemoglobin Concent 34.4, Red Cell Distribution Width 11.8, Platelet Count 126L, Mean Platelet Volume 6.4L, Neutrophils (%) (Auto) 61.2, Lymphocytes (%) (Auto) 25.4, Monocytes (%) (Auto) 7.9, Eosinophils (%) (Auto) 4.9H, Basophils (%) (Auto) 0.6, Sodium Level 145, Potassium Level 3.8, Chloride Level 111H, Carbon Dioxide Level 25, Anion Gap 9, Blood Urea Nitrogen 22H, Creatinine 1.0, Estimat Glomerular Filtration Rate , Glucose Level 97, Calcium Level 8.8 Height (Feet): 5 Height (Inches): 8.00 Weight (Pounds): 232 Objective exam stable PSA 149 Gabino Segal MD Nov 16, 2018 08:57
[2018-11-16] MEDS: Bicalutamide 50mg tab ORAL SCH (08:59)
[2018-11-16] MEDS: Aspirin Baby 81mg ORAL SCH (09:00)
[2018-11-16] MEDS: Docusate 250mg cap ORAL SCH (09:00)
[2018-11-16] MEDS: Topiramate 100mg tab ORAL SCH (09:01)
[2018-11-16] MEDS: Sucralfate 1gm tab ORAL SCH ×3 (09:01→17:14)
[2018-11-16] MEDS: Calcium Carbonate 500mg w/Vit D 200iu tab ORAL SCH (09:01)
--- NOTE | 2018-11-16 09:45 | General Progress Note ---
Assessment/Plan Problem List: (1) UTI (urinary tract infection) ICD Codes: N39.0 - Urinary tract infection, site not specified SNOMED: 68697444 (2) Behavioral disorder SNOMED: 136487362, 134396982 (3) Agitation ICD Codes: R45.1 - Restlessness and agitation SNOMED: 934110979, 982861628 (4) Acute encephalopathy ICD Codes: G93.40 - Encephalopathy, unspecified SNOMED: 09396660, 210322040 (5) HTN (hypertension) ICD Codes: I10 - Essential (primary) hypertension SNOMED: 96132137 (6) COPD (chronic obstructive pulmonary disease) ICD Codes: J44.9 - Chronic obstructive pulmonary disease, unspecified SNOMED: 94382998 (7) Anemia ICD Codes: D64.9 - Anemia, unspecified SNOMED: 238865680 Status: stable, progressing Assessment/Plan: pt diet abx dc to [facility] Subjective Constitutional: Reports: weakness Allergies: Coded Allergies: NO KNOWN ALLERGIES (Unverified Allergy, Unknown, 11/29/14) Uncoded Allergies: Sheep wool (Allergy, Unknown, 11/12/18) All Systems: reviewed and negative except above Subjective sleepy calm Objective Last 24 Hour Vital Signs Date Time Temp Pulse Resp B/P (MAP) Pulse Ox O2 Delivery O2 Flow Rate FiO2 11/16/18 09:00 Room Air 11/16/18 08:56 65 11/16/18 08:00 98.1 70 18 104/64 (77) 94 11/16/18 04:00 98.8 68 18 98/60 (73) 96 11/15/18 21:00 Room Air 11/15/18 20:00 99.0 62 18 101/55 (70) 95 11/15/18 16:00 98.3 69 18 106/70 (82) 94 11/15/18 12:00 97.5 68 17 115/69 (84) 96 11/15/18 09:50 62 Intake and Output 11/15/18 11/16/18 19:00 07:00 Intake Total 420 ml Output Total 500 ml 600 ml Balance -500 ml -180 ml Intake Oral 420 ml Output Urine Total 500 ml 600 ml Laboratory Tests 11/15/18 10:45: White Blood Count 6.0, Red Blood Count 4.22L, Hemoglobin 13.0L, Hematocrit 38.6L , Mean Corpuscular Volume 91, Mean Corpuscular Hemoglobin 30.7, Mean Corpuscular Hemoglobin Concent 33.6, Red Cell Distribution Width 11.7, Platelet Count 130L, Mean Platelet Volume 6.8, Neutrophils (%) (Auto) 68.3, Lymphocytes ( %) (Auto) 20.0, Monocytes (%) (Auto) 7.5, Eosinophils (%) (Auto) 3.6H, Basophils (%) (Auto) 0.6, Sodium Level 144, Potassium Level 4.1, Chloride Level 110H, Carbon Dioxide Level 28, Anion Gap 6, Blood Urea Nitrogen 22H, Creatinine 0.9, Estimat Glomerular Filtration Rate , Glucose Level 112H, Calcium Level 8.7 11/16/18 06:05: White Blood Count 6.3, Red Blood Count 4.03L, Hemoglobin 12.6L, Hematocrit 36.5L , Mean Corpuscular Volume 91, Mean Corpuscular Hemoglobin 31.2H, Mean Corpuscular Hemoglobin Concent 34.4, Red Cell Distribution Width 11.8, Platelet Count 126L, Mean Platelet Volume 6.4L, Neutrophils (%) (Auto) 61.2, Lymphocytes (%) (Auto) 25.4, Monocytes (%) (Auto) 7.9, Eosinophils (%) (Auto) 4.9H, Basophils (%) (Auto) 0.6, Sodium Level 145, Potassium Level 3.8, Chloride Level 111H, Carbon Dioxide Level 25, Anion Gap 9, Blood Urea Nitrogen 22H, Creatinine 1.0, Estimat Glomerular Filtration Rate , Glucose Level 97, Calcium Level 8.8 Height (Feet): 5 Height (Inches): 8.00 Weight (Pounds): 232 General Appearance: lethargic EENT: normal ENT inspection Neck: normal alignment Cardiovascular: normal peripheral pulses, normal rate, regular rhythm Respiratory/Chest: chest wall non-tender, lungs clear, normal breath sounds Abdomen: normal bowel sounds, non tender, soft Extremities: normal inspection Edema: no edema noted Arm (L), no edema noted Arm (R), no edema noted Leg (L), no edema noted Leg (R), no edema noted Pedal (L), no edema noted Pedal (R), no edema noted Generalized Neurologic: responsive, motor weakness Skin: normal pigmentation, warm/dry Mickey Pinto DO Nov 16, 2018 09:45
[2018-11-16 12:00] VITALS: BP 105/66
--- NOTE | 2018-11-16 14:24 | NUR ---
NM Whole Body Bone Scan complete.
--- NOTE | 2018-11-16 14:32 | Diagnostic Imaging Report ---
Indication: Prostate cancer, elevated PSA Technique: IV administration 25.3 mCi 99 M technetium MDP. Whole body and spot images were obtained. Comparison: No comparison bone scan. Reference made to radiographic bone survey dated 09/18/2018 Findings: There is a small cortical focus of increased activity in the proximal left femoral shaft laterally. Abnormal increased activity in the bilateral knees likely reflects degenerative change. Prominent activity at the right sternoclavicular junction probably also is degenerative in nature. Apparent increased activity is seen in 2 right upper lumbar pedicles on posterior views and may also be apparent on the AP view. Normal renal and bladder activity demonstrated Impression: Upper lumbar pedicular activity could be artifactual but suspect real. Unusual cortical activity is seen in the proximal femoral shaft. These findings could represent metastatic deposits but other etiologies should also be considered. Note that corresponding abnormality is demonstrated on earlier studies Bilateral knee and right sternomanubrial increased activity is probably degenerative in etiology
[2018-11-16 16:00] VITALS: BP 121/66
--- NOTE | 2018-11-16 18:45 | Progress Note ---
DATE: 11/16/2018 SUBJECTIVE: This is a 78-year-old male patient with encephalopathy but still has altered mental status, confusion, disorganized thought process, and mood lability with agitation that is why he does require inpatient treatment at this time. MENTAL STATUS EXAMINATION: This is a 78-year-old male. Appearance is disheveled. Attitude, irritable and agitated. Affect, guarded and restricted. Intellect poor. Mood, depressed and anxious. Motor activity, psychomotor agitation. Attention span is poor. Orientation x4. DIAGNOSIS: Major depressive disorder, severe, recurrent with psychotic features. PLAN: Continue him on Abilify, Lexapro, Topamax. Provided him with 20 minutes of reality-based supportive psychotherapy. I encouraged him to interact appropriately staff and other patients. A 20 minutes of cognitive behavioral therapy to help him identify his automatic negative thoughts and help him convert his negative thoughts to more positive thoughts to reduce depression, anxiety, and suicidality and help him have more adaptive behavioral pattern. Treat him with Lexapro 10 mg a day, Abilify 5 mg a day, Ativan 1 every 6 hours p.r.n. anxiety and agitation, Topamax 100 mg daily. Molina Tapia M.D. DR: Chavez JOB#: [id number] CC:
--- NOTE | 2018-11-16 19:37 | NUR ---
HAND-OFF: Report given to Sandra HORAN.
--- NOTE | 2018-11-16 19:38 | NUR ---
NURSE NOTES: Received a report from AUNG Silva. Pt is in stable condition. AAOX4. Able to make needs known. On room air. No c/o pain/discomfort. IV site is patent and intact. Bed in lowest position. Bed alarm is on. Call light within reach. Will continue to monitor.
[2018-11-16 20:00] VITALS: BP 110/57
[2018-11-16] MEDS: Tamsulosin 0.4mg cap ORAL SCH (20:27)
[2018-11-16] MEDS: Atorvastatin 20mg tab ORAL SCH (20:28)
[2018-11-16] MEDS: Zolpidem 5mg tab ORAL PRN (20:33)
[2018-11-17] VITALS: BP 108/52
[2018-11-17 04:00] VITALS: BP 105/57
[2018-11-17] MEDS: NovoLOG Insulin Flexpen SUBQ SCH ×4 (05:46→20:27)
--- NOTE | 2018-11-17 07:20 | NUR ---
HAND-OFF: Report given to Columba Fox RN. Addendum: 11/17/18 at 0743 by BRANDAN MURPHY RN HAND-OFF: Report given to AUNG Dubon.
--- NOTE | 2018-11-17 07:45 | NUR ---
NURSE NOTES: Received pt in bed, AAO x 3. RA. No c/o of pain/distress. IV on L hand 22g intact and patent, with saline lock. Side rails x2. Bed in the lowest, locked, and alarm on. Call light within reach. Will continue to monitor
[2018-11-17] MEDS: Bicalutamide 50mg tab ORAL SCH (08:09)
[2018-11-17] MEDS: Digoxin 0.125mg tab ORAL SCH (08:09)
[2018-11-17] MEDS: Topiramate 100mg tab ORAL SCH (08:09)
[2018-11-17] MEDS: Aspirin Baby 81mg ORAL SCH (08:09)
[2018-11-17] MEDS: Calcium Carbonate 500mg w/Vit D 200iu tab ORAL SCH (08:10)
[2018-11-17] MEDS: Docusate 250mg cap ORAL SCH (08:10)
[2018-11-17] MEDS: Sucralfate 1gm tab ORAL SCH ×3 (08:10→17:01)
--- NOTE | 2018-11-17 08:50 | Urology Progress Note ---
Assessment/Plan Status: stable, progressing Assessment/Plan: 1. History of prostate cancer, likely advanced. 2. BPH. 3. Lower urinary tract symptoms. 4. UTI history. 5. Hematuria history. 6. Nephrolithiasis. 7. Renal cyst. 8. Probable neurogenic bladder. sig PSA elevation concern for met disease cont flomax and proscar casodex added will need lupron, later after casodex renal fxn stable will review bone scan with radiologist may need further imaging to confirm findings Subjective Allergies: Coded Allergies: NO KNOWN ALLERGIES (Unverified Allergy, Unknown, 11/29/14) Uncoded Allergies: Sheep wool (Allergy, Unknown, 11/12/18) Subjective all noted, feels fair Objective Last 24 Hour Vital Signs Date Time Temp Pulse Resp B/P (MAP) Pulse Ox O2 Delivery O2 Flow Rate FiO2 11/17/18 08:09 64 11/17/18 04:00 96.7 64 18 105/57 (73) 95 11/17/18 00:00 96.8 65 16 108/52 (70) 95 11/16/18 21:00 Room Air 11/16/18 20:00 97.5 61 16 110/57 (74) 97 11/16/18 16:00 97.9 60 121/66 (84) 11/16/18 12:00 98.2 63 105/66 (79) 11/16/18 09:00 Room Air 11/16/18 08:56 65 Intake and Output 11/16/18 11/17/18 19:00 07:00 Output Total 700 ml Balance -700 ml Output Urine Total 700 ml Microbiology Date/Time Source Procedure Growth Status 11/11/18 17:30 Nasal Nares MRSA Culture - Final Staphylococcus Aureus - Mrsa Complete 11/11/18 17:30 Rectum - Final NO CARBAPENEM-RESISTANT ENTEROBACTERI... Complete Current Medications Medications (Trade) Dose Ordered Sig/Maliha Route PRN Reason Start Time Stop Time Status Last Admin Dose Admin Acetaminophen (Tylenol) 650 mg Q4H PRN ORAL fever 11/11/18 21:00 12/11/18 20:59 Aripiprazole (Abilify) 5 mg DAILY ORAL 11/13/18 09:00 12/13/18 08:59 11/17/18 08:09 Aspirin (ASA) 81 mg DAILY ORAL 11/13/18 09:00 12/13/18 08:59 11/17/18 08:09 Atorvastatin Calcium (Lipitor) 40 mg BEDTIME ORAL 11/12/18 21:00 12/12/18 20:59 11/16/18 20:28 Bicalutamide (Casodex) 50 mg DAILY ORAL 11/16/18 09:00 11/21/18 08:59 11/17/18 08:09 Calcium/Vitamin D (OsCal D) 2 tab DAILY ORAL 11/12/18 13:00 12/12/18 12:59 11/17/18 08:10 Dextrose (Dextrose 50%) 25 ml Q30M PRN IV Hypoglycemia 11/11/18 21:00 12/11/18 20:59 Dextrose (Dextrose 50%) 50 ml Q30M PRN IV Hypoglycemia 11/11/18 21:00 12/11/18 20:59 Digoxin (Lanoxin) 0.125 mg DAILY ORAL 11/12/18 09:00 12/12/18 08:59 11/17/18 08:09 Docusate Sodium (Colace) 250 mg DAILY ORAL 11/13/18 18:00 12/13/18 17:59 11/17/18 08:10 Escitalopram Oxalate (Lexapro) 10 mg DAILY ORAL 11/13/18 09:00 12/13/18 08:59 11/17/18 08:10 Finasteride (Proscar) 5 mg DAILY ORAL 11/12/18 09:00 12/12/18 08:59 11/17/18 08:10 Insulin Aspart (NovoLOG) BEFORE MEALS AND HS SUBQ 11/11/18 21:00 12/11/18 20:59 11/16/18 12:20 Lorazepam (Ativan 2mg/ml 1ml) 0.5 mg Q4H PRN IV For Anxiety 11/11/18 21:00 11/18/18 20:59 Lorazepam (Ativan) 1 mg Q6H PRN ORAL For Anxiety 11/11/18 21:00 11/18/18 20:59 Morphine Sulfate (Morphine Sulfate) 1 mg Q4H PRN IVP For Pain 11/11/18 21:00 11/18/18 20:59 11/16/18 06:23 Ondansetron HCl (Zofran) 4 mg Q6H PRN IVP Nausea & Vomiting 11/11/18 21:00 12/11/18 20:59 Pantoprazole (Protonix) 40 mg DAILY ORAL 11/14/18 21:00 12/14/18 20:59 11/17/18 08:10 Polyethylene Glycol (Miralax) 17 gm HSPRN PRN ORAL Constipation 11/11/18 21:00 12/11/18 20:59 Sucralfate (Carafate) 1 gm TID ORAL 11/14/18 20:00 12/14/18 19:59 11/17/18 08:10 Tamsulosin HCl (Flomax) 0.4 mg BEDTIME ORAL 11/11/18 21:00 12/11/18 20:59 11/16/18 20:27 Topiramate (Topamax) 100 mg DAILY ORAL 11/12/18 09:00 12/12/18 08:59 11/17/18 08:09 Zolpidem Tartrate (Ambien) 5 mg HSPRN PRN ORAL Insomnia 11/11/18 21:00 11/18/18 20:59 11/16/18 20:33 Height (Feet): 5 Height (Inches): 8.00 Weight (Pounds): 232 Objective exam stable PSA 149 Bone scan (11/16) noted Gabino Segal MD Nov 17, 2018 08:50
--- NOTE | 2018-11-17 09:35 | General Progress Note ---
Assessment/Plan Problem List: (1) UTI (urinary tract infection) ICD Codes: N39.0 - Urinary tract infection, site not specified SNOMED: 09867317 (2) Behavioral disorder SNOMED: 431229426, 940550805 (3) Agitation ICD Codes: R45.1 - Restlessness and agitation SNOMED: 563776357, 805931398 (4) Acute encephalopathy ICD Codes: G93.40 - Encephalopathy, unspecified SNOMED: 38992363, 237197088 (5) HTN (hypertension) ICD Codes: I10 - Essential (primary) hypertension SNOMED: 73685362 (6) COPD (chronic obstructive pulmonary disease) ICD Codes: J44.9 - Chronic obstructive pulmonary disease, unspecified SNOMED: 51600893 (7) Anemia ICD Codes: D64.9 - Anemia, unspecified SNOMED: 280578196 Status: stable, progressing Assessment/Plan: pt diet abx dc plan Subjective Constitutional: Reports: weakness Allergies: Coded Allergies: NO KNOWN ALLERGIES (Unverified Allergy, Unknown, 11/29/14) Uncoded Allergies: Sheep wool (Allergy, Unknown, 11/12/18) All Systems: reviewed and negative except above Subjective sleepy calm Objective Last 24 Hour Vital Signs Date Time Temp Pulse Resp B/P (MAP) Pulse Ox O2 Delivery O2 Flow Rate FiO2 11/17/18 08:09 64 11/17/18 04:00 96.7 64 18 105/57 (73) 95 11/17/18 00:00 96.8 65 16 108/52 (70) 95 11/16/18 21:00 Room Air 11/16/18 20:00 97.5 61 16 110/57 (74) 97 11/16/18 16:00 97.9 60 121/66 (84) 11/16/18 12:00 98.2 63 105/66 (79) Intake and Output 11/16/18 11/17/18 19:00 07:00 Output Total 700 ml Balance -700 ml Output Urine Total 700 ml Height (Feet): 5 Height (Inches): 8.00 Weight (Pounds): 232 General Appearance: lethargic EENT: normal ENT inspection Neck: normal alignment Cardiovascular: normal peripheral pulses, normal rate, regular rhythm Respiratory/Chest: chest wall non-tender, lungs clear, normal breath sounds Abdomen: normal bowel sounds, non tender, soft Extremities: normal inspection Edema: no edema noted Arm (L), no edema noted Arm (R), no edema noted Leg (L), no edema noted Leg (R), no edema noted Pedal (L), no edema noted Pedal (R), no edema noted Generalized Neurologic: responsive, motor weakness Skin: normal pigmentation, warm/dry Mickey Pinto DO Nov 17, 2018 09:35
--- NOTE | 2018-11-17 10:03 | NUR ---
*-* INSURANCE *-* ALL CLINICALS AND REVIEWS HAVE BEEN FAXED TO: [facility] PLEASE FAX THE REVIEW/CLINICAL P- [phone] F- [phone]...REVIEW/CLINICAL
--- NOTE | 2018-11-17 10:26 | NUR ---
CASE MANAGEMENT: REVIEW 11/16/2018 SI: AGITATION. ACUTE ENCEPHALOPATHY 98.1 70 18 104/64 94% RA RBC 4.03; H/H 12.6/36.5;BUN 22; CHLORIDE 111 IS:LIPITOR PO QHS DIGOXIN PO QD PROSCAR PO QD TOPAMAX PO QD ASA PO QD ABILIFY PO QD LEXAPRO PO QD INSULIN ASPART SUBQ AC/HS : TO [facility] DCP: NOW HOMELESS
--- NOTE | 2018-11-17 10:29 | NUR ---
CASE MANAGEMENT: REVIEW 11/17/2018 SI: UTI; AGITATION. ACUTE ENCEPHALOPATHY 96.7 64 18 105/57 95%RA NO LABS IS:IV MORPHINE SULFATE Q4/PRN PROTONIX PO QD LIPITOR PO QHS CARAFATE PO TID DIGOXIN PO QD PROSCAR PO QD TOPAMAX PO QD ASA PO QD ABILIFY PO QD LEXAPRO PO QD INSULIN ASPART SUBQ AC/HS CASODEX PO QD OSCAL D PO QD AMBIEN PO HS/PRN : TO [facility] DCP: PLACEMENT NEEDED
[2018-11-17 12:00] VITALS: BP 110/56
--- NOTE | 2018-11-17 12:15 | Progress Note ---
DATE: 11/17/2018 SUBJECTIVE: This is a 78-year-old patient with agitation and mood lability. He has got some mood lability, confusion, disorganized thought process, worsened by stress of his medical illness. Negative thoughts, pressured speech, still very demanding, very mood labile, worsened by stress of his medical illness. MENTAL STATUS EXAMINATION: This is a 78-year-old male. His appearance is disheveled. Attitude, irritable and agitated. Affect, guarded and restricted. Intellect poor. Mood, depressed and anxious. Motor activity, psychomotor agitation. Attention span is poor. Orientation x2. Speech is low volume, slurred. Thought process, disorganized and illogical. Insight and judgment is poor DIAGNOSIS: Bipolar 2. PLAN: Treat him with Topamax 100 mg daily, Lexapro 10 mg daily, Abilify 5 mg daily. A 20 minutes of reality-based supportive psychotherapy. A 20 minutes of cognitive behavioral therapy was provided to help him identify his automatic negative thoughts and help him convert his negative thoughts to more positive thoughts to reduce depression, anxiety, and mood lability. Chart reviewed. Discussed with staff. Seen and assessed in his room. Molina Tapia M.D. DR: SHAYE JOB#: [id number] CC:
--- NOTE | 2018-11-17 15:10 | NUR ---
DISCHARGED PLAN: PATIENT NEEDS PLACEMENT: FACILITIES ATTEMPTED 11/17/18: 1# [facility] T:[phone] 2# [facility] T:[phone] 3# [facility] [phone] 4# [facility] T:[phone] 5# [facility] T:[phone] F:[phone] 6# [facility] T: [phone] 7# [facility] T:[phone] 8# [facility] T:[phone] 9# [facility] T:[phone] 10# [facility] T:[phone] 11# [facility] T:[phone] 12#[facility] T:[phone] 13# [facility] [place] T: [phone] Addendum: 11/20/18 at 1539 by ULYSSES ALTMAN LVN MORE FACILITIES CALLED #14 [facility]- NO MALE BEDS T:[phone] F: [phone] #15 [facility] T:[phone] #16 [facility] HOSPITAL- NEEDS SKILLED T:[phone] #17 [facility]-NEEDS SKILLED T:[phone] #18 [facility] T:[phone] #19 [facility] T:[phone] #20 [place] [facility] - NEED SKILLED T:[phone]
[2018-11-17 16:00] VITALS: BP 130/81
--- NOTE | 2018-11-17 19:17 | NUR ---
HAND-OFF: Report given to AUNG Flores.
[2018-11-17 20:00] VITALS: BP 119/56
[2018-11-17] MEDS: Tamsulosin 0.4mg cap ORAL SCH (20:29)
[2018-11-17] MEDS: Atorvastatin 20mg tab ORAL SCH (20:29)
[2018-11-17] MEDS: Zolpidem 5mg tab ORAL PRN (20:29)
[2018-11-18] VITALS: BP 110/59
[2018-11-18 04:00] VITALS: BP 115/74
[2018-11-18] MEDS: Morphine Sulfate 2mg/ml Inj(IV/IM USE ONLY) IVP PRN ×2 (05:09→10:27)
[2018-11-18] MEDS: NovoLOG Insulin Flexpen SUBQ SCH ×4 (05:36→21:00)
[2018-11-18 06:12] LABS: BASOPHILS % (AUTO) 0.7 % (0.0-2.0); EOSINOPHILS % (AUTO) 4.6 % (0.0-3.0); HEMOGLOBIN 12.6 G/DL (14.2-18.0); LYMPHOCYTES % (AUTO) 21.9 % (20.0-45.0); MEAN CORPUSCULAR VOLUME 92 FL (80-99); MONOCYTES % (AUTO) 8.4 % (1.0-10.0); NEUTROPHILS % (AUTO) 64.4 % (45.0-75.0); PLATELET COUNT 127 K/UL (150-450); RED BLOOD COUNT 4.11 M/UL (4.70-6.10); RED CELL DISTRIBUTION WIDTH 11.7 % (11.6-14.8); WHITE BLOOD COUNT 6.2 K/UL (4.8-10.8)
[2018-11-18 06:48] LABS: ANION GAP 6 mmol/L (5-15); BLOOD UREA NITROGEN 19 mg/dL (7-18); CALCIUM 8.8 MG/DL (8.5-10.1); CARBON DIOXIDE 27 MMOL/L (21-32); CHLORIDE 111 MMOL/L (98-107); CREATININE 0.9 MG/DL (0.55-1.30); POTASSIUM 3.7 MMOL/L (3.5-5.1); SODIUM 144 MMOL/L (136-145)
--- NOTE | 2018-11-18 06:53 | NUR ---
HAND-OFF: Report given to AUNG Dubon.
--- NOTE | 2018-11-18 07:28 | NUR ---
NURSE NOTES: Received pt in bed, AAO x4. Room air. Complains that the pain medication does not work. IV on L hand noted to be have redness and swelling. Will change the site. Side rail x2. Bed in the lowest and locked. Call light within reach. Will continue to monitor
[2018-11-18 08:00] VITALS: BP 109/52
--- NOTE | 2018-11-18 08:54 | Urology Progress Note ---
Assessment/Plan Status: stable, progressing Assessment/Plan: 1. History of prostate cancer, likely advanced. 2. BPH. 3. Lower urinary tract symptoms. 4. UTI history. 5. Hematuria history. 6. Nephrolithiasis. 7. Renal cyst. 8. Probable neurogenic bladder. sig PSA elevation concern for met disease cont flomax and proscar casodex added will need lupron, later after casodex renal fxn stable bone scan result reviewed with radiologist MRI would help, but can't do secondary to pacemaker Subjective Allergies: Uncoded Allergies: Sheep wool (Allergy, Unknown, 11/12/18) Subjective all noted, feels fair Objective Last 24 Hour Vital Signs Date Time Temp Pulse Resp B/P (MAP) Pulse Ox O2 Delivery O2 Flow Rate FiO2 11/18/18 05:39 97.7 11/18/18 04:00 97.7 60 20 115/74 (88) 95 11/18/18 00:00 97.5 66 20 110/59 (76) 95 11/17/18 21:00 Room Air 11/17/18 20:00 97.9 69 20 119/56 (77) 95 11/17/18 16:00 97.1 70 21 130/81 (97) 95 11/17/18 12:00 97.9 60 12 110/56 (74) 97 11/17/18 09:00 Room Air Intake and Output 11/17/18 11/18/18 19:00 07:00 Intake Total 840 ml Output Total 1000 ml 1400 ml Balance -160 ml -1400 ml Intake Oral 840 ml Output Urine Total 1000 ml 1400 ml # Voids 3 Microbiology Date/Time Source Procedure Growth Status 11/11/18 17:30 Nasal Nares MRSA Culture - Final Staphylococcus Aureus - Mrsa Complete 11/11/18 17:30 Rectum - Final NO CARBAPENEM-RESISTANT ENTEROBACTERI... Complete Current Medications Medications (Trade) Dose Ordered Sig/Maliha Route PRN Reason Start Time Stop Time Status Last Admin Dose Admin Acetaminophen (Tylenol) 650 mg Q4H PRN ORAL fever 11/11/18 21:00 12/11/18 20:59 Aripiprazole (Abilify) 5 mg DAILY ORAL 11/13/18 09:00 12/13/18 08:59 11/17/18 08:09 Aspirin (ASA) 81 mg DAILY ORAL 11/13/18 09:00 12/13/18 08:59 11/17/18 08:09 Atorvastatin Calcium (Lipitor) 40 mg BEDTIME ORAL 11/12/18 21:00 12/12/18 20:59 11/17/18 20:29 Bicalutamide (Casodex) 50 mg DAILY ORAL 11/16/18 09:00 11/21/18 08:59 11/17/18 08:09 Calcium/Vitamin D (OsCal D) 2 tab DAILY ORAL 11/12/18 13:00 12/12/18 12:59 11/17/18 08:10 Dextrose (Dextrose 50%) 25 ml Q30M PRN IV Hypoglycemia 11/11/18 21:00 12/11/18 20:59 Dextrose (Dextrose 50%) 50 ml Q30M PRN IV Hypoglycemia 11/11/18 21:00 12/11/18 20:59 Digoxin (Lanoxin) 0.125 mg DAILY ORAL 11/12/18 09:00 12/12/18 08:59 11/17/18 08:09 Docusate Sodium (Colace) 250 mg DAILY ORAL 11/13/18 18:00 12/13/18 17:59 11/17/18 08:10 Escitalopram Oxalate (Lexapro) 10 mg DAILY ORAL 11/13/18 09:00 12/13/18 08:59 11/17/18 08:10 Finasteride (Proscar) 5 mg DAILY ORAL 11/12/18 09:00 12/12/18 08:59 11/17/18 08:10 Insulin Aspart (NovoLOG) BEFORE MEALS AND HS SUBQ 11/11/18 21:00 12/11/18 20:59 11/17/18 17:02 Lorazepam (Ativan 2mg/ml 1ml) 0.5 mg Q4H PRN IV For Anxiety 11/11/18 21:00 11/18/18 20:59 Lorazepam (Ativan) 1 mg Q6H PRN ORAL For Anxiety 11/11/18 21:00 11/18/18 20:59 Morphine Sulfate (Morphine Sulfate) 1 mg Q4H PRN IVP For Pain 11/11/18 21:00 11/18/18 20:59 11/18/18 05:09 Ondansetron HCl (Zofran) 4 mg Q6H PRN IVP Nausea & Vomiting 11/11/18 21:00 12/11/18 20:59 Pantoprazole (Protonix) 40 mg DAILY ORAL 11/14/18 21:00 12/14/18 20:59 11/17/18 08:10 Polyethylene Glycol (Miralax) 17 gm HSPRN PRN ORAL Constipation 11/11/18 21:00 12/11/18 20:59 Sucralfate (Carafate) 1 gm TID ORAL 11/14/18 20:00 12/14/18 19:59 11/17/18 17:01 Tamsulosin HCl (Flomax) 0.4 mg BEDTIME ORAL 11/11/18 21:00 12/11/18 20:59 11/17/18 20:29 Topiramate (Topamax) 100 mg DAILY ORAL 11/12/18 09:00 12/12/18 08:59 11/17/18 08:09 Zolpidem Tartrate (Ambien) 5 mg HSPRN PRN ORAL Insomnia 11/11/18 21:00 11/18/18 20:59 11/17/18 20:29 Laboratory Tests 11/18/18 04:41: White Blood Count 6.2, Red Blood Count 4.11L, Hemoglobin 12.6L, Hematocrit 38.0L , Mean Corpuscular Volume 92, Mean Corpuscular Hemoglobin 30.6, Mean Corpuscular Hemoglobin Concent 33.1, Red Cell Distribution Width 11.7, Platelet Count 127L, Mean Platelet Volume 6.8, Neutrophils (%) (Auto) 64.4, Lymphocytes ( %) (Auto) 21.9, Monocytes (%) (Auto) 8.4, Eosinophils (%) (Auto) 4.6H, Basophils (%) (Auto) 0.7, Sodium Level 144, Potassium Level 3.7, Chloride Level 111H, Carbon Dioxide Level 27, Anion Gap 6, Blood Urea Nitrogen 19H, Creatinine 0.9, Estimat Glomerular Filtration Rate , Glucose Level 89, Calcium Level 8.8 Height (Feet): 5 Height (Inches): 8.00 Weight (Pounds): 231 Objective exam stable PSA 149 Bone scan (11/16) noted aGbino Segal MD Nov 18, 2018 08:54
--- NOTE | 2018-11-18 09:16 | General Progress Note ---
Assessment/Plan Problem List: (1) UTI (urinary tract infection) ICD Codes: N39.0 - Urinary tract infection, site not specified SNOMED: 31586506 (2) Behavioral disorder SNOMED: 664266764, 349514703 (3) Agitation ICD Codes: R45.1 - Restlessness and agitation SNOMED: 466037043, 188766969 (4) Acute encephalopathy ICD Codes: G93.40 - Encephalopathy, unspecified SNOMED: 22484790, 185675546 (5) HTN (hypertension) ICD Codes: I10 - Essential (primary) hypertension SNOMED: 04017899 (6) COPD (chronic obstructive pulmonary disease) ICD Codes: J44.9 - Chronic obstructive pulmonary disease, unspecified SNOMED: 68421626 (7) Anemia ICD Codes: D64.9 - Anemia, unspecified SNOMED: 068999612 Status: stable, progressing Assessment/Plan: pt diet abx dc plan Subjective Constitutional: Reports: weakness Allergies: Coded Allergies: NO KNOWN ALLERGIES (Unverified Allergy, Unknown, 11/29/14) Uncoded Allergies: Sheep wool (Allergy, Unknown, 11/12/18) All Systems: reviewed and negative except above Subjective sleepy calm Objective Last 24 Hour Vital Signs Date Time Temp Pulse Resp B/P (MAP) Pulse Ox O2 Delivery O2 Flow Rate FiO2 11/18/18 09:00 Room Air 11/18/18 08:00 98.1 21 109/52 (71) 95 11/18/18 05:39 97.7 11/18/18 04:00 97.7 60 20 115/74 (88) 95 11/18/18 00:00 97.5 66 20 110/59 (76) 95 11/17/18 21:00 Room Air 11/17/18 20:00 97.9 69 20 119/56 (77) 95 11/17/18 16:00 97.1 70 21 130/81 (97) 95 11/17/18 12:00 97.9 60 12 110/56 (74) 97 Intake and Output 11/17/18 11/18/18 18:59 06:59 Intake Total 840 ml Output Total 1000 ml 1400 ml Balance -160 ml -1400 ml Intake Oral 840 ml Output Urine Total 1000 ml 1400 ml # Voids 3 Laboratory Tests 11/18/18 04:41: White Blood Count 6.2, Red Blood Count 4.11L, Hemoglobin 12.6L, Hematocrit 38.0L , Mean Corpuscular Volume 92, Mean Corpuscular Hemoglobin 30.6, Mean Corpuscular Hemoglobin Concent 33.1, Red Cell Distribution Width 11.7, Platelet Count 127L, Mean Platelet Volume 6.8, Neutrophils (%) (Auto) 64.4, Lymphocytes ( %) (Auto) 21.9, Monocytes (%) (Auto) 8.4, Eosinophils (%) (Auto) 4.6H, Basophils (%) (Auto) 0.7, Sodium Level 144, Potassium Level 3.7, Chloride Level 111H, Carbon Dioxide Level 27, Anion Gap 6, Blood Urea Nitrogen 19H, Creatinine 0.9, Estimat Glomerular Filtration Rate , Glucose Level 89, Calcium Level 8.8 Height (Feet): 5 Height (Inches): 8.00 Weight (Pounds): 231 General Appearance: lethargic EENT: normal ENT inspection Neck: normal alignment Cardiovascular: normal peripheral pulses, normal rate, regular rhythm Respiratory/Chest: chest wall non-tender, lungs clear, normal breath sounds Abdomen: normal bowel sounds, non tender, soft Extremities: normal inspection Edema: no edema noted Arm (L), no edema noted Arm (R), no edema noted Leg (L), no edema noted Leg (R), no edema noted Pedal (L), no edema noted Pedal (R), no edema noted Generalized Neurologic: motor weakness Skin: normal pigmentation, warm/dry Mickey Pinto DO Nov 18, 2018 09:16
[2018-11-18] MEDS: Calcium Carbonate 500mg w/Vit D 200iu tab ORAL SCH (09:32)
[2018-11-18] MEDS: Sucralfate 1gm tab ORAL SCH ×3 (09:33→17:04)
[2018-11-18] MEDS: Docusate 250mg cap ORAL SCH (09:33)
[2018-11-18] MEDS: Bicalutamide 50mg tab ORAL SCH (09:34)
[2018-11-18] MEDS: Topiramate 100mg tab ORAL SCH (09:34)
[2018-11-18] MEDS: Aspirin Baby 81mg ORAL SCH (09:36)
[2018-11-18] MEDS: Digoxin 0.125mg tab ORAL SCH (09:36)
[2018-11-18 12:00] VITALS: BP 110/66
--- NOTE | 2018-11-18 14:00 | NUR ---
RD ASSESSMENT & RECOMMENDATIONS SEE CARE ACTIVITY FOR COMPLETE ASSESSMENT DAILY ESTIMATED NEEDS: Needs based on Obese, possible CA/ 78kg abw 22-27 kcals/kg 9136-2568 total kcals 1-1.5 g protein/kg 78-117 g total protein 25-30 mL/kg 5296-4257 total fluid mLs NUTRITION DIAGNOSIS: Increased prot needs R/T catabolic dx as evidenced by h/o prostate CA, concern for met disease per MD, elev PSA (149.02) CURRENT DIET:CCHO MED PO DIET RECOMMENDATIONS: CCHO MED, double protein portions/ texture as tolerated ADDITIONAL RECOMMENDATIONS: * Calibrated bedscale wt for accurate CBW * A1C for eval of glycemic control .
--- NOTE | 2018-11-18 14:09 | NUR ---
DISCHARGED PLAN: BARRIERS TO DISCHARGE BARRIERS TO DISCHARGE 1# FACILITY WILL NOT ACCEPT PATIENT BACK DUE TO RACIAL REMARKS TO STAFF 2# DIFFICULTY FINDING SNF PLACEMENT; REQUEST SENT TO 11 FACILITIES; SEE PREVIOUS DISCHARGE NOTE FOR FACILITY DETAILS. 3# FOUND FACILITY FOR PATIENT, BUT [facility] DID NOT HAVE PROPER AUTHORIZATION TO TRANSFER; DELAY OF SERVICE DUE TO INSURANCE. 4# DR. MARILEE BELL PROVIDED A LIST OF POSSIBLE FACILITIES, BUT ALL HAVE DENIED AT THIS TIME DUE TO NOT BEDS. 5# DR. MARILEE BELL WANT ASSISTANCE PATI TO PLACE PATIENT AT THIS TIME. T: [phone]
--- NOTE | 2018-11-18 15:30 | Progress Note ---
DATE: 11/18/2018 SUBJECTIVE: This is a 78-year-old male patient with agitation. He has extreme mood lability, confusion, disorganized thought process worsened by stress of his medical illness. He does have some mood lability. That is why, his attending has requested daily psychiatric consultation. MENTAL STATUS EXAMINATION: This is a 78-year-old male. Appearance is disheveled. Attitude, irritable and agitated. Affect, guarded and restricted. Intellect poor. Mood, depressed and anxious. Motor activity, psychomotor agitation. Attention span is poor. Orientation x2. Speech is pressured. Thought process, disorganized and illogical. Insight and judgment is poor. DIAGNOSIS: Bipolar 2, rule out schizoaffective bipolar type. PLAN: Treat him with Abilify 5 mg daily, Lexapro 10 mg daily, Topamax 100 mg daily, Ativan 1 mg every 6 hours p.r.n. anxiety and agitation. A 20 minutes of cognitive behavioral therapy to help him identify his automatic negative thoughts and help him convert his negative thoughts to more positive thoughts to reduce depression, anxiety, mood lability. Chart reviewed. Discussed with staff. Seen and assessed at bedside. Molina Tapia M.D. DR: MAX JOB#: [id number] CC:
[2018-11-18 16:00] VITALS: BP 109/62
--- NOTE | 2018-11-18 19:21 | NUR ---
HAND-OFF: Report given to AUNG Holt.
--- NOTE | 2018-11-18 19:30 | NUR ---
NURSE NOTES: Received patient in no apparent distress. A&OX4. IV site patent and intact. Bed in lowest position. Call light within reach. Will continue to monitor.
[2018-11-18 20:00] VITALS: BP 97/58
[2018-11-18] MEDS: Tamsulosin 0.4mg cap ORAL SCH (20:59)
[2018-11-18] MEDS: Atorvastatin 20mg tab ORAL SCH (20:59)
--- NOTE | 2018-11-18 21:37 | NUR ---
NURSE NOTES: Obtained renewal order of Ativan 0.5mg IV q4hr prn, Ativan 1mg po q6hr prn, Morphine 1mg IV q4hrs prn, Ambien 5mg po hsprn from Dr. Jimenez.
[2018-11-18] MEDS ORDERED: LORazepam 1mg tab ORAL PRN (21:45)
[2018-11-18] MEDS ORDERED: LORazepam Inj 2mg/ml 1ml IV PRN (21:45)
[2018-11-18] MEDS: Zolpidem 5mg tab ORAL PRN (21:49)
[2018-11-19] VITALS: BP 94/46
[2018-11-19] MEDS: NovoLOG Insulin Flexpen SUBQ SCH ×4 (06:30→20:41)
[2018-11-19 07:16] LABS: BASOPHILS % (AUTO) 0.8 % (0.0-2.0); EOSINOPHILS % (AUTO) 5.7 % (0.0-3.0); HEMATOCRIT 37.5 % (42.0-52.0); HEMOGLOBIN 12.4 G/DL (14.2-18.0); LYMPHOCYTES % (AUTO) 18.8 % (20.0-45.0); MEAN CORPUSCULAR VOLUME 92 FL (80-99); NEUTROPHILS % (AUTO) 66.7 % (45.0-75.0); PLATELET COUNT 120 K/UL (150-450); RED BLOOD COUNT 4.07 M/UL (4.70-6.10); RED CELL DISTRIBUTION WIDTH 11.6 % (11.6-14.8); WHITE BLOOD COUNT 6.3 K/UL (4.8-10.8)
[2018-11-19 07:26] LABS: ANION GAP 7 mmol/L (5-15); BLOOD UREA NITROGEN 22 mg/dL (7-18); CALCIUM 8.7 MG/DL (8.5-10.1); CARBON DIOXIDE 25 MMOL/L (21-32); CHLORIDE 111 MMOL/L (98-107); POTASSIUM 3.8 MMOL/L (3.5-5.1); SODIUM 143 MMOL/L (136-145)
--- NOTE | 2018-11-19 07:28 | NUR ---
HAND-OFF: Report given to Kavitha HORAN.
--- NOTE | 2018-11-19 07:30 | NUR ---
NURSE NOTES: Received patient on bed awake. No SOB or cardiac distress. IV line intact and patent, no s/s of infiltration. Head of bed elevated. Bed locked in lowest position. Call light within reach. Will continue plan of care.
[2018-11-19 08:00] VITALS: BP 96/60
[2018-11-19] MEDS: Calcium Carbonate 500mg w/Vit D 200iu tab ORAL SCH (08:43)
[2018-11-19] MEDS: Topiramate 100mg tab ORAL SCH (08:43)
[2018-11-19] MEDS: Digoxin 0.125mg tab ORAL SCH (08:44)
[2018-11-19] MEDS: Bicalutamide 50mg tab ORAL SCH (08:46)
[2018-11-19] MEDS: Docusate 250mg cap ORAL SCH (08:46)
[2018-11-19] MEDS: Aspirin Baby 81mg ORAL SCH (08:46)
[2018-11-19] MEDS: Sucralfate 1gm tab ORAL SCH ×3 (08:46→18:00)
[2018-11-19] MEDS: Morphine Sulfate 2mg/ml Inj(IV/IM USE ONLY) IVP PRN (08:48)
--- NOTE | 2018-11-19 09:09 | Urology Progress Note ---
Assessment/Plan Status: stable, progressing Assessment/Plan: 1. History of prostate cancer, likely advanced. 2. BPH. 3. Lower urinary tract symptoms. 4. UTI history. 5. Hematuria history. 6. Nephrolithiasis. 7. Renal cyst. 8. Probable neurogenic bladder. sig PSA elevation concern for met disease cont flomax and proscar casodex added will need lupron, later after casodex renal fxn stable bone scan result reviewed with radiologist MRI would help, but can't do secondary to pacemaker consider plain films Subjective Allergies: Uncoded Allergies: Sheep wool (Allergy, Unknown, 11/12/18) Subjective all noted, feels fair, awaiting placement Objective Last 24 Hour Vital Signs Date Time Temp Pulse Resp B/P (MAP) Pulse Ox O2 Delivery O2 Flow Rate FiO2 11/19/18 08:44 63 11/19/18 04:00 18 11/19/18 00:00 98.0 71 18 94/46 (62) 94 11/18/18 21:00 Room Air 11/18/18 20:00 98.1 70 18 97/58 (71) 95 11/18/18 16:00 98.3 64 19 109/62 (78) 96 11/18/18 12:00 98.8 62 21 110/66 (81) 95 11/18/18 09:36 60 Intake and Output 11/18/18 11/19/18 18:59 06:59 Intake Total 600 ml Output Total 500 ml 550 ml Balance 100 ml -550 ml Intake Oral 600 ml Output Urine Total 500 ml 550 ml # Voids 2 Microbiology Date/Time Source Procedure Growth Status 11/11/18 17:30 Nasal Nares MRSA Culture - Final Staphylococcus Aureus - Mrsa Complete 11/11/18 17:30 Rectum - Final NO CARBAPENEM-RESISTANT ENTEROBACTERI... Complete Current Medications Medications (Trade) Dose Ordered Sig/Maliha Route PRN Reason Start Time Stop Time Status Last Admin Dose Admin Acetaminophen (Tylenol) 650 mg Q4H PRN ORAL fever 11/11/18 21:00 12/11/18 20:59 Aripiprazole (Abilify) 5 mg DAILY ORAL 11/13/18 09:00 12/13/18 08:59 11/19/18 08:46 Aspirin (ASA) 81 mg DAILY ORAL 11/13/18 09:00 12/13/18 08:59 11/19/18 08:46 Atorvastatin Calcium (Lipitor) 40 mg BEDTIME ORAL 11/12/18 21:00 12/12/18 20:59 11/18/18 20:59 Bicalutamide (Casodex) 50 mg DAILY ORAL 11/16/18 09:00 11/21/18 08:59 11/19/18 08:46 Calcium/Vitamin D (OsCal D) 2 tab DAILY ORAL 11/12/18 13:00 12/12/18 12:59 11/19/18 08:43 Dextrose (Dextrose 50%) 25 ml Q30M PRN IV Hypoglycemia 11/11/18 21:00 12/11/18 20:59 Dextrose (Dextrose 50%) 50 ml Q30M PRN IV Hypoglycemia 11/11/18 21:00 12/11/18 20:59 Digoxin (Lanoxin) 0.125 mg DAILY ORAL 11/12/18 09:00 12/12/18 08:59 11/19/18 08:44 Docusate Sodium (Colace) 250 mg DAILY ORAL 11/13/18 18:00 12/13/18 17:59 11/19/18 08:46 Escitalopram Oxalate (Lexapro) 10 mg DAILY ORAL 11/13/18 09:00 12/13/18 08:59 11/19/18 08:43 Finasteride (Proscar) 5 mg DAILY ORAL 11/12/18 09:00 12/12/18 08:59 11/19/18 08:46 Insulin Aspart (NovoLOG) BEFORE MEALS AND HS SUBQ 11/11/18 21:00 12/11/18 20:59 11/18/18 17:05 Lorazepam (Ativan 2mg/ml 1ml) 0.5 mg Q4H PRN IV For Anxiety 11/18/18 21:45 11/25/18 21:44 Lorazepam (Ativan) 1 mg Q6H PRN ORAL For Anxiety 11/18/18 21:45 11/25/18 21:44 Morphine Sulfate (Morphine Sulfate) 1 mg Q4H PRN IVP For Pain 11/18/18 21:45 11/25/18 21:44 11/19/18 08:48 Ondansetron HCl (Zofran) 4 mg Q6H PRN IVP Nausea & Vomiting 11/11/18 21:00 12/11/18 20:59 Pantoprazole (Protonix) 40 mg DAILY ORAL 11/14/18 21:00 12/14/18 20:59 11/19/18 08:46 Polyethylene Glycol (Miralax) 17 gm HSPRN PRN ORAL Constipation 11/11/18 21:00 12/11/18 20:59 Sucralfate (Carafate) 1 gm TID ORAL 11/14/18 20:00 12/14/18 19:59 11/19/18 08:46 Tamsulosin HCl (Flomax) 0.4 mg BEDTIME ORAL 11/11/18 21:00 12/11/18 20:59 11/18/18 20:59 Topiramate (Topamax) 100 mg DAILY ORAL 11/12/18 09:00 12/12/18 08:59 11/19/18 08:43 Zolpidem Tartrate (Ambien) 5 mg HSPRN PRN ORAL Insomnia 11/18/18 21:45 11/25/18 21:44 11/18/18 21:49 Laboratory Tests 11/19/18 05:20: White Blood Count 6.3, Red Blood Count 4.07L, Hemoglobin 12.4L, Hematocrit 37.5L , Mean Corpuscular Volume 92, Mean Corpuscular Hemoglobin 30.4, Mean Corpuscular Hemoglobin Concent 33.0, Red Cell Distribution Width 11.6, Platelet Count 120L, Mean Platelet Volume 6.9, Neutrophils (%) (Auto) 66.7, Lymphocytes ( %) (Auto) 18.8L, Monocytes (%) (Auto) 8.0, Eosinophils (%) (Auto) 5.7H, Basophils (%) (Auto) 0.8, Sodium Level 143, Potassium Level 3.8, Chloride Level 111H, Carbon Dioxide Level 25, Anion Gap 7, Blood Urea Nitrogen 22H, Creatinine 1.0, Estimat Glomerular Filtration Rate , Glucose Level 93, Calcium Level 8.7 Height (Feet): 5 Height (Inches): 8.00 Weight (Pounds): 231 Objective exam stable PSA 149 Bone scan (11/16) noted Gabino Segal MD Nov 19, 2018 09:09
--- NOTE | 2018-11-19 09:29 | NUR ---
CASE MANAGEMENT: REVIEW 11/18/2018 SI: UTI; AGITATION. ACUTE ENCEPHALOPATHY 98.1 60 20 109/52 95%RA RBC 4.11; H/H 12.6/ 38.0; PLT 127; CL 111; BUN 19 IS:IV MORPHINE SULFATE Q4/PRN PROTONIX PO QD LIPITOR PO QHS CARAFATE PO TID DIGOXIN PO QD PROSCAR PO QD TOPAMAX PO QD ASA PO QD ABILIFY PO QD LEXAPRO PO QD INSULIN ASPART SUBQ AC/HS CASODEX PO QD OSCAL D PO QD AMBIEN PO HS/PRN : TO MED/SURG [facility] DCP: PLACEMENT NEEDED PLAN: PT SINCE PATIENT IS WEAK CASE CASE MANAGEMENT: REVIEW 11/19/2018 SI: UTI; AGITATION. ACUTE ENCEPHALOPATHY 98.0 71 18 94/46 94%RA BUN 22; CL 111; RBC 4.07; H/H 12.4/ 37.5; PLY 120 IS:IV MORPHINE SULFATE Q4/PRN PROTONIX PO QD LIPITOR PO QHS CARAFATE PO TID DIGOXIN PO QD PROSCAR PO QD TOPAMAX PO QD ASA PO QD ABILIFY PO QD LEXAPRO PO QD INSULIN ASPART SUBQ AC/HS CASODEX PO QD OSCAL D PO QD AMBIEN PO HS/PRN : TO MED/SURG [facility] DCP: PLACEMENT NEEDED DISCHARGE TO [facility] [address]
--- NOTE | 2018-11-19 09:29 | General Progress Note ---
Assessment/Plan Problem List: (1) UTI (urinary tract infection) ICD Codes: N39.0 - Urinary tract infection, site not specified SNOMED: 28898667 (2) Behavioral disorder SNOMED: 710238991, 163641322 (3) Agitation ICD Codes: R45.1 - Restlessness and agitation SNOMED: 816951255, 000743009 (4) Acute encephalopathy ICD Codes: G93.40 - Encephalopathy, unspecified SNOMED: 94690575, 081441452 (5) HTN (hypertension) ICD Codes: I10 - Essential (primary) hypertension SNOMED: 42394374 (6) COPD (chronic obstructive pulmonary disease) ICD Codes: J44.9 - Chronic obstructive pulmonary disease, unspecified SNOMED: 19889577 (7) Anemia ICD Codes: D64.9 - Anemia, unspecified SNOMED: 332306042 Status: stable, progressing Assessment/Plan: pt diet cbc bmp am abx dc plan Subjective Constitutional: Reports: weakness Allergies: Uncoded Allergies: Sheep wool (Allergy, Unknown, 11/12/18) All Systems: reviewed and negative except above Subjective sleepy calm Objective Last 24 Hour Vital Signs Date Time Temp Pulse Resp B/P (MAP) Pulse Ox O2 Delivery O2 Flow Rate FiO2 11/19/18 08:44 63 11/19/18 04:00 18 11/19/18 00:00 98.0 71 18 94/46 (62) 94 11/18/18 21:00 Room Air 11/18/18 20:00 98.1 70 18 97/58 (71) 95 11/18/18 16:00 98.3 64 19 109/62 (78) 96 11/18/18 12:00 98.8 62 21 110/66 (81) 95 11/18/18 09:36 60 Intake and Output 11/18/18 11/19/18 18:59 06:59 Intake Total 600 ml Output Total 500 ml 550 ml Balance 100 ml -550 ml Intake Oral 600 ml Output Urine Total 500 ml 550 ml # Voids 2 Laboratory Tests 11/19/18 05:20: White Blood Count 6.3, Red Blood Count 4.07L, Hemoglobin 12.4L, Hematocrit 37.5L , Mean Corpuscular Volume 92, Mean Corpuscular Hemoglobin 30.4, Mean Corpuscular Hemoglobin Concent 33.0, Red Cell Distribution Width 11.6, Platelet Count 120L, Mean Platelet Volume 6.9, Neutrophils (%) (Auto) 66.7, Lymphocytes ( %) (Auto) 18.8L, Monocytes (%) (Auto) 8.0, Eosinophils (%) (Auto) 5.7H, Basophils (%) (Auto) 0.8, Sodium Level 143, Potassium Level 3.8, Chloride Level 111H, Carbon Dioxide Level 25, Anion Gap 7, Blood Urea Nitrogen 22H, Creatinine 1.0, Estimat Glomerular Filtration Rate , Glucose Level 93, Calcium Level 8.7 Height (Feet): 5 Height (Inches): 8.00 Weight (Pounds): 231 General Appearance: lethargic EENT: normal ENT inspection Neck: normal alignment Cardiovascular: normal peripheral pulses, normal rate, regular rhythm Respiratory/Chest: chest wall non-tender, lungs clear, normal breath sounds Abdomen: normal bowel sounds, non tender, soft Extremities: normal inspection Edema: no edema noted Arm (L), no edema noted Arm (R), no edema noted Leg (L), no edema noted Leg (R), no edema noted Pedal (L), no edema noted Pedal (R), no edema noted Generalized Neurologic: motor weakness Skin: normal pigmentation, warm/dry Mickey Pinto DO Nov 19, 2018 09:29
--- NOTE | 2018-11-19 11:00 | NUR ---
NURSE NOTES: Patient insists on raising bed despite explanation of risk for fall. Verbalized understanding but still refused to lower bed.
[2018-11-19 12:00] VITALS: BP 121/68
[2018-11-19] MEDS ORDERED: ABILIFY2 MG ORAL (12:23)
[2018-11-19] MEDS ORDERED: DOCUSATE SODIU100 MG ORAL (12:27)
[2018-11-19] MEDS ORDERED: PANTOPRAZOLE SO40 MG ORAL (12:30)
[2018-11-19] MEDS ORDERED: CARAFATE1 G1 ORAL (12:32)
--- NOTE | 2018-11-19 13:30 | Progress Note ---
DATE: 11/19/2018 SUBJECTIVE: This is a 78-year-old male patient and this patient continues to have some psychomotor agitation and mood lability worsened by stress of his medical illness. He still has worsened mood lability, agitation, worsened by stress of his medical illness. he is very demanding, irritable, and agitated. That is why, his daily psychiatric consultation to stabilize this patient's mood. MENTAL STATUS EXAMINATION: This is a 78-year-old male. Appearance is disheveled. Attitude, irritable and agitated. Affect, guarded and restricted. Intellect poor. Mood, depressed and anxious. Motor activity, psychomotor agitation. Attention span is poor. Orientation x2. Speech is low volume, slurred. Thought process, disorganized and illogical. Insight and judgment is poor. DIAGNOSIS: Bipolar 2, rule out schizoaffective, bipolar type. PLAN: Plan for this patient is to treat this patient with psychotropic medication regimen consisting of Ativan 1 mg every 6 hours p.r.n. anxiety and agitation, Abilify 5 mg daily, Lexapro 10 mg daily as well as Topamax at a dose of 100 mg daily and provide him with 20 minutes of reality-based supportive psychotherapy. A 20 minutes of cognitive behavioral therapy to help him identify his automatic negative thoughts and help him convert his negative thoughts to more positive thoughts to reduce depression, anxiety, mood lability and continue to be followed by Psychiatry throughout his hospital course. Chart reviewed. Discussed with staff. The patient was seen and assessed at bedside. Molina Tapia M.D. DR: SHAYE JOB#: [id number] CC:
--- NOTE | 2018-11-19 14:27 | NUR ---
*-* INSURANCE *-* ALL CLINICALS AND REVIEWS HAVE BEEN FAXED TO: [facility] PLEASE FAX THE REVIEW/CLINICAL P- [phone] F- [phone]...REVIEW/CLINICAL
[2018-11-19 16:00] VITALS: BP 96/55
--- NOTE | 2018-11-19 17:23 | NUR ---
NURSE NOTES: Per GAIL john, patient will not be discharged today. the [facility] refused to take the patient. GAIL is working on with new placement.
--- NOTE | 2018-11-19 19:21 | NUR ---
HAND-OFF: Report given to Adonay.
--- NOTE | 2018-11-19 19:30 | NUR ---
NURSE NOTES: Patient received in bed, aaox4, asking for snacks, diabetic snacks will be provided for patient. Bed is locked; not in low position - patient refused to have bed in the lowest position - educated re: fall risk, verbalized understanding. Patient also refused bed alarm, educated importance. Patient verbally stated he will call for assistance upon getting up from bed. Call light in reach. will continue to monitor.
[2018-11-19 20:00] VITALS: BP 114/56
[2018-11-19] MEDS: Tamsulosin 0.4mg cap ORAL SCH (20:27)
[2018-11-19] MEDS: Atorvastatin 20mg tab ORAL SCH (20:29)
--- NOTE | 2018-11-19 20:30 | NUR ---
NURSE NOTES: Sacral redness applied triad cream and covered with optifoam. Encouraged patient to relieve pressure and turn when in bed. Verbalized understanding. Patient is able to reposition self. Addendum: 11/20/18 at 0026 by JOSÉ MIGUEL AUGUSTE RN RN patient refused to have pictures taken at this time, requests to sleep. Will re-attempt later.
[2018-11-19] MEDS: Zolpidem 5mg tab ORAL PRN (20:38)
[2018-11-19 23:23] VITALS: BP 95/48
[2018-11-20 06:28] LABS: BASOPHILS % (AUTO) 0.6 % (0.0-2.0); EOSINOPHILS % (AUTO) 5.4 % (0.0-3.0); HEMATOCRIT 36.6 % (42.0-52.0); HEMOGLOBIN 12.1 G/DL (14.2-18.0); LYMPHOCYTES % (AUTO) 25.3 % (20.0-45.0); MEAN CORPUSCULAR VOLUME 92 FL (80-99); MONOCYTES % (AUTO) 8.9 % (1.0-10.0); NEUTROPHILS % (AUTO) 59.8 % (45.0-75.0); PLATELET COUNT 127 K/UL (150-450); RED BLOOD COUNT 3.98 M/UL (4.70-6.10); WHITE BLOOD COUNT 5.6 K/UL (4.8-10.8)
[2018-11-20] MEDS: NovoLOG Insulin Flexpen SUBQ SCH ×4 (06:30→21:11)
--- NOTE | 2018-11-20 06:30 | NUR ---
NURSE NOTES: Pt c/o 10/20 headache. Checked BP. Initially it was 85/46. Rechecked again 94/50. Patient offered tylenol but patient prefers morphine. Patient educated on side effects of even lower blood pressure with morphine. Patient stated his blood pressure is lower when he is sleepy. Encouraged patient more movement to be more awake that may increase his blood pressure more. Will monitor.
[2018-11-20 06:49] LABS: ANION GAP 7 mmol/L (5-15); BLOOD UREA NITROGEN 22 mg/dL (7-18); CALCIUM 8.6 MG/DL (8.5-10.1); CARBON DIOXIDE 26 MMOL/L (21-32); CHLORIDE 111 MMOL/L (98-107); CREATININE 0.9 MG/DL (0.55-1.30); POTASSIUM 3.8 MMOL/L (3.5-5.1); SODIUM 144 MMOL/L (136-145)
--- NOTE | 2018-11-20 07:15 | Consultation ---
DATE OF CONSULTATION: 11/19/2018 PSYCHOTHERAPY CONSULTATION PROGRESS NOTE CONSULTING PHYSICIAN: Elizabeth Ross PsyD. TREATING ATTENDING: Mickey Pinto D.O. HISTORY OF PRESENT ILLNESS: The patient is a 78-year-old male patient from [facility]. The patient presented to the hospital for agitation and acute encephalopathy. The patient is anxious and labile. For these reasons, he is referred to psychotherapeutic services. Apparently, the patient has been very verbally abusive and anxious and agitated, calderon and demanding . I assessed this patient. The patient has a long-term history of severe depression, anxiety, agitation, and he stated that he was in verbal argument with nursing facility. He states that he is in argument with staff members there and he was brought into the hospital. He states he likes this hospital because treated here. He has an extensive history of labile mood and extensive history of anxiety. He spoke extensively about his past history of anxiety, his treatments, his past mental conditions, and psychiatric hospitalizations. He continues to deny suicidal or homicidal thoughts of ideations. He denies any auditory or visual hallucination demanding depressed. PAST MEDICAL HISTORY: Includes history of seizures, hyperlipidemia, COPD, GERD, and hypertension. ALLERGIES: The patient has no known drug allergies. SUBSTANCE ABUSE HISTORY: The patient denies history of alcohol use, illicit substance use, or smoking cigarettes. PSYCHIATRIC HISTORY: The patient has a history of possible schizoaffective disorder and bipolar disorder and has been treated with psychotropic medications in the past. SOCIAL HISTORY: The patient is a 78-year-old male patient from [facility]. Financially sustained through [facility]. MENTAL STATUS EXAMINATION: The patient is alert and oriented to person, place, time, and situation. Mood is extremely anxious. Affect is labile. Thought process, irritable and agitated. Slight . Poor attention and concentration. Poor insight, judgment, and impulse control. DIAGNOSES: 1. Schizoaffective disorder, bipolar type. 2. Bipolar 2 disorder, mixed, moderate with psychotic features. PLAN: Today I assessed this patient. Provided the patient with: 1. Supportive psychotherapy, which is focused on addressing the depression. He has been very verbally abusive, agitated, and anxious with nursing staff. Therefore, encouraging him to utilize his positive communication skills, as he is extremely labile, level of function. 2. Cognitive behavioral therapy which can help negative and catastrophic thoughts, redirecting his impulsivity and impulse control strategies utilizing positive positive coping skills, positive thought process. medication compliance, positive coping skills . Elizabeth Ross PsyD. DR: Emily JOB#: [id number] CC:
--- NOTE | 2018-11-20 07:45 | NUR ---
NURSE NOTES: Patient received in bed, a/a/ox4. able to verbalize needs. Patient is calm and comfortable. no acute resp distress noted. bed is in low position Locked and alarm activated. Call light in reach. will continue to monitor.
--- NOTE | 2018-11-20 07:50 | NUR ---
HAND-OFF: Report given to Belinda ALLAN.
[2018-11-20 08:00] VITALS: BP 106/60
[2018-11-20] MEDS: Bicalutamide 50mg tab ORAL SCH (08:33)
[2018-11-20] MEDS: Docusate 250mg cap ORAL SCH (08:33)
[2018-11-20] MEDS: Calcium Carbonate 500mg w/Vit D 200iu tab ORAL SCH (08:33)
[2018-11-20] MEDS: Digoxin 0.125mg tab ORAL SCH (08:34)
[2018-11-20] MEDS: Aspirin Baby 81mg ORAL SCH (08:34)
[2018-11-20] MEDS: Sucralfate 1gm tab ORAL SCH ×3 (08:34→17:02)
[2018-11-20] MEDS: Topiramate 100mg tab ORAL SCH (08:36)
--- NOTE | 2018-11-20 08:57 | General Progress Note ---
Assessment/Plan Problem List: (1) UTI (urinary tract infection) ICD Codes: N39.0 - Urinary tract infection, site not specified SNOMED: 56000336 (2) Behavioral disorder SNOMED: 580762501, 243939117 (3) Agitation ICD Codes: R45.1 - Restlessness and agitation SNOMED: 084327428, 249641897 (4) Acute encephalopathy ICD Codes: G93.40 - Encephalopathy, unspecified SNOMED: 80287189, 773977045 (5) HTN (hypertension) ICD Codes: I10 - Essential (primary) hypertension SNOMED: 36349899 (6) COPD (chronic obstructive pulmonary disease) ICD Codes: J44.9 - Chronic obstructive pulmonary disease, unspecified SNOMED: 47187873 (7) Anemia ICD Codes: D64.9 - Anemia, unspecified SNOMED: 874360945 Status: stable, progressing Assessment/Plan: pt diet cbc bmp am abx dc to snf Subjective Constitutional: Reports: weakness Allergies: Uncoded Allergies: Sheep wool (Allergy, Unknown, 11/12/18) All Systems: reviewed and negative except above Subjective sleepy calm Objective Last 24 Hour Vital Signs Date Time Temp Pulse Resp B/P (MAP) Pulse Ox O2 Delivery O2 Flow Rate FiO2 11/20/18 08:34 64 11/19/18 23:23 97.5 66 18 95/48 (64) 97 11/19/18 21:00 Room Air 11/19/18 20:00 98.2 61 18 114/56 (75) 95 11/19/18 16:00 98.4 64 18 96/55 (69) 96 11/19/18 12:00 98.7 69 18 121/68 (85) 94 11/19/18 09:00 Room Air Intake and Output 11/19/18 11/20/18 18:59 06:59 Intake Total 880 ml 300 ml Output Total 750 ml Balance 880 ml -450 ml Intake Oral 880 ml 300 ml Output Urine Total 750 ml # Voids 8 Laboratory Tests 11/20/18 05:12: White Blood Count 5.6, Red Blood Count 3.98L, Hemoglobin 12.1L, Hematocrit 36.6L , Mean Corpuscular Volume 92, Mean Corpuscular Hemoglobin 30.5, Mean Corpuscular Hemoglobin Concent 33.2, Red Cell Distribution Width 12.0, Platelet Count 127L, Mean Platelet Volume 7.0, Neutrophils (%) (Auto) 59.8, Lymphocytes ( %) (Auto) 25.3, Monocytes (%) (Auto) 8.9, Eosinophils (%) (Auto) 5.4H, Basophils (%) (Auto) 0.6, Sodium Level 144, Potassium Level 3.8, Chloride Level 111H, Carbon Dioxide Level 26, Anion Gap 7, Blood Urea Nitrogen 22H, Creatinine 0.9, Estimat Glomerular Filtration Rate , Glucose Level 90, Calcium Level 8.6 Height (Feet): 5 Height (Inches): 8.00 Weight (Pounds): 231 General Appearance: lethargic EENT: normal ENT inspection Neck: normal alignment Cardiovascular: normal peripheral pulses, normal rate, regular rhythm Respiratory/Chest: chest wall non-tender, lungs clear, normal breath sounds Abdomen: normal bowel sounds, non tender, soft Extremities: normal inspection Edema: no edema noted Arm (L), no edema noted Arm (R), no edema noted Leg (L), no edema noted Leg (R), no edema noted Pedal (L), no edema noted Pedal (R), no edema noted Generalized Neurologic: motor weakness Skin: normal pigmentation, warm/dry Mickey Pinto DO Nov 20, 2018 08:57
--- NOTE | 2018-11-20 09:53 | Urology Progress Note ---
Assessment/Plan Status: stable, progressing Assessment/Plan: 1. History of prostate cancer, likely advanced. 2. BPH. 3. Lower urinary tract symptoms. 4. UTI history. 5. Hematuria history. 6. Nephrolithiasis. 7. Renal cyst. 8. Probable neurogenic bladder. sig PSA elevation concern for met disease cont flomax and proscar casodex added will need lupron, later after casodex renal fxn stable bone scan result reviewed with radiologist MRI would help, but can't do secondary to pacemaker consider plain films will see if lupron can be given in hosp, but likely as outpt Subjective Allergies: Uncoded Allergies: Sheep wool (Allergy, Unknown, 11/12/18) Subjective all noted, feels fair, awaiting placement Objective Last 24 Hour Vital Signs Date Time Temp Pulse Resp B/P (MAP) Pulse Ox O2 Delivery O2 Flow Rate FiO2 11/20/18 08:34 64 11/19/18 23:23 97.5 66 18 95/48 (64) 97 11/19/18 21:00 Room Air 11/19/18 20:00 98.2 61 18 114/56 (75) 95 11/19/18 16:00 98.4 64 18 96/55 (69) 96 11/19/18 12:00 98.7 69 18 121/68 (85) 94 Intake and Output 11/19/18 11/20/18 18:59 06:59 Intake Total 880 ml 300 ml Output Total 750 ml Balance 880 ml -450 ml Intake Oral 880 ml 300 ml Output Urine Total 750 ml # Voids 8 Microbiology Date/Time Source Procedure Growth Status 11/11/18 17:30 Nasal Nares MRSA Culture - Final Staphylococcus Aureus - Mrsa Complete 11/11/18 17:30 Rectum - Final NO CARBAPENEM-RESISTANT ENTEROBACTERI... Complete Current Medications Medications (Trade) Dose Ordered Sig/Maliha Route PRN Reason Start Time Stop Time Status Last Admin Dose Admin Acetaminophen (Tylenol) 650 mg Q4H PRN ORAL fever 11/11/18 21:00 12/11/18 20:59 Aripiprazole (Abilify) 5 mg DAILY ORAL 11/13/18 09:00 12/13/18 08:59 11/20/18 08:35 Aspirin (ASA) 81 mg DAILY ORAL 11/13/18 09:00 12/13/18 08:59 11/20/18 08:34 Atorvastatin Calcium (Lipitor) 40 mg BEDTIME ORAL 11/12/18 21:00 12/12/18 20:59 11/19/18 20:29 Bicalutamide (Casodex) 50 mg DAILY ORAL 11/16/18 09:00 11/21/18 08:59 11/20/18 08:33 Calcium/Vitamin D (OsCal D) 2 tab DAILY ORAL 11/12/18 13:00 12/12/18 12:59 11/20/18 08:33 Dextrose (Dextrose 50%) 25 ml Q30M PRN IV Hypoglycemia 11/11/18 21:00 12/11/18 20:59 Dextrose (Dextrose 50%) 50 ml Q30M PRN IV Hypoglycemia 11/11/18 21:00 12/11/18 20:59 Digoxin (Lanoxin) 0.125 mg DAILY ORAL 11/12/18 09:00 12/12/18 08:59 11/20/18 08:34 Docusate Sodium (Colace) 250 mg DAILY ORAL 11/13/18 18:00 12/13/18 17:59 11/20/18 08:33 Escitalopram Oxalate (Lexapro) 10 mg DAILY ORAL 11/13/18 09:00 12/13/18 08:59 11/20/18 08:34 Finasteride (Proscar) 5 mg DAILY ORAL 11/12/18 09:00 12/12/18 08:59 11/20/18 08:34 Insulin Aspart (NovoLOG) BEFORE MEALS AND HS SUBQ 11/11/18 21:00 12/11/18 20:59 11/19/18 12:02 Lorazepam (Ativan 2mg/ml 1ml) 0.5 mg Q4H PRN IV For Anxiety 11/18/18 21:45 11/25/18 21:44 Lorazepam (Ativan) 1 mg Q6H PRN ORAL For Anxiety 11/18/18 21:45 11/25/18 21:44 Morphine Sulfate (Morphine Sulfate) 1 mg Q4H PRN IVP For Pain 11/18/18 21:45 11/25/18 21:44 11/19/18 08:48 Ondansetron HCl (Zofran) 4 mg Q6H PRN IVP Nausea & Vomiting 11/11/18 21:00 12/11/18 20:59 Pantoprazole (Protonix) 40 mg DAILY ORAL 11/14/18 21:00 12/14/18 20:59 11/20/18 08:34 Polyethylene Glycol (Miralax) 17 gm HSPRN PRN ORAL Constipation 11/11/18 21:00 12/11/18 20:59 Sucralfate (Carafate) 1 gm TID ORAL 11/14/18 20:00 12/14/18 19:59 11/20/18 08:34 Tamsulosin HCl (Flomax) 0.4 mg BEDTIME ORAL 11/11/18 21:00 12/11/18 20:59 11/19/18 20:27 Topiramate (Topamax) 100 mg DAILY ORAL 11/12/18 09:00 12/12/18 08:59 11/20/18 08:36 Zolpidem Tartrate (Ambien) 5 mg HSPRN PRN ORAL Insomnia 11/18/18 21:45 11/25/18 21:44 11/19/18 20:38 Laboratory Tests 11/20/18 05:12: White Blood Count 5.6, Red Blood Count 3.98L, Hemoglobin 12.1L, Hematocrit 36.6L , Mean Corpuscular Volume 92, Mean Corpuscular Hemoglobin 30.5, Mean Corpuscular Hemoglobin Concent 33.2, Red Cell Distribution Width 12.0, Platelet Count 127L, Mean Platelet Volume 7.0, Neutrophils (%) (Auto) 59.8, Lymphocytes ( %) (Auto) 25.3, Monocytes (%) (Auto) 8.9, Eosinophils (%) (Auto) 5.4H, Basophils (%) (Auto) 0.6, Sodium Level 144, Potassium Level 3.8, Chloride Level 111H, Carbon Dioxide Level 26, Anion Gap 7, Blood Urea Nitrogen 22H, Creatinine 0.9, Estimat Glomerular Filtration Rate , Glucose Level 90, Calcium Level 8.6 Height (Feet): 5 Height (Inches): 8.00 Weight (Pounds): 231 Objective exam stable PSA 149 Bone scan (11/16) noted Gabino Segal MD Nov 20, 2018 09:53
[2018-11-20] MEDS: Morphine Sulfate 2mg/ml Inj(IV/IM USE ONLY) IVP PRN (10:40)
--- NOTE | 2018-11-20 10:52 | NUR ---
PT WEEKLY PROGRESS NOTE Patient continues to participate with PT treatment. Patient requires supervision for transfers with FWW and able to ambulate 250 ft with supervision/SBA and FWW. Patient requires verbal cues and standing rest breaks to reset upright posture and for safety precautions. Patient will benefit from continued skilled inpatient PT intervention to increase safety awareness and improve gait stability for safe functional mobility.
[2018-11-20 12:00] VITALS: BP 111/69
--- NOTE | 2018-11-20 12:13 | NUR ---
DISCHARGE PLANNED: PATIENT IS READY FOR DISCHARGE BACK TO [facility] T: [phone] FOR NURSE TO NURSE REPORT ROOM: [facility] BE[facility] ARRANG[facility] [address] [employer] TE[employer] AUSTIN ALVES CALLED AND NOTIFIED OF PATIENTS RETURN Addendum: 11/20/18 at 1216 by ULYSSES ALTMAN LVN DISREGARD ABOVE; WRONG PATIENT
--- NOTE | 2018-11-20 14:47 | NUR ---
DISCHARGED PLAN: BARRIERS DUE TO PAST HISTORY OF VERBAL RACIAL REMARKS TO STAFF, THIS PATIENT IS NOT BEING CONSIDERED FOR PLACEMENT AT FACILITIES LISTED IN PREVIOUS NOTES. PATIENT WAS AUTHORIZED FOR USP; PATIENT NEEDS AUTHORIZATION FOR SKILLED FROM [facility] PATIENT WILL BE ACCEPTED ONCE FACILITY HAS PROPER AUTHORIZATION [facility] [address] IS ACCEPTING PENDING INSURANCE AUTHORIZATION CLINICALS HAVE BEEN FAXED; FACILITIES IS WAITING FOR PATIENT T: [phone] FOR NURSE TO NURSE REPORT
--- NOTE | 2018-11-20 14:50 | Hematology/Onc Progress Note ---
Assessment/Plan Assessment/Plan ASSESSMENT AND PLAN: # Prostate cancer, likely advanced, currently off any kind of treatment and has a outside urologist that he follows up with. --> likely acute elevation is due to uti, currently high and can oscillate even to 100s --> obtain skeletal survey rule out distant mets--> SHOWS NOT METS --> Pyuria- no UTI symptoms --> PSA trend 20-->65-->126->149 --> casodex started, consider lupron (as per uro) --> discussed with Dr. Segal --> likely will benefit from MRI but has pacemaker+++ --> if better performance status, may need zytiga or xtandi # Thrombocytopenia in the 100-150s range likely due to mets --> consider hepatitis and hiv --> negative --> smear has been reviewed, completed --> appreciate uro and id recs in reg to abx --> Us of abd last time showed masses in spleen--> new us abd ordered --> plt trend 127-->120-->127k # Dm2 --> a1c goal <8 --> accuchecks qac and qhs --> endo eval prn # Psych hx --> may need transfer # HTN # COPD # AFib # GERD # SNF resident The timing of this note does not necessarily reflect the time of the patient was seen. Greatly appreciate consultation! Subjective HEENT: Denies: no symptoms, eye pain, blurred vision, tearing, double vision, ear pain, ear discharge, nose pain, nose congestion, throat pain, throat swelling, mouth pain, mouth swelling, other Cardiovascular: Denies: no symptoms, chest pain, edema, irregular heart rate, lightheadedness, palpitations, syncope, other Respiratory: Denies: no symptoms, cough, shortness of breath, SOB with excertion, SOB at rest, sputum, wheezing, other Gastrointestinal/Abdominal: Denies: no symptoms, abdomen distended, abdominal pain, black stools, tarry stools, blood in stool, constipated, diarrhea, difficulty swallowing, nausea, poor appetite, poor fluid intake, rectal bleeding , vomiting, other Genitourinary: Denies: no symptoms, burning, discharge, frequency, flank pain, hematuria, incontinence, pain, urgency, other Neurologic/Psychiatric: Denies: no symptoms, anxiety, depressed, emotional problems, headache, numbness, paresthesia, pre-existing deficit, seizure, tingling, tremors, weakness, other Endocrine: Denies: no symptoms, excessive sweating, flushing, intolerance to cold, intolerance to heat, increased hunger, increased thirst, increased urine, unexplained weight gain, unexplained weight loss, other Allergies: Uncoded Allergies: Sheep wool (Allergy, Unknown, 11/12/18) Subjective 11/20: dc planning in progress, seen by uro in the am as well, psa worsening Objective Objective Current Medications Medications (Trade) Dose Ordered Sig/Maliha Route PRN Reason Start Time Stop Time Status Last Admin Dose Admin Acetaminophen (Tylenol) 650 mg Q4H PRN ORAL fever 11/11/18 21:00 12/11/18 20:59 Aripiprazole (Abilify) 5 mg DAILY ORAL 11/13/18 09:00 12/13/18 08:59 11/20/18 08:35 Aspirin (ASA) 81 mg DAILY ORAL 11/13/18 09:00 12/13/18 08:59 11/20/18 08:34 Atorvastatin Calcium (Lipitor) 40 mg BEDTIME ORAL 11/12/18 21:00 12/12/18 20:59 11/19/18 20:29 Bicalutamide (Casodex) 50 mg DAILY ORAL 11/16/18 09:00 11/21/18 08:59 11/20/18 08:33 Calcium/Vitamin D (OsCal D) 2 tab DAILY ORAL 11/12/18 13:00 12/12/18 12:59 11/20/18 08:33 Dextrose (Dextrose 50%) 25 ml Q30M PRN IV Hypoglycemia 11/11/18 21:00 12/11/18 20:59 Dextrose (Dextrose 50%) 50 ml Q30M PRN IV Hypoglycemia 11/11/18 21:00 12/11/18 20:59 Digoxin (Lanoxin) 0.125 mg DAILY ORAL 11/12/18 09:00 12/12/18 08:59 11/20/18 08:34 Docusate Sodium (Colace) 250 mg DAILY ORAL 11/13/18 18:00 12/13/18 17:59 11/20/18 08:33 Escitalopram Oxalate (Lexapro) 10 mg DAILY ORAL 11/13/18 09:00 12/13/18 08:59 11/20/18 08:34 Finasteride (Proscar) 5 mg DAILY ORAL 11/12/18 09:00 12/12/18 08:59 11/20/18 08:34 Insulin Aspart (NovoLOG) BEFORE MEALS AND HS SUBQ 11/11/18 21:00 12/11/18 20:59 11/19/18 12:02 Lorazepam (Ativan 2mg/ml 1ml) 0.5 mg Q4H PRN IV For Anxiety 11/18/18 21:45 11/25/18 21:44 Lorazepam (Ativan) 1 mg Q6H PRN ORAL For Anxiety 11/18/18 21:45 11/25/18 21:44 Morphine Sulfate (Morphine Sulfate) 1 mg Q4H PRN IVP For Pain 11/18/18 21:45 11/25/18 21:44 11/20/18 10:40 Ondansetron HCl (Zofran) 4 mg Q6H PRN IVP Nausea & Vomiting 11/11/18 21:00 12/11/18 20:59 Pantoprazole (Protonix) 40 mg DAILY ORAL 11/14/18 21:00 12/14/18 20:59 11/20/18 08:34 Polyethylene Glycol (Miralax) 17 gm HSPRN PRN ORAL Constipation 11/11/18 21:00 12/11/18 20:59 Sucralfate (Carafate) 1 gm TID ORAL 11/14/18 20:00 12/14/18 19:59 11/20/18 12:20 Tamsulosin HCl (Flomax) 0.4 mg BEDTIME ORAL 11/11/18 21:00 12/11/18 20:59 11/19/18 20:27 Topiramate (Topamax) 100 mg DAILY ORAL 11/12/18 09:00 12/12/18 08:59 11/20/18 08:36 Zolpidem Tartrate (Ambien) 5 mg HSPRN PRN ORAL Insomnia 11/18/18 21:45 11/25/18 21:44 11/19/18 20:38 Last 24 Hour Vital Signs Date Time Temp Pulse Resp B/P (MAP) Pulse Ox O2 Delivery O2 Flow Rate FiO2 11/20/18 12:00 98.5 70 17 111/69 (83) 94 11/20/18 11:10 97.7 11/20/18 09:00 Room Air 11/20/18 08:34 64 11/20/18 08:00 97.7 64 19 106/60 (75) 96 11/19/18 23:23 97.5 66 18 95/48 (64) 97 11/19/18 21:00 Room Air 11/19/18 20:00 98.2 61 18 114/56 (75) 95 11/19/18 16:00 98.4 64 18 96/55 (69) 96 11/19/18 12:00 98.7 69 18 121/68 (85) 94 11/19/18 09:00 Room Air 11/19/18 08:44 63 11/19/18 08:00 97.5 62 18 96/60 (72) 95 11/19/18 04:00 18 11/19/18 00:00 98.0 71 18 94/46 (62) 94 11/18/18 21:00 Room Air 11/18/18 20:00 98.1 70 18 97/58 (71) 95 11/18/18 16:00 98.3 64 19 109/62 (78) 96 Intake and Output 11/19/18 11/20/18 19:00 07:00 Intake Total 880 ml 300 ml Output Total 750 ml Balance 880 ml -450 ml Intake Oral 880 ml 300 ml Output Urine Total 750 ml # Voids 8 Labs Test 11/18/18 04:41 11/19/18 05:20 11/20/18 05:12 White Blood Count 6.2 K/UL (4.8-10.8) 6.3 K/UL (4.8-10.8) 5.6 K/UL (4.8-10.8) Red Blood Count 4.11 M/UL (4.70-6.10) 4.07 M/UL (4.70-6.10) 3.98 M/UL (4.70-6.10) Hemoglobin 12.6 G/DL (14.2-18.0) 12.4 G/DL (14.2-18.0) 12.1 G/DL (14.2-18.0) Hematocrit 38.0 % (42.0-52.0) 37.5 % (42.0-52.0) 36.6 % (42.0-52.0) Mean Corpuscular Volume 92 FL (80-99) 92 FL (80-99) 92 FL (80-99) Mean Corpuscular Hemoglobin 30.6 PG (27.0-31.0) 30.4 PG (27.0-31.0) 30.5 PG (27.0-31.0) Mean Corpuscular Hemoglobin Concent 33.1 G/DL (32.0-36.0) 33.0 G/DL (32.0-36.0) 33.2 G/DL (32.0-36.0) Red Cell Distribution Width 11.7 % (11.6-14.8) 11.6 % (11.6-14.8) 12.0 % (11.6-14.8) Platelet Count 127 K/UL (150-450) 120 K/UL (150-450) 127 K/UL (150-450) Mean Platelet Volume 6.8 FL (6.5-10.1) 6.9 FL (6.5-10.1) 7.0 FL (6.5-10.1) Neutrophils (%) (Auto) 64.4 % (45.0-75.0) 66.7 % (45.0-75.0) 59.8 % (45.0-75.0) Lymphocytes (%) (Auto) 21.9 % (20.0-45.0) 18.8 % (20.0-45.0) 25.3 % (20.0-45.0) Monocytes (%) (Auto) 8.4 % (1.0-10.0) 8.0 % (1.0-10.0) 8.9 % (1.0-10.0) Eosinophils (%) (Auto) 4.6 % (0.0-3.0) 5.7 % (0.0-3.0) 5.4 % (0.0-3.0) Basophils (%) (Auto) 0.7 % (0.0-2.0) 0.8 % (0.0-2.0) 0.6 % (0.0-2.0) Sodium Level 144 MMOL/L (136-145) 143 MMOL/L (136-145) 144 MMOL/L (136-145) Potassium Level 3.7 MMOL/L (3.5-5.1) 3.8 MMOL/L (3.5-5.1) 3.8 MMOL/L (3.5-5.1) Chloride Level 111 MMOL/L (98-107) 111 MMOL/L (98-107) 111 MMOL/L (98-107) Carbon Dioxide Level 27 MMOL/L (21-32) 25 MMOL/L (21-32) 26 MMOL/L (21-32) Anion Gap 6 mmol/L (5-15) 7 mmol/L (5-15) 7 mmol/L (5-15) Blood Urea Nitrogen 19 mg/dL (7-18) 22 mg/dL (7-18) 22 mg/dL (7-18) Creatinine 0.9 MG/DL (0.55-1.30) 1.0 MG/DL (0.55-1.30) 0.9 MG/DL (0.55-1.30) Estimat Glomerular Filtration Rate mL/min (>60) mL/min (>60) mL/min (>60) Glucose Level 89 MG/DL (74-106) 93 MG/DL (74-106) 90 MG/DL (74-106) Calcium Level 8.8 MG/DL (8.5-10.1) 8.7 MG/DL (8.5-10.1) 8.6 MG/DL (8.5-10.1) Height (Feet): 5 Height (Inches): 8.00 Weight (Pounds): 231 Antony Thurston MD Nov 20, 2018 14:50
--- NOTE | 2018-11-20 15:45 | Progress Note ---
DATE: 11/20/2018 SUBJECTIVE: This is a 78-year-old male patient with agitation, but he has got some mood lability, confusion, and altered mental status worsened by stress of his medical illness. MENTAL STATUS EXAMINATION: This is a 78-year-old male. Appearance is disheveled. Attitude, irritable and agitated. Affect, guarded and restricted. Intellect, poor. Mood, depressed and anxious. Motor activity, psychomotor agitation. Insight and judgment is poor. DIAGNOSIS: Schizoaffective, bipolar type. PLAN: Treat this patient with Topamax 100 mg daily, Ativan 1 mg every 6 hours p.r.n. anxiety and agitation, and Abilify 5 mg daily. Provide him with 20 minutes of reality-based supportive psychotherapy. 20 minutes of reality-based supportive psychotherapy provided. Chart reviewed. Discussed with staff. Seen and assessed in his room. Molina Tapia M.D. DR: MAX JOB#: [id number] CC:
[2018-11-20 16:00] VITALS: BP 108/76
--- NOTE | 2018-11-20 16:00 | Progress Note ---
DATE: 11/20/2018 ADDENDUM A 20 minutes of cognitive behavioral therapy was provided to help him identify his automatic negative thoughts and convert his negative thoughts to more positive thoughts to reduce depression, anxiety, mood lability. Molina Tapia M.D. DR: MARIELOS JOB#: [id number] CC:
--- NOTE | 2018-11-20 16:44 | NUR ---
CASE MANAGEMENT: REVIEW 11/20/2018 SI: UTI; AGITATION. ACUTE ENCEPHALOPATHY 97.7 64 19 106/60 96%RA BUN 22; CL 111; RBC 3.98; H/H 12.1/ 36.6; PLT 127 IS:IV MORPHINE SULFATE Q4/PRN PROTONIX PO QD LIPITOR PO QHS CARAFATE PO TID DIGOXIN PO QD PROSCAR PO QD TOPAMAX PO QD ASA PO QD ABILIFY PO QD LEXAPRO PO QD INSULIN ASPART SUBQ AC/HS CASODEX PO QD OSCAL D PO QD AMBIEN PO HS/PRN : TO [facility] DCP: PLACEMENT NEEDED INSURANCE BARRIERS
--- NOTE | 2018-11-20 19:12 | NUR ---
HAND-OFF: Report given to armand.
--- NOTE | 2018-11-20 19:30 | NUR ---
NURSE NOTES: Pt received in bed, aox4, no complaints at this time. Bed locked in low position, call light in reach. Will continue plan of care.
[2018-11-20 20:00] VITALS: BP 120/79
[2018-11-20] MEDS: Atorvastatin 20mg tab ORAL SCH (21:06)
[2018-11-20] MEDS: Tamsulosin 0.4mg cap ORAL SCH (21:07)
[2018-11-20] MEDS: Zolpidem 5mg tab ORAL PRN (21:07)
--- NOTE | 2018-11-20 22:00 | NUR ---
NURSE NOTES: Partial bath given to patient. Reapplied calazime on sacrum with redness and applied optifoam.
[2018-11-21] VITALS: BP 91/55
[2018-11-21] MEDS: NovoLOG Insulin Flexpen SUBQ SCH ×4 (06:30→20:47)
--- NOTE | 2018-11-21 07:22 | NUR ---
HAND-OFF: Report given to Belinda ALLAN.
[2018-11-21 07:49] LABS: BASOPHILS % (AUTO) 0.5 % (0.0-2.0); EOSINOPHILS % (AUTO) 6.2 % (0.0-3.0); HEMATOCRIT 38.4 % (42.0-52.0); HEMOGLOBIN 12.7 G/DL (14.2-18.0); LYMPHOCYTES % (AUTO) 21.9 % (20.0-45.0); MEAN CORPUSCULAR VOLUME 92 FL (80-99); MONOCYTES % (AUTO) 8.4 % (1.0-10.0); PLATELET COUNT 132 K/UL (150-450); RED BLOOD COUNT 4.16 M/UL (4.70-6.10); RED CELL DISTRIBUTION WIDTH 12.3 % (11.6-14.8); WHITE BLOOD COUNT 5.8 K/UL (4.8-10.8)
[2018-11-21 08:00] VITALS: BP 102/58
[2018-11-21] MEDS: Sucralfate 1gm tab ORAL SCH ×3 (09:01→17:18)
[2018-11-21 09:02] LABS: ANION GAP 8 mmol/L (5-15); BLOOD UREA NITROGEN 23 mg/dL (7-18); CALCIUM 8.8 MG/DL (8.5-10.1); CARBON DIOXIDE 26 MMOL/L (21-32); CHLORIDE 112 MMOL/L (98-107); SODIUM 146 MMOL/L (136-145)
[2018-11-21] MEDS: Aspirin Baby 81mg ORAL SCH (09:02)
[2018-11-21] MEDS: Topiramate 100mg tab ORAL SCH (09:02)
[2018-11-21] MEDS: Docusate 250mg cap ORAL SCH (09:02)
[2018-11-21] MEDS: Digoxin 0.125mg tab ORAL SCH (09:02)
[2018-11-21] MEDS: Calcium Carbonate 500mg w/Vit D 200iu tab ORAL SCH (09:02)
[2018-11-21 10:08] VITALS: BP 120/63
--- NOTE | 2018-11-21 10:12 | NUR ---
NURSE NOTES: seen by PT and walked him on the hallway with no acute resp distress noted. B/P rechecked and recorded. will cont to monitor.
[2018-11-21] MEDS: Morphine Sulfate 2mg/ml Inj(IV/IM USE ONLY) IVP PRN ×2 (10:24→23:20)
--- NOTE | 2018-11-21 10:24 | General Progress Note ---
Assessment/Plan Problem List: (1) UTI (urinary tract infection) ICD Codes: N39.0 - Urinary tract infection, site not specified SNOMED: 12933799 (2) Behavioral disorder SNOMED: 509712531, 000286425 (3) Agitation ICD Codes: R45.1 - Restlessness and agitation SNOMED: 602241756, 762087361 (4) Acute encephalopathy ICD Codes: G93.40 - Encephalopathy, unspecified SNOMED: 57480650, 772586042 (5) HTN (hypertension) ICD Codes: I10 - Essential (primary) hypertension SNOMED: 65828436 (6) COPD (chronic obstructive pulmonary disease) ICD Codes: J44.9 - Chronic obstructive pulmonary disease, unspecified SNOMED: 06175872 (7) Anemia ICD Codes: D64.9 - Anemia, unspecified SNOMED: 814338314 Status: stable, progressing Assessment/Plan: pt diet cbc bmp am abx dc to snf Subjective Allergies: Uncoded Allergies: Sheep wool (Allergy, Unknown, 11/12/18) All Systems: reviewed and negative except above Subjective walking w pt Objective Last 24 Hour Vital Signs Date Time Temp Pulse Resp B/P (MAP) Pulse Ox O2 Delivery O2 Flow Rate FiO2 11/21/18 10:08 120/63 (82) 11/21/18 09:31 98.1 11/21/18 09:02 64 11/21/18 08:00 98.6 64 19 102/58 (73) 95 11/21/18 00:00 98.1 70 20 91/55 (67) 97 11/20/18 21:00 Room Air 11/20/18 20:00 98.4 94 18 120/79 (93) 98 11/20/18 16:00 98.7 64 18 108/76 (87) 99 11/20/18 12:00 98.5 70 17 111/69 (83) 94 11/20/18 11:10 97.7 Intake and Output 11/20/18 11/21/18 19:00 07:00 Intake Total 800 ml Output Total 1050 ml Balance 800 ml -1050 ml Intake Oral 800 ml Output Urine Total 1050 ml # Voids 2 Laboratory Tests 11/21/18 06:00: White Blood Count 5.8, Red Blood Count 4.16L, Hemoglobin 12.7L, Hematocrit 38.4L , Mean Corpuscular Volume 92, Mean Corpuscular Hemoglobin 30.6, Mean Corpuscular Hemoglobin Concent 33.1, Red Cell Distribution Width 12.3, Platelet Count 132L, Mean Platelet Volume 6.7, Neutrophils (%) (Auto) 63.0, Lymphocytes ( %) (Auto) 21.9, Monocytes (%) (Auto) 8.4, Eosinophils (%) (Auto) 6.2H, Basophils (%) (Auto) 0.5, Sodium Level 146H, Potassium Level 4.0, Chloride Level 112H, Carbon Dioxide Level 26, Anion Gap 8, Blood Urea Nitrogen 23H, Creatinine 1.0, Estimat Glomerular Filtration Rate , Glucose Level 91, Calcium Level 8.8 Height (Feet): 5 Height (Inches): 8.00 Weight (Pounds): 231 General Appearance: lethargic EENT: normal ENT inspection Neck: normal alignment Cardiovascular: normal peripheral pulses, normal rate, regular rhythm Respiratory/Chest: chest wall non-tender, lungs clear, normal breath sounds Abdomen: normal bowel sounds, non tender, soft Extremities: normal inspection Edema: no edema noted Arm (L), no edema noted Arm (R), no edema noted Leg (L), no edema noted Leg (R), no edema noted Pedal (L), no edema noted Pedal (R), no edema noted Generalized Neurologic: responsive, motor weakness Skin: normal pigmentation, warm/dry Mickey Pinto DO Nov 21, 2018 10:24
--- NOTE | 2018-11-21 11:43 | Urology Progress Note ---
Assessment/Plan Status: stable, progressing Assessment/Plan: 1. History of prostate cancer, likely advanced. 2. BPH. 3. Lower urinary tract symptoms. 4. UTI history. 5. Hematuria history. 6. Nephrolithiasis. 7. Renal cyst. 8. Probable neurogenic bladder. sig PSA elevation concern for met disease cont flomax and proscar casodex added will need lupron, later after casodex renal fxn stable bone scan result reviewed with radiologist MRI would help, but can't do secondary to pacemaker will see if lupron can be given in hosp, but likely as outpt d/w radiologist, will get plain lumbar and femur films Subjective Allergies: Uncoded Allergies: Sheep wool (Allergy, Unknown, 11/12/18) Subjective all noted, feels fair, awaiting placement Objective Last 24 Hour Vital Signs Date Time Temp Pulse Resp B/P (MAP) Pulse Ox O2 Delivery O2 Flow Rate FiO2 11/21/18 10:54 98.1 11/21/18 10:08 120/63 (82) 11/21/18 09:31 98.1 11/21/18 09:02 64 11/21/18 08:00 98.6 64 19 102/58 (73) 95 11/21/18 08:00 Room Air 11/21/18 00:00 98.1 70 20 91/55 (67) 97 11/20/18 21:00 Room Air 11/20/18 20:00 98.4 94 18 120/79 (93) 98 11/20/18 16:00 98.7 64 18 108/76 (87) 99 11/20/18 12:00 98.5 70 17 111/69 (83) 94 Intake and Output 11/20/18 11/21/18 18:59 06:59 Intake Total 800 ml Output Total 1050 ml Balance 800 ml -1050 ml Intake Oral 800 ml Output Urine Total 1050 ml # Voids 2 Microbiology Date/Time Source Procedure Growth Status 11/11/18 17:30 Nasal Nares MRSA Culture - Final Staphylococcus Aureus - Mrsa Complete 11/11/18 17:30 Rectum - Final NO CARBAPENEM-RESISTANT ENTEROBACTERI... Complete Current Medications Medications (Trade) Dose Ordered Sig/Maliha Route PRN Reason Start Time Stop Time Status Last Admin Dose Admin Acetaminophen (Tylenol) 650 mg Q4H PRN ORAL fever 11/11/18 21:00 12/11/18 20:59 10/12/19 09:01 Aripiprazole (Abilify) 5 mg DAILY ORAL 11/13/18 09:00 12/13/18 08:59 11/21/18 09:02 Aspirin (ASA) 81 mg DAILY ORAL 11/13/18 09:00 12/13/18 08:59 11/21/18 09:02 Atorvastatin Calcium (Lipitor) 40 mg BEDTIME ORAL 11/12/18 21:00 12/12/18 20:59 11/20/18 21:06 Calcium/Vitamin D (OsCal D) 2 tab DAILY ORAL 11/12/18 13:00 12/12/18 12:59 11/21/18 09:02 Dextrose (Dextrose 50%) 25 ml Q30M PRN IV Hypoglycemia 11/11/18 21:00 12/11/18 20:59 Dextrose (Dextrose 50%) 50 ml Q30M PRN IV Hypoglycemia 11/11/18 21:00 12/11/18 20:59 Digoxin (Lanoxin) 0.125 mg DAILY ORAL 11/12/18 09:00 12/12/18 08:59 11/21/18 09:02 Docusate Sodium (Colace) 250 mg DAILY ORAL 11/13/18 18:00 12/13/18 17:59 11/21/18 09:02 Escitalopram Oxalate (Lexapro) 10 mg DAILY ORAL 11/13/18 09:00 12/13/18 08:59 11/21/18 09:02 Finasteride (Proscar) 5 mg DAILY ORAL 11/12/18 09:00 12/12/18 08:59 11/21/18 09:02 Insulin Aspart (NovoLOG) BEFORE MEALS AND HS SUBQ 11/11/18 21:00 12/11/18 20:59 11/20/18 21:11 Lorazepam (Ativan 2mg/ml 1ml) 0.5 mg Q4H PRN IV For Anxiety 11/18/18 21:45 11/25/18 21:44 Lorazepam (Ativan) 1 mg Q6H PRN ORAL For Anxiety 11/18/18 21:45 11/25/18 21:44 Morphine Sulfate (Morphine Sulfate) 1 mg Q4H PRN IVP For Pain 11/18/18 21:45 11/25/18 21:44 11/21/18 10:24 Ondansetron HCl (Zofran) 4 mg Q6H PRN IVP Nausea & Vomiting 11/11/18 21:00 12/11/18 20:59 Pantoprazole (Protonix) 40 mg DAILY ORAL 11/14/18 21:00 12/14/18 20:59 11/21/18 09:02 Polyethylene Glycol (Miralax) 17 gm HSPRN PRN ORAL Constipation 11/11/18 21:00 12/11/18 20:59 Sucralfate (Carafate) 1 gm TID ORAL 11/14/18 20:00 12/14/18 19:59 11/21/18 09:01 Tamsulosin HCl (Flomax) 0.4 mg BEDTIME ORAL 11/11/18 21:00 12/11/18 20:59 11/20/18 21:07 Topiramate (Topamax) 100 mg DAILY ORAL 11/12/18 09:00 12/12/18 08:59 11/21/18 09:02 Zolpidem Tartrate (Ambien) 5 mg HSPRN PRN ORAL Insomnia 11/18/18 21:45 11/25/18 21:44 11/20/18 21:07 Laboratory Tests 11/21/18 06:00: White Blood Count 5.8, Red Blood Count 4.16L, Hemoglobin 12.7L, Hematocrit 38.4L , Mean Corpuscular Volume 92, Mean Corpuscular Hemoglobin 30.6, Mean Corpuscular Hemoglobin Concent 33.1, Red Cell Distribution Width 12.3, Platelet Count 132L, Mean Platelet Volume 6.7, Neutrophils (%) (Auto) 63.0, Lymphocytes ( %) (Auto) 21.9, Monocytes (%) (Auto) 8.4, Eosinophils (%) (Auto) 6.2H, Basophils (%) (Auto) 0.5, Sodium Level 146H, Potassium Level 4.0, Chloride Level 112H, Carbon Dioxide Level 26, Anion Gap 8, Blood Urea Nitrogen 23H, Creatinine 1.0, Estimat Glomerular Filtration Rate , Glucose Level 91, Calcium Level 8.8 Height (Feet): 5 Height (Inches): 8.00 Weight (Pounds): 231 Objective exam stable PSA 149 Bone scan (10/7) noted Bamshad,Gabino Jermain MD Nov 21, 2018 11:43
[2018-11-21 12:00] VITALS: BP 103/62
--- NOTE | 2018-11-21 15:15 | NUR ---
CASE MANAGEMENT: REVIEW 11/21/2018 SI: UTI; AGITATION. ACUTE ENCEPHALOPATHY T 97.9 HR 62 RR 18 B/P 103/62 SATS 95% ON RA NA 146 CL 112 BUN 23 IS:IV MORPHINE SULFATE Q4/PRN PROTONIX PO QD LIPITOR PO QHS CARAFATE PO TID DIGOXIN PO QD PROSCAR PO QD TOPAMAX PO QD ASA PO QD ABILIFY PO QD LEXAPRO PO QD INSULIN ASPART SUBQ AC/HS CASODEX PO QD OSCAL D PO QD AMBIEN PO HS/PRN : TO MED/SURG [facility]
[2018-11-21 15:57] VITALS: BP 92/50
--- NOTE | 2018-11-21 19:11 | NUR ---
HAND-OFF: Report given to Mariaa.
[2018-11-21 20:00] VITALS: BP 114/69
--- NOTE | 2018-11-21 20:00 | NUR ---
NURSE NOTES: RECEIVED PATIENT LYING IN BED, AWAKE, ALERT/ORIENTED X4, VERBALLY RESPONSIVE, DENIES PAIN. NO SIGNS AND SYMPTOMS OF ACUTE CARDIO RESPIRATORY DISTRESS/SHORTNESS OF BREATH, DENIES CHEST PAIN, NO EDEMA NOTED, NOTED WITH DISCOLORATION TO BILATERAL LOWER EXTREMITIES. ABDOMEN SOFT/OBESE, BOWEL SOUNDS AUDIBLE, NO REPORT OF GI DISCOMFORT, NO N/V/D, INCONTINENT OF BOWEL, CARE PROVIDED, TOLERATED WELL. SIDE RAILS UP X3/BED IN LOWEST POSITION FOR SAFETY, ENCOURAGED PATIENT TO UTILIZE CALL LIGHT FOR ASSISTANCE, VERBALIZED UNDERSTANDING. NAD.
[2018-11-21] MEDS: Tamsulosin 0.4mg cap ORAL SCH (20:47)
[2018-11-21] MEDS: Atorvastatin 20mg tab ORAL SCH (20:47)
[2018-11-21] MEDS: Zolpidem 5mg tab ORAL PRN (21:46)
--- NOTE | 2018-11-21 23:15 | Progress Note ---
DATE: 11/21/2018 SUBJECTIVE: The patient is a 78-year-old male patient, mood lability, confusion, decline in cognition below his baseline that is why, his attending has requested daily psychiatric consultation. He does have some mood lability, confusion, disorganized thoughts, decline in cognition below his baseline overall. MENTAL STATUS EXAMINATION: This is a 78-year-old male. Appearance is disheveled. Attitude, irritable and agitated. Affect, guarded and restricted. Intellect poor. Mood, depressed and anxious. Motor activity, psychomotor agitation. Attention span is poor. Orientation x2. Speech is low volume, slurred. Thought process, disorganized and illogical. Insight and judgment is poor. DIAGNOSIS: Schizoaffective, bipolar type. PLAN: Treat him with a medication regimen of Abilify 5 mg p.o. daily, Topamax 100 mg p.o. daily, Ativan as needed to reduce anxiety and depression 1 mg every 6 hours as needed. Provide him with 20 minutes of cognitive behavioral therapy to help him identify his automatic negative thoughts and help convert those negative thoughts to more positive thoughts to reduce depression, anxiety, and mood lability. Chart reviewed. Discussed with staff. Seen and assessed in his room. He will be continue to be followed by Psychiatry throughout hospital course. Continue Ativan 1 every 6 hours as needed, Lexapro 10 mg daily, Abilify 5 mg daily, Topamax 100 mg at bedtime. Molina Tapia M.D. DR: Chavez JOB#: [id number] CC:
[2018-11-22] VITALS: BP 105/66
[2018-11-22 04:00] VITALS: BP 109/70
[2018-11-22] MEDS: Morphine Sulfate 2mg/ml Inj(IV/IM USE ONLY) IVP PRN ×2 (05:38→21:25)
--- NOTE | 2018-11-22 06:13 | NUR ---
NURSE NOTES: BLOOD GLUCOSE LEVEL MONITORED VIA GLUCOMETER WITH RESULT 109MG/DL, ASYMPTOMATIC, NO INSULIN COVERAGE.
[2018-11-22] MEDS: NovoLOG Insulin Flexpen SUBQ SCH ×4 (06:24→20:31)
--- NOTE | 2018-11-22 07:07 | NUR ---
HAND-OFF: Report given to SANJANA BARBER.
--- NOTE | 2018-11-22 07:35 | NUR ---
NURSE NOTES: new order obtained for nerve pain on left lateral leg. will cont to monitor.
--- NOTE | 2018-11-22 07:37 | NUR ---
NURSE NOTES: Patient received in bed, a/a/ox4. able to verbalize needs. Patient c/o left lateral lower extremity. no acute resp distress noted. bed is in low position Locked and alarm activated. Call light in reach. will continue to monitor.
[2018-11-22 08:00] VITALS: BP 132/67
--- NOTE | 2018-11-22 08:29 | General Progress Note ---
Assessment/Plan Problem List: (1) UTI (urinary tract infection) ICD Codes: N39.0 - Urinary tract infection, site not specified SNOMED: 04177241 (2) Behavioral disorder SNOMED: 725260492, 122143478 (3) Agitation ICD Codes: R45.1 - Restlessness and agitation SNOMED: 277480231, 457204099 (4) Acute encephalopathy ICD Codes: G93.40 - Encephalopathy, unspecified SNOMED: 31002100, 392844427 (5) HTN (hypertension) ICD Codes: I10 - Essential (primary) hypertension SNOMED: 56942711 (6) COPD (chronic obstructive pulmonary disease) ICD Codes: J44.9 - Chronic obstructive pulmonary disease, unspecified SNOMED: 92312700 (7) Anemia ICD Codes: D64.9 - Anemia, unspecified SNOMED: 347751514 Status: stable, progressing Assessment/Plan: pt diet cbc bmp am abx dc to snf Subjective Constitutional: Reports: weakness Allergies: Uncoded Allergies: Sheep wool (Allergy, Unknown, 11/12/18) All Systems: reviewed and negative except above Subjective sleepy calm Objective Last 24 Hour Vital Signs Date Time Temp Pulse Resp B/P (MAP) Pulse Ox O2 Delivery O2 Flow Rate FiO2 11/22/18 08:19 Room Air 11/22/18 06:08 97.7 11/22/18 04:00 97.7 68 18 109/70 (83) 96 11/22/18 00:00 98.1 82 20 105/66 (79) 97 11/21/18 21:00 Room Air 11/21/18 20:00 98.2 64 18 114/69 (84) 98 11/21/18 15:57 98.2 66 17 92/50 (64) 95 11/21/18 12:00 97.9 62 18 103/62 (76) 95 11/21/18 10:08 120/63 (82) 11/21/18 09:31 98.1 11/21/18 09:02 64 Intake and Output 11/21/18 11/22/18 19:00 07:00 Intake Total 800 ml 240 ml Output Total 900 ml Balance -100 ml 240 ml Intake Oral 800 ml 240 ml Output Urine Total 900 ml # Voids 2 Height (Feet): 5 Height (Inches): 8.00 Weight (Pounds): 231 General Appearance: lethargic EENT: normal ENT inspection Neck: normal alignment Cardiovascular: normal peripheral pulses, normal rate, regular rhythm Respiratory/Chest: chest wall non-tender, lungs clear, normal breath sounds Abdomen: normal bowel sounds, non tender, soft Extremities: normal inspection Edema: no edema noted Arm (L), no edema noted Arm (R), no edema noted Leg (L), no edema noted Leg (R), no edema noted Pedal (L), no edema noted Pedal (R), no edema noted Generalized Neurologic: motor weakness Skin: normal pigmentation, warm/dry Mickey Pinto DO Nov 22, 2018 08:29
[2018-11-22] MEDS: Docusate 250mg cap ORAL SCH (08:38)
[2018-11-22] MEDS: Topiramate 100mg tab ORAL SCH (08:39)
[2018-11-22] MEDS: Digoxin 0.125mg tab ORAL SCH (08:39)
[2018-11-22] MEDS: Calcium Carbonate 500mg w/Vit D 200iu tab ORAL SCH (08:40)
[2018-11-22] MEDS: Aspirin Baby 81mg ORAL SCH (08:40)
[2018-11-22] MEDS: Sucralfate 1gm tab ORAL SCH ×3 (08:42→17:08)
[2018-11-22 09:41] LABS: BASOPHILS % (AUTO) 0.6 % (0.0-2.0); EOSINOPHILS % (AUTO) 5.1 % (0.0-3.0); HEMATOCRIT 37.3 % (42.0-52.0); HEMOGLOBIN 12.4 G/DL (14.2-18.0); LYMPHOCYTES % (AUTO) 20.3 % (20.0-45.0); MEAN CORPUSCULAR VOLUME 92 FL (80-99); NEUTROPHILS % (AUTO) 68.2 % (45.0-75.0); PLATELET COUNT 135 K/UL (150-450); RED BLOOD COUNT 4.05 M/UL (4.70-6.10); RED CELL DISTRIBUTION WIDTH 11.9 % (11.6-14.8); WHITE BLOOD COUNT 6.3 K/UL (4.8-10.8)
[2018-11-22 09:56] LABS: ANION GAP 6 mmol/L (5-15); BLOOD UREA NITROGEN 21 mg/dL (7-18); CALCIUM 8.7 MG/DL (8.5-10.1); CARBON DIOXIDE 26 MMOL/L (21-32); CHLORIDE 110 MMOL/L (98-107); CREATININE 0.9 MG/DL (0.55-1.30); POTASSIUM 3.7 MMOL/L (3.5-5.1); SODIUM 142 MMOL/L (136-145)
[2018-11-22] MEDS ORDERED: Heparin 5000 units/ml inj SUBQ SCH (10:00)
--- NOTE | 2018-11-22 10:18 | Urology Progress Note ---
Assessment/Plan Status: stable, progressing Assessment/Plan: 1. History of prostate cancer, likely advanced. 2. BPH. 3. Lower urinary tract symptoms. 4. UTI history. 5. Hematuria history. 6. Nephrolithiasis. 7. Renal cyst. 8. Probable neurogenic bladder. sig PSA elevation concern for met disease cont flomax and proscar casodex was added, held? resume will need lupron, later after casodex renal fxn stable bone scan result reviewed with radiologist MRI would help, but can't do secondary to pacemaker will see if lupron can be given in hosp, but likely as outpt f/u on plain lumbar and femur films Subjective Allergies: Uncoded Allergies: Sheep wool (Allergy, Unknown, 11/12/18) Subjective all noted, feels fair, awaiting placement Objective Last 24 Hour Vital Signs Date Time Temp Pulse Resp B/P (MAP) Pulse Ox O2 Delivery O2 Flow Rate FiO2 11/22/18 08:39 64 11/22/18 08:19 Room Air 11/22/18 08:00 98.2 62 16 132/67 (88) 94 11/22/18 06:08 97.7 11/22/18 04:00 97.7 68 18 109/70 (83) 96 11/22/18 00:00 98.1 82 20 105/66 (79) 97 11/21/18 21:00 Room Air 11/21/18 20:00 98.2 64 18 114/69 (84) 98 11/21/18 15:57 98.2 66 17 92/50 (64) 95 11/21/18 12:00 97.9 62 18 103/62 (76) 95 Intake and Output 11/21/18 11/22/18 19:00 07:00 Intake Total 800 ml 240 ml Output Total 900 ml Balance -100 ml 240 ml Intake Oral 800 ml 240 ml Output Urine Total 900 ml # Voids 2 Microbiology Date/Time Source Procedure Growth Status 11/11/18 17:30 Nasal Nares MRSA Culture - Final Staphylococcus Aureus - Mrsa Complete 11/11/18 17:30 Rectum - Final NO CARBAPENEM-RESISTANT ENTEROBACTERI... Complete Current Medications Medications (Trade) Dose Ordered Sig/Maliha Route PRN Reason Start Time Stop Time Status Last Admin Dose Admin Acetaminophen (Tylenol) 650 mg Q4H PRN ORAL fever 11/11/18 21:00 12/11/18 20:59 11/21/18 09:01 Aripiprazole (Abilify) 5 mg DAILY ORAL 11/13/18 09:00 12/13/18 08:59 11/22/18 08:39 Aspirin (ASA) 81 mg DAILY ORAL 11/13/18 09:00 12/13/18 08:59 11/22/18 08:40 Atorvastatin Calcium (Lipitor) 40 mg BEDTIME ORAL 11/12/18 21:00 12/12/18 20:59 11/21/18 20:47 Calcium/Vitamin D (OsCal D) 2 tab DAILY ORAL 11/12/18 13:00 12/12/18 12:59 11/22/18 08:40 Dextrose (Dextrose 50%) 25 ml Q30M PRN IV Hypoglycemia 11/11/18 21:00 12/11/18 20:59 Dextrose (Dextrose 50%) 50 ml Q30M PRN IV Hypoglycemia 11/11/18 21:00 12/11/18 20:59 Digoxin (Lanoxin) 0.125 mg DAILY ORAL 11/12/18 09:00 12/12/18 08:59 11/22/18 08:39 Docusate Sodium (Colace) 250 mg DAILY ORAL 11/13/18 18:00 12/13/18 17:59 11/22/18 08:38 Escitalopram Oxalate (Lexapro) 10 mg DAILY ORAL 11/13/18 09:00 12/13/18 08:59 11/22/18 08:40 Finasteride (Proscar) 5 mg DAILY ORAL 11/12/18 09:00 12/12/18 08:59 11/22/18 08:39 Gabapentin (Neurontin) 300 mg BID ORAL 11/22/18 09:00 12/22/18 20:59 11/22/18 09:43 Heparin Sodium (Porcine) (Heparin 5000 units/ml) 5,000 units EVERY 12 HOURS SUBQ 11/22/18 10:00 12/22/18 09:59 Insulin Aspart (NovoLOG) BEFORE MEALS AND HS SUBQ 11/11/18 21:00 12/11/18 20:59 11/21/18 17:23 Lorazepam (Ativan 2mg/ml 1ml) 0.5 mg Q4H PRN IV For Anxiety 11/18/18 21:45 11/25/18 21:44 Lorazepam (Ativan) 1 mg Q6H PRN ORAL For Anxiety 11/18/18 21:45 11/25/18 21:44 Morphine Sulfate (Morphine Sulfate) 1 mg Q4H PRN IVP For Pain 11/18/18 21:45 11/25/18 21:44 11/22/18 05:38 Ondansetron HCl (Zofran) 4 mg Q6H PRN IVP Nausea & Vomiting 11/11/18 21:00 12/11/18 20:59 Pantoprazole (Protonix) 40 mg DAILY ORAL 11/14/18 21:00 12/14/18 20:59 11/22/18 08:39 Polyethylene Glycol (Miralax) 17 gm HSPRN PRN ORAL Constipation 11/11/18 21:00 12/11/18 20:59 Sucralfate (Carafate) 1 gm TID ORAL 11/14/18 20:00 12/14/18 19:59 11/22/18 08:42 Tamsulosin HCl (Flomax) 0.4 mg BEDTIME ORAL 11/11/18 21:00 12/11/18 20:59 11/21/18 20:47 Topiramate (Topamax) 100 mg DAILY ORAL 11/12/18 09:00 12/12/18 08:59 11/22/18 08:39 Zolpidem Tartrate (Ambien) 5 mg HSPRN PRN ORAL Insomnia 11/18/18 21:45 11/25/18 21:44 11/21/18 21:46 Laboratory Tests 11/22/18 08:20: White Blood Count 6.3, Red Blood Count 4.05L, Hemoglobin 12.4L, Hematocrit 37.3L , Mean Corpuscular Volume 92, Mean Corpuscular Hemoglobin 30.7, Mean Corpuscular Hemoglobin Concent 33.4, Red Cell Distribution Width 11.9, Platelet Count 135L, Mean Platelet Volume 7.0, Neutrophils (%) (Auto) 68.2, Lymphocytes ( %) (Auto) 20.3, Monocytes (%) (Auto) 6.0, Eosinophils (%) (Auto) 5.1H, Basophils (%) (Auto) 0.6, Sodium Level 142, Potassium Level 3.7, Chloride Level 110H, Carbon Dioxide Level 26, Anion Gap 6, Blood Urea Nitrogen 21H, Creatinine 0.9, Estimat Glomerular Filtration Rate , Glucose Level 105, Calcium Level 8.7 Height (Feet): 5 Height (Inches): 8.00 Weight (Pounds): 231 Objective exam stable PSA 149 Bone scan (11/16) noted plain films lumbar spine and left femur pending Gabino Segal MD Nov 22, 2018 10:18
[2018-11-22] MEDS: Heparin 5000 units/ml inj SUBQ SCH ×2 (10:55→20:29)
[2018-11-22 12:00] VITALS: BP 116/56
--- NOTE | 2018-11-22 12:37 | NUR ---
CASE MANAGEMENT: REVIEW 11/22/2018 SI: UTI; AGITATION. ACUTE ENCEPHALOPATHY T 97.7 HR 68 RR 18 B/P 109/70 SATS 96% ON RA CL 110 BUN 21 IS:IV MORPHINE SULFATE Q4/PRN PROTONIX PO QD LIPITOR PO QHS CARAFATE PO TID DIGOXIN PO QD PROSCAR PO QD TOPAMAX PO QD ASA PO QD ABILIFY PO QD LEXAPRO PO QD INSULIN ASPART SUBQ AC/HS CASODEX PO QD OSCAL D PO QD AMBIEN PO HS/PRN : TO MED/SURG [facility]
[2018-11-22] MEDS: Bicalutamide 50mg tab ORAL SCH (12:40)
--- NOTE | 2018-11-22 13:35 | Hematology/Onc Progress Note ---
Assessment/Plan Assessment/Plan ASSESSMENT AND PLAN: # Prostate cancer, likely advanced, currently off any kind of treatment and has a outside urologist that he follows up with. --> likely acute elevation is due to uti, currently high and can oscillate even to 100s --> obtain skeletal survey rule out distant mets--> SHOWS NOT METS --> Pyuria- no UTI symptoms --> PSA trend 20-->65-->126->149 --> casodex started, consider lupron (as per uro) --> discussed with Dr. Segal --> likely will benefit from MRI but has pacemaker+++ --> if better performance status, may need zytiga or xtandi # Thrombocytopenia in the 100-150s range likely due to mets --> consider hepatitis and hiv --> negative --> smear has been reviewed, completed --> appreciate uro and id recs in reg to abx --> Us of abd last time showed masses in spleen--> new us abd ordered --> plt trend 127-->120-->127k-->135k # Dm2 --> a1c goal <8 --> accuchecks qac and qhs --> endo eval prn # Psych hx --> may need transfer # HTN # COPD # AFib # GERD # SNF resident The timing of this note does not necessarily reflect the time of the patient was seen. Greatly appreciate consultation! Subjective HEENT: Denies: no symptoms, eye pain, blurred vision, tearing, double vision, ear pain, ear discharge, nose pain, nose congestion, throat pain, throat swelling, mouth pain, mouth swelling, other Cardiovascular: Denies: no symptoms, chest pain, edema, irregular heart rate, lightheadedness, palpitations, syncope, other Respiratory: Denies: no symptoms, cough, shortness of breath, SOB with excertion, SOB at rest, sputum, wheezing, other Gastrointestinal/Abdominal: Denies: no symptoms, abdomen distended, abdominal pain, black stools, tarry stools, blood in stool, constipated, diarrhea, difficulty swallowing, nausea, poor appetite, poor fluid intake, rectal bleeding , vomiting, other Genitourinary: Denies: no symptoms, burning, discharge, frequency, flank pain, hematuria, incontinence, pain, urgency, other Neurologic/Psychiatric: Denies: no symptoms, anxiety, depressed, emotional problems, headache, numbness, paresthesia, pre-existing deficit, seizure, tingling, tremors, weakness, other Allergies: Uncoded Allergies: Sheep wool (Allergy, Unknown, 11/12/18) Subjective 11/20: dc planning in progress, seen by uro in the am as well, psa worsening 11/22: labs have been reviewed, no night sweats, no bleeding, labs reviewed Objective Objective Current Medications Medications (Trade) Dose Ordered Sig/Maliha Route PRN Reason Start Time Stop Time Status Last Admin Dose Admin Acetaminophen (Tylenol) 650 mg Q4H PRN ORAL fever 11/11/18 21:00 12/11/18 20:59 11/21/18 09:01 Aripiprazole (Abilify) 5 mg DAILY ORAL 11/13/18 09:00 12/13/18 08:59 11/22/18 08:39 Aspirin (ASA) 81 mg DAILY ORAL 11/13/18 09:00 12/13/18 08:59 11/22/18 08:40 Atorvastatin Calcium (Lipitor) 40 mg BEDTIME ORAL 11/12/18 21:00 12/12/18 20:59 11/21/18 20:47 Bicalutamide (Casodex) 50 mg DAILY ORAL 11/22/18 11:15 11/27/18 11:14 11/22/18 12:40 Calcium/Vitamin D (OsCal D) 2 tab DAILY ORAL 11/12/18 13:00 12/12/18 12:59 11/22/18 08:40 Dextrose (Dextrose 50%) 25 ml Q30M PRN IV Hypoglycemia 11/11/18 21:00 12/11/18 20:59 Dextrose (Dextrose 50%) 50 ml Q30M PRN IV Hypoglycemia 11/11/18 21:00 12/11/18 20:59 Digoxin (Lanoxin) 0.125 mg DAILY ORAL 11/12/18 09:00 12/12/18 08:59 11/22/18 08:39 Docusate Sodium (Colace) 250 mg DAILY ORAL 11/13/18 18:00 12/13/18 17:59 11/22/18 08:38 Escitalopram Oxalate (Lexapro) 10 mg DAILY ORAL 11/13/18 09:00 12/13/18 08:59 11/22/18 08:40 Finasteride (Proscar) 5 mg DAILY ORAL 11/12/18 09:00 12/12/18 08:59 11/22/18 08:39 Gabapentin (Neurontin) 300 mg BID ORAL 11/22/18 09:00 12/22/18 20:59 11/22/18 09:43 Heparin Sodium (Porcine) (Heparin 5000 units/ml) 5,000 units EVERY 12 HOURS SUBQ 11/22/18 11:00 12/22/18 10:59 11/22/18 10:55 Insulin Aspart (NovoLOG) BEFORE MEALS AND HS SUBQ 11/11/18 21:00 12/11/18 20:59 11/21/18 17:23 Lorazepam (Ativan 2mg/ml 1ml) 0.5 mg Q4H PRN IV For Anxiety 11/18/18 21:45 11/25/18 21:44 Lorazepam (Ativan) 1 mg Q6H PRN ORAL For Anxiety 11/18/18 21:45 11/25/18 21:44 Morphine Sulfate (Morphine Sulfate) 1 mg Q4H PRN IVP For Pain 11/18/18 21:45 11/25/18 21:44 11/22/18 05:38 Ondansetron HCl (Zofran) 4 mg Q6H PRN IVP Nausea & Vomiting 11/11/18 21:00 12/11/18 20:59 Pantoprazole (Protonix) 40 mg DAILY ORAL 11/14/18 21:00 12/14/18 20:59 11/22/18 08:39 Polyethylene Glycol (Miralax) 17 gm HSPRN PRN ORAL Constipation 11/11/18 21:00 12/11/18 20:59 Sucralfate (Carafate) 1 gm TID ORAL 11/14/18 20:00 12/14/18 19:59 11/22/18 12:40 Tamsulosin HCl (Flomax) 0.4 mg BEDTIME ORAL 11/11/18 21:00 12/11/18 20:59 11/21/18 20:47 Topiramate (Topamax) 100 mg DAILY ORAL 11/12/18 09:00 12/12/18 08:59 11/22/18 08:39 Zolpidem Tartrate (Ambien) 5 mg HSPRN PRN ORAL Insomnia 11/18/18 21:45 11/25/18 21:44 11/21/18 21:46 Last 24 Hour Vital Signs Date Time Temp Pulse Resp B/P (MAP) Pulse Ox O2 Delivery O2 Flow Rate FiO2 11/22/18 12:00 97.7 63 18 116/56 (76) 94 11/22/18 08:39 64 11/22/18 08:19 Room Air 11/22/18 08:00 98.2 62 16 132/67 (88) 94 11/22/18 06:08 97.7 11/22/18 04:00 97.7 68 18 109/70 (83) 96 11/22/18 00:00 98.1 82 20 105/66 (79) 97 11/21/18 21:00 Room Air 11/21/18 20:00 98.2 64 18 114/69 (84) 98 11/21/18 15:57 98.2 66 17 92/50 (64) 95 11/21/18 12:00 97.9 62 18 103/62 (76) 95 11/21/18 10:08 120/63 (82) 11/21/18 09:31 98.1 11/21/18 09:02 64 11/21/18 08:00 98.6 64 19 102/58 (73) 95 11/21/18 08:00 Room Air 11/21/18 00:00 98.1 70 20 91/55 (67) 97 11/20/18 21:00 Room Air 11/20/18 20:00 98.4 94 18 120/79 (93) 98 11/20/18 16:00 98.7 64 18 108/76 (87) 99 Intake and Output 11/21/18 11/22/18 18:59 06:59 Intake Total 800 ml 240 ml Output Total 900 ml Balance -100 ml 240 ml Intake Oral 800 ml 240 ml Output Urine Total 900 ml # Voids 2 Labs Test 11/20/18 05:12 11/21/18 06:00 11/22/18 08:20 White Blood Count 5.6 K/UL (4.8-10.8) 5.8 K/UL (4.8-10.8) 6.3 K/UL (4.8-10.8) Red Blood Count 3.98 M/UL (4.70-6.10) 4.16 M/UL (4.70-6.10) 4.05 M/UL (4.70-6.10) Hemoglobin 12.1 G/DL (14.2-18.0) 12.7 G/DL (14.2-18.0) 12.4 G/DL (14.2-18.0) Hematocrit 36.6 % (42.0-52.0) 38.4 % (42.0-52.0) 37.3 % (42.0-52.0) Mean Corpuscular Volume 92 FL (80-99) 92 FL (80-99) 92 FL (80-99) Mean Corpuscular Hemoglobin 30.5 PG (27.0-31.0) 30.6 PG (27.0-31.0) 30.7 PG (27.0-31.0) Mean Corpuscular Hemoglobin Concent 33.2 G/DL (32.0-36.0) 33.1 G/DL (32.0-36.0) 33.4 G/DL (32.0-36.0) Red Cell Distribution Width 12.0 % (11.6-14.8) 12.3 % (11.6-14.8) 11.9 % (11.6-14.8) Platelet Count 127 K/UL (150-450) 132 K/UL (150-450) 135 K/UL (150-450) Mean Platelet Volume 7.0 FL (6.5-10.1) 6.7 FL (6.5-10.1) 7.0 FL (6.5-10.1) Neutrophils (%) (Auto) 59.8 % (45.0-75.0) 63.0 % (45.0-75.0) 68.2 % (45.0-75.0) Lymphocytes (%) (Auto) 25.3 % (20.0-45.0) 21.9 % (20.0-45.0) 20.3 % (20.0-45.0) Monocytes (%) (Auto) 8.9 % (1.0-10.0) 8.4 % (1.0-10.0) 6.0 % (1.0-10.0) Eosinophils (%) (Auto) 5.4 % (0.0-3.0) 6.2 % (0.0-3.0) 5.1 % (0.0-3.0) Basophils (%) (Auto) 0.6 % (0.0-2.0) 0.5 % (0.0-2.0) 0.6 % (0.0-2.0) Sodium Level 144 MMOL/L (136-145) 146 MMOL/L (136-145) 142 MMOL/L (136-145) Potassium Level 3.8 MMOL/L (3.5-5.1) 4.0 MMOL/L (3.5-5.1) 3.7 MMOL/L (3.5-5.1) Chloride Level 111 MMOL/L (98-107) 112 MMOL/L (98-107) 110 MMOL/L (98-107) Carbon Dioxide Level 26 MMOL/L (21-32) 26 MMOL/L (21-32) 26 MMOL/L (21-32) Anion Gap 7 mmol/L (5-15) 8 mmol/L (5-15) 6 mmol/L (5-15) Blood Urea Nitrogen 22 mg/dL (7-18) 23 mg/dL (7-18) 21 mg/dL (7-18) Creatinine 0.9 MG/DL (0.55-1.30) 1.0 MG/DL (0.55-1.30) 0.9 MG/DL (0.55-1.30) Estimat Glomerular Filtration Rate mL/min (>60) mL/min (>60) mL/min (>60) Glucose Level 90 MG/DL (74-106) 91 MG/DL (74-106) 105 MG/DL (74-106) Calcium Level 8.6 MG/DL (8.5-10.1) 8.8 MG/DL (8.5-10.1) 8.7 MG/DL (8.5-10.1) Height (Feet): 5 Height (Inches): 8.00 Weight (Pounds): 231 Antony Thurston MD Nov 22, 2018 13:35
[2018-11-22 16:00] VITALS: BP 113/54
--- NOTE | 2018-11-22 19:25 | NUR ---
HAND-OFF: Report given to Mariaa.
--- NOTE | 2018-11-22 19:52 | NUR ---
NURSE NOTES: RECEIVED PATIENT LYING IN BED, AWAKE, ALERT/ORIENTED X3, VERBALLY RESPONSIVE, DENIES PAIN TO LEFT LATERAL THIGH, PATIENT ON NEURONTIN/TOLERATING WELL/NO ADVERSE REACTION NOTED. NO SIGNS AND SYMPTOMS OF ACUTE CARDIO RESPIRATORY DISTRESS/SHORTNESS OF BREATH, DENIES CHEST PAIN, NO PERIPHERAL EDEMA NOTED, DISCOLORATION NOTED TO BILATERAL LOWER EXTREMITIES. ABDOMEN OBESE/NON TENDER/AUDIBLE BOWEL SOUNDS, NO REPORT OF N/V/D. SIDE RAILS UP X3/BED IN LOWEST POSITION FOR SAFETY, ENCOURAGED PATIENT TO UTILIZE CALL LIGHT FOR ASSISTANCE, VERBALIZED UNDERSTANDING. NAD.
[2018-11-22 20:00] VITALS: BP 110/62
[2018-11-22] MEDS: Tamsulosin 0.4mg cap ORAL SCH (20:22)
[2018-11-22] MEDS: Atorvastatin 20mg tab ORAL SCH (20:22)
[2018-11-22] MEDS: Zolpidem 5mg tab ORAL PRN (20:32)
--- NOTE | 2018-11-22 20:45 | Progress Note ---
DATE: 11/22/2018 SUBJECTIVE: This is a 78-year-old male patient with agitation and encephalopathy, but he still has a lot of mood lability, confusion, and disorganized thought process. This is why, his attending has requested daily psychiatric consultation due to his altered mental status, confusion, and mood lability. MENTAL STATUS EXAMINATION: A 78-year-old male. Appearance is disheveled. Attitude, irritable and agitated. Affect, guarded and restricted. Intellect poor. Mood, depressed and anxious. Motor activity, psychomotor agitation. Insight and judgment is poor. DIAGNOSIS: Schizoaffective, bipolar type. PLAN: Treat this patient with a medication regimen of Lexapro 10 mg daily, Abilify 5 mg a day, Ativan 1 every 6 hours p.r.n. anxiety or agitation, and Topamax 100 daily. Twenty minutes of supportive psychotherapy. Twenty minutes of cognitive behavioral therapy to help him identify his automatic negative thoughts and help him convert those negative thoughts to more positive thoughts to reduce depression, anxiety, and mood lability. Chart was reviewed. Discussed with staff. Seen and assessed in his room. Molina Tapia M.D. DR: MARIELOS JOB#: [id number] CC:
[2018-11-23] VITALS: BP 114/72
[2018-11-23 04:00] VITALS: BP 120/76
--- NOTE | 2018-11-23 06:20 | NUR ---
NURSE NOTES: BLOOD GLUCOSE LEVEL MONITORED VIA GLUCOMETER WITH RESULT 105MG/DL, ASYMPTOMATIC, NO SLIDING SCALE COVERAGE ADM./WNL.
[2018-11-23] MEDS: NovoLOG Insulin Flexpen SUBQ SCH ×3 (06:21→16:30)
[2018-11-23 07:02] LABS: BASOPHILS % (AUTO) 0.9 % (0.0-2.0); EOSINOPHILS % (AUTO) 5.6 % (0.0-3.0); HEMATOCRIT 38.2 % (42.0-52.0); HEMOGLOBIN 12.6 G/DL (14.2-18.0); LYMPHOCYTES % (AUTO) 22.9 % (20.0-45.0); MEAN CORPUSCULAR VOLUME 92 FL (80-99); MONOCYTES % (AUTO) 7.5 % (1.0-10.0); NEUTROPHILS % (AUTO) 63.2 % (45.0-75.0); PLATELET COUNT 145 K/UL (150-450); RED BLOOD COUNT 4.17 M/UL (4.70-6.10); RED CELL DISTRIBUTION WIDTH 11.8 % (11.6-14.8)
[2018-11-23 07:04] LABS: ANION GAP 8 mmol/L (5-15); BLOOD UREA NITROGEN 19 mg/dL (7-18); CALCIUM 8.8 MG/DL (8.5-10.1); CARBON DIOXIDE 25 MMOL/L (21-32); CHLORIDE 111 MMOL/L (98-107); CREATININE 0.9 MG/DL (0.55-1.30); POTASSIUM 4.1 MMOL/L (3.5-5.1); SODIUM 144 MMOL/L (136-145)
--- NOTE | 2018-11-23 07:27 | Urology Progress Note ---
Assessment/Plan Status: stable, progressing Assessment/Plan: 1. History of prostate cancer, likely advanced. 2. BPH. 3. Lower urinary tract symptoms. 4. UTI history. 5. Hematuria history. 6. Nephrolithiasis. 7. Renal cyst. 8. Probable neurogenic bladder. sig PSA elevation concern for met disease cont flomax and proscar casodex resumed will need lupron, later after casodex renal fxn stable bone scan result reviewed with radiologist MRI would help, but can't do secondary to pacemaker d/w pharmacist, lupron not available in hospital f/u on plain lumbar and femur films Subjective Allergies: Uncoded Allergies: Sheep wool (Allergy, Unknown, 11/12/18) Subjective all noted, feels fair, awaiting placement Objective Last 24 Hour Vital Signs Date Time Temp Pulse Resp B/P (MAP) Pulse Ox O2 Delivery O2 Flow Rate FiO2 11/23/18 04:00 98.4 67 18 120/76 (91) 98 11/23/18 00:00 97.8 67 20 114/72 (86) 99 11/22/18 21:55 97.7 11/22/18 21:00 Room Air 11/22/18 20:00 97.7 66 18 110/62 (78) 97 11/22/18 16:00 97.7 59 18 113/54 (73) 93 11/22/18 12:00 97.7 63 18 116/56 (76) 94 11/22/18 08:39 64 11/22/18 08:19 Room Air 11/22/18 08:00 98.2 62 16 132/67 (88) 94 Intake and Output 11/22/18 11/23/18 19:00 07:00 Intake Total 800 ml 360 ml Output Total 600 ml Balance 800 ml -240 ml Intake Oral 360 ml Other 800 ml Output Urine Total 600 ml Microbiology Date/Time Source Procedure Growth Status 11/11/18 17:30 Nasal Nares MRSA Culture - Final Staphylococcus Aureus - Mrsa Complete 11/11/18 17:30 Rectum - Final NO CARBAPENEM-RESISTANT ENTEROBACTERI... Complete Current Medications Medications (Trade) Dose Ordered Sig/Maliha Route PRN Reason Start Time Stop Time Status Last Admin Dose Admin Acetaminophen (Tylenol) 650 mg Q4H PRN ORAL fever 11/11/18 21:00 12/11/18 20:59 11/21/18 09:01 Aripiprazole (Abilify) 5 mg DAILY ORAL 11/13/18 09:00 12/13/18 08:59 11/22/18 08:39 Aspirin (ASA) 81 mg DAILY ORAL 11/13/18 09:00 12/13/18 08:59 11/22/18 08:40 Atorvastatin Calcium (Lipitor) 40 mg BEDTIME ORAL 11/12/18 21:00 12/12/18 20:59 11/22/18 20:22 Bicalutamide (Casodex) 50 mg DAILY ORAL 11/22/18 11:15 11/27/18 11:14 11/22/18 12:40 Calcium/Vitamin D (OsCal D) 2 tab DAILY ORAL 11/12/18 13:00 12/12/18 12:59 11/22/18 08:40 Dextrose (Dextrose 50%) 25 ml Q30M PRN IV Hypoglycemia 11/11/18 21:00 12/11/18 20:59 Dextrose (Dextrose 50%) 50 ml Q30M PRN IV Hypoglycemia 11/11/18 21:00 12/11/18 20:59 Digoxin (Lanoxin) 0.125 mg DAILY ORAL 11/12/18 09:00 12/12/18 08:59 11/22/18 08:39 Docusate Sodium (Colace) 250 mg DAILY ORAL 11/13/18 18:00 12/13/18 17:59 11/22/18 08:38 Escitalopram Oxalate (Lexapro) 10 mg DAILY ORAL 11/13/18 09:00 12/13/18 08:59 11/22/18 08:40 Finasteride (Proscar) 5 mg DAILY ORAL 11/12/18 09:00 12/12/18 08:59 11/22/18 08:39 Gabapentin (Neurontin) 300 mg BID ORAL 11/22/18 09:00 12/22/18 20:59 11/22/18 17:07 Heparin Sodium (Porcine) (Heparin 5000 units/ml) 5,000 units EVERY 12 HOURS SUBQ 11/22/18 11:00 12/22/18 10:59 11/22/18 20:29 Insulin Aspart (NovoLOG) BEFORE MEALS AND HS SUBQ 11/11/18 21:00 12/11/18 20:59 11/22/18 20:31 Lorazepam (Ativan 2mg/ml 1ml) 0.5 mg Q4H PRN IV For Anxiety 11/18/18 21:45 11/25/18 21:44 Lorazepam (Ativan) 1 mg Q6H PRN ORAL For Anxiety 11/18/18 21:45 11/25/18 21:44 Morphine Sulfate (Morphine Sulfate) 1 mg Q4H PRN IVP For Pain 11/18/18 21:45 11/25/18 21:44 11/22/18 21:25 Ondansetron HCl (Zofran) 4 mg Q6H PRN IVP Nausea & Vomiting 11/11/18 21:00 12/11/18 20:59 Pantoprazole (Protonix) 40 mg DAILY ORAL 11/14/18 21:00 12/14/18 20:59 11/22/18 08:39 Polyethylene Glycol (Miralax) 17 gm HSPRN PRN ORAL Constipation 11/11/18 21:00 12/11/18 20:59 Sucralfate (Carafate) 1 gm TID ORAL 11/14/18 20:00 12/14/18 19:59 11/22/18 17:08 Tamsulosin HCl (Flomax) 0.4 mg BEDTIME ORAL 11/11/18 21:00 12/11/18 20:59 11/22/18 20:22 Topiramate (Topamax) 100 mg DAILY ORAL 11/12/18 09:00 12/12/18 08:59 11/22/18 08:39 Zolpidem Tartrate (Ambien) 5 mg HSPRN PRN ORAL Insomnia 11/18/18 21:45 11/25/18 21:44 11/22/18 20:32 Laboratory Tests 11/22/18 08:20: White Blood Count 6.3, Red Blood Count 4.05L, Hemoglobin 12.4L, Hematocrit 37.3L , Mean Corpuscular Volume 92, Mean Corpuscular Hemoglobin 30.7, Mean Corpuscular Hemoglobin Concent 33.4, Red Cell Distribution Width 11.9, Platelet Count 135L, Mean Platelet Volume 7.0, Neutrophils (%) (Auto) 68.2, Lymphocytes ( %) (Auto) 20.3, Monocytes (%) (Auto) 6.0, Eosinophils (%) (Auto) 5.1H, Basophils (%) (Auto) 0.6, Sodium Level 142, Potassium Level 3.7, Chloride Level 110H, Carbon Dioxide Level 26, Anion Gap 6, Blood Urea Nitrogen 21H, Creatinine 0.9, Estimat Glomerular Filtration Rate , Glucose Level 105, Calcium Level 8.7 11/23/18 05:50: White Blood Count 6.0, Red Blood Count 4.17L, Hemoglobin 12.6L, Hematocrit 38.2L , Mean Corpuscular Volume 92, Mean Corpuscular Hemoglobin 30.1, Mean Corpuscular Hemoglobin Concent 32.9, Red Cell Distribution Width 11.8, Platelet Count 145L, Mean Platelet Volume 7.0, Neutrophils (%) (Auto) 63.2, Lymphocytes ( %) (Auto) 22.9, Monocytes (%) (Auto) 7.5, Eosinophils (%) (Auto) 5.6H, Basophils (%) (Auto) 0.9, Sodium Level 144, Potassium Level 4.1, Chloride Level 111H, Carbon Dioxide Level 25, Anion Gap 8, Blood Urea Nitrogen 19H, Creatinine 0.9, Estimat Glomerular Filtration Rate , Glucose Level 90, Calcium Level 8.8 Height (Feet): 5 Height (Inches): 8.00 Weight (Pounds): 231 Objective exam stable PSA 149 Bone scan (11/16) noted plain films lumbar spine and left femur pending Gabino Segal MD Nov 23, 2018 07:27
--- NOTE | 2018-11-23 07:44 | NUR ---
HAND-OFF: Report given to AUNG LIU.
--- NOTE | 2018-11-23 07:50 | NUR ---
NURSE NOTES: received pt in bed, no complaint of pain or discomfort, in room air. IV access on right hand, pervious. Call light within easy reach, siderails up x2, urinal by the bedside, bed locked at the lowest position possible. Will continue to monitor pt and follow up with the plan of care.
[2018-11-23 08:00] VITALS: BP 122/68
[2018-11-23] MEDS: Calcium Carbonate 500mg w/Vit D 200iu tab ORAL SCH (08:46)
[2018-11-23] MEDS: Topiramate 100mg tab ORAL SCH (08:46)
[2018-11-23] MEDS: Aspirin Baby 81mg ORAL SCH (08:47)
[2018-11-23] MEDS: Bicalutamide 50mg tab ORAL SCH (08:47)
[2018-11-23] MEDS: Sucralfate 1gm tab ORAL SCH ×3 (08:47→16:38)
[2018-11-23] MEDS: Docusate 250mg cap ORAL SCH (08:47)
[2018-11-23] MEDS: Digoxin 0.125mg tab ORAL SCH (08:48)
[2018-11-23] MEDS: Heparin 5000 units/ml inj SUBQ SCH ×2 (08:50→20:28)
--- NOTE | 2018-11-23 08:52 | General Progress Note ---
Assessment/Plan Problem List: (1) UTI (urinary tract infection) ICD Codes: N39.0 - Urinary tract infection, site not specified SNOMED: 59616410 (2) Behavioral disorder SNOMED: 147220615, 353819652 (3) Agitation ICD Codes: R45.1 - Restlessness and agitation SNOMED: 386781352, 916326789 (4) Acute encephalopathy ICD Codes: G93.40 - Encephalopathy, unspecified SNOMED: 87949793, 374471977 (5) HTN (hypertension) ICD Codes: I10 - Essential (primary) hypertension SNOMED: 22434896 (6) COPD (chronic obstructive pulmonary disease) ICD Codes: J44.9 - Chronic obstructive pulmonary disease, unspecified SNOMED: 54693166 (7) Anemia ICD Codes: D64.9 - Anemia, unspecified SNOMED: 292642164 Status: stable, progressing Assessment/Plan: pt diet cbc bmp am abx dc to snf Subjective Constitutional: Reports: weakness Allergies: Uncoded Allergies: Sheep wool (Allergy, Unknown, 11/12/18) All Systems: reviewed and negative except above Subjective sleepy calm Objective Last 24 Hour Vital Signs Date Time Temp Pulse Resp B/P (MAP) Pulse Ox O2 Delivery O2 Flow Rate FiO2 11/23/18 08:48 63 11/23/18 08:00 98.9 63 19 122/68 (86) 95 11/23/18 04:00 98.4 67 18 120/76 (91) 98 11/23/18 00:00 97.8 67 20 114/72 (86) 99 11/22/18 21:55 97.7 11/22/18 21:00 Room Air 11/22/18 20:00 97.7 66 18 110/62 (78) 97 11/22/18 16:00 97.7 59 18 113/54 (73) 93 11/22/18 12:00 97.7 63 18 116/56 (76) 94 Intake and Output 11/22/18 11/23/18 19:00 07:00 Intake Total 800 ml 360 ml Output Total 600 ml Balance 800 ml -240 ml Intake Oral 360 ml Other 800 ml Output Urine Total 600 ml Laboratory Tests 11/23/18 05:50: White Blood Count 6.0, Red Blood Count 4.17L, Hemoglobin 12.6L, Hematocrit 38.2L , Mean Corpuscular Volume 92, Mean Corpuscular Hemoglobin 30.1, Mean Corpuscular Hemoglobin Concent 32.9, Red Cell Distribution Width 11.8, Platelet Count 145L, Mean Platelet Volume 7.0, Neutrophils (%) (Auto) 63.2, Lymphocytes ( %) (Auto) 22.9, Monocytes (%) (Auto) 7.5, Eosinophils (%) (Auto) 5.6H, Basophils (%) (Auto) 0.9, Sodium Level 144, Potassium Level 4.1, Chloride Level 111H, Carbon Dioxide Level 25, Anion Gap 8, Blood Urea Nitrogen 19H, Creatinine 0.9, Estimat Glomerular Filtration Rate , Glucose Level 90, Calcium Level 8.8 Height (Feet): 5 Height (Inches): 8.00 Weight (Pounds): 231 General Appearance: lethargic EENT: normal ENT inspection Neck: normal alignment Cardiovascular: normal peripheral pulses, normal rate, regular rhythm Respiratory/Chest: chest wall non-tender, lungs clear, normal breath sounds Abdomen: normal bowel sounds, non tender, soft Extremities: normal inspection Edema: no edema noted Arm (L), no edema noted Arm (R), no edema noted Leg (L), no edema noted Leg (R), no edema noted Pedal (L), no edema noted Pedal (R), no edema noted Generalized Neurologic: responsive, motor weakness Skin: normal pigmentation, warm/dry Mickey Pinto DO Nov 23, 2018 08:52
--- NOTE | 2018-11-23 09:16 | Hematology/Onc Progress Note ---
Assessment/Plan Assessment/Plan ASSESSMENT AND PLAN: # Prostate cancer, likely advanced, currently off any kind of treatment and has a outside urologist that he follows up with. --> likely acute elevation is due to uti, currently high and can oscillate even to 100s --> obtain skeletal survey rule out distant mets--> SHOWS NOT METS --> Pyuria- no UTI symptoms --> PSA trend 20-->65-->126->149 --> casodex started, consider lupron (as per uro) --> discussed with Dr. Segal --> likely will benefit from MRI but has pacemaker+++ --> if better performance status, may need zytiga or xtandi # Thrombocytopenia in the 100-150s range likely due to mets --> consider hepatitis and hiv --> negative --> smear has been reviewed, completed --> appreciate uro and id recs in reg to abx --> Us of abd last time showed masses in spleen--> new us abd ordered --> plt trend 127-->120-->127k-->135k # Dm2 --> a1c goal <8 --> accuchecks qac and qhs --> endo eval prn # Psych hx --> may need transfer # HTN # COPD # AFib # GERD # SNF resident --> awaiting placement # Dvt ppx heparin sq The timing of this note does not necessarily reflect the time of the patient was seen. Greatly appreciate consultation! Subjective Constitutional: Denies: no symptoms, chills, fever, malaise, weakness, other HEENT: Denies: no symptoms, eye pain, blurred vision, tearing, double vision, ear pain, ear discharge, nose pain, nose congestion, throat pain, throat swelling, mouth pain, mouth swelling, other Cardiovascular: Denies: no symptoms, chest pain, edema, irregular heart rate, lightheadedness, palpitations, syncope, other Respiratory: Denies: no symptoms, cough, shortness of breath, SOB with excertion, SOB at rest, sputum, wheezing, other Gastrointestinal/Abdominal: Denies: no symptoms, abdomen distended, abdominal pain, black stools, tarry stools, blood in stool, constipated, diarrhea, difficulty swallowing, nausea, poor appetite, poor fluid intake, rectal bleeding , vomiting, other Genitourinary: Denies: no symptoms, burning, discharge, frequency, flank pain, hematuria, incontinence, pain, urgency, other Neurologic/Psychiatric: Denies: no symptoms, anxiety, depressed, emotional problems, headache, numbness, paresthesia, pre-existing deficit, seizure, tingling, tremors, weakness, other Allergies: Uncoded Allergies: Sheep wool (Allergy, Unknown, 11/12/18) Subjective 11/20: dc planning in progress, seen by uro in the am as well, psa worsening 11/22: labs have been reviewed, no night sweats, no bleeding, labs reviewed 11/23: no bleeding, no chills, harry rn, awaiting placement Objective Objective Current Medications Medications (Trade) Dose Ordered Sig/Maliha Route PRN Reason Start Time Stop Time Status Last Admin Dose Admin Acetaminophen (Tylenol) 650 mg Q4H PRN ORAL fever 11/11/18 21:00 12/11/18 20:59 11/21/18 09:01 Aripiprazole (Abilify) 5 mg DAILY ORAL 11/13/18 09:00 12/13/18 08:59 11/23/18 08:46 Aspirin (ASA) 81 mg DAILY ORAL 11/13/18 09:00 12/13/18 08:59 11/23/18 08:47 Atorvastatin Calcium (Lipitor) 40 mg BEDTIME ORAL 11/12/18 21:00 12/12/18 20:59 11/22/18 20:22 Bicalutamide (Casodex) 50 mg DAILY ORAL 11/22/18 11:15 11/27/18 11:14 11/23/18 08:47 Calcium/Vitamin D (OsCal D) 2 tab DAILY ORAL 11/12/18 13:00 12/12/18 12:59 11/23/18 08:46 Dextrose (Dextrose 50%) 25 ml Q30M PRN IV Hypoglycemia 11/11/18 21:00 12/11/18 20:59 Dextrose (Dextrose 50%) 50 ml Q30M PRN IV Hypoglycemia 11/11/18 21:00 12/11/18 20:59 Digoxin (Lanoxin) 0.125 mg DAILY ORAL 11/12/18 09:00 12/12/18 08:59 11/23/18 08:48 Docusate Sodium (Colace) 250 mg DAILY ORAL 11/13/18 18:00 12/13/18 17:59 11/23/18 08:47 Escitalopram Oxalate (Lexapro) 10 mg DAILY ORAL 11/13/18 09:00 12/13/18 08:59 11/23/18 08:47 Finasteride (Proscar) 5 mg DAILY ORAL 11/12/18 09:00 12/12/18 08:59 11/23/18 08:46 Gabapentin (Neurontin) 300 mg BID ORAL 11/22/18 09:00 12/22/18 20:59 11/23/18 08:47 Heparin Sodium (Porcine) (Heparin 5000 units/ml) 5,000 units EVERY 12 HOURS SUBQ 11/22/18 11:00 12/22/18 10:59 11/23/18 08:50 Insulin Aspart (NovoLOG) BEFORE MEALS AND HS SUBQ 11/11/18 21:00 12/11/18 20:59 11/22/18 20:31 Lorazepam (Ativan 2mg/ml 1ml) 0.5 mg Q4H PRN IV For Anxiety 11/18/18 21:45 11/25/18 21:44 Lorazepam (Ativan) 1 mg Q6H PRN ORAL For Anxiety 11/18/18 21:45 11/25/18 21:44 Morphine Sulfate (Morphine Sulfate) 1 mg Q4H PRN IVP For Pain 11/18/18 21:45 11/25/18 21:44 11/22/18 21:25 Ondansetron HCl (Zofran) 4 mg Q6H PRN IVP Nausea & Vomiting 11/11/18 21:00 12/11/18 20:59 Pantoprazole (Protonix) 40 mg DAILY ORAL 11/14/18 21:00 12/14/18 20:59 11/23/18 08:46 Polyethylene Glycol (Miralax) 17 gm HSPRN PRN ORAL Constipation 11/11/18 21:00 12/11/18 20:59 Sucralfate (Carafate) 1 gm TID ORAL 11/14/18 20:00 12/14/18 19:59 11/23/18 08:47 Tamsulosin HCl (Flomax) 0.4 mg BEDTIME ORAL 11/11/18 21:00 12/11/18 20:59 11/22/18 20:22 Topiramate (Topamax) 100 mg DAILY ORAL 11/12/18 09:00 12/12/18 08:59 11/23/18 08:46 Zolpidem Tartrate (Ambien) 5 mg HSPRN PRN ORAL Insomnia 11/18/18 21:45 11/25/18 21:44 11/22/18 20:32 Last 24 Hour Vital Signs Date Time Temp Pulse Resp B/P (MAP) Pulse Ox O2 Delivery O2 Flow Rate FiO2 11/23/18 08:48 63 11/23/18 08:00 98.9 63 19 122/68 (86) 95 11/23/18 04:00 98.4 67 18 120/76 (91) 98 11/23/18 00:00 97.8 67 20 114/72 (86) 99 11/22/18 21:55 97.7 11/22/18 21:00 Room Air 11/22/18 20:00 97.7 66 18 110/62 (78) 97 11/22/18 16:00 97.7 59 18 113/54 (73) 93 11/22/18 12:00 97.7 63 18 116/56 (76) 94 11/22/18 08:39 64 11/22/18 08:19 Room Air 11/22/18 08:00 98.2 62 16 132/67 (88) 94 11/22/18 04:00 97.7 68 18 109/70 (83) 96 11/22/18 00:00 98.1 82 20 105/66 (79) 97 11/21/18 21:00 Room Air 11/21/18 20:00 98.2 64 18 114/69 (84) 98 11/21/18 15:57 98.2 66 17 92/50 (64) 95 11/21/18 12:00 97.9 62 18 103/62 (76) 95 11/21/18 10:08 120/63 (82) 11/21/18 09:31 98.1 Intake and Output 11/22/18 11/23/18 19:00 07:00 Intake Total 800 ml 360 ml Output Total 600 ml Balance 800 ml -240 ml Intake Oral 360 ml Other 800 ml Output Urine Total 600 ml Labs Test 11/21/18 06:00 11/22/18 08:20 11/23/18 05:50 White Blood Count 5.8 K/UL (4.8-10.8) 6.3 K/UL (4.8-10.8) 6.0 K/UL (4.8-10.8) Red Blood Count 4.16 M/UL (4.70-6.10) 4.05 M/UL (4.70-6.10) 4.17 M/UL (4.70-6.10) Hemoglobin 12.7 G/DL (14.2-18.0) 12.4 G/DL (14.2-18.0) 12.6 G/DL (14.2-18.0) Hematocrit 38.4 % (42.0-52.0) 37.3 % (42.0-52.0) 38.2 % (42.0-52.0) Mean Corpuscular Volume 92 FL (80-99) 92 FL (80-99) 92 FL (80-99) Mean Corpuscular Hemoglobin 30.6 PG (27.0-31.0) 30.7 PG (27.0-31.0) 30.1 PG (27.0-31.0) Mean Corpuscular Hemoglobin Concent 33.1 G/DL (32.0-36.0) 33.4 G/DL (32.0-36.0) 32.9 G/DL (32.0-36.0) Red Cell Distribution Width 12.3 % (11.6-14.8) 11.9 % (11.6-14.8) 11.8 % (11.6-14.8) Platelet Count 132 K/UL (150-450) 135 K/UL (150-450) 145 K/UL (150-450) Mean Platelet Volume 6.7 FL (6.5-10.1) 7.0 FL (6.5-10.1) 7.0 FL (6.5-10.1) Neutrophils (%) (Auto) 63.0 % (45.0-75.0) 68.2 % (45.0-75.0) 63.2 % (45.0-75.0) Lymphocytes (%) (Auto) 21.9 % (20.0-45.0) 20.3 % (20.0-45.0) 22.9 % (20.0-45.0) Monocytes (%) (Auto) 8.4 % (1.0-10.0) 6.0 % (1.0-10.0) 7.5 % (1.0-10.0) Eosinophils (%) (Auto) 6.2 % (0.0-3.0) 5.1 % (0.0-3.0) 5.6 % (0.0-3.0) Basophils (%) (Auto) 0.5 % (0.0-2.0) 0.6 % (0.0-2.0) 0.9 % (0.0-2.0) Sodium Level 146 MMOL/L (136-145) 142 MMOL/L (136-145) 144 MMOL/L (136-145) Potassium Level 4.0 MMOL/L (3.5-5.1) 3.7 MMOL/L (3.5-5.1) 4.1 MMOL/L (3.5-5.1) Chloride Level 112 MMOL/L (98-107) 110 MMOL/L (98-107) 111 MMOL/L (98-107) Carbon Dioxide Level 26 MMOL/L (21-32) 26 MMOL/L (21-32) 25 MMOL/L (21-32) Anion Gap 8 mmol/L (5-15) 6 mmol/L (5-15) 8 mmol/L (5-15) Blood Urea Nitrogen 23 mg/dL (7-18) 21 mg/dL (7-18) 19 mg/dL (7-18) Creatinine 1.0 MG/DL (0.55-1.30) 0.9 MG/DL (0.55-1.30) 0.9 MG/DL (0.55-1.30) Estimat Glomerular Filtration Rate mL/min (>60) mL/min (>60) mL/min (>60) Glucose Level 91 MG/DL (74-106) 105 MG/DL (74-106) 90 MG/DL (74-106) Calcium Level 8.8 MG/DL (8.5-10.1) 8.7 MG/DL (8.5-10.1) 8.8 MG/DL (8.5-10.1) Height (Feet): 5 Height (Inches): 8.00 Weight (Pounds): 231 Antony Thurston MD Nov 23, 2018 09:16
--- NOTE | 2018-11-23 11:23 | NUR ---
CASE MANAGEMENT: REVIEW 11/23/2018 SI: UTI; AGITATION. ACUTE ENCEPHALOPATHY 98.9 63 19 122/68 95%RA RBC 4.17; H/H 12.6/ 38.2; PLT 145; CL 111; BUN 19 IS:HEPARIN SQ Q12HR NEURONTIN PO BID AMBIEN PO HS/PRN IV MORPHINE SULFATE Q4/PRN PROTONIX PO QD LIPITOR PO QHS CARAFATE PO TID DIGOXIN PO QD PROSCAR PO QD TOPAMAX PO QD ASA PO QD ABILIFY PO QD LEXAPRO PO QD INSULIN ASPART SUBQ AC/HS CASODEX PO QD OSCAL D PO QD AMBIEN PO HS/PRN : TO MED/SURG 4 [facility] DCP: NEEDS PLACEMENT
[2018-11-23 12:00] VITALS: BP 112/58
--- NOTE | 2018-11-23 12:10 | NUR ---
NURSE NOTES: patient complained regarding his diet being mechanical soft, and he doesn't have problem to swallow. No notes from ST, obtained order to change to regular consistency. Patient left by own bed to the radiology department, with transporter.
--- NOTE | 2018-11-23 13:00 | NUR ---
NURSE NOTES: patient is back from the radiology department, done accuchek = 101, no coverage on sliding scale.
--- NOTE | 2018-11-23 14:00 | NUR ---
DISCHARGED PLANNED: DISCUSSED DISCHARGE AT BEDSIDE WITH PATIENT PATIENT IS DISCHARGING TO [facility] [address] T: [phone] FOR NURSE TO NURSE REPORT ROOM#15 [facility] HAS BEEN CALLED [address] TIME
[2018-11-23 16:00] VITALS: BP 114/89
--- NOTE | 2018-11-23 17:18 | Diagnostic Imaging Report ---
Indications: Left femur pain Technique: Two views of the left femur Comparison: None Findings: No acute fractures. No dislocations. The joint spaces are preserved. No radiopaque foreign body Impression: No acute process
--- NOTE | 2018-11-23 17:22 | Diagnostic Imaging Report ---
Indication: Reason For Exam: PAIN Technique: 3 views of the lumbar spine Comparison: Images from bone survey dated 09/18/2018 Findings: There is mild lumbar scoliotic deformity. There is multilevel disc degeneration of the lumbar spine. Vertebral body heights are preserved. Bones are osteoporotic. Pacemaker wires are seen in the heart. Gallstones are incidentally noted in the right upper quadrant Findings are unchanged Impression: Degenerative changes, as described. No acute bony trauma
--- NOTE | 2018-11-23 18:54 | NUR ---
NURSE NOTES: pt aware of going to [facility], dr Pinto aware too.
--- NOTE | 2018-11-23 19:15 | Progress Note ---
DATE: 11/23/2018 SUBJECTIVE: The patient is a 78-year-old male with agitation and acute encephalopathy. He is still very confused and disorganized. He has got a lot of mood lability. He has got agitation and irritability. He has got no logical plan for his own self-care. That is why, he does require inpatient treatment. He is still very mood labile, confused, and disorganized. MENTAL STATUS EXAMINATION: This is a 78-year-old male patient. Appearance is disheveled. Attitude, irritable and agitated. Affect, guarded and restricted. Intellect poor. Mood, depressed and anxious. Motor activity, psychomotor agitation. Attention span is poor. Orientation x2. Speech is nonsensical. Thought process, disorganized and illogical. Insight and judgment is poor. DIAGNOSIS: Schizoaffective, bipolar type. PLAN: Treat him with a medication regimen of Abilify 5 mg daily, Topamax 100 mg at bedtime, Lexapro 10 mg daily, and Ativan 1 mg every 6 hours p.r.n. anxiety and agitation. Chart reviewed. Discussed with staff. Seen and assessed at bedside. A 20 minutes of cognitive behavioral therapy provided to help him identify his automatic negative thoughts and help him convert those negative thoughts to more positive thoughts to reduce depression, anxiety, and . Molina Tapia M.D. DR: BECKY JOB#: [id number] CC:
--- NOTE | 2018-11-23 19:36 | NUR ---
HAND-OFF: Report given to AUNG Duran.
--- NOTE | 2018-11-23 20:04 | NUR ---
NURSE NOTES: Received patient in bed, ambulance arrived to transport patient to [facility], report is given to correctional facility psychiatrist and ambulance staff. Patient is stable at time of discharge, no acute distress noted.
--- NOTE | 2018-11-24 07:34 | Discharge Summary ---
Discharge Summary Discharge Summary _ DATE OF ADMISSION: 11/11/2018 DATE OF DISCHARGE: 11/23/2018 DISCHARGED BY: Dr. Pinto REASON FOR ADMISSION: 78 years old male with past medical history of COPD, diabetes mellitus, hypertension, atrial fibrillation, advanced prostate cancer, psychiatric history, presented to emergency room for evaluation. Apparently patient was agitated and aggressive with nursing facility staff. Patient appeared to be acutely confused. Upon arrival patient was calm and admitted to getting into an argument with his nurse. He denied hearing voices, suicidal or homicidal ideations He denied fever or chills. Upon evaluation vital signs were stable. Laboratory work-up revealed no leukocytosis, stable hemoglobin and hematocrit. Platelet count 128. Stable electrolytes. BUN 24, creatinine 1.1. Glucose 109. Stable LFT. Serum alcohol, salicylate, and Tylenol levels were all negative. Urinalysis revealed no evidence of urinary tract infection. Urine toxicology screen was negative. Patient admitted for further management for acute encephalopathy, behavioral disorder. CONSULTANTS: hospitalist/foot piece assembler Dr. Jimenez scientist electronics/oncologist Dr. Thurston urology Dr. Segal psychiatrist Dr. Tapia [facility] COURSE: Patient admitted to medical surgical floor. Symptomatic treatment provided. Psychiatry seen and evaluated patient and diagnosed patient with schizoaffective disorder bipolar type. Psychiatric medication regimen was optimized. Cognitive behavioral therapy provided. Patient's behavior improved. Supplemental oxygen and nebulizing treatment with bronchodilator were on board as needed. Pulse oximetry was stable on room air. No evidence of acute COPD exacerbation. DVT prophylaxis provided. Residential Substance Abuse Counselor .oncologist followed. Patient with history of prostate cancer, probably advanced. At this time he was not on any treatment . Patient had an outside urologist who he follow-up with. Bone scan revealed bilateral knee and right sternomanubrial increased activity , probably degenerative changes, no metastasis. Last PSA was 149. Patient had pyuria but urinalysis was negative for UTI. Patient started on Casodex . Lupron will be started later/not available at this facility. Flomax and Proscar continued. Renal function remained stable. Platelet count was closely monitored, trending up, 145 on discharge. Pain management was addressed . Supportive care provided . GI prophylaxis provided. Bowel regimen instituted . Blood sugar was managed with sliding scale of insulin. Patient clinically stabilized and was stable for transfer to [facility] for continuation of care. FINAL DIAGNOSES: Acute encephalopathy Behavioral disorder Schizoaffective bipolar type Prostate cancer, likely advanced with elevated PSA COPD Diabetes mellitus Hypertension BPH Nephrolithiasis Probable neurogenic bladder Thrombocytopenia DISCHARGE MEDICATIONS: See Medication Reconciliation list. DISCHARGE INSTRUCTIONS: Patient was discharged to the [facility] facility. Follow up with medical doctor at the facility. I have been assigned to dictate discharge summary for this account. I was not involved in the patient's management. Fartun Mccauley NP Nov 24, 2018 07:34
--- NOTE | 2018-12-03 00:51 | Coder Physician Query ---
PLEASE COMPLETE DOCUMENT BEFORE SIGNING Dear Dr. MARILEE BELL Date: 12/02/18 Automatic Blocker/CDS Name: MAZIN BREAUX Exercise your independent professional judgment when responding to query. Question asked do not imply a particular answer is desired/expected. HOSPITAL COURSE: Psychiatry seen and evaluated patient and diagnosed patient with schizoaffective disorder bipolar type. Psychiatric medication regimen was optimized. Cognitive behavioral therapy provided. Patient's behavior improved. DIAGNOSES: Acute encephalopathy UTI Behavioral disorder Schizoaffective bipolar type Prostate cancer, likely advanced with elevated PSA COPD,Diabetes mellitus,Hypertension BPH,Nephrolithiasis,Probable neurogenic bladder Thrombocytopenia Clinical Findings Show:LABORATORY AND DIAGNOSTIC DATA: Labs at this time show H and H are 12 and 36. Otherwise, platelets 110. BMP shows chloride 112. Calcium 8.3. Albumin 2.9. Urinalysis showed 1+ leukocyte esterase. Please indicate the nature and chronicity of the ENCEPHALOPATHY below: [] Metabolic Encephalopathy [] Toxic Encephalopathy [] Toxic - Metabolic Encephalopathy [] Progressive Encephalopathy [] Encephalopathy, Other [] Other: [] Not Applicable MARILEE BELL D.O. DATE & TIME [facility]
--- NOTE | 2018-12-04 07:50 | Coder Physician Query ---
Dear Dr. MARILEE BELL Date: 12/04/18 Payroll Tax Analyst/CDS Name: NAMITA, MAZIN Exercise your independent professional judgment when responding to query. Question asked do not imply a particular answer is desired/expected. HOSPITAL COURSE: Psychiatry seen and evaluated patient and diagnosed patient with schizoaffective disorder bipolar type. Psychiatric medication regimen was optimized. Cognitive behavioral therapy provided. Patient's behavior improved. DIAGNOSES: Acute encephalopathy UTI Behavioral disorder Schizoaffective bipolar type Prostate cancer, likely advanced with elevated PSA COPD,Diabetes mellitus,Hypertension BPH,Nephrolithiasis,Probable neurogenic bladder Thrombocytopenia Clinical Findings Show:LABORATORY AND DIAGNOSTIC DATA: Labs at this time show H and H are 12 and 36. Otherwise, platelets 110. BMP shows chloride 112. Calcium 8.3. Albumin 2.9. Urinalysis showed 1+ leukocyte esterase. Please indicate the nature of the ENCEPHALOPATHY below: [] Metabolic Encephalopathy [] Toxic Encephalopathy [] Toxic - Metabolic Encephalopathy [] Progressive Encephalopathy [] Encephalopathy, Other [] Other: [] Not Applicable Guru SOLOMON
== END 2018-11-23 20:30 | DRG 52 ==
LOC: EMR 17:25 → 4E 19:35 → EDBEDREQ 20:25 → 4E 21:27
DX: G93.41 Metabolic encephalopathy (principal); F25.0 Schizoaffective disorder, bipolar type; J44.9 Chronic obstructive pulmonary disease, unspecified; N20.0 Calculus of kidney; C61 Malignant neoplasm of prostate; E11.9 Type 2 diabetes mellitus without complications; I10 Essential (primary) hypertension; N31.9 Neuromuscular dysfunction of bladder, unspecified; D69.6 Thrombocytopenia, unspecified; K21.9 Gastro-esophageal reflux disease without esophagitis; E78.5 Hyperlipidemia, unspecified; Z95.0 Presence of cardiac pacemaker; Z79.4 Long term (current) use of insulin; E46 Unspecified protein-calorie malnutrition; G47.00 Insomnia, unspecified; I48.91 Unspecified atrial fibrillation; Z79.82 Long term (current) use of aspirin; R56.9 Unspecified convulsions; N40.1 Benign prostatic hyperplasia with lower urinary tract symptoms; N28.1 Cyst of kidney, acquired; F31.81 Bipolar II disorder; R45.1 Restlessness and agitation; D64.9 Anemia, unspecified
CPT/HCPCS: 36415; 72020; 78306; 80048; 80053; 80061; 80307; 80329; 81003; 82962; 84153; 85025; 87081; 96360; 99285; J1815